=== PATIENT | male | born 1965 | race African-American/Black ===

== ENCOUNTER 2017-06-15 13:47 | Emergency (ER) | payer MEDICAID ==
[~2017-06-15] VITALS: Ht 182.9 cm; Wt 100.0 kg
[2017-06-15] MEDS ORDERED: OXYcodone/APAP 10/325MG TABLET ONE (14:29)
[2017-06-15] MEDS ORDERED: OXYcodone/APAP 10/325MG TABLET PO ONE (14:30)
[2017-06-15 14:47] LABS: BASOPHILS # (AUTO) 0.02 x10^3/uL (0-0.1); BASOPHILS % (AUTO) 0 % (0-1); EOSINOPHILS # (AUTO) 0.15 x10^3/uL (0-0.4); EOSINOPHILS % (AUTO) 1 % (1-7); LYMPHOCYTES # (AUTO) 1.28 x10^3/uL (1-3.4); LYMPHOCYTES % (AUTO) 13 % (22-44); MD NO; MEAN CORPUSCULAR VOLUME 84.9 fL (81-97); MEAN PLATELET VOLUME 8.5 fL (7.4-10.4); MONOCYTES # (AUTO) 0.81 x10^3/uL (0.2-0.8); MONOCYTES % (AUTO) 8 % (2-9); NEUTROPHILS # (AUTO) 7.98 x10^3/uL (1.8-6.8); NEUTROPHILS % (AUTO) 78 % (42-75); PLATELET COUNT 218 x10^3/uL (130-400); RED BLOOD COUNT 4.62 x10^6/uL (4.38-5.82)
[2017-06-15 14:59] LABS: ALANINE AMINOTRANSFERASE 16 U/L (12-78); ALBUMIN 2.7 g/dL (3.4-5.0); ANION GAP 10 mmol/L (5-15); CALCIUM 7.1 mg/dL (8.5-10.1); CHLORIDE 106 mmol/L (98-107); CREATININE 7.37 mg/dL (0.7-1.3)
[2017-06-15 15:02] LABS: ALKALINE PHOSPHATASE 80 U/L (45-117); BILIRUBIN,TOTAL 0.6 mg/dL (0.2-1.0); TOTAL PROTEIN 6.8 g/dL (6.4-8.2)
[2017-06-15 15:51] LABS: MICROSCOPIC MANUAL
[2017-06-15 15:53] LABS: CULTURE INDICATED? NO
[2017-06-15 18:02] VITALS: BP 149/86
== END 2017-06-15 18:12 | disposition home or self-care (01) ==
LOC: ED 18:00
DX: S10.93XA Contusion of unspecified part of neck, initial encounter (principal); S30.0XXA Contusion of lower back and pelvis, initial encounter; S20.229A Contusion of unspecified back wall of thorax, initial encounter; Z99.2 Dependence on renal dialysis; V89.2XXA Person injured in unspecified motor-vehicle accident, traffic, initial encounter; Y93.89 Activity, other specified; Y99.8 Other external cause status; Y92.410 Unspecified street and highway as the place of occurrence of the external cause
CPT/HCPCS: 36415; 71045; 72072; 72110; 72125; 80053; 83735; 84100; 85025; 93005; 99285

== ENCOUNTER 2017-06-15 20:53 | Emergency (ER) | payer MEDICAID ==
[~2017-06-15] VITALS: Ht 182.9 cm; Wt 92.2 kg
[2017-06-15] MEDS ORDERED: ALBUTEROL/IPRATROPIUM 2.5MG/0.5MG, 3 ML ONE (21:24)
[2017-06-15] MEDS ORDERED: ONDANSETRON ODT 4 MG ONE (21:26)
[2017-06-15] MEDS ORDERED: ACETAMINOPHEN 500 MG TABLET ONE (21:27)
[2017-06-15] MEDS ORDERED: MAALOX/HYOSCYAMINE/LIDOCAINE 45 ML BTL ONE (21:27)
[2017-06-15] MEDS ORDERED: ALBUTEROL/IPRATROPIUM 2.5MG/0.5MG, 3 ML NPPB ONE (21:30)
[2017-06-15] MEDS ORDERED: ONDANSETRON ODT 4 MG PO ONE (21:30)
[2017-06-15] MEDS ORDERED: MAALOX/HYOSCYAMINE/LIDOCAINE 45 ML BTL PO ONE (21:30)
[2017-06-15] MEDS ORDERED: ACETAMINOPHEN 325 MG TABLET PO ONE (21:30)
[2017-06-15 21:50] LABS: TROPONIN I 0.024 ng/mL (0.000-0.045)
[2017-06-15 22:34] VITALS: BP 143/91
== END 2017-06-15 22:38 | disposition home or self-care (01) ==
LOC: ED 21:18
DX: R07.81 Pleurodynia (principal); I10 Essential (primary) hypertension; F17.200 Nicotine dependence, unspecified, uncomplicated; R61 Generalized hyperhidrosis; R11.2 Nausea with vomiting, unspecified
CPT/HCPCS: 36415; 84484; 93005; 94640; 99285; Q0162; 99283; J7620

== ENCOUNTER 2017-07-25 10:12 | Emergency (ER) | payer MEDICAID ==
[~2017-07-25] VITALS: Ht 182.9 cm; Wt 125.0 kg
[~2017-07-25 10:12] MED LIST: ALBU18HF INH; AMLO5TAB2 PO; ASPI-621 PO; ATOR20TA9 PO; BENZ-17 PO; CALC0.25 PO; CLON0.1T PO; ERGO500017 PO; HYDR-3237 PO; HYDR-3343 PO; SERT50TA5 PO
[2017-07-25 10:33] LABS: BASOPHILS # (AUTO) 0.04 x10^3/uL (0-0.1); BASOPHILS % (AUTO) 1 % (0-1); EOSINOPHILS # (AUTO) 0.16 x10^3/uL (0-0.4); EOSINOPHILS % (AUTO) 2 % (1-7); LYMPHOCYTES % (AUTO) 16 % (22-44); MD NO; MEAN CORPUSCULAR HGB CONC 33.1 g/dL (33.2-36.2); MEAN CORPUSCULAR VOLUME 84.7 fL (81-97); MEAN PLATELET VOLUME 8.4 fL (7.4-10.4); MONOCYTES # (AUTO) 0.49 x10^3/uL (0.2-0.8); MONOCYTES % (AUTO) 7 % (2-9); NEUTROPHILS % (AUTO) 75 % (42-75); PLATELET COUNT 195 x10^3/uL (130-400); RED BLOOD COUNT 4.25 x10^6/uL (4.38-5.82); RED CELL DISTRIBUTION WIDTH 15.7 % (9.4-14.8)
[2017-07-25 10:45] LABS: ALANINE AMINOTRANSFERASE 25 U/L (12-78); ANION GAP 11 mmol/L (5-15); CALCIUM 7.8 mg/dL (8.5-10.1); CHLORIDE 113 mmol/L (98-107); CREATININE 8.97 mg/dL (0.7-1.3)
[2017-07-25 10:47] LABS: SALICYLATE LEVEL < 1.7 mg/dL (2.8-20.0)
[2017-07-25 10:48] LABS: ALKALINE PHOSPHATASE 93 U/L (45-117); BILIRUBIN,TOTAL 0.3 mg/dL (0.2-1.0); TOTAL PROTEIN 6.4 g/dL (6.4-8.2)
[2017-07-25 10:49] LABS: ACETAMINOPHEN < 2 mcg/mL (10-30)
[2017-07-25] MEDS ORDERED: AMLODIPINE 5 MG TABLET ONE ×2 (11:14→11:30)
[2017-07-25 11:16] VITALS: BP 159/102
[2017-07-25] MEDS ORDERED: AMLODIPINE 5 MG TABLET PO ONE (11:30)
== END 2017-07-25 12:07 | disposition home or self-care (01) ==
LOC: ED 11:03
DX: I12.0 Hypertensive chronic kidney disease with stage 5 chronic kidney disease or end stage renal disease (principal); N18.6 End stage renal disease; Z99.2 Dependence on renal dialysis; E78.5 Hyperlipidemia, unspecified; J45.909 Unspecified asthma, uncomplicated; F17.200 Nicotine dependence, unspecified, uncomplicated; Z79.899 Other long term (current) drug therapy
CPT/HCPCS: 36415; 80053; 80307; 80329; 83735; 84100; 85025; 99284; G0480

== ENCOUNTER 2017-12-10 16:50 | Inpatient (IN) | payer OTHER, MEDICAID ==
[~2017-12-10] VITALS: Ht 188 cm; Wt 85.2 kg
[~2017-12-10 16:50] MED LIST changes: -AMLO5TAB2 PO; +AMLO5TAB7 PO; +CALC667C PO; +FERR325T5 PO; +HYDR100T25 PO; +HYDR25SU3 PR; +SODI44SP NAS; +TORS20TA PO
[2017-12-10] MEDS ORDERED: MORPHINE SULFATE 4 MG/ML, 1ML ONE (17:11)
[2017-12-10] MEDS ORDERED: ONDANSETRON 2MG/ML, 2ML ONE (17:11)
[2017-12-10] MEDS ORDERED: ONDANSETRON 2MG/ML, 2ML IVPush ONE (17:30)
[2017-12-10] MEDS ORDERED: SODIUM CHLORIDE 0.9% 1,000ML IVBOLUS ONE (17:30)
[2017-12-10] MEDS ORDERED: MORPHINE SULFATE 4 MG/ML, 1ML IVPush PRN (17:30)
[2017-12-10] MEDS ORDERED: SODIUM CHLORIDE FLUSH 10ML SYR IVF ONE (17:30)
[2017-12-10 17:49] LABS: ALANINE AMINOTRANSFERASE 136 U/L (12-78); ALBUMIN 2.8 g/dL (3.4-5.0); ANION GAP 17 mmol/L (5-15); CHLORIDE 109 mmol/L (98-107)
[2017-12-10 17:51] LABS: ALKALINE PHOSPHATASE 230 U/L (45-117); BILIRUBIN,TOTAL 0.4 mg/dL (0.2-1.0); TOTAL PROTEIN 6.6 g/dL (6.4-8.2)
[2017-12-10 18:00] LABS: MD YES; MEAN CORPUSCULAR HEMOGLOBIN 29.2 pg (27.5-34.5); MEAN CORPUSCULAR HGB CONC 33.2 g/dL (33.2-36.2); MEAN PLATELET VOLUME 8.8 fL (7.4-10.4); PLATELET COUNT 195 x10^3/uL (130-400); RED BLOOD COUNT 3.17 x10^6/uL (4.38-5.82); RED CELL DISTRIBUTION WIDTH 15.9 % (9.4-14.8)
[2017-12-10 18:03] LABS: LYMPH#(MANUAL) 0.81 x10^3/uL (1-3.4); LYMPHS% (MANUAL) 13 % (22-44); MONOS#(MANUAL) 0.31 x10^3/uL (0.3-2.7); MONOS% (MANUAL) 5 % (2-9); SEG#(MANUAL) 5.08 x10^3/uL (1.8-6.8); SEGS% (MANUAL) 82 % (42-75)
[2017-12-10 18:04] LABS: ANISOCYTOSIS 1+; OVALOCYTES 1+; TEAR DROPS 1+
[2017-12-10 18:05] LABS: <PLATELET ESTIMATE> ADEQUATE; <PLT MORPHOLOGY> NORMAL PLT MORPH
[2017-12-10] MEDS ORDERED: SODIUM BICARB 8.4%, 50ML SYRINGE ONE (18:22)
[2017-12-10] MEDS ORDERED: CALCIUM CHLORIDE 10%, 10ML SYR ONE (18:22)
[2017-12-10] MEDS ORDERED: CALCIUM CHLORIDE 10%, 10ML SYR IVPush ONE (18:30)
[2017-12-10] MEDS ORDERED: SODIUM BICARB 8.4%, 50ML SYRINGE IVPush ONE (18:30)
[2017-12-10] MEDS ORDERED: LORazepam 2 MG/ML, 1ML ONE (19:21)
[2017-12-10] MEDS ORDERED: LORazepam 2 MG/ML, 1ML IVPush ONE (19:30)
[2017-12-10] MEDS ORDERED: ACETAMINOPHEN 325 MG TABLET PO PRN (20:00)
[2017-12-10] MEDS ORDERED: hydrALAzine 20 MG/ML, 1ML IVPush PRN (20:00)
[2017-12-10] MEDS ORDERED: POLYETHYLENE GLYCOL 17 GM PACKET PO PRN (20:00)
[2017-12-10] MEDS ORDERED: ONDANSETRON 2MG/ML, 2ML IVPush PRN (20:00)
[2017-12-10] MEDS ORDERED: SODIUM CHLORIDE 0.9% 1,000 ML IV SCH (20:00)
[2017-12-10] MEDS ORDERED: SODIUM CHLORIDE NASAL SPRAY 45ML BOTTLE NAS PRN (20:00)
[2017-12-10] MEDS ORDERED: CALCITRIOL 0.25 MCG CAPSULE PO SCH (20:00)
[2017-12-10] MEDS ORDERED: ONDANSETRON ODT 4 MG PO PRN (20:00)
[2017-12-10] MEDS ORDERED: ALBUTEROL SULFATE 2.5 MG/3 ML NPPB PRN (20:00)
[2017-12-10 20:26] LABS: TROPONIN I 0.104 ng/mL (0.000-0.045)
[2017-12-10 21:00] VITALS: BP 127/91
[2017-12-10] MEDS ORDERED: ARANESP 60 MCG/ML **ESRD SQ SCH (21:00)
[2017-12-10] MEDS: ATORVASTATIN 40 MG TABLET PO SCH (23:53)
[2017-12-10] MEDS: AMLODIPINE 5 MG TABLET PO SCH (23:53)
[2017-12-10] MEDS: LORazepam 2 MG/ML, 1ML IVPush PRN (23:54)
[2017-12-11 02:32] LABS: ALANINE AMINOTRANSFERASE 187 U/L (12-78); ALBUMIN 2.6 g/dL (3.4-5.0); ANION GAP 13 mmol/L (5-15); CALCIUM 7.5 mg/dL (8.5-10.1); CHLORIDE 107 mmol/L (98-107); CREATININE 8.12 mg/dL (0.7-1.3)
[2017-12-11 02:34] LABS: ALKALINE PHOSPHATASE 218 U/L (45-117); BILIRUBIN,TOTAL 0.5 mg/dL (0.2-1.0); TOTAL PROTEIN 5.9 g/dL (6.4-8.2)
[2017-12-11 02:34] LABS: BASOPHILS # (AUTO) 0.01 x10^3/uL (0-0.1); BASOPHILS % (AUTO) 0 % (0-1); EOSINOPHILS # (AUTO) 0.07 x10^3/uL (0-0.4); EOSINOPHILS % (AUTO) 1 % (1-7); LYMPHOCYTES % (AUTO) 15 % (22-44); MD NO; MEAN CORPUSCULAR HEMOGLOBIN 29.3 pg (27.5-34.5); MEAN CORPUSCULAR HGB CONC 33.1 g/dL (33.2-36.2); MEAN CORPUSCULAR VOLUME 88.5 fL (81-97); MEAN PLATELET VOLUME 8.7 fL (7.4-10.4); MONOCYTES # (AUTO) 0.75 x10^3/uL (0.2-0.8); MONOCYTES % (AUTO) 10 % (2-9); NEUTROPHILS # (AUTO) 5.35 x10^3/uL (1.8-6.8); NEUTROPHILS % (AUTO) 73 % (42-75); PLATELET COUNT 149 x10^3/uL (130-400); RED BLOOD COUNT 3.02 x10^6/uL (4.38-5.82); RED CELL DISTRIBUTION WIDTH 15.9 % (9.4-14.8)
[2017-12-11 02:40] LABS: TROPONIN I 0.133 ng/mL (0.000-0.045)
[2017-12-11 02:41] VITALS: BP 128/82
[2017-12-11 04:00] LABS: MICROSCOPIC AUTO
[2017-12-11 04:02] LABS: CULTURE INDICATED? YES
[2017-12-11 04:10] LABS: AMPHETAMINE SCREEN, URINE Positive (Negative); BARBITURATE SCREEN, URINE Positive (Negative); BENZODIAZEPINE SCREEN, URINE Negative (Negative); CANNABINOID SCREEN, URINE Negative (Negative); COCAINE SCREEN, URINE Negative (Negative); METHADONE SCREEN, URINE Negative (Negative); OPIATE SCREEN, URINE Negative (Negative)
[2017-12-11] MEDS: ASPIRIN 81 MG TABLET EC PO SCH (06:26)
[2017-12-11] MEDS: LORazepam 2 MG/ML, 1ML IVPush PRN ×2 (06:27→19:21)
[2017-12-11 07:13] VITALS: BP 125/69
[2017-12-11] MEDS ORDERED: FERROUS SULFATE 325 MG TABLET PO SCH (08:00)
[2017-12-11 09:10] LABS: TROPONIN I 0.229 ng/mL (0.000-0.045)
[2017-12-11] MEDS: CALCIUM ACETATE 667 MG CAPSULE PO SCH ×3 (09:24→16:41)
[2017-12-11] MEDS: AMLODIPINE 5 MG TABLET PO SCH ×2 (09:24→23:07)
[2017-12-11] MEDS: FERROUS SULFATE 325 MG TABLET PO SCH ×3 (09:24→16:41)
[2017-12-11] MEDS: SERTRALINE 50MG TABLET PO SCH (09:24)
[2017-12-11 09:34] LABS: ABSOLUTE RETICS # 0.099 x10^6/uL (0.5-1.5); RED BLOOD COUNT 3.23 x10^6/uL (4.38-5.82); RETICULOCYTE COUNT % 3.06 % (0.5-1.5)
[2017-12-11 09:44] LABS: CALCIUM 7.5 mg/dL (8.5-10.1)
[2017-12-11 14:15] VITALS: BP 135/85
[2017-12-11 19:32] VITALS: BP 137/86
[2017-12-11] MEDS ORDERED: ARANESP 60 MCG/ML **ESRD SQ SCH (20:28)
[2017-12-11 23:04] VITALS: BP 124/75
[2017-12-11] MEDS: ATORVASTATIN 40 MG TABLET PO SCH (23:07)
[2017-12-12 01:05] VITALS: BP 104/67
[2017-12-12 05:13] LABS: MEAN CORPUSCULAR HEMOGLOBIN 28.6 pg (27.5-34.5); MEAN CORPUSCULAR HGB CONC 32.6 g/dL (33.2-36.2); MEAN CORPUSCULAR VOLUME 87.6 fL (81-97); MEAN PLATELET VOLUME 8.5 fL (7.4-10.4); PLATELET COUNT 157 x10^3/uL (130-400); RED BLOOD COUNT 3.44 x10^6/uL (4.38-5.82); RED CELL DISTRIBUTION WIDTH 15.8 % (9.4-14.8)
[2017-12-12 05:25] LABS: ALBUMIN 2.2 g/dL (3.4-5.0); ANION GAP 9 mmol/L (5-15); CALCIUM 7.3 mg/dL (8.5-10.1); CHLORIDE 104 mmol/L (98-107); CREATININE 5.95 mg/dL (0.7-1.3)
[2017-12-12 06:01] LABS: BASOPHILS # (AUTO) 0.04 x10^3/uL (0-0.1); BASOPHILS % (AUTO) 1 % (0-1); EOSINOPHILS # (AUTO) 0.17 x10^3/uL (0-0.4); EOSINOPHILS % (AUTO) 3 % (1-7); LYMPHOCYTES # (AUTO) 0.77 x10^3/uL (1-3.4); LYMPHOCYTES % (AUTO) 12 % (22-44); MD SCAN; MONOCYTES # (AUTO) 0.65 x10^3/uL (0.2-0.8); MONOCYTES % (AUTO) 10 % (2-9); NEUTROPHILS # (AUTO) 4.65 x10^3/uL (1.8-6.8); NEUTROPHILS % (AUTO) 74 % (42-75)
[2017-12-12] MEDS: ASPIRIN 81 MG TABLET EC PO SCH (06:45)
[2017-12-12 07:38] VITALS: BP 137/79
[2017-12-12] MEDS: FERROUS SULFATE 325 MG TABLET PO SCH ×3 (08:00→17:00)
[2017-12-12] MEDS: CALCIUM ACETATE 667 MG CAPSULE PO SCH ×3 (08:00→17:00)
[2017-12-12] MEDS ORDERED: CALCITRIOL 0.25 MCG CAPSULE PO SCH (09:00)
[2017-12-12] MEDS: AMLODIPINE 5 MG TABLET PO SCH (09:00)
[2017-12-12] MEDS: SERTRALINE 50MG TABLET PO SCH (09:00)
[2017-12-12] MEDS ORDERED: SERTRALINE 100MG TABLET ONE (09:53)
[2017-12-12 14:12] VITALS: BP 118/73
[2017-12-12] MEDS ORDERED: DARB60VI SQ (16:50)
== END 2017-12-12 18:34 | disposition home or self-care (01) | DRG 438 ==
LOC: ED 18:52 → EDIP 19:21 → 5SO 20:44
PROVIDERS: ADMIT Hospitalist; ATTEND Hospitalist
PROC: 5A1D70Z Performance of Urinary Filtration, Intermittent, Less than 6 Hours Per Day (ICD-10-PCS; principal; 2017-12-10)
PROC: 5A1D70Z Performance of Urinary Filtration, Intermittent, Less than 6 Hours Per Day (ICD-10-PCS; 2017-12-11)
PROC: 5A1D70Z Performance of Urinary Filtration, Intermittent, Less than 6 Hours Per Day (ICD-10-PCS; 2017-12-12)
DX: K85.90 Acute pancreatitis without necrosis or infection, unspecified (principal); N18.6 End stage renal disease; E43 Unspecified severe protein-calorie malnutrition; G93.49 Other encephalopathy; N25.81 Secondary hyperparathyroidism of renal origin; I13.11 Hypertensive heart and chronic kidney disease without heart failure, with stage 5 chronic kidney disease, or end stage renal disease; E87.2 Acidosis; E87.5 Hyperkalemia; D63.1 Anemia in chronic kidney disease; E78.5 Hyperlipidemia, unspecified; E83.51 Hypocalcemia; F15.10 Other stimulant abuse, uncomplicated; N25.0 Renal osteodystrophy; Z99.2 Dependence on renal dialysis; Z91.15 Patient's noncompliance with renal dialysis; Z68.24 Body mass index [BMI] 24.0-24.9, adult
CPT/HCPCS: 36415; 71045; 74176; 80053; 80069; 80307; 81001; 82306; 82310; 82728; 83540; 83550; 83690; 83735; 83970; 84100; 84484; 85025; 85045; 86705; 86706; 86803; 86850; 86900; 87086; 87340; 87521; 93005; 93308; 96374; 96375; 99291; G0378; J0882; J2405; J2060; J7030

== ENCOUNTER 2018-01-06 11:23 | Observation (INO) | payer OTHER, MEDICAID ==
[~2018-01-06] VITALS: Ht 182.9 cm; Wt 74.3 kg
[~2018-01-06 11:23] MED LIST changes: +DARB60VI SQ
[2018-01-06 12:42] LABS: ALBUMIN 3.1 g/dL (3.4-5.0); ANION GAP 6 mmol/L (5-15); BASOPHILS # (AUTO) 0.04 x10^3/uL (0-0.1); BASOPHILS % (AUTO) 1 % (0-1); CALCIUM 8.3 mg/dL (8.5-10.1); CHLORIDE 100 mmol/L (98-107); CREATININE 6.86 mg/dL (0.7-1.3); EOSINOPHILS # (AUTO) 0.08 x10^3/uL (0-0.4); EOSINOPHILS % (AUTO) 2 % (1-7); LYMPHOCYTES # (AUTO) 1.37 x10^3/uL (1-3.4); LYMPHOCYTES % (AUTO) 31 % (22-44); MD NO; MEAN CORPUSCULAR HEMOGLOBIN 28.3 pg (27.5-34.5); MEAN CORPUSCULAR VOLUME 85.7 fL (81-97); MEAN PLATELET VOLUME 8.4 fL (7.4-10.4); MONOCYTES # (AUTO) 0.47 x10^3/uL (0.2-0.8); MONOCYTES % (AUTO) 11 % (2-9); NEUTROPHILS # (AUTO) 2.47 x10^3/uL (1.8-6.8); NEUTROPHILS % (AUTO) 56 % (42-75); PLATELET COUNT 156 x10^3/uL (130-400); RED BLOOD COUNT 3.93 x10^6/uL (4.38-5.82); RED CELL DISTRIBUTION WIDTH 14.1 % (9.4-14.8)
[2018-01-06 12:45] LABS: TROPONIN I < 0.015 ng/mL (0.000-0.045)
[2018-01-06] MEDS ORDERED: HEPARIN 5,000 UNITS/ML, 1ML ONE (14:56)
[2018-01-06] MEDS: HEPARIN 5,000 UNITS/ML, 1ML SQ SCH ×2 (15:02→23:10)
[2018-01-06 18:24] VITALS: BP 133/83
[2018-01-06 21:59] VITALS: BP 147/73
[2018-01-06] MEDS ORDERED: EPOETIN 40,000 UNITS/ML SQ ONE (22:00)
[2018-01-06 23:38] VITALS: BP 113/76
[2018-01-07 01:13] VITALS: BP 121/72
[2018-01-07] MEDS ORDERED: EPOE40002 IV (04:10)
[2018-01-07 04:35] LABS: BASOPHILS # (AUTO) 0.02 x10^3/uL (0-0.1); BASOPHILS % (AUTO) 0 % (0-1); EOSINOPHILS # (AUTO) 0.09 x10^3/uL (0-0.4); EOSINOPHILS % (AUTO) 2 % (1-7); LYMPHOCYTES # (AUTO) 1.51 x10^3/uL (1-3.4); LYMPHOCYTES % (AUTO) 33 % (22-44); MD NO; MEAN CORPUSCULAR HEMOGLOBIN 27.3 pg (27.5-34.5); MEAN CORPUSCULAR HGB CONC 31.5 g/dL (33.2-36.2); MEAN CORPUSCULAR VOLUME 86.8 fL (81-97); MEAN PLATELET VOLUME 8.4 fL (7.4-10.4); MONOCYTES # (AUTO) 0.53 x10^3/uL (0.2-0.8); MONOCYTES % (AUTO) 12 % (2-9); NEUTROPHILS % (AUTO) 53 % (42-75); PLATELET COUNT 164 x10^3/uL (130-400); RED BLOOD COUNT 4.01 x10^6/uL (4.38-5.82); RED CELL DISTRIBUTION WIDTH 14.5 % (9.4-14.8)
[2018-01-07 04:48] LABS: CHLORIDE 101 mmol/L (98-107)
[2018-01-07 04:53] LABS: ALANINE AMINOTRANSFERASE 19 U/L (12-78); ALBUMIN 3.1 g/dL (3.4-5.0); ALKALINE PHOSPHATASE 145 U/L (45-117); ANION GAP 5 mmol/L (5-15); BILIRUBIN,TOTAL 0.3 mg/dL (0.2-1.0); CREATININE 5.51 mg/dL (0.7-1.3); TOTAL PROTEIN 6.7 g/dL (6.4-8.2)
[2018-01-07] MEDS: HEPARIN 5,000 UNITS/ML, 1ML SQ SCH ×2 (06:14→14:30)
[2018-01-07 06:52] VITALS: BP 112/76
[2018-01-07] MEDS ORDERED: ARANESP 25 MCG/ML **ESRD SQ ONE (09:00)
== END 2018-01-07 15:48 | disposition home or self-care (01) ==
LOC: ED 12:17 → INTOOBSV 13:36 → EDIP 13:36 → 4WST 17:56
PROVIDERS: ADMIT Internal Medicine; ATTEND Internal Medicine
DX: I12.0 Hypertensive chronic kidney disease with stage 5 chronic kidney disease or end stage renal disease (principal); N18.6 End stage renal disease; D63.1 Anemia in chronic kidney disease; E78.5 Hyperlipidemia, unspecified; J45.909 Unspecified asthma, uncomplicated; N25.0 Renal osteodystrophy; F19.11 Other psychoactive substance abuse, in remission; Z87.891 Personal history of nicotine dependence; Z99.2 Dependence on renal dialysis
CPT/HCPCS: 36415; 71045; 80048; 80053; 82040; 83735; 83880; 84100; 84484; 85025; 90471; 90656; 93005; 96372; 99284; G0378; J0882; J1644

== ENCOUNTER 2018-05-21 03:41 | Emergency (ER) | payer MEDICAID ==
[~2018-05-21] VITALS: Ht 182.9 cm; Wt 83.1 kg
[~2018-05-21 03:41] MED LIST changes: +AMLO-150 PO; -AMLO5TAB7 PO; -ASPI-621 PO; +ASPI81TA45 PO; +ATOR20TA37 PO; -ATOR20TA9 PO; -CLON0.1T PO; +CLON0.1T22 PO; +EPOE40002 IV; +SERT50TA28 PO; -SERT50TA5 PO
--- NOTE | 2018-05-21 03:54 | NUR ---
EKG OBTAINED UPON ARRIVAL IN TRIAGE
[2018-05-21 04:23] LABS: BASOPHILS # (AUTO) 0.02 x10^3/uL (0-0.1); BASOPHILS % (AUTO) 0 % (0-1); EOSINOPHILS # (AUTO) 0.07 x10^3/uL (0-0.4); EOSINOPHILS % (AUTO) 2 % (1-7); LYMPHOCYTES # (AUTO) 1.05 x10^3/uL (1-3.4); LYMPHOCYTES % (AUTO) 26 % (22-44); MD NO; MEAN CORPUSCULAR HEMOGLOBIN 29.4 pg (27.5-34.5); MEAN CORPUSCULAR HGB CONC 33.9 g/dL (33.2-36.2); MEAN CORPUSCULAR VOLUME 86.6 fL (81-97); MEAN PLATELET VOLUME 7.6 fL (7.4-10.4); MONOCYTES # (AUTO) 0.44 x10^3/uL (0.2-0.8); MONOCYTES % (AUTO) 11 % (2-9); NEUTROPHILS # (AUTO) 2.48 x10^3/uL (1.8-6.8); NEUTROPHILS % (AUTO) 61 % (42-75); PLATELET COUNT 202 x10^3/uL (130-400); RED BLOOD COUNT 3.33 x10^6/uL (4.38-5.82); RED CELL DISTRIBUTION WIDTH 15.2 % (9.4-14.8)
[2018-05-21 04:34] LABS: INTERNATIONAL NORMALIZED RATIO 1.07 (0.93-1.1); PROTHROMBIN TIME 11.2 Seconds (9.6-11.5)
[2018-05-21 04:36] LABS: ALANINE AMINOTRANSFERASE 41 U/L (12-78); ALBUMIN 3.1 g/dL (3.4-5.0); ANION GAP 8 mmol/L (5-15); CALCIUM 6.6 mg/dL (8.5-10.1); CHLORIDE 106 mmol/L (98-107); CREATININE 9.35 mg/dL (0.7-1.3)
[2018-05-21 04:40] LABS: ALKALINE PHOSPHATASE 182 U/L (45-117); BILIRUBIN,TOTAL 0.3 mg/dL (0.2-1.0); TOTAL PROTEIN 6.4 g/dL (6.4-8.2); TROPONIN I 0.095 ng/mL (0.000-0.045)
--- NOTE | 2018-05-21 05:16 | NUR ---
PT D/C WITH D/C SUMMARY. ALL QUESTIONS ANSWERED. PT DENIES ANY OTHER NEEDS PERTAINING TO THIS VISIT. PT VSS UPON D/C. PT AMBULATES WITH STEADY GAIT TO REGISTRATION DESK FOR D/C HOME.
[2018-05-21 05:18] VITALS: BP 158/92
== END 2018-05-21 05:21 | disposition home or self-care (01) ==
LOC: ED 05:10
DX: R07.89 Other chest pain (principal); E78.5 Hyperlipidemia, unspecified; I12.0 Hypertensive chronic kidney disease with stage 5 chronic kidney disease or end stage renal disease; N18.6 End stage renal disease; N17.9 Acute kidney failure, unspecified; N28.9 Disorder of kidney and ureter, unspecified; Z99.2 Dependence on renal dialysis
CPT/HCPCS: 36415; 71045; 80053; 84484; 85025; 85610; 85730; 93005; 99284

== ENCOUNTER 2018-06-17 10:42 | Inpatient (IN) | payer SELFPAY ==
[~2018-06-17] VITALS: Ht 182.9 cm; Wt 79.8 kg
--- NOTE | 2018-06-17 11:11 | NUR ---
received report from Nicole GONZALEZ. pt AKIRA c/o "[place], no dialysis in days", AOx2 (self, place), mostly cooperative & moderately agitated requiring redirection; hx ESRD with dialysis/AVF; no interventions PAROLE OR PROBATION OFFICER per EMS; pt changed into gown, responds to staff questions, NAD, comfort measures provided, call light within reach.
[2018-06-17 11:24] LABS: MEAN CORPUSCULAR HEMOGLOBIN 28.7 pg (27.5-34.5); MEAN CORPUSCULAR HGB CONC 33.4 g/dL (33.2-36.2); MEAN CORPUSCULAR VOLUME 86.1 fL (81-97); PLATELET COUNT 167 x10^3/uL (130-400); RED CELL DISTRIBUTION WIDTH 14.5 % (9.4-14.8)
[2018-06-17 11:31] LABS: CHLORIDE 113 mmol/L (98-107)
[2018-06-17 11:49] LABS: ALANINE AMINOTRANSFERASE 55 U/L (12-78); ALKALINE PHOSPHATASE 215 U/L (45-117); ANION GAP 16 mmol/L (5-15); BILIRUBIN,TOTAL 0.2 mg/dL (0.2-1.0); TOTAL PROTEIN 5.9 g/dL (6.4-8.2)
[2018-06-17 11:59] LABS: ACETAMINOPHEN < 2 mcg/mL (10-30); SALICYLATE LEVEL < 1.7 mg/dL (2.8-20.0)
[2018-06-17 12:01] LABS: BASOPHILS # (AUTO) 0.02 x10^3/uL (0-0.1); BASOPHILS % (AUTO) 0 % (0-1); CALCIUM 5.6 mg/dL (8.5-10.1); EOSINOPHILS # (AUTO) 0.07 x10^3/uL (0-0.4); EOSINOPHILS % (AUTO) 2 % (1-7); LYMPHOCYTES # (AUTO) 0.91 x10^3/uL (1-3.4); LYMPHOCYTES % (AUTO) 19 % (22-44); MD SCAN; MONOCYTES # (AUTO) 0.47 x10^3/uL (0.2-0.8); MONOCYTES % (AUTO) 10 % (2-9); NEUTROPHILS # (AUTO) 3.43 x10^3/uL (1.8-6.8); NEUTROPHILS % (AUTO) 70 % (42-75)
[2018-06-17 12:05] LABS: MICROSCOPIC AUTO
[2018-06-17 12:06] LABS: CULTURE INDICATED? NO
[2018-06-17 12:13] LABS: BARBITURATE SCREEN, URINE Negative (Negative); BENZODIAZEPINE SCREEN, URINE Negative (Negative); CANNABINOID SCREEN, URINE Negative (Negative); COCAINE SCREEN, URINE Negative (Negative); METHADONE SCREEN, URINE Negative (Negative); OPIATE SCREEN, URINE Negative (Negative)
[2018-06-17 12:15] LABS: AMPHETAMINE SCREEN, URINE Positive (Negative)
--- NOTE | 2018-06-17 12:28 | NUR ---
VSS. Voided 200mL clear yellow urine. Patient anxious, but verbally de-escalated. No other needs.
[2018-06-17] MEDS ORDERED: CALCIUM GLUCONATE 0.46MEQ/1ML IVPush ONE (12:30)
[2018-06-17] MEDS ORDERED: CALCIUM GLUCONATE 4.6 MEQ/10 ML ONE (12:55)
--- NOTE | 2018-06-17 13:05 | NUR ---
pt sitting up on gurney awake & calm, mostly cooperative requiring mod redirection, responds to staff questions, NAD, comfort measures provided, call light within reach.
--- NOTE | 2018-06-17 13:32 | NUR ---
REPORT GIVEN TO JERMAINE GONZALEZ
[2018-06-17] MEDS: HEPARIN 5,000 UNITS/ML, 1ML SQ SCH ×2 (14:00→22:00)
[2018-06-17] MEDS: FERROUS SULFATE 325 MG TABLET PO SCH ×2 (14:00→19:31)
[2018-06-17] MEDS: NICOTINE 14MG/24 HR PATCH.TD24 TD SCH (14:00)
[2018-06-17] MEDS: CALCIUM ACETATE 667 MG CAPSULE PO SCH ×2 (14:00→19:31)
[2018-06-17] MEDS ORDERED: hydrALAzine 20 MG/ML, 1ML IVPush PRN (14:00)
[2018-06-17] MEDS ORDERED: NICOTINE 14MG/24 HR PATCH.TD24 TD SCH (14:00)
[2018-06-17] MEDS ORDERED: ONDANSETRON 2MG/ML, 2ML IVPush PRN (14:00)
[2018-06-17] MEDS ORDERED: ERGOCALCIFEROL 50,000 UNIT CAPSULE PO SCH (14:00)
[2018-06-17] MEDS ORDERED: ACETAMINOPHEN 325 MG TABLET PO PRN (14:00)
[2018-06-17 19:54] VITALS: BP 157/87
[2018-06-17] MEDS: AMLODIPINE 5 MG TABLET PO SCH (19:55)
[2018-06-18 00:42] VITALS: BP 140/71
[2018-06-18] MEDS: HEPARIN 5,000 UNITS/ML, 1ML SQ SCH ×3 (05:52→20:37)
[2018-06-18] MEDS: AMLODIPINE 5 MG TABLET PO SCH ×2 (08:11→20:36)
[2018-06-18] MEDS: CALCIUM ACETATE 667 MG CAPSULE PO SCH ×3 (08:11→17:53)
[2018-06-18] MEDS: FERROUS SULFATE 325 MG TABLET PO SCH ×3 (08:11→17:53)
[2018-06-18] MEDS: CALCITRIOL 0.25 MCG CAPSULE PO SCH (08:11)
[2018-06-18 08:34] VITALS: BP 150/84
[2018-06-18 09:48] LABS: ALBUMIN 2.7 g/dL (3.4-5.0); ANION GAP 8 mmol/L (5-15); CALCIUM 6.4 mg/dL (8.5-10.1); CHLORIDE 108 mmol/L (98-107)
[2018-06-18 09:50] LABS: MEAN CORPUSCULAR HGB CONC 32.8 g/dL (33.2-36.2); MEAN CORPUSCULAR VOLUME 85.3 fL (81-97); MEAN PLATELET VOLUME 8.8 fL (7.4-10.4); PLATELET COUNT 170 x10^3/uL (130-400); RED BLOOD COUNT 3.54 x10^6/uL (4.38-5.82); RED CELL DISTRIBUTION WIDTH 13.7 % (9.4-14.8)
[2018-06-18 09:52] LABS: ALANINE AMINOTRANSFERASE 51 U/L (12-78); ALKALINE PHOSPHATASE 149 U/L (45-117); BILIRUBIN,TOTAL 0.5 mg/dL (0.2-1.0); TOTAL PROTEIN 5.7 g/dL (6.4-8.2)
[2018-06-18 10:19] LABS: BASOPHILS # (AUTO) 0.02 x10^3/uL (0-0.1); BASOPHILS % (AUTO) 1 % (0-1); EOSINOPHILS % (AUTO) 3 % (1-7); LYMPHOCYTES % (AUTO) 18 % (22-44); MD SCAN; MONOCYTES # (AUTO) 0.36 x10^3/uL (0.2-0.8); MONOCYTES % (AUTO) 9 % (2-9); NEUTROPHILS # (AUTO) 2.74 x10^3/uL (1.8-6.8); NEUTROPHILS % (AUTO) 70 % (42-75)
[2018-06-18 13:27] VITALS: BP 158/82
[2018-06-18] MEDS: NICOTINE 14MG/24 HR PATCH.TD24 TD SCH (14:00)
[2018-06-18 19:43] VITALS: BP 151/78
[2018-06-19 01:42] VITALS: BP 142/85
[2018-06-19] MEDS: HEPARIN 5,000 UNITS/ML, 1ML SQ SCH ×2 (05:37→13:00)
[2018-06-19] MEDS: CALCIUM ACETATE 667 MG CAPSULE PO SCH ×2 (08:30→12:27)
[2018-06-19] MEDS: FERROUS SULFATE 325 MG TABLET PO SCH ×2 (08:30→12:27)
[2018-06-19 10:23] LABS: ALBUMIN 2.6 g/dL (3.4-5.0); ANION GAP 6 mmol/L (5-15); CALCIUM 7.1 mg/dL (8.5-10.1); CHLORIDE 105 mmol/L (98-107); CREATININE 5.76 mg/dL (0.7-1.3)
[2018-06-19] MEDS ORDERED: NICO-486 TD (11:52)
[2018-06-19] MEDS ORDERED: SIMV20TA PO (12:17)
[2018-06-19] MEDS: AMLODIPINE 5 MG TABLET PO SCH (12:26)
[2018-06-19] MEDS: CALCITRIOL 0.25 MCG CAPSULE PO SCH (12:27)
== END 2018-06-19 15:18 | disposition home or self-care (01) | DRG 640 ==
LOC: EDBD 10:42 → ED 11:59 → MERGE 11:59 → EDIP 12:28 → 4WST 13:34
PROVIDERS: ADMIT Internal Medicine; ATTEND Internal Medicine
PROC: 5A1D70Z Performance of Urinary Filtration, Intermittent, Less than 6 Hours Per Day (ICD-10-PCS; principal; 2018-06-16)
PROC: 5A1D70Z Performance of Urinary Filtration, Intermittent, Less than 6 Hours Per Day (ICD-10-PCS; 2018-06-17)
PROC: 5A1D70Z Performance of Urinary Filtration, Intermittent, Less than 6 Hours Per Day (ICD-10-PCS; 2018-06-18)
DX: E87.5 Hyperkalemia (principal); G92 Toxic encephalopathy; N18.6 End stage renal disease; I13.11 Hypertensive heart and chronic kidney disease without heart failure, with stage 5 chronic kidney disease, or end stage renal disease; E87.2 Acidosis; D63.1 Anemia in chronic kidney disease; E55.9 Vitamin D deficiency, unspecified; E78.5 Hyperlipidemia, unspecified; E83.51 Hypocalcemia; F15.10 Other stimulant abuse, uncomplicated; G90.8 Other disorders of autonomic nervous system; I27.20 Pulmonary hypertension, unspecified; N25.0 Renal osteodystrophy; Z87.891 Personal history of nicotine dependence; Z91.15 Patient's noncompliance with renal dialysis; Z91.19 Patient's noncompliance with other medical treatment and regimen; Z99.2 Dependence on renal dialysis
CPT/HCPCS: 36415; 70450; 71045; 80053; 80069; 80307; 80329; 81001; 82330; 83735; 84100; 84443; 85025; 87040; 93005; 93880; G0378; J0610; J1644; G0480

== ENCOUNTER 2018-08-04 14:32 | Emergency (ER) | payer OTHER ==
[~2018-08-04] VITALS: Ht 172.7 cm; Wt 86.4 kg
[~2018-08-04 14:32] MED LIST changes: +NICO-486 TD; +SIMV20TA PO
--- NOTE | 2018-08-04 14:39 | NUR ---
BIB [facility] AFTER PT WAS GETTING DIALYSIS AND FELT A POP AND NOW HAS PAIN TO L SIDE NECK. PT HAD SIMILAR ISSUE IN THE PAST THAT REQUIRED A STENT. NOW HAS NEW THRILL FEELING TO THE FRONT OF PT NECK. PT RESTING ON GURNEY. NADN. SECURITY OFFICERS X 2 AT BEDSIDE. MONITORS APPLIED.
[2018-08-04 16:03] VITALS: BP 145/93
--- NOTE | 2018-08-04 16:06 | NUR ---
NOTIFIED PT OF POC. PT TO BE DISCHARGED. RESTING IN BED. NADN. VSS. CALL LIGHT IN REACH.
== END 2018-08-04 16:35 | disposition home or self-care (01) ==
LOC: ED 14:56
DX: M25.512 Pain in left shoulder (principal); E78.5 Hyperlipidemia, unspecified; J45.909 Unspecified asthma, uncomplicated; I12.0 Hypertensive chronic kidney disease with stage 5 chronic kidney disease or end stage renal disease; N18.6 End stage renal disease; Z99.2 Dependence on renal dialysis
CPT/HCPCS: 93990; 99284

== ENCOUNTER 2018-09-04 15:30 | Inpatient (IN) | payer MEDICAID, OTHER ==
[~2018-09-04] VITALS: Ht 182.9 cm; Wt 106.2 kg
--- NOTE | 2018-09-04 16:11 | NUR ---
ERECTOR OPERATOR: PT TO ROOM FROM CANDIDO LIZARRAGA
[2018-09-04 16:13] LABS: BASOPHILS # (AUTO) 0.02 x10^3/uL (0-0.1); BASOPHILS % (AUTO) 1 % (0-1); EOSINOPHILS # (AUTO) 0.12 x10^3/uL (0-0.4); EOSINOPHILS % (AUTO) 3 % (1-7); LYMPHOCYTES # (AUTO) 0.77 x10^3/uL (1-3.4); LYMPHOCYTES % (AUTO) 18 % (22-44); MD NO; MEAN CORPUSCULAR HEMOGLOBIN 28.1 pg (27.5-34.5); MEAN CORPUSCULAR HGB CONC 32.3 g/dL (33.2-36.2); MEAN CORPUSCULAR VOLUME 86.8 fL (81-97); MEAN PLATELET VOLUME 8.3 fL (7.4-10.4); MONOCYTES # (AUTO) 0.38 x10^3/uL (0.2-0.8); MONOCYTES % (AUTO) 9 % (2-9); NEUTROPHILS # (AUTO) 2.99 x10^3/uL (1.8-6.8); NEUTROPHILS % (AUTO) 70 % (42-75); PLATELET COUNT 174 x10^3/uL (130-400); RED BLOOD COUNT 4.63 x10^6/uL (4.38-5.82); RED CELL DISTRIBUTION WIDTH 14.4 % (9.4-14.8)
[2018-09-04 16:22] LABS: ALBUMIN 3.5 g/dL (3.4-5.0); ANION GAP 19 mmol/L (5-15); CALCIUM 6.3 mg/dL (8.5-10.1); CHLORIDE 107 mmol/L (98-107)
[2018-09-04 16:26] LABS: TROPONIN I 0.018 ng/mL (0.000-0.045)
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
--- NOTE | 2018-09-04 17:53 | NUR ---
late entry for 1729: RECEIVING LU GONZALEZ CALLED FOR REPORT. ASKED TO CALL HER BACK. Addendum: 09/04/18 at 8514 by PHOEBE BREAK LISA
--- NOTE | 2018-09-04 17:54 | NUR ---
BREAK RN: LATE ENTRY FOR 1739: BEDSIDE REPORT TO BRO RN AND JORDON RN. RELAYED THAT REPORT STILL NEEDS TO BE CALLED TO RECEIVING RN.
--- NOTE | 2018-09-04 17:56 | NUR ---
Received report; assumed patient care; aware that patient is ready for admit but patient needs IV access; asked tech to bedside to start IV prior to tx.
[2018-09-04] MEDS ORDERED: hydrALAzine 20 MG/ML, 1ML IVPush PRN (18:00)
[2018-09-04] MEDS ORDERED: CALCIUM GLUCONATE 4.6 MEQ/10 ML IVPush ONE (18:00)
[2018-09-04] MEDS ORDERED: ONDANSETRON 2MG/ML, 2ML IVPush PRN (18:00)
[2018-09-04] MEDS ORDERED: NITROGLYCERIN 0.4 MG/SPRAY SL PRN (18:00)
[2018-09-04] MEDS ORDERED: GABAPENTIN 300 MG CAPSULE PO PRN (18:00)
[2018-09-04] MEDS ORDERED: GLUCAGON 1 MG IM PRN (18:00)
[2018-09-04] MEDS ORDERED: NITROGLYCERIN 0.4 MG BOTTLE (25 TABS) SL PRN (18:00)
[2018-09-04] MEDS ORDERED: DEXTROSE 4 GM TAB.CHEW PO PRN (18:00)
[2018-09-04] MEDS ORDERED: DEXTROSE 50%, 50ML SYRINGE IVPush PRN (18:00)
--- NOTE | 2018-09-04 18:07 | NUR ---
Report given to Nino on telemetry; covered pmh and reason for admit (missed dialysis appointment) will transfer once PIV is established.
[2018-09-04 19:16] VITALS: BP 137/76
[2018-09-04] MEDS ORDERED: CALCIUM GLUCONATE 4.6 MEQ in SODIUM CHLORIDE 0.9% 50 ML IV ONE (19:30)
[2018-09-04] MEDS: SIMVASTATIN 20 MG TABLET PO SCH (19:53)
[2018-09-04] MEDS: ERGOCALCIFEROL 50,000 UNIT CAPSULE PO SCH (19:53)
[2018-09-04] MEDS: AMLODIPINE 5 MG TABLET PO SCH (19:54)
[2018-09-04] MEDS: SODIUM CHLORIDE FLUSH 10ML SYR IVF SCH (19:55)
[2018-09-04 23:48] LABS: TROPONIN I 0.021 ng/mL (0.000-0.045)
[2018-09-05 01:48] VITALS: BP 143/78
[2018-09-05 05:48] LABS: BASOPHILS # (AUTO) 0.02 x10^3/uL (0-0.1); BASOPHILS % (AUTO) 0 % (0-1); EOSINOPHILS # (AUTO) 0.12 x10^3/uL (0-0.4); EOSINOPHILS % (AUTO) 3 % (1-7); LYMPHOCYTES # (AUTO) 1.19 x10^3/uL (1-3.4); LYMPHOCYTES % (AUTO) 27 % (22-44); MD NO; MEAN CORPUSCULAR HEMOGLOBIN 28.6 pg (27.5-34.5); MEAN CORPUSCULAR HGB CONC 32.2 g/dL (33.2-36.2); MEAN CORPUSCULAR VOLUME 88.8 fL (81-97); MEAN PLATELET VOLUME 8.5 fL (7.4-10.4); MONOCYTES # (AUTO) 0.46 x10^3/uL (0.2-0.8); MONOCYTES % (AUTO) 10 % (2-9); NEUTROPHILS # (AUTO) 2.59 x10^3/uL (1.8-6.8); NEUTROPHILS % (AUTO) 59 % (42-75); PLATELET COUNT 156 x10^3/uL (130-400); RED BLOOD COUNT 4.24 x10^6/uL (4.38-5.82); RED CELL DISTRIBUTION WIDTH 14.1 % (9.4-14.8)
[2018-09-05 06:00] LABS: ANION GAP 18 mmol/L (5-15); CHLORIDE 108 mmol/L (98-107)
[2018-09-05 06:04] LABS: TROPONIN I 0.016 ng/mL (0.000-0.045)
[2018-09-05 07:15] VITALS: BP 149/80
[2018-09-05] MEDS: FERROUS SULFATE 325 MG TABLET PO SCH ×3 (07:25→16:51)
[2018-09-05] MEDS: SODIUM CHLORIDE FLUSH 10ML SYR IVF SCH ×2 (07:25→21:16)
[2018-09-05] MEDS: CALCIUM ACETATE 667 MG CAPSULE PO SCH ×3 (07:25→16:51)
[2018-09-05] MEDS: CALCITRIOL 0.25 MCG CAPSULE PO SCH (07:25)
[2018-09-05] MEDS: AMLODIPINE 5 MG TABLET PO SCH ×2 (13:01→21:16)
[2018-09-05 13:20] VITALS: BP 155/86
[2018-09-05 18:49] VITALS: BP 142/80
[2018-09-05] MEDS: SIMVASTATIN 20 MG TABLET PO SCH (21:16)
[2018-09-06 01:07] VITALS: BP 143/77
[2018-09-06 07:18] VITALS: BP 143/82
[2018-09-06] MEDS: CALCIUM ACETATE 667 MG CAPSULE PO SCH ×3 (09:16→17:32)
[2018-09-06] MEDS: FERROUS SULFATE 325 MG TABLET PO SCH ×3 (09:19→17:32)
[2018-09-06] MEDS: AMLODIPINE 5 MG TABLET PO SCH ×2 (12:27→20:53)
[2018-09-06] MEDS: CALCITRIOL 0.25 MCG CAPSULE PO SCH (12:27)
[2018-09-06] MEDS: SODIUM CHLORIDE FLUSH 10ML SYR IVF SCH ×2 (12:33→20:53)
[2018-09-06 12:37] VITALS: BP 148/93
[2018-09-06 19:03] VITALS: BP 156/86
[2018-09-06] MEDS: SIMVASTATIN 20 MG TABLET PO SCH (20:53)
[2018-09-07 00:45] VITALS: BP 155/85
[2018-09-07 06:28] LABS: ALBUMIN 2.9 g/dL (3.4-5.0); ANION GAP 6 mmol/L (5-15); CALCIUM 7.9 mg/dL (8.5-10.1); CHLORIDE 105 mmol/L (98-107)
[2018-09-07 06:32] LABS: ALANINE AMINOTRANSFERASE 21 U/L (12-78); ALKALINE PHOSPHATASE 101 U/L (45-117); BILIRUBIN,TOTAL 0.4 mg/dL (0.2-1.0); TOTAL PROTEIN 6.6 g/dL (6.4-8.2)
[2018-09-07 09:40] VITALS: BP 144/73
[2018-09-07] MEDS: AMLODIPINE 5 MG TABLET PO SCH ×2 (09:41→19:46)
[2018-09-07] MEDS: CALCITRIOL 0.25 MCG CAPSULE PO SCH (09:41)
[2018-09-07] MEDS: SODIUM CHLORIDE FLUSH 10ML SYR IVF SCH ×2 (09:42→19:46)
[2018-09-07] MEDS: CALCIUM ACETATE 667 MG CAPSULE PO SCH ×3 (09:42→17:19)
[2018-09-07] MEDS: FERROUS SULFATE 325 MG TABLET PO SCH ×3 (09:42→17:19)
[2018-09-07 15:09] VITALS: BP 165/86
[2018-09-07 19:45] VITALS: BP 163/85
[2018-09-07] MEDS: SIMVASTATIN 20 MG TABLET PO SCH (19:46)
[2018-09-08 00:44] VITALS: BP 158/90
[2018-09-08] MEDS: SODIUM CHLORIDE FLUSH 10ML SYR IVF SCH ×2 (08:09→20:19)
[2018-09-08] MEDS: CALCITRIOL 0.25 MCG CAPSULE PO SCH (08:09)
[2018-09-08] MEDS: CALCIUM ACETATE 667 MG CAPSULE PO SCH ×3 (08:09→17:57)
[2018-09-08] MEDS: AMLODIPINE 5 MG TABLET PO SCH ×2 (08:09→20:19)
[2018-09-08] MEDS: FERROUS SULFATE 325 MG TABLET PO SCH ×3 (08:09→17:57)
[2018-09-08 08:12] VITALS: BP 156/89
[2018-09-08 15:44] VITALS: BP 159/84
[2018-09-08 16:40] LABS: ALBUMIN 3.3 g/dL (3.4-5.0); BILIRUBIN, DIRECT 0.1 mg/dL (0.1-0.2)
[2018-09-08 16:42] LABS: BILIRUBIN,INDIRECT 0.2 mg/dL (0.0-2.0); BILIRUBIN,TOTAL 0.3 mg/dL (0.2-1.0); TOTAL PROTEIN 6.7 g/dL (6.4-8.2)
[2018-09-08 18:50] VITALS: BP 143/88
[2018-09-08] MEDS: ACETAMINOPHEN 325 MG TABLET PO PRN (19:21)
[2018-09-08] MEDS: SIMVASTATIN 20 MG TABLET PO SCH (20:18)
[2018-09-09 00:42] VITALS: BP 148/93
[2018-09-09 07:24] VITALS: BP 146/79
[2018-09-09] MEDS: CALCIUM ACETATE 667 MG CAPSULE PO SCH ×3 (08:54→16:57)
[2018-09-09] MEDS: AMLODIPINE 5 MG TABLET PO SCH ×2 (08:55→20:30)
[2018-09-09] MEDS: CALCITRIOL 0.25 MCG CAPSULE PO SCH (08:56)
[2018-09-09] MEDS: SODIUM CHLORIDE FLUSH 10ML SYR IVF SCH ×2 (08:57→20:30)
[2018-09-09] MEDS: FERROUS SULFATE 325 MG TABLET PO SCH ×3 (08:57→16:57)
[2018-09-09 14:19] VITALS: BP 157/92
[2018-09-09] MEDS: CHLORTHALIDONE 25 MG TABLET PO SCH (15:34)
[2018-09-09 20:28] VITALS: BP 160/90
[2018-09-09] MEDS: SIMVASTATIN 20 MG TABLET PO SCH (20:30)
[2018-09-09 23:03] VITALS: BP 148/93
[2018-09-10 01:46] VITALS: BP 140/73
[2018-09-10 04:48] LABS: BASOPHILS # (AUTO) 0.01 x10^3/uL (0-0.1); BASOPHILS % (AUTO) 0 % (0-1); EOSINOPHILS % (AUTO) 2 % (1-7); LYMPHOCYTES # (AUTO) 1.28 x10^3/uL (1-3.4); LYMPHOCYTES % (AUTO) 25 % (22-44); MD NO; MEAN CORPUSCULAR HEMOGLOBIN 28.3 pg (27.5-34.5); MEAN CORPUSCULAR HGB CONC 32.3 g/dL (33.2-36.2); MEAN CORPUSCULAR VOLUME 87.7 fL (81-97); MEAN PLATELET VOLUME 9.2 fL (7.4-10.4); MONOCYTES # (AUTO) 0.37 x10^3/uL (0.2-0.8); MONOCYTES % (AUTO) 7 % (2-9); NEUTROPHILS # (AUTO) 3.34 x10^3/uL (1.8-6.8); NEUTROPHILS % (AUTO) 65 % (42-75); PLATELET COUNT 130 x10^3/uL (130-400); RED BLOOD COUNT 4.03 x10^6/uL (4.38-5.82); RED CELL DISTRIBUTION WIDTH 13.9 % (9.4-14.8)
[2018-09-10 04:51] LABS: ALBUMIN 3.2 g/dL (3.4-5.0); ANION GAP 12 mmol/L (5-15); CALCIUM 8.6 mg/dL (8.5-10.1); CHLORIDE 102 mmol/L (98-107)
[2018-09-10 06:50] VITALS: BP 138/78
[2018-09-10] MEDS: CALCITRIOL 0.25 MCG CAPSULE PO SCH (08:52)
[2018-09-10] MEDS: AMLODIPINE 5 MG TABLET PO SCH ×2 (08:52→20:07)
[2018-09-10] MEDS: FERROUS SULFATE 325 MG TABLET PO SCH ×3 (08:52→17:03)
[2018-09-10] MEDS: CHLORTHALIDONE 25 MG TABLET PO SCH (08:52)
[2018-09-10] MEDS: CALCIUM ACETATE 667 MG CAPSULE PO SCH ×3 (08:53→17:03)
[2018-09-10] MEDS: SODIUM CHLORIDE FLUSH 10ML SYR IVF SCH ×2 (08:53→20:08)
[2018-09-10 12:32] VITALS: BP 143/85
[2018-09-10 18:57] VITALS: BP 159/99
[2018-09-10] MEDS: ACETAMINOPHEN 325 MG TABLET PO PRN (20:07)
[2018-09-10] MEDS: SIMVASTATIN 20 MG TABLET PO SCH (20:07)
[2018-09-11 03:05] VITALS: BP 147/83
[2018-09-11 06:45] VITALS: BP 148/81
[2018-09-11] MEDS: CALCITRIOL 0.25 MCG CAPSULE PO SCH (07:29)
[2018-09-11] MEDS: CALCIUM ACETATE 667 MG CAPSULE PO SCH ×3 (07:29→17:18)
[2018-09-11] MEDS: FERROUS SULFATE 325 MG TABLET PO SCH ×3 (07:29→17:18)
[2018-09-11] MEDS: SODIUM CHLORIDE FLUSH 10ML SYR IVF SCH ×2 (09:00→20:02)
[2018-09-11] MEDS: CHLORTHALIDONE 25 MG TABLET PO SCH (11:25)
[2018-09-11] MEDS: AMLODIPINE 5 MG TABLET PO SCH ×2 (11:25→20:02)
[2018-09-11 12:20] VITALS: BP 151/83
[2018-09-11 13:29] VITALS: BP 151/78
[2018-09-11] MEDS: ACETAMINOPHEN 325 MG TABLET PO PRN (13:29)
[2018-09-11] MEDS: ERGOCALCIFEROL 50,000 UNIT CAPSULE PO SCH (17:17)
[2018-09-11 19:58] VITALS: BP 142/86
[2018-09-11] MEDS: GABAPENTIN 100 MG CAPSULE PO PRN (20:01)
[2018-09-11] MEDS: SIMVASTATIN 20 MG TABLET PO SCH (20:02)
[2018-09-12 02:00] VITALS: BP 136/81
[2018-09-12 05:09] LABS: ANION GAP 10 mmol/L (5-15); CALCIUM 8.6 mg/dL (8.5-10.1); CHLORIDE 101 mmol/L (98-107)
[2018-09-12 06:35] VITALS: BP 133/79
[2018-09-12] MEDS ORDERED: ACETAMINOPHEN 325 MG TABLET PO PRN (08:00)
[2018-09-12] MEDS: ISOSORBIDE DINITRATE 10 MG TABLET PO SCH ×3 (08:12→20:15)
[2018-09-12] MEDS: CALCIUM ACETATE 667 MG CAPSULE PO SCH ×3 (08:12→20:13)
[2018-09-12] MEDS: HEPARIN 5,000 UNITS/ML, 1ML SQ SCH ×2 (08:13→16:00)
[2018-09-12] MEDS: CALCITRIOL 0.25 MCG CAPSULE PO SCH (08:13)
[2018-09-12] MEDS: SODIUM CHLORIDE FLUSH 10ML SYR IVF SCH ×2 (08:14→20:16)
[2018-09-12] MEDS: GABAPENTIN 100 MG CAPSULE PO PRN ×2 (08:20→19:14)
[2018-09-12 14:00] VITALS: BP 121/79
[2018-09-12] MEDS: CARVEDILOL 6.25 MG TABLET PO SCH (17:37)
[2018-09-12 19:53] VITALS: BP 128/69
[2018-09-12] MEDS: SIMVASTATIN 20 MG TABLET PO SCH (20:14)
[2018-09-12 21:43] VITALS: BP 136/84
[2018-09-13] MEDS: HEPARIN 5,000 UNITS/ML, 1ML SQ SCH ×3 (00:11→16:00)
[2018-09-13 00:17] VITALS: BP 133/77
[2018-09-13 03:32] VITALS: BP 135/74
[2018-09-13 04:47] LABS: BASOPHILS # (AUTO) 0.03 x10^3/uL (0-0.1); BASOPHILS % (AUTO) 1 % (0-1); EOSINOPHILS # (AUTO) 0.11 x10^3/uL (0-0.4); EOSINOPHILS % (AUTO) 2 % (1-7); LYMPHOCYTES # (AUTO) 1.42 x10^3/uL (1-3.4); LYMPHOCYTES % (AUTO) 28 % (22-44); MD NO; MEAN CORPUSCULAR HEMOGLOBIN 28.3 pg (27.5-34.5); MEAN CORPUSCULAR HGB CONC 32.3 g/dL (33.2-36.2); MEAN CORPUSCULAR VOLUME 87.6 fL (81-97); MEAN PLATELET VOLUME 9.7 fL (7.4-10.4); MONOCYTES # (AUTO) 0.55 x10^3/uL (0.2-0.8); MONOCYTES % (AUTO) 11 % (2-9); NEUTROPHILS # (AUTO) 3.05 x10^3/uL (1.8-6.8); NEUTROPHILS % (AUTO) 59 % (42-75); PLATELET COUNT 140 x10^3/uL (130-400); RED BLOOD COUNT 4.11 x10^6/uL (4.38-5.82); RED CELL DISTRIBUTION WIDTH 14.2 % (9.4-14.8)
[2018-09-13 04:57] LABS: CHLORIDE 103 mmol/L (98-107)
[2018-09-13 05:10] LABS: ALANINE AMINOTRANSFERASE 29 U/L (12-78); ALBUMIN 3.4 g/dL (3.4-5.0); ALKALINE PHOSPHATASE 198 U/L (45-117); ANION GAP 9 mmol/L (5-15); BILIRUBIN,TOTAL 0.3 mg/dL (0.2-1.0); CALCIUM 8.7 mg/dL (8.5-10.1)
[2018-09-13] MEDS: CARVEDILOL 6.25 MG TABLET PO SCH ×2 (06:01→17:08)
[2018-09-13 06:55] VITALS: BP 141/84
[2018-09-13] MEDS: GABAPENTIN 100 MG CAPSULE PO PRN ×2 (08:36→18:34)
[2018-09-13] MEDS: CALCITRIOL 0.25 MCG CAPSULE PO SCH (08:37)
[2018-09-13] MEDS: CALCIUM ACETATE 667 MG CAPSULE PO SCH ×3 (08:37→17:06)
[2018-09-13] MEDS: ISOSORBIDE DINITRATE 10 MG TABLET PO SCH ×3 (08:38→19:55)
[2018-09-13] MEDS: SODIUM CHLORIDE FLUSH 10ML SYR IVF SCH ×2 (08:38→19:56)
[2018-09-13 14:37] VITALS: BP 135/78
[2018-09-13] MEDS ORDERED: FERROUS SULFATE 325 MG TABLET PO SCH (17:00)
[2018-09-13 19:31] VITALS: BP 142/84
[2018-09-13] MEDS: SIMVASTATIN 20 MG TABLET PO SCH (19:55)
== END 2018-09-13 20:04 | disposition home or self-care (01) | DRG 470 ==
LOC: ED 17:03 → EDIP 17:04 → ED 17:36 → 4WST 19:03
PROVIDERS: ADMIT Internal Medicine; ATTEND Internal Medicine
PROC: 5A1D70Z Performance of Urinary Filtration, Intermittent, Less than 6 Hours Per Day (ICD-10-PCS; principal; 2018-09-05)
PROC: 5A1D70Z Performance of Urinary Filtration, Intermittent, Less than 6 Hours Per Day (ICD-10-PCS; 2018-09-06)
PROC: 5A1D70Z Performance of Urinary Filtration, Intermittent, Less than 6 Hours Per Day (ICD-10-PCS; 2018-09-08)
PROC: 5A1D70Z Performance of Urinary Filtration, Intermittent, Less than 6 Hours Per Day (ICD-10-PCS; 2018-09-11)
PROC: 5A1D70Z Performance of Urinary Filtration, Intermittent, Less than 6 Hours Per Day (ICD-10-PCS; 2018-09-12)
PROC: 5A1D70Z Performance of Urinary Filtration, Intermittent, Less than 6 Hours Per Day (ICD-10-PCS; 2018-09-13)
DX: I13.11 Hypertensive heart and chronic kidney disease without heart failure, with stage 5 chronic kidney disease, or end stage renal disease (principal); G93.49 Other encephalopathy; E87.2 Acidosis; I27.20 Pulmonary hypertension, unspecified; E83.51 Hypocalcemia; E87.5 Hyperkalemia; N18.6 End stage renal disease; D63.1 Anemia in chronic kidney disease; Z53.21 Procedure and treatment not carried out due to patient leaving prior to being seen by health care provider; E78.5 Hyperlipidemia, unspecified; F15.10 Other stimulant abuse, uncomplicated; N25.0 Renal osteodystrophy; I34.0 Nonrheumatic mitral (valve) insufficiency; J45.909 Unspecified asthma, uncomplicated; R09.89 Other specified symptoms and signs involving the circulatory and respiratory systems; E55.9 Vitamin D deficiency, unspecified; E21.3 Hyperparathyroidism, unspecified; E66.9 Obesity, unspecified; Z68.31 Body mass index [BMI] 31.0-31.9, adult; Z91.15 Patient's noncompliance with renal dialysis; Z91.19 Patient's noncompliance with other medical treatment and regimen; Z79.899 Other long term (current) drug therapy; Z99.2 Dependence on renal dialysis
CPT/HCPCS: 36415; 71046; 80048; 80053; 80069; 80074; 80076; 82040; 82306; 82330; 82962; 83970; 84100; 84443; 84484; 85025; 86480; 87521; 90935; 93005; 99285; G0378; J0610; J1644

== ENCOUNTER 2018-12-18 03:01 | Inpatient (IN) | payer MEDICAID ==
[2018-12-18] VITALS (8 sets, daily range): BP systolic 158–200; BP diastolic 90–123
[~2018-12-18] VITALS: Ht 182.9 cm; Wt 89.2 kg
--- NOTE | 2018-12-18 03:28 | NUR ---
PER [facility], PT HAS BEDBUGS. PT DECONTAMINATED IN ED. PT TO ROOM AND ER MD IN TO ASSESS PT AT THIS TIME.
--- NOTE | 2018-12-18 03:30 | NUR ---
PT CHIEF COMPLAINT "LACK OF DIALYSIS, DIZZINESS, PAIN"
[2018-12-18 03:47] LABS: BASOPHILS # (AUTO) 0.02 x10^3/uL (0-0.1); BASOPHILS % (AUTO) 0 % (0-1); EOSINOPHILS % (AUTO) 3 % (1-7); LYMPHOCYTES # (AUTO) 0.74 x10^3/uL (1-3.4); LYMPHOCYTES % (AUTO) 12 % (22-44); MD NO; MEAN CORPUSCULAR HEMOGLOBIN 29.6 pg (27.5-34.5); MEAN CORPUSCULAR HGB CONC 32.7 g/dL (33.2-36.2); MEAN CORPUSCULAR VOLUME 90.6 fL (81-97); MEAN PLATELET VOLUME 8.2 fL (7.4-10.4); MONOCYTES % (AUTO) 12 % (2-9); NEUTROPHILS % (AUTO) 73 % (42-75); PLATELET COUNT 158 x10^3/uL (130-400); RED BLOOD COUNT 3.32 x10^6/uL (4.38-5.82); RED CELL DISTRIBUTION WIDTH 16.1 % (9.4-14.8)
[2018-12-18 03:57] LABS: ALBUMIN 3.4 g/dL (3.4-5.0); ANION GAP 15 mmol/L (5-15); CALCIUM 7.1 mg/dL (8.5-10.1); CHLORIDE 104 mmol/L (98-107)
[2018-12-18] MEDS ORDERED: INSULIN REGULAR 100 UNITS/ML, 3ML VIAL IVPush ONE (04:00)
[2018-12-18] MEDS ORDERED: SODIUM BICARBONATE 1 MEQ/ML, 50ML VIAL IVPush ONE (04:00)
[2018-12-18] MEDS ORDERED: DEXTROSE 50%, 50ML SYRINGE IVPush ONE (04:00)
[2018-12-18] MEDS ORDERED: SODIUM POLY SULFONATE UDC 15 GM/60 ML PO ONE (04:30)
[2018-12-18] MEDS ORDERED: SODIUM CHLORIDE FLUSH 10ML SYR IVF PRN (04:30)
[2018-12-18] MEDS ORDERED: SODIUM BICARBONATE 1 MEQ/ML, 50ML VIAL ONE (04:40)
--- NOTE | 2018-12-18 04:43 | NUR ---
VERIFIED W/ ERP NO IV CA TO BE GIVEN AT THIS TIME.
--- NOTE | 2018-12-18 04:47 | NUR ---
MED REQUEST SENT TO LAB
[2018-12-18] MEDS ORDERED: INSULIN SINGLE DOSE, ER SQ-INSULIN ONE ×2 (04:49→04:51)
--- NOTE | 2018-12-18 04:49 | NUR ---
CALL DIALYSIS NURSE@ [phone] WHEN PATIENT GETS A ROOM.
--- NOTE | 2018-12-18 04:59 | NUR ---
WARM PACK PROVIED TO THE PT PER THE PT REQUEST.
--- NOTE | 2018-12-18 05:13 | NUR ---
REPORT TO LISA BROWN
[2018-12-18] MEDS ORDERED: CALCIUM GLUCONATE 4.6 MEQ in SODIUM CHLORIDE 0.9% 50 ML IV ONE (09:30)
[2018-12-18] MEDS: AMLODIPINE 5 MG TABLET PO SCH ×2 (10:02→19:43)
[2018-12-18] MEDS: hydrALAzine 20 MG/ML, 1ML IVPush PRN ×2 (15:10→20:23)
[2018-12-19] VITALS (7 sets, daily range): BP systolic 156–184; BP diastolic 78–99
[2018-12-19] MEDS: hydrALAzine 20 MG/ML, 1ML IVPush PRN ×4 (02:49→23:50)
[2018-12-19 06:10] LABS: BASOPHILS # (AUTO) 0.03 x10^3/uL (0-0.1); BASOPHILS % (AUTO) 1 % (0-1); EOSINOPHILS % (AUTO) 3 % (1-7); LYMPHOCYTES # (AUTO) 0.82 x10^3/uL (1-3.4); LYMPHOCYTES % (AUTO) 14 % (22-44); MD NO; MEAN CORPUSCULAR HGB CONC 32.4 g/dL (33.2-36.2); MEAN CORPUSCULAR VOLUME 89.7 fL (81-97); MEAN PLATELET VOLUME 8.1 fL (7.4-10.4); MONOCYTES # (AUTO) 0.76 x10^3/uL (0.2-0.8); MONOCYTES % (AUTO) 13 % (2-9); NEUTROPHILS # (AUTO) 3.99 x10^3/uL (1.8-6.8); NEUTROPHILS % (AUTO) 69 % (42-75); PLATELET COUNT 166 x10^3/uL (130-400); RED BLOOD COUNT 3.73 x10^6/uL (4.38-5.82); RED CELL DISTRIBUTION WIDTH 16.5 % (9.4-14.8)
[2018-12-19 06:22] LABS: ANION GAP 12 mmol/L (5-15); CALCIUM 7.6 mg/dL (8.5-10.1); CHLORIDE 106 mmol/L (98-107)
[2018-12-19] MEDS: AMLODIPINE 5 MG TABLET PO SCH ×2 (07:36→20:37)
[2018-12-19] MEDS: CALCITRIOL 0.25 MCG CAPSULE PO SCH (07:36)
[2018-12-19] MEDS: CALCIUM ACETATE 667 MG CAPSULE PO SCH ×5 (12:03→20:39)
[2018-12-19] MEDS: CARVEDILOL 12.5 MG TABLET PO SCH ×2 (12:04→17:42)
[2018-12-19] MEDS: ACETAMINOPHEN 325 MG TABLET PO PRN (20:37)
[2018-12-19] MEDS ORDERED: SUMATRIPTAN 25 MG TABLET PO ONE (21:30)
[2018-12-20] VITALS (11 sets, daily range): BP systolic 136–179; BP diastolic 78–93
[2018-12-20] MEDS: CARVEDILOL 12.5 MG TABLET PO SCH ×2 (05:09→16:55)
[2018-12-20] MEDS: hydrALAzine 20 MG/ML, 1ML IVPush PRN (05:15)
[2018-12-20 05:19] LABS: % IRON SATURATION 51 % (20-55); ANION GAP 10 mmol/L (5-15); CALCIUM 7.9 mg/dL (8.5-10.1); CHLORIDE 104 mmol/L (98-107); CREATININE 8.83 mg/dL (0.7-1.3); IRON LEVEL 121 mcg/dL (65-175); TOTAL IRON BINDING CAPACITY 235 mcg/dL (250-450)
[2018-12-20] MEDS ORDERED: CEFTRIAXONE PMX 1GM/50ML 50 ML IV SCH (07:30)
[2018-12-20] MEDS: PROMETHAZINE 25 MG/ML, 1ML IM PRN (08:17)
[2018-12-20] MEDS ORDERED: NITROGLYCERIN 0.4 MG BOTTLE (25 TABS) SL ONE (12:10)
[2018-12-20] MEDS ORDERED: MORPHINE SULFATE 4 MG/ML, 1ML ONE (12:13)
[2018-12-20] MEDS: NITROGLYCERIN 0.4 MG BOTTLE (25 TABS) SL PRN ×2 (12:20→12:33)
[2018-12-20] MEDS ORDERED: MORPHINE SULFATE 4 MG/ML, 1ML IVPush PRN (12:30)
[2018-12-20 13:23] LABS: TROPONIN I 0.047 ng/mL (0.000-0.045)
[2018-12-20] MEDS ORDERED: LISINOPRIL 5 MG TABLET PO SCH (13:30)
[2018-12-20] MEDS ORDERED: CARVEDILOL 6.25 MG TABLET PO SCH (13:30)
[2018-12-20 13:50] LABS: CHOL/HDL RATIO 2.5; LDL/HDL RATIO 1.3 (0.5-3.0)
[2018-12-20] MEDS: ASPIRIN 325 MG TABLET PO SCH (13:52)
[2018-12-20] MEDS: CALCITRIOL 0.25 MCG CAPSULE PO SCH (13:52)
[2018-12-20] MEDS: AMLODIPINE 5 MG TABLET PO SCH ×2 (13:52→22:20)
[2018-12-20] MEDS: CALCIUM ACETATE 667 MG CAPSULE PO SCH ×3 (13:52→22:20)
[2018-12-20 17:29] LABS: TROPONIN I 0.053 ng/mL (0.000-0.045)
[2018-12-20] MEDS: ATORVASTATIN 20 MG TABLET PO SCH (20:35)
[2018-12-20] MEDS: HEPARIN 5,000 UNITS/ML, 1ML SQ SCH (20:36)
[2018-12-20 21:33] LABS: TROPONIN I 0.051 ng/mL (0.000-0.045)
[2018-12-20] MEDS: DOCUSATE 100 MG CAPSULE PO SCH (22:20)
[2018-12-20] MEDS: ERGOCALCIFEROL 50,000 UNIT CAPSULE PO SCH (22:20)
[2018-12-21 00:36] VITALS: BP 152/87
[2018-12-21 05:37] LABS: BASOPHILS # (AUTO) 0.04 x10^3/uL (0-0.1); BASOPHILS % (AUTO) 1 % (0-1); EOSINOPHILS # (AUTO) 0.21 x10^3/uL (0-0.4); EOSINOPHILS % (AUTO) 5 % (1-7); LYMPHOCYTES # (AUTO) 0.91 x10^3/uL (1-3.4); LYMPHOCYTES % (AUTO) 20 % (22-44); MD NO; MEAN CORPUSCULAR HEMOGLOBIN 29.8 pg (27.5-34.5); MEAN CORPUSCULAR HGB CONC 32.5 g/dL (33.2-36.2); MEAN CORPUSCULAR VOLUME 91.7 fL (81-97); MEAN PLATELET VOLUME 8.1 fL (7.4-10.4); MONOCYTES # (AUTO) 0.61 x10^3/uL (0.2-0.8); MONOCYTES % (AUTO) 14 % (2-9); NEUTROPHILS % (AUTO) 61 % (42-75); PLATELET COUNT 133 x10^3/uL (130-400); RED BLOOD COUNT 3.55 x10^6/uL (4.38-5.82); RED CELL DISTRIBUTION WIDTH 15.6 % (9.4-14.8)
[2018-12-21 05:49] LABS: ANION GAP 6 mmol/L (5-15); CHLORIDE 105 mmol/L (98-107); CREATININE 8.05 mg/dL (0.7-1.3)
[2018-12-21 05:53] LABS: TROPONIN I 0.053 ng/mL (0.000-0.045)
[2018-12-21 06:04] VITALS: BP 171/88
[2018-12-21] MEDS: ASPIRIN 325 MG TABLET PO SCH (06:10)
[2018-12-21] MEDS: CARVEDILOL 12.5 MG TABLET PO SCH (06:10)
[2018-12-21 07:05] VITALS: BP 157/89
[2018-12-21] MEDS: POLYETHYLENE GLYCOL 17 GM PACKET PO SCH (08:04)
[2018-12-21] MEDS: AMLODIPINE 5 MG TABLET PO SCH ×2 (08:04→20:52)
[2018-12-21] MEDS: CALCIUM ACETATE 667 MG CAPSULE PO SCH ×4 (08:04→20:59)
[2018-12-21] MEDS: DOCUSATE 100 MG CAPSULE PO SCH ×2 (08:04→20:54)
[2018-12-21] MEDS: CALCITRIOL 0.25 MCG CAPSULE PO SCH (08:05)
[2018-12-21] MEDS: HEPARIN 5,000 UNITS/ML, 1ML SQ SCH ×2 (08:06→20:30)
[2018-12-21] MEDS ORDERED: OMNIPAQUE 350 MG/ML, 100ML BOTTLE ONE (08:50)
[2018-12-21 14:16] VITALS: BP 161/93
[2018-12-21] MEDS: CHLORTHALIDONE 25 MG TABLET PO SCH (14:24)
[2018-12-21 16:07] VITALS: BP 143/76
[2018-12-21] MEDS: CARVEDILOL 25 MG TABLET PO SCH (17:08)
[2018-12-21 19:51] VITALS: BP 130/86
[2018-12-21] MEDS: ATORVASTATIN 20 MG TABLET PO SCH (20:52)
[2018-12-22] VITALS (9 sets, daily range): BP systolic 144–179; BP diastolic 74–106
[2018-12-22] MEDS: ASPIRIN 325 MG TABLET PO SCH (05:31)
[2018-12-22] MEDS: CARVEDILOL 25 MG TABLET PO SCH ×2 (05:31→17:44)
[2018-12-22 07:23] LABS: ANION GAP 7 mmol/L (5-15); CALCIUM 8.2 mg/dL (8.5-10.1); CHLORIDE 105 mmol/L (98-107)
[2018-12-22 07:27] LABS: TROPONIN I 0.035 ng/mL (0.000-0.045)
[2018-12-22] MEDS: DOCUSATE 100 MG CAPSULE PO SCH ×2 (07:53→20:03)
[2018-12-22] MEDS: CHLORTHALIDONE 25 MG TABLET PO SCH (07:54)
[2018-12-22] MEDS: hydrALAzine 20 MG/ML, 1ML IVPush PRN ×2 (07:54→15:30)
[2018-12-22] MEDS: AMLODIPINE 5 MG TABLET PO SCH ×2 (07:54→20:02)
[2018-12-22] MEDS: CALCITRIOL 0.25 MCG CAPSULE PO SCH (07:55)
[2018-12-22] MEDS: HEPARIN 5,000 UNITS/ML, 1ML SQ SCH ×2 (07:56→20:03)
[2018-12-22] MEDS: CALCIUM ACETATE 667 MG CAPSULE PO SCH ×3 (08:00→17:44)
[2018-12-22] MEDS ORDERED: REGADENOSON 0.4 MG/5 ML SYRINGE ONE (08:05)
[2018-12-22] MEDS: POLYETHYLENE GLYCOL 17 GM PACKET PO SCH (08:29)
[2018-12-22] MEDS ORDERED: CHLORTHALIDONE 25 MG TABLET PO ONE (11:00)
[2018-12-22] MEDS ORDERED: NITROGLYCERIN 0.4 MG BOTTLE (25 TABS) SL PRN (16:00)
[2018-12-22] MEDS ORDERED: morphine SULFATE 10 MG/ML, 1ML IVPush ONE (16:00)
[2018-12-22] MEDS ORDERED: morphine SULFATE 10 MG/ML, 1ML ONE (16:05)
[2018-12-22] MEDS: NITROGLYCERIN 0.4 MG BOTTLE (25 TABS) SL PRN (16:32)
[2018-12-22] MEDS: ATORVASTATIN 20 MG TABLET PO SCH (20:02)
[2018-12-23 02:00] VITALS: BP 152/84
[2018-12-23 05:26] LABS: ANION GAP 9 mmol/L (5-15); CALCIUM 8.3 mg/dL (8.5-10.1); CHLORIDE 104 mmol/L (98-107)
[2018-12-23] MEDS: ASPIRIN 325 MG TABLET PO SCH (05:40)
[2018-12-23] MEDS: CARVEDILOL 25 MG TABLET PO SCH ×2 (05:40→17:14)
[2018-12-23] MEDS: HEPARIN 5,000 UNITS/ML, 1ML SQ SCH ×2 (07:23→19:47)
[2018-12-23] MEDS: POLYETHYLENE GLYCOL 17 GM PACKET PO SCH (07:23)
[2018-12-23] MEDS: ISOSORBIDE MONONITRATE ER 30 MG TABLET PO SCH (07:33)
[2018-12-23] MEDS: DOXAZOSIN 1MG TABLET PO SCH (07:33)
[2018-12-23] MEDS: CALCIUM ACETATE 667 MG CAPSULE PO SCH ×3 (07:33→17:13)
[2018-12-23] MEDS: CHLORTHALIDONE 25 MG TABLET PO SCH (07:34)
[2018-12-23] MEDS: AMLODIPINE 5 MG TABLET PO SCH ×2 (07:34→19:46)
[2018-12-23] MEDS: DOCUSATE 100 MG CAPSULE PO SCH ×2 (07:34→19:47)
[2018-12-23 08:08] VITALS: BP 163/93
[2018-12-23 09:15] VITALS: BP 126/74
[2018-12-23 11:49] VITALS: BP 122/55
[2018-12-23 12:51] VITALS: BP 135/82
[2018-12-23 19:07] VITALS: BP 135/80
[2018-12-23] MEDS: ATORVASTATIN 20 MG TABLET PO SCH (19:47)
[2018-12-24 02:01] VITALS: BP 155/94
[2018-12-24 05:12] VITALS: BP 139/87
[2018-12-24] MEDS: ASPIRIN 325 MG TABLET PO SCH (05:14)
[2018-12-24] MEDS: CARVEDILOL 25 MG TABLET PO SCH ×2 (05:14→17:51)
[2018-12-24 05:36] LABS: ANION GAP 8 mmol/L (5-15); CALCIUM 8.2 mg/dL (8.5-10.1); CHLORIDE 106 mmol/L (98-107); CREATININE 9.94 mg/dL (0.7-1.3)
[2018-12-24 07:14] VITALS: BP 142/85
[2018-12-24] MEDS: AMLODIPINE 5 MG TABLET PO SCH ×2 (07:35→20:24)
[2018-12-24] MEDS: CHLORTHALIDONE 25 MG TABLET PO SCH (07:35)
[2018-12-24] MEDS: ISOSORBIDE MONONITRATE ER 30 MG TABLET PO SCH (07:36)
[2018-12-24] MEDS: DOXAZOSIN 1MG TABLET PO SCH (07:36)
[2018-12-24] MEDS: CALCIUM ACETATE 667 MG CAPSULE PO SCH ×3 (07:36→17:45)
[2018-12-24] MEDS: DOCUSATE 100 MG CAPSULE PO SCH ×2 (07:40→20:24)
[2018-12-24] MEDS: HEPARIN 5,000 UNITS/ML, 1ML SQ SCH ×2 (07:40→20:26)
[2018-12-24] MEDS: POLYETHYLENE GLYCOL 17 GM PACKET PO SCH (07:40)
[2018-12-24 13:42] VITALS: BP 160/81
[2018-12-24 19:22] VITALS: BP 122/71
[2018-12-24] MEDS: ATORVASTATIN 20 MG TABLET PO SCH (20:24)
[2018-12-25 02:20] VITALS: BP 143/69
[2018-12-25] MEDS: ASPIRIN 325 MG TABLET PO SCH (05:43)
[2018-12-25] MEDS: CARVEDILOL 25 MG TABLET PO SCH ×2 (05:43→17:43)
[2018-12-25 06:39] LABS: ANION GAP 11 mmol/L (5-15); CHLORIDE 105 mmol/L (98-107)
[2018-12-25 06:40] LABS: CALCIUM 8.3 mg/dL (8.5-10.1)
[2018-12-25 08:03] VITALS: BP 150/84
[2018-12-25] MEDS: POLYETHYLENE GLYCOL 17 GM PACKET PO SCH (09:00)
[2018-12-25] MEDS: DOCUSATE 100 MG CAPSULE PO SCH ×2 (09:42→20:13)
[2018-12-25] MEDS: CALCIUM ACETATE 667 MG CAPSULE PO SCH ×3 (09:42→17:43)
[2018-12-25] MEDS: HEPARIN 5,000 UNITS/ML, 1ML SQ SCH ×2 (09:42→20:15)
[2018-12-25] MEDS: CALCITRIOL 0.25 MCG CAPSULE PO SCH (09:42)
[2018-12-25] MEDS: AMLODIPINE 5 MG TABLET PO SCH ×2 (11:51→20:13)
[2018-12-25] MEDS: CHLORTHALIDONE 25 MG TABLET PO SCH (11:51)
[2018-12-25] MEDS: ISOSORBIDE MONONITRATE ER 30 MG TABLET PO SCH (11:52)
[2018-12-25] MEDS: DOXAZOSIN 1MG TABLET PO SCH (11:53)
[2018-12-25 13:56] VITALS: BP 157/76
[2018-12-25 18:44] VITALS: BP 143/74
[2018-12-25] MEDS: ATORVASTATIN 20 MG TABLET PO SCH (20:12)
[2018-12-26 02:05] VITALS: BP 134/75
[2018-12-26] MEDS: ASPIRIN 325 MG TABLET PO SCH (05:55)
[2018-12-26] MEDS: CARVEDILOL 25 MG TABLET PO SCH ×2 (05:55→17:15)
[2018-12-26 05:57] VITALS: BP 144/81
[2018-12-26 08:30] VITALS: BP 143/77
[2018-12-26] MEDS: HEPARIN 5,000 UNITS/ML, 1ML SQ SCH ×2 (08:30→20:26)
[2018-12-26] MEDS: POLYETHYLENE GLYCOL 17 GM PACKET PO SCH (09:00)
[2018-12-26 09:07] LABS: ANION GAP 9 mmol/L (5-15); CALCIUM 8.3 mg/dL (8.5-10.1); CHLORIDE 101 mmol/L (98-107)
[2018-12-26 09:08] LABS: CREATININE 9.21 mg/dL (0.7-1.3)
[2018-12-26] MEDS: CALCIUM ACETATE 667 MG CAPSULE PO SCH ×3 (09:15→17:15)
[2018-12-26] MEDS: DOCUSATE 100 MG CAPSULE PO SCH ×2 (09:16→20:29)
[2018-12-26] MEDS: CALCITRIOL 0.25 MCG CAPSULE PO SCH (09:16)
[2018-12-26] MEDS: ISOSORBIDE MONONITRATE ER 30 MG TABLET PO SCH (09:17)
[2018-12-26] MEDS: CHLORTHALIDONE 25 MG TABLET PO SCH (09:17)
[2018-12-26] MEDS: DOXAZOSIN 1MG TABLET PO SCH (09:17)
[2018-12-26] MEDS: AMLODIPINE 5 MG TABLET PO SCH ×2 (09:17→20:29)
[2018-12-26 14:59] VITALS: BP 145/68
[2018-12-26 19:29] VITALS: BP 148/77
[2018-12-26] MEDS: ATORVASTATIN 20 MG TABLET PO SCH (20:30)
[2018-12-27 00:42] VITALS: BP 134/74
[2018-12-27] MEDS: ASPIRIN 325 MG TABLET PO SCH (05:42)
[2018-12-27] MEDS: CARVEDILOL 25 MG TABLET PO SCH ×2 (05:42→17:20)
[2018-12-27 07:35] VITALS: BP 133/76
[2018-12-27] MEDS: HEPARIN 5,000 UNITS/ML, 1ML SQ SCH ×2 (08:30→20:30)
[2018-12-27] MEDS: CALCIUM ACETATE 667 MG CAPSULE PO SCH ×3 (08:37→17:21)
[2018-12-27] MEDS: POLYETHYLENE GLYCOL 17 GM PACKET PO SCH (09:00)
[2018-12-27] MEDS ORDERED: DIPHENHYDRAMINE 25 MG CAPSULE PO ONE (11:30)
[2018-12-27] MEDS: CHLORTHALIDONE 25 MG TABLET PO SCH (13:58)
[2018-12-27] MEDS: DOCUSATE 100 MG CAPSULE PO SCH ×2 (13:58→20:41)
[2018-12-27] MEDS: DOXAZOSIN 1MG TABLET PO SCH (13:58)
[2018-12-27] MEDS: ISOSORBIDE MONONITRATE ER 30 MG TABLET PO SCH (13:58)
[2018-12-27] MEDS: AMLODIPINE 5 MG TABLET PO SCH (13:59)
[2018-12-27] MEDS: CALCITRIOL 0.25 MCG CAPSULE PO SCH (14:06)
[2018-12-27 14:54] VITALS: BP 159/75
[2018-12-27 20:27] VITALS: BP 124/65
[2018-12-27] MEDS: ATORVASTATIN 20 MG TABLET PO SCH (20:41)
[2018-12-28 00:07] VITALS: BP 141/79
[2018-12-28] MEDS: ERGOCALCIFEROL 50,000 UNIT CAPSULE PO SCH (00:08)
[2018-12-28] MEDS: AMLODIPINE 5 MG TABLET PO SCH ×3 (00:08→20:28)
[2018-12-28] MEDS: TEMAZEPAM 15 MG CAPSULE PO PRN ×2 (00:45→20:59)
[2018-12-28 05:40] VITALS: BP 129/75
[2018-12-28] MEDS: ASPIRIN 325 MG TABLET PO SCH (05:41)
[2018-12-28] MEDS: CARVEDILOL 25 MG TABLET PO SCH ×2 (05:41→17:22)
[2018-12-28 08:30] VITALS: BP 154/88
[2018-12-28] MEDS: HEPARIN 5,000 UNITS/ML, 1ML SQ SCH ×2 (08:30→20:23)
[2018-12-28 08:40] LABS: ANION GAP 6 mmol/L (5-15); CALCIUM 8.1 mg/dL (8.5-10.1); CHLORIDE 98 mmol/L (98-107); CREATININE 8.72 mg/dL (0.7-1.3)
[2018-12-28] MEDS: POLYETHYLENE GLYCOL 17 GM PACKET PO SCH ×2 (09:00→10:54)
[2018-12-28] MEDS: CALCIUM ACETATE 667 MG CAPSULE PO SCH ×3 (10:49→17:22)
[2018-12-28] MEDS: CHLORTHALIDONE 25 MG TABLET PO SCH (10:50)
[2018-12-28] MEDS: ISOSORBIDE MONONITRATE ER 30 MG TABLET PO SCH (10:51)
[2018-12-28] MEDS: CALCITRIOL 0.25 MCG CAPSULE PO SCH (10:51)
[2018-12-28] MEDS: DOCUSATE 100 MG CAPSULE PO SCH ×2 (10:52→20:28)
[2018-12-28] MEDS: DOXAZOSIN 1MG TABLET PO SCH (10:57)
[2018-12-28 13:55] VITALS: BP_SYST 138; BP_SYST 146; BP_DIAS 82; BP_DIAS 85
[2018-12-28 19:25] VITALS: BP 130/67
[2018-12-28 20:28] VITALS: BP 132/76
[2018-12-28] MEDS: ATORVASTATIN 20 MG TABLET PO SCH (20:28)
[2018-12-29] VITALS (7 sets, daily range): BP systolic 120–153; BP diastolic 71–85
[2018-12-29] MEDS: ASPIRIN 325 MG TABLET PO SCH (05:15)
[2018-12-29] MEDS: CARVEDILOL 25 MG TABLET PO SCH ×2 (05:16→17:17)
[2018-12-29] MEDS: HEPARIN 5,000 UNITS/ML, 1ML SQ SCH ×2 (08:30→20:30)
[2018-12-29] MEDS: CHLORTHALIDONE 25 MG TABLET PO SCH (09:00)
[2018-12-29] MEDS: ISOSORBIDE MONONITRATE ER 30 MG TABLET PO SCH (09:40)
[2018-12-29] MEDS: CALCITRIOL 0.25 MCG CAPSULE PO SCH (09:40)
[2018-12-29] MEDS: POLYETHYLENE GLYCOL 17 GM PACKET PO SCH (09:40)
[2018-12-29] MEDS: CALCIUM ACETATE 667 MG CAPSULE PO SCH ×3 (09:40→17:17)
[2018-12-29] MEDS: DOCUSATE 100 MG CAPSULE PO SCH ×2 (09:41→20:55)
[2018-12-29] MEDS: DOXAZOSIN 1MG TABLET PO SCH (13:41)
[2018-12-29] MEDS: AMLODIPINE 5 MG TABLET PO SCH ×2 (13:41→20:55)
[2018-12-29] MEDS: ATORVASTATIN 20 MG TABLET PO SCH (20:55)
[2018-12-30 03:00] VITALS: BP 143/77
[2018-12-30] MEDS: CARVEDILOL 25 MG TABLET PO SCH ×2 (06:10→17:08)
[2018-12-30] MEDS: ASPIRIN 325 MG TABLET PO SCH (06:10)
[2018-12-30] MEDS: CALCIUM ACETATE 667 MG CAPSULE PO SCH ×3 (08:11→17:08)
[2018-12-30] MEDS: ISOSORBIDE MONONITRATE ER 30 MG TABLET PO SCH (08:12)
[2018-12-30] MEDS: DOXAZOSIN 1MG TABLET PO SCH (08:12)
[2018-12-30] MEDS: CHLORTHALIDONE 25 MG TABLET PO SCH (08:12)
[2018-12-30] MEDS: AMLODIPINE 5 MG TABLET PO SCH ×2 (08:12→20:37)
[2018-12-30] MEDS: POLYETHYLENE GLYCOL 17 GM PACKET PO SCH (08:13)
[2018-12-30] MEDS: HEPARIN 5,000 UNITS/ML, 1ML SQ SCH ×2 (08:13→20:30)
[2018-12-30] MEDS: DOCUSATE 100 MG CAPSULE PO SCH ×2 (08:13→20:37)
[2018-12-30 09:12] LABS: ANION GAP 8 mmol/L (5-15); CALCIUM 8.6 mg/dL (8.5-10.1); CHLORIDE 105 mmol/L (98-107); CREATININE 8.39 mg/dL (0.7-1.3)
[2018-12-30 09:25] VITALS: BP 135/70
[2018-12-30 13:29] VITALS: BP 150/79
[2018-12-30 19:23] VITALS: BP 138/78
[2018-12-30] MEDS: ATORVASTATIN 20 MG TABLET PO SCH (20:37)
[2018-12-31 01:25] VITALS: BP 149/83
[2018-12-31] MEDS: CARVEDILOL 25 MG TABLET PO SCH ×2 (06:22→17:16)
[2018-12-31] MEDS: ASPIRIN 325 MG TABLET PO SCH (06:22)
[2018-12-31 07:35] VITALS: BP 145/84
[2018-12-31] MEDS: HEPARIN 5,000 UNITS/ML, 1ML SQ SCH ×2 (08:30→20:03)
[2018-12-31] MEDS: DOCUSATE 100 MG CAPSULE PO SCH ×3 (09:00→20:03)
[2018-12-31 09:25] VITALS: BP 155/81
[2018-12-31] MEDS: AMLODIPINE 5 MG TABLET PO SCH ×2 (09:27→20:03)
[2018-12-31] MEDS: DOXAZOSIN 1MG TABLET PO SCH (09:27)
[2018-12-31] MEDS: CALCIUM ACETATE 667 MG CAPSULE PO SCH ×3 (09:27→17:16)
[2018-12-31] MEDS: ISOSORBIDE MONONITRATE ER 30 MG TABLET PO SCH (09:27)
[2018-12-31] MEDS: CHLORTHALIDONE 25 MG TABLET PO SCH (09:28)
[2018-12-31] MEDS: POLYETHYLENE GLYCOL 17 GM PACKET PO SCH (09:29)
[2018-12-31 13:25] VITALS: BP 139/78
[2018-12-31 17:14] VITALS: BP 144/81
[2018-12-31 18:45] VITALS: BP 123/65
[2018-12-31] MEDS: ATORVASTATIN 20 MG TABLET PO SCH (20:03)
[2019-01-01 01:50] VITALS: BP 126/65
[2019-01-01] MEDS: PROMETHAZINE 25 MG/ML, 1ML IM PRN (05:51)
[2019-01-01] MEDS: CARVEDILOL 25 MG TABLET PO SCH ×2 (05:59→17:37)
[2019-01-01] MEDS: ASPIRIN 325 MG TABLET PO SCH (05:59)
[2019-01-01 06:35] LABS: CALCIUM 8.9 mg/dL (8.5-10.1); CHLORIDE 102 mmol/L (98-107)
[2019-01-01 06:41] LABS: ALANINE AMINOTRANSFERASE 65 U/L (12-78); ALBUMIN 3.5 g/dL (3.4-5.0); ALKALINE PHOSPHATASE 171 U/L (45-117); ANION GAP 13 mmol/L (5-15); BILIRUBIN,TOTAL 0.3 mg/dL (0.2-1.0); TOTAL PROTEIN 6.9 g/dL (6.4-8.2)
[2019-01-01 07:27] VITALS: BP 134/75
[2019-01-01] MEDS: HEPARIN 5,000 UNITS/ML, 1ML SQ SCH ×2 (08:30→20:17)
[2019-01-01] MEDS: CALCIUM ACETATE 667 MG CAPSULE PO SCH ×3 (08:42→17:37)
[2019-01-01] MEDS: DOCUSATE 100 MG CAPSULE PO SCH ×2 (09:00→20:16)
[2019-01-01] MEDS: POLYETHYLENE GLYCOL 17 GM PACKET PO SCH (09:00)
[2019-01-01 12:15] VITALS: BP 146/79
[2019-01-01] MEDS: CALCITRIOL 0.25 MCG CAPSULE PO SCH (12:17)
[2019-01-01] MEDS: ISOSORBIDE MONONITRATE ER 30 MG TABLET PO SCH (12:17)
[2019-01-01] MEDS: AMLODIPINE 5 MG TABLET PO SCH ×2 (12:17→20:16)
[2019-01-01] MEDS: CHLORTHALIDONE 25 MG TABLET PO SCH (12:18)
[2019-01-01] MEDS: DOXAZOSIN 1MG TABLET PO SCH (12:20)
[2019-01-01 13:12] VITALS: BP 137/79
[2019-01-01 17:39] VITALS: BP 134/77
[2019-01-01 19:04] VITALS: BP 121/65
[2019-01-01] MEDS: ATORVASTATIN 20 MG TABLET PO SCH (20:16)
[2019-01-02 02:58] VITALS: BP 126/72
[2019-01-02] MEDS: CARVEDILOL 25 MG TABLET PO SCH ×2 (05:33→17:31)
[2019-01-02] MEDS: ASPIRIN 325 MG TABLET PO SCH (05:34)
[2019-01-02 07:53] VITALS: BP 133/76
[2019-01-02] MEDS: ISOSORBIDE MONONITRATE ER 30 MG TABLET PO SCH (08:24)
[2019-01-02] MEDS: DOCUSATE 100 MG CAPSULE PO SCH ×2 (08:25→20:26)
[2019-01-02] MEDS: DOXAZOSIN 1MG TABLET PO SCH (08:25)
[2019-01-02] MEDS: CALCITRIOL 0.25 MCG CAPSULE PO SCH (08:25)
[2019-01-02] MEDS: AMLODIPINE 5 MG TABLET PO SCH ×2 (08:25→20:26)
[2019-01-02] MEDS: CALCIUM ACETATE 667 MG CAPSULE PO SCH ×3 (08:26→17:30)
[2019-01-02] MEDS: CHLORTHALIDONE 25 MG TABLET PO SCH (08:26)
[2019-01-02] MEDS: POLYETHYLENE GLYCOL 17 GM PACKET PO SCH (08:28)
[2019-01-02] MEDS: HEPARIN 5,000 UNITS/ML, 1ML SQ SCH ×2 (08:29→20:25)
[2019-01-02 13:27] VITALS: BP 141/77
[2019-01-02 17:31] VITALS: BP 148/68
[2019-01-02 19:34] VITALS: BP 143/82
[2019-01-02] MEDS: ATORVASTATIN 20 MG TABLET PO SCH (20:26)
[2019-01-02] MEDS: TEMAZEPAM 15 MG CAPSULE PO PRN (20:33)
[2019-01-03 02:02] VITALS: BP 138/76
[2019-01-03 04:37] LABS: ANION GAP 10 mmol/L (5-15); CALCIUM 8.7 mg/dL (8.5-10.1); CHLORIDE 101 mmol/L (98-107)
[2019-01-03] MEDS: CARVEDILOL 25 MG TABLET PO SCH ×2 (05:22→17:39)
[2019-01-03] MEDS: ASPIRIN 325 MG TABLET PO SCH (05:22)
[2019-01-03] MEDS: CALCIUM ACETATE 667 MG CAPSULE PO SCH ×3 (08:00→17:39)
[2019-01-03] MEDS: HEPARIN 5,000 UNITS/ML, 1ML SQ SCH ×2 (08:30→20:30)
[2019-01-03 09:52] VITALS: BP 137/77
[2019-01-03] MEDS: AMLODIPINE 5 MG TABLET PO SCH ×2 (11:56→20:58)
[2019-01-03] MEDS: CALCITRIOL 0.25 MCG CAPSULE PO SCH (11:56)
[2019-01-03] MEDS: ISOSORBIDE MONONITRATE ER 30 MG TABLET PO SCH (11:56)
[2019-01-03] MEDS: DOCUSATE 100 MG CAPSULE PO SCH ×2 (11:57→20:58)
[2019-01-03] MEDS: POLYETHYLENE GLYCOL 17 GM PACKET PO SCH (11:57)
[2019-01-03] MEDS: DOXAZOSIN 1MG TABLET PO SCH (11:57)
[2019-01-03 14:00] VITALS: BP 146/84
[2019-01-03 20:17] VITALS: BP 122/66
[2019-01-03] MEDS: ERGOCALCIFEROL 50,000 UNIT CAPSULE PO SCH (20:58)
[2019-01-03] MEDS: TEMAZEPAM 15 MG CAPSULE PO PRN (20:58)
[2019-01-03] MEDS: ATORVASTATIN 20 MG TABLET PO SCH (20:58)
[2019-01-04 03:00] VITALS: BP 127/77
[2019-01-04] MEDS: CARVEDILOL 25 MG TABLET PO SCH ×2 (05:28→16:37)
[2019-01-04] MEDS: ASPIRIN 325 MG TABLET PO SCH (05:28)
[2019-01-04 05:50] LABS: CHLORIDE 100 mmol/L (98-107)
[2019-01-04 06:03] LABS: BASOPHILS # (AUTO) 0.03 x10^3/uL (0-0.1); BASOPHILS % (AUTO) 1 % (0-1); EOSINOPHILS % (AUTO) 2 % (1-7); LYMPHOCYTES # (AUTO) 1.12 x10^3/uL (1-3.4); LYMPHOCYTES % (AUTO) 24 % (22-44); MD NO; MEAN CORPUSCULAR HEMOGLOBIN 29.5 pg (27.5-34.5); MEAN CORPUSCULAR HGB CONC 32.6 g/dL (33.2-36.2); MEAN CORPUSCULAR VOLUME 90.4 fL (81-97); MEAN PLATELET VOLUME 9.5 fL (7.4-10.4); MONOCYTES # (AUTO) 0.54 x10^3/uL (0.2-0.8); MONOCYTES % (AUTO) 12 % (2-9); NEUTROPHILS # (AUTO) 2.93 x10^3/uL (1.8-6.8); NEUTROPHILS % (AUTO) 62 % (42-75); PLATELET COUNT 145 x10^3/uL (130-400); RED BLOOD COUNT 3.19 x10^6/uL (4.38-5.82); RED CELL DISTRIBUTION WIDTH 13.7 % (9.4-14.8)
[2019-01-04 06:11] LABS: ALANINE AMINOTRANSFERASE 43 U/L (12-78); ALBUMIN 3.2 g/dL (3.4-5.0); ALKALINE PHOSPHATASE 180 U/L (45-117); ANION GAP 8 mmol/L (5-15); BILIRUBIN,TOTAL 0.3 mg/dL (0.2-1.0); CALCIUM 8.4 mg/dL (8.5-10.1); CREATININE 8.98 mg/dL (0.7-1.3); TOTAL PROTEIN 6.3 g/dL (6.4-8.2)
[2019-01-04 06:56] VITALS: BP 115/71
[2019-01-04] MEDS: CALCITRIOL 0.25 MCG CAPSULE PO SCH (08:03)
[2019-01-04] MEDS: CALCIUM ACETATE 667 MG CAPSULE PO SCH ×3 (08:04→16:37)
[2019-01-04] MEDS: ISOSORBIDE MONONITRATE ER 30 MG TABLET PO SCH (08:04)
[2019-01-04] MEDS: AMLODIPINE 5 MG TABLET PO SCH ×2 (08:04→20:04)
[2019-01-04] MEDS: DOXAZOSIN 1MG TABLET PO SCH (08:04)
[2019-01-04] MEDS: DOCUSATE 100 MG CAPSULE PO SCH ×2 (08:04→20:04)
[2019-01-04] MEDS: HEPARIN 5,000 UNITS/ML, 1ML SQ SCH ×2 (08:08→20:04)
[2019-01-04] MEDS: POLYETHYLENE GLYCOL 17 GM PACKET PO SCH (08:08)
[2019-01-04] MEDS ORDERED: ONDANSETRON 2MG/ML, 2ML ONE (09:41)
[2019-01-04] MEDS: ONDANSETRON 2MG/ML, 2ML IVPush PRN ×3 (09:45→20:59)
[2019-01-04 12:17] VITALS: BP 131/79
[2019-01-04 19:53] VITALS: BP 152/84
[2019-01-04] MEDS: TEMAZEPAM 15 MG CAPSULE PO PRN (20:04)
[2019-01-04] MEDS: ATORVASTATIN 20 MG TABLET PO SCH (20:04)
[2019-01-05 02:10] VITALS: BP 128/69
[2019-01-05 04:34] LABS: BASOPHILS # (AUTO) 0.01 x10^3/uL (0-0.1); BASOPHILS % (AUTO) 0 % (0-1); EOSINOPHILS # (AUTO) 0.13 x10^3/uL (0-0.4); EOSINOPHILS % (AUTO) 3 % (1-7); LYMPHOCYTES # (AUTO) 1.06 x10^3/uL (1-3.4); LYMPHOCYTES % (AUTO) 22 % (22-44); MD NO; MEAN CORPUSCULAR HEMOGLOBIN 29.3 pg (27.5-34.5); MEAN CORPUSCULAR HGB CONC 32.5 g/dL (33.2-36.2); MEAN PLATELET VOLUME 9.6 fL (7.4-10.4); MONOCYTES % (AUTO) 10 % (2-9); NEUTROPHILS # (AUTO) 3.15 x10^3/uL (1.8-6.8); NEUTROPHILS % (AUTO) 65 % (42-75); PLATELET COUNT 130 x10^3/uL (130-400); RED BLOOD COUNT 3.16 x10^6/uL (4.38-5.82); RED CELL DISTRIBUTION WIDTH 13.8 % (9.4-14.8)
[2019-01-05 04:43] LABS: ALANINE AMINOTRANSFERASE 46 U/L (12-78); ALBUMIN 3.2 g/dL (3.4-5.0); ANION GAP 8 mmol/L (5-15); CALCIUM 8.5 mg/dL (8.5-10.1); CHLORIDE 98 mmol/L (98-107)
[2019-01-05 04:45] LABS: ALKALINE PHOSPHATASE 180 U/L (45-117); BILIRUBIN,TOTAL 0.3 mg/dL (0.2-1.0); TOTAL PROTEIN 6.3 g/dL (6.4-8.2)
[2019-01-05 04:47] VITALS: BP 141/81
[2019-01-05] MEDS: NITROGLYCERIN 0.4 MG BOTTLE (25 TABS) SL PRN (04:51)
[2019-01-05] MEDS: ASPIRIN 325 MG TABLET PO SCH (04:52)
[2019-01-05] MEDS: CARVEDILOL 25 MG TABLET PO SCH ×2 (05:58→17:22)
[2019-01-05 08:00] VITALS: BP 149/78
[2019-01-05] MEDS: CALCIUM ACETATE 667 MG CAPSULE PO SCH ×3 (08:00→16:56)
[2019-01-05] MEDS: HEPARIN 5,000 UNITS/ML, 1ML SQ SCH ×2 (08:30→20:38)
[2019-01-05] MEDS: POLYETHYLENE GLYCOL 17 GM PACKET PO SCH (09:00)
[2019-01-05] MEDS: DOXAZOSIN 1MG TABLET PO SCH (11:59)
[2019-01-05] MEDS: DOCUSATE 100 MG CAPSULE PO SCH ×2 (11:59→20:37)
[2019-01-05] MEDS: CALCITRIOL 0.25 MCG CAPSULE PO SCH (11:59)
[2019-01-05] MEDS: AMLODIPINE 5 MG TABLET PO SCH ×2 (11:59→20:37)
[2019-01-05] MEDS: ISOSORBIDE MONONITRATE ER 30 MG TABLET PO SCH (11:59)
[2019-01-05 14:24] VITALS: BP 136/73
[2019-01-05 20:20] VITALS: BP 123/67
[2019-01-05] MEDS: ATORVASTATIN 20 MG TABLET PO SCH (20:37)
[2019-01-05] MEDS: TEMAZEPAM 15 MG CAPSULE PO PRN (20:38)
[2019-01-05] MEDS: ACETAMINOPHEN 325 MG TABLET PO PRN (20:38)
[2019-01-06 01:08] VITALS: BP 119/68
[2019-01-06 05:12] LABS: BASOPHILS # (AUTO) 0.02 x10^3/uL (0-0.1); BASOPHILS % (AUTO) 1 % (0-1); EOSINOPHILS % (AUTO) 2 % (1-7); LYMPHOCYTES # (AUTO) 0.89 x10^3/uL (1-3.4); LYMPHOCYTES % (AUTO) 21 % (22-44); MD NO; MEAN CORPUSCULAR HEMOGLOBIN 29.4 pg (27.5-34.5); MEAN CORPUSCULAR HGB CONC 32.9 g/dL (33.2-36.2); MEAN CORPUSCULAR VOLUME 89.3 fL (81-97); MEAN PLATELET VOLUME 9.5 fL (7.4-10.4); MONOCYTES # (AUTO) 0.53 x10^3/uL (0.2-0.8); MONOCYTES % (AUTO) 12 % (2-9); NEUTROPHILS # (AUTO) 2.81 x10^3/uL (1.8-6.8); NEUTROPHILS % (AUTO) 65 % (42-75); PLATELET COUNT 123 x10^3/uL (130-400); RED BLOOD COUNT 3.17 x10^6/uL (4.38-5.82); RED CELL DISTRIBUTION WIDTH 13.5 % (9.4-14.8)
[2019-01-06 05:27] LABS: CHLORIDE 97 mmol/L (98-107)
[2019-01-06 05:33] LABS: ALANINE AMINOTRANSFERASE 47 U/L (12-78); ALBUMIN 3.2 g/dL (3.4-5.0); ALKALINE PHOSPHATASE 181 U/L (45-117); ANION GAP 7 mmol/L (5-15); BILIRUBIN,TOTAL 0.2 mg/dL (0.2-1.0); CALCIUM 8.3 mg/dL (8.5-10.1); CREATININE 8.93 mg/dL (0.7-1.3); TOTAL PROTEIN 6.2 g/dL (6.4-8.2)
[2019-01-06] MEDS: CARVEDILOL 25 MG TABLET PO SCH ×2 (06:32→17:42)
[2019-01-06] MEDS: ASPIRIN 325 MG TABLET PO SCH (06:32)
[2019-01-06 08:00] VITALS: BP 129/74
[2019-01-06 08:30] VITALS: BP 128/77
[2019-01-06] MEDS: HEPARIN 5,000 UNITS/ML, 1ML SQ SCH ×2 (08:30→20:30)
[2019-01-06] MEDS: CALCIUM ACETATE 667 MG CAPSULE PO SCH ×3 (08:44→17:42)
[2019-01-06] MEDS: DOCUSATE 100 MG CAPSULE PO SCH ×2 (08:45→20:32)
[2019-01-06] MEDS: DOXAZOSIN 1MG TABLET PO SCH (08:45)
[2019-01-06] MEDS: AMLODIPINE 5 MG TABLET PO SCH ×2 (08:46→20:33)
[2019-01-06] MEDS: ISOSORBIDE MONONITRATE ER 30 MG TABLET PO SCH (08:46)
[2019-01-06] MEDS: POLYETHYLENE GLYCOL 17 GM PACKET PO SCH (08:50)
[2019-01-06 14:00] VITALS: BP 122/65
[2019-01-06 17:41] VITALS: BP 144/83
[2019-01-06 20:20] VITALS: BP 127/68
[2019-01-06] MEDS: ATORVASTATIN 20 MG TABLET PO SCH (20:32)
[2019-01-06] MEDS: TEMAZEPAM 15 MG CAPSULE PO PRN (20:32)
[2019-01-07] MEDS: ACETAMINOPHEN 325 MG TABLET PO PRN (01:54)
[2019-01-07 02:04] VITALS: BP 113/66
[2019-01-07] MEDS: ONDANSETRON 2MG/ML, 2ML IVPush PRN (04:38)
[2019-01-07 06:20] VITALS: BP 113/67
[2019-01-07] MEDS: ASPIRIN 325 MG TABLET PO SCH (06:24)
[2019-01-07] MEDS: CARVEDILOL 25 MG TABLET PO SCH ×2 (06:24→17:18)
[2019-01-07 07:41] VITALS: BP 122/77
[2019-01-07] MEDS: CALCIUM ACETATE 667 MG CAPSULE PO SCH ×3 (08:00→17:00)
[2019-01-07] MEDS: HEPARIN 5,000 UNITS/ML, 1ML SQ SCH ×2 (08:30→20:20)
[2019-01-07] MEDS: DOCUSATE 100 MG CAPSULE PO SCH ×2 (09:00→20:20)
[2019-01-07] MEDS: ISOSORBIDE MONONITRATE ER 30 MG TABLET PO SCH (09:25)
[2019-01-07] MEDS: DOXAZOSIN 1MG TABLET PO SCH (09:25)
[2019-01-07] MEDS: AMLODIPINE 5 MG TABLET PO SCH ×2 (09:26→20:20)
[2019-01-07] MEDS: POLYETHYLENE GLYCOL 17 GM PACKET PO SCH (09:26)
[2019-01-07 14:30] VITALS: BP 124/73
[2019-01-07 20:18] VITALS: BP 123/72
[2019-01-07] MEDS: ATORVASTATIN 20 MG TABLET PO SCH (20:20)
[2019-01-07] MEDS: TEMAZEPAM 15 MG CAPSULE PO PRN (23:15)
[2019-01-08 02:51] VITALS: BP 122/74
[2019-01-08] MEDS ORDERED: DIPHENHYDRAMINE 25 MG CAPSULE PO ONE (06:00)
[2019-01-08] MEDS: ASPIRIN 325 MG TABLET PO SCH (06:12)
[2019-01-08] MEDS: CARVEDILOL 25 MG TABLET PO SCH (06:12)
[2019-01-08 06:20] LABS: ANION GAP 12 mmol/L (5-15); CALCIUM 8.3 mg/dL (8.5-10.1); CHLORIDE 95 mmol/L (98-107)
[2019-01-08 06:46] VITALS: BP 121/70
[2019-01-08 07:14] LABS: BASOPHILS # (AUTO) 0.01 x10^3/uL (0-0.1); BASOPHILS % (AUTO) 0 % (0-1); EOSINOPHILS # (AUTO) 0.08 x10^3/uL (0-0.4); EOSINOPHILS % (AUTO) 2 % (1-7); LYMPHOCYTES # (AUTO) 0.87 x10^3/uL (1-3.4); LYMPHOCYTES % (AUTO) 24 % (22-44); MD SCAN; MEAN CORPUSCULAR HEMOGLOBIN 28.9 pg (27.5-34.5); MEAN CORPUSCULAR HGB CONC 32.8 g/dL (33.2-36.2); MEAN CORPUSCULAR VOLUME 88.1 fL (81-97); MEAN PLATELET VOLUME 9.5 fL (7.4-10.4); MONOCYTES # (AUTO) 0.36 x10^3/uL (0.2-0.8); MONOCYTES % (AUTO) 10 % (2-9); NEUTROPHILS # (AUTO) 2.28 x10^3/uL (1.8-6.8); NEUTROPHILS % (AUTO) 63 % (42-75); PLATELET COUNT 111 x10^3/uL (130-400); RED BLOOD COUNT 3.12 x10^6/uL (4.38-5.82); RED CELL DISTRIBUTION WIDTH 13.9 % (9.4-14.8)
[2019-01-08] MEDS: ONDANSETRON 2MG/ML, 2ML IVPush PRN (07:35)
[2019-01-08] MEDS: HEPARIN 5,000 UNITS/ML, 1ML SQ SCH (08:30)
[2019-01-08] MEDS: CALCIUM ACETATE 667 MG CAPSULE PO SCH ×2 (12:00→12:44)
[2019-01-08] MEDS: CALCITRIOL 0.25 MCG CAPSULE PO SCH (12:44)
[2019-01-08] MEDS: AMLODIPINE 5 MG TABLET PO SCH (12:44)
[2019-01-08] MEDS: POLYETHYLENE GLYCOL 17 GM PACKET PO SCH (12:45)
[2019-01-08] MEDS: DOXAZOSIN 1MG TABLET PO SCH (12:45)
[2019-01-08] MEDS: DOCUSATE 100 MG CAPSULE PO SCH (12:45)
[2019-01-08] MEDS: ISOSORBIDE MONONITRATE ER 30 MG TABLET PO SCH (12:45)
[2019-01-08 13:37] VITALS: BP 152/85
== END 2019-01-08 17:01 | disposition left against medical advice (07) | DRG 469 ==
LOC: ED 04:02 → EDIP 04:20 → 4EST 05:27 → 5SO 12-20 14:22 → 4EST 12-24 13:26
PROVIDERS: ADMIT Family Medicine; ATTEND Family Medicine
PROC: 5A1D70Z Performance of Urinary Filtration, Intermittent, Less than 6 Hours Per Day (ICD-10-PCS; principal; 2018-12-18)
PROC: 5A1D70Z Performance of Urinary Filtration, Intermittent, Less than 6 Hours Per Day (ICD-10-PCS; 2018-12-19)
PROC: 5A1D70Z Performance of Urinary Filtration, Intermittent, Less than 6 Hours Per Day (ICD-10-PCS; 2018-12-20)
PROC: 5A1D70Z Performance of Urinary Filtration, Intermittent, Less than 6 Hours Per Day (ICD-10-PCS; 2018-12-22)
PROC: 5A1D70Z Performance of Urinary Filtration, Intermittent, Less than 6 Hours Per Day (ICD-10-PCS; 2018-12-25)
PROC: 5A1D70Z Performance of Urinary Filtration, Intermittent, Less than 6 Hours Per Day (ICD-10-PCS; 2018-12-27)
PROC: 5A1D70Z Performance of Urinary Filtration, Intermittent, Less than 6 Hours Per Day (ICD-10-PCS; 2018-12-29)
PROC: 5A1D70Z Performance of Urinary Filtration, Intermittent, Less than 6 Hours Per Day (ICD-10-PCS; 2019-01-01)
PROC: 5A1D70Z Performance of Urinary Filtration, Intermittent, Less than 6 Hours Per Day (ICD-10-PCS; 2019-01-03)
PROC: 5A1D70Z Performance of Urinary Filtration, Intermittent, Less than 6 Hours Per Day (ICD-10-PCS; 2019-01-05)
PROC: 5A1D70Z Performance of Urinary Filtration, Intermittent, Less than 6 Hours Per Day (ICD-10-PCS; 2019-01-07)
DX: N17.9 Acute kidney failure, unspecified (principal); I13.2 Hypertensive heart and chronic kidney disease with heart failure and with stage 5 chronic kidney disease, or end stage renal disease; E87.2 Acidosis; I27.20 Pulmonary hypertension, unspecified; E83.51 Hypocalcemia; E87.1 Hypo-osmolality and hyponatremia; E87.5 Hyperkalemia; N18.6 End stage renal disease; I50.32 Chronic diastolic (congestive) heart failure; B88.8 Other specified infestations; E78.5 Hyperlipidemia, unspecified; I34.0 Nonrheumatic mitral (valve) insufficiency; F12.90 Cannabis use, unspecified, uncomplicated; D63.1 Anemia in chronic kidney disease; B18.2 Chronic viral hepatitis C; F15.90 Other stimulant use, unspecified, uncomplicated; N25.0 Renal osteodystrophy; Z53.21 Procedure and treatment not carried out due to patient leaving prior to being seen by health care provider; F17.200 Nicotine dependence, unspecified, uncomplicated; Z99.2 Dependence on renal dialysis; Z72.89 Other problems related to lifestyle; Z91.19 Patient's noncompliance with other medical treatment and regimen; Z91.15 Patient's noncompliance with renal dialysis; Z83.3 Family history of diabetes mellitus; Z79.82 Long term (current) use of aspirin; Z79.899 Other long term (current) drug therapy
CPT/HCPCS: 0399T; 36415; 71045; 71275; 78452; 80048; 80053; 80061; 80069; 80074; 82040; 82306; 83540; 83550; 83735; 83970; 84100; 84484; 85025; 86480; 86803; 87521; 87522; 90935; 93005; 93017; 93306; G0378; J0610; J1644; J1815; J2405; J2550; J2785; Q9967; A9502; C9898; J0360; J2270; Q0163

== ENCOUNTER 2019-01-16 10:54 | Inpatient (IN) | payer MEDICAID ==
[~2019-01-16] VITALS: Ht 182.9 cm; Wt 84.7 kg
--- NOTE | 2019-01-16 12:14 | NUR ---
piv placed in pt, pt very squirmish during procedure throwing legs in the air and trying to flip in bed.
[2019-01-16 12:20] LABS: BASOPHILS # (AUTO) 0.01 x10^3/uL (0-0.1); BASOPHILS % (AUTO) 0 % (0-1); EOSINOPHILS % (AUTO) 2 % (1-7); LYMPHOCYTES # (AUTO) 0.93 x10^3/uL (1-3.4); LYMPHOCYTES % (AUTO) 14 % (22-44); MD NO; MEAN CORPUSCULAR HEMOGLOBIN 29.4 pg (27.5-34.5); MEAN CORPUSCULAR VOLUME 89.1 fL (81-97); MEAN PLATELET VOLUME 9.1 fL (7.4-10.4); MONOCYTES # (AUTO) 0.49 x10^3/uL (0.2-0.8); MONOCYTES % (AUTO) 8 % (2-9); NEUTROPHILS # (AUTO) 5.03 x10^3/uL (1.8-6.8); NEUTROPHILS % (AUTO) 77 % (42-75); PLATELET COUNT 130 x10^3/uL (130-400); RED BLOOD COUNT 3.21 x10^6/uL (4.38-5.82); RED CELL DISTRIBUTION WIDTH 14.2 % (9.4-14.8)
[2019-01-16 12:33] LABS: ALBUMIN 3.5 g/dL (3.4-5.0); ANION GAP 21 mmol/L (5-15); CALCIUM 6.9 mg/dL (8.5-10.1); CHLORIDE 105 mmol/L (98-107)
--- NOTE | 2019-01-16 12:44 | NUR ---
received call from lab: bun 140, cr 23.3 Provider made aware
--- NOTE | 2019-01-16 13:09 | NUR ---
POC Clarified with provider: obtain ecg, avoid hyperkalemia tx at this time and consult nephrology. vss on transportation aide
[2019-01-16] MEDS ORDERED: SODIUM CHLORIDE FLUSH 10ML SYR IVF PRN (14:00)
--- NOTE | 2019-01-16 14:48 | NUR ---
DR. CARIAS (HOSPITALIST AT BEDSIDE) PROVIDED WITH RENAL DIET VSS ON HEATING REPAIR TECHNICIAN POC CLARIFIED WITH THROUGHPUT RN (ESTIMATED TIME TO ADMIT 1 HOUR 4PM)
[2019-01-16] MEDS ORDERED: ERGOCALCIFEROL 50,000 UNIT CAPSULE PO SCH (15:00)
--- NOTE | 2019-01-16 15:16 | NUR ---
Attempted to call report- Rn unavailable (patient care). She is to call back shortly
[2019-01-16 15:47] LABS: AMPHETAMINE SCREEN, URINE Positive (Negative); BARBITURATE SCREEN, URINE Negative (Negative); BENZODIAZEPINE SCREEN, URINE Negative (Negative); CANNABINOID SCREEN, URINE Negative (Negative); COCAINE SCREEN, URINE Negative (Negative); METHADONE SCREEN, URINE Negative (Negative); OPIATE SCREEN, URINE Negative (Negative)
[2019-01-16] MEDS: CALCIUM ACETATE 667 MG CAPSULE PO SCH (16:42)
[2019-01-16] MEDS: FERROUS SULFATE 325 MG TABLET PO SCH (16:42)
[2019-01-16] MEDS ORDERED: LORazepam 2 MG/ML, 1ML ONE (17:28)
[2019-01-16] MEDS ORDERED: LORazepam 2 MG/ML, 1ML IVPush ONE (17:30)
[2019-01-16] MEDS ORDERED: ACETAMINOPHEN 325 MG TABLET PO PRN (18:00)
[2019-01-16] MEDS ORDERED: MORPHINE SULFATE 4 MG/ML, 1ML IVPush ONE (18:00)
[2019-01-16] MEDS ORDERED: hydrALAzine 20 MG/ML, 1ML IVPush PRN (18:00)
[2019-01-16] MEDS ORDERED: ONDANSETRON 2MG/ML, 2ML IVPush PRN (18:00)
[2019-01-16] MEDS ORDERED: TEMAZEPAM 15 MG CAPSULE PO PRN (18:00)
[2019-01-16 18:57] VITALS: BP 167/88
[2019-01-16] MEDS: AMLODIPINE 5 MG TABLET PO SCH (22:55)
[2019-01-16] MEDS: SIMVASTATIN 20 MG TABLET PO SCH (22:55)
[2019-01-16] MEDS: HEPARIN 5,000 UNITS/ML, 1ML SQ SCH (22:55)
[2019-01-17 01:30] VITALS: BP 172/95
[2019-01-17] MEDS: HEPARIN 5,000 UNITS/ML, 1ML SQ SCH ×3 (06:25→22:18)
[2019-01-17 06:27] LABS: BASOPHILS # (AUTO) 0.01 x10^3/uL (0-0.1); BASOPHILS % (AUTO) 0 % (0-1); EOSINOPHILS # (AUTO) 0.22 x10^3/uL (0-0.4); EOSINOPHILS % (AUTO) 5 % (1-7); LYMPHOCYTES # (AUTO) 1.06 x10^3/uL (1-3.4); LYMPHOCYTES % (AUTO) 21 % (22-44); MD NO; MEAN CORPUSCULAR HEMOGLOBIN 29.1 pg (27.5-34.5); MEAN CORPUSCULAR HGB CONC 32.5 g/dL (33.2-36.2); MEAN CORPUSCULAR VOLUME 89.7 fL (81-97); MEAN PLATELET VOLUME 9.1 fL (7.4-10.4); MONOCYTES # (AUTO) 0.45 x10^3/uL (0.2-0.8); MONOCYTES % (AUTO) 9 % (2-9); NEUTROPHILS # (AUTO) 3.23 x10^3/uL (1.8-6.8); NEUTROPHILS % (AUTO) 65 % (42-75); PLATELET COUNT 116 x10^3/uL (130-400); RED CELL DISTRIBUTION WIDTH 14.3 % (9.4-14.8)
[2019-01-17 06:30] LABS: ALANINE AMINOTRANSFERASE 27 U/L (12-78); ALBUMIN 3.2 g/dL (3.4-5.0); ANION GAP 15 mmol/L (5-15); CHLORIDE 108 mmol/L (98-107)
[2019-01-17 06:41] LABS: ALKALINE PHOSPHATASE 110 U/L (45-117); BILIRUBIN,TOTAL 0.4 mg/dL (0.2-1.0); TOTAL PROTEIN 6.4 g/dL (6.4-8.2)
[2019-01-17 07:00] VITALS: BP 158/92
[2019-01-17] MEDS: FERROUS SULFATE 325 MG TABLET PO SCH ×3 (08:00→17:43)
[2019-01-17] MEDS: CALCIUM ACETATE 667 MG CAPSULE PO SCH ×3 (08:00→17:00)
[2019-01-17] MEDS ORDERED: ISOSORBIDE MONONITRATE ER 30 MG TABLET ONE (08:46)
[2019-01-17] MEDS: ISOSORBIDE MONONITRATE ER 30 MG TABLET PO SCH (08:52)
[2019-01-17] MEDS: AMLODIPINE 5 MG TABLET PO SCH ×2 (12:26→20:31)
[2019-01-17] MEDS: CALCITRIOL 0.5 MCG CAPSULE PO SCH (12:29)
[2019-01-17 13:30] VITALS: BP 171/94
[2019-01-17 19:00] VITALS: BP 144/72
[2019-01-17] MEDS: SIMVASTATIN 20 MG TABLET PO SCH (20:31)
[2019-01-18 02:59] VITALS: BP 151/85
[2019-01-18 04:42] LABS: BASOPHILS # (AUTO) 0.01 x10^3/uL (0-0.1); BASOPHILS % (AUTO) 0 % (0-1); EOSINOPHILS % (AUTO) 5 % (1-7); LYMPHOCYTES # (AUTO) 0.87 x10^3/uL (1-3.4); LYMPHOCYTES % (AUTO) 22 % (22-44); MD NO; MEAN CORPUSCULAR HGB CONC 32.2 g/dL (33.2-36.2); MEAN CORPUSCULAR VOLUME 89.9 fL (81-97); MEAN PLATELET VOLUME 8.7 fL (7.4-10.4); MONOCYTES # (AUTO) 0.55 x10^3/uL (0.2-0.8); MONOCYTES % (AUTO) 14 % (2-9); NEUTROPHILS # (AUTO) 2.32 x10^3/uL (1.8-6.8); NEUTROPHILS % (AUTO) 59 % (42-75); PLATELET COUNT 121 x10^3/uL (130-400); RED BLOOD COUNT 3.53 x10^6/uL (4.38-5.82); RED CELL DISTRIBUTION WIDTH 13.9 % (9.4-14.8)
[2019-01-18 04:53] LABS: ALBUMIN 3.1 g/dL (3.4-5.0); ANION GAP 11 mmol/L (5-15); CALCIUM 7.3 mg/dL (8.5-10.1); CHLORIDE 103 mmol/L (98-107)
[2019-01-18] MEDS: HEPARIN 5,000 UNITS/ML, 1ML SQ SCH ×4 (05:32→21:49)
[2019-01-18] MEDS: FERROUS SULFATE 325 MG TABLET PO SCH ×3 (08:49→16:57)
[2019-01-18] MEDS: CALCIUM ACETATE 667 MG CAPSULE PO SCH ×3 (08:49→16:57)
[2019-01-18 08:50] VITALS: BP 142/88
[2019-01-18] MEDS: AMLODIPINE 5 MG TABLET PO SCH ×2 (08:50→21:49)
[2019-01-18] MEDS: CALCITRIOL 0.5 MCG CAPSULE PO SCH (08:50)
[2019-01-18] MEDS: ISOSORBIDE MONONITRATE ER 30 MG TABLET PO SCH (08:50)
[2019-01-18 13:10] VITALS: BP 148/84
[2019-01-18 20:49] VITALS: BP 145/85
[2019-01-18] MEDS: SIMVASTATIN 20 MG TABLET PO SCH (21:49)
[2019-01-19 02:27] VITALS: BP 135/76
[2019-01-19] MEDS: HEPARIN 5,000 UNITS/ML, 1ML SQ SCH ×2 (05:37→14:00)
[2019-01-19 07:45] VITALS: BP 138/84
[2019-01-19] MEDS: CALCIUM ACETATE 667 MG CAPSULE PO SCH ×2 (08:00→12:00)
[2019-01-19] MEDS: FERROUS SULFATE 325 MG TABLET PO SCH ×2 (08:00→15:11)
[2019-01-19] MEDS: AMLODIPINE 5 MG TABLET PO SCH (09:00)
[2019-01-19] MEDS: ISOSORBIDE MONONITRATE ER 30 MG TABLET PO SCH (09:00)
[2019-01-19] MEDS ORDERED: CIPROFLOXACIN DEXAMETHASONE EAR SUSP 7.5ML LEFT EAR SCH (09:30)
[2019-01-19 14:59] VITALS: BP 180/86
[2019-01-19] MEDS: CALCITRIOL 0.5 MCG CAPSULE PO SCH (15:10)
== END 2019-01-19 15:34 | disposition left against medical advice (07) | DRG 425 ==
LOC: ED 14:08 → EDIP 14:10 → SUATTDRO 14:34 → 4EST 15:59
PROVIDERS: ADMIT Internal Medicine; ATTEND Family Medicine
PROC: 5A1D70Z Performance of Urinary Filtration, Intermittent, Less than 6 Hours Per Day (ICD-10-PCS; 2019-01-16)
PROC: 5A1D70Z Performance of Urinary Filtration, Intermittent, Less than 6 Hours Per Day (ICD-10-PCS; 2019-01-17)
PROC: 5A1D70Z Performance of Urinary Filtration, Intermittent, Less than 6 Hours Per Day (ICD-10-PCS; principal; 2019-01-19)
DX: E87.5 Hyperkalemia (principal); I13.2 Hypertensive heart and chronic kidney disease with heart failure and with stage 5 chronic kidney disease, or end stage renal disease; E87.2 Acidosis; I27.20 Pulmonary hypertension, unspecified; E83.51 Hypocalcemia; N18.6 End stage renal disease; D63.1 Anemia in chronic kidney disease; E78.5 Hyperlipidemia, unspecified; F12.90 Cannabis use, unspecified, uncomplicated; F15.90 Other stimulant use, unspecified, uncomplicated; H60.92 Unspecified otitis externa, left ear; I50.32 Chronic diastolic (congestive) heart failure; Z53.29 Procedure and treatment not carried out because of patient's decision for other reasons; N25.0 Renal osteodystrophy; Z87.891 Personal history of nicotine dependence; I25.2 Old myocardial infarction; Z91.15 Patient's noncompliance with renal dialysis; Z91.19 Patient's noncompliance with other medical treatment and regimen; Z99.2 Dependence on renal dialysis
CPT/HCPCS: 36415; 71045; 80048; 80053; 80069; 80307; 82040; 83735; 84100; 85025; 90935; 93005; 99285; G0378; J1644; J2405; J2060; J2270

== ENCOUNTER 2019-01-19 19:25 | Emergency (ER) | payer MEDICAID ==
[~2019-01-19] VITALS: Ht 182.9 cm; Wt 87.6 kg
--- NOTE | 2019-01-19 19:59 | NUR ---
FIRST CONTACT WITH PT. PT REPORTS LEFT EAR PAIN AND LEFT SIDED CP STARTING OVER 3 DAYS AGO. PT ALSO WITH N/V AFTER DIALYSIS TODAY. PT'S AOX4. RESPS EVEN AND UNLABORED. NSR RATE 80'S ON CENTRAL OFFICE REPAIRER AT THIS TIME. ALL MONITORS IN PLACE. CALL LIGHT WITHIN REACH. PA AT BEDSIDE TO EVALUATE AT THIS TIME.
[2019-01-19] MEDS ORDERED: ASPIRIN 81 MG TABLET CHEW PO ONE (20:00)
[2019-01-19] MEDS ORDERED: ASPIRIN 81 MG TABLET CHEW ONE (20:03)
--- NOTE | 2019-01-19 20:12 | NUR ---
PT MEDICATED PER EMAR. PT TOLERATED WELL.
[2019-01-19 20:29] LABS: BASOPHILS # (AUTO) 0.03 x10^3/uL (0-0.1); BASOPHILS % (AUTO) 1 % (0-1); EOSINOPHILS # (AUTO) 0.07 x10^3/uL (0-0.4); EOSINOPHILS % (AUTO) 2 % (1-7); LYMPHOCYTES # (AUTO) 0.72 x10^3/uL (1-3.4); LYMPHOCYTES % (AUTO) 15 % (22-44); MD NO; MEAN CORPUSCULAR HEMOGLOBIN 29.3 pg (27.5-34.5); MEAN CORPUSCULAR HGB CONC 32.8 g/dL (33.2-36.2); MEAN CORPUSCULAR VOLUME 89.2 fL (81-97); MEAN PLATELET VOLUME 8.3 fL (7.4-10.4); MONOCYTES # (AUTO) 0.37 x10^3/uL (0.2-0.8); MONOCYTES % (AUTO) 8 % (2-9); NEUTROPHILS % (AUTO) 75 % (42-75); PLATELET COUNT 121 x10^3/uL (130-400); RED BLOOD COUNT 3.51 x10^6/uL (4.38-5.82); RED CELL DISTRIBUTION WIDTH 13.6 % (9.4-14.8)
[2019-01-19 20:33] LABS: ALANINE AMINOTRANSFERASE 26 U/L (12-78); ALBUMIN 3.3 g/dL (3.4-5.0); ANION GAP 6 mmol/L (5-15); CALCIUM 8.2 mg/dL (8.5-10.1); CHLORIDE 100 mmol/L (98-107); CREATININE 9.58 mg/dL (0.7-1.3)
[2019-01-19 20:38] LABS: ALKALINE PHOSPHATASE 100 U/L (45-117); BILIRUBIN,TOTAL 0.3 mg/dL (0.2-1.0); TROPONIN I < 0.015 ng/mL (0.000-0.045)
[2019-01-19 21:10] VITALS: BP 154/90
--- NOTE | 2019-01-19 21:27 | NUR ---
PT SLEEPING IN [facility]. RESPS EVEN AND UNLABORED. ALL MONITORS IN PLACE. CALL LIGHT WITHIN REACH.
[2019-01-19 21:48] LABS: TROPONIN I 0.017 ng/mL (0.000-0.045)
--- NOTE | 2019-01-19 22:14 | NUR ---
Patient given discharge instructions and they have confirmed that they understand the instructions. Patient ambulatory with steady gait.
== END 2019-01-19 22:15 | disposition home or self-care (01) ==
LOC: ED 20:38
DX: R07.89 Other chest pain (principal); F17.210 Nicotine dependence, cigarettes, uncomplicated; E78.5 Hyperlipidemia, unspecified; I12.0 Hypertensive chronic kidney disease with stage 5 chronic kidney disease or end stage renal disease; N18.6 End stage renal disease; Z99.2 Dependence on renal dialysis
CPT/HCPCS: 36415; 71046; 80053; 84484; 85025; 93005; 99284

== ENCOUNTER 2019-01-30 05:45 | Emergency (ER) | payer MEDICAID ==
[~2019-01-30] VITALS: Ht 185.4 cm; Wt 72.0 kg
[2019-01-30 05:52] VITALS: BP 156/93
--- NOTE | 2019-01-30 06:02 | NUR ---
HAVING C/O PAIN IN BILAT LEGS, CHEST PAIN AND SOB, FEELS FAINT. STATED SWELLINGIN BILAT LEGS STARTED YESTERDAY. DIALYSIS PT, UNKNOWN LAST DIALYSIS
--- NOTE | 2019-01-30 06:21 | NUR ---
pt argumentitive about getting undressed and having labs drawn at this time. placed all monitors on pt urinal given for urine sample
[2019-01-30] MEDS ORDERED: SODIUM CHLORIDE FLUSH 10ML SYR IVF ONE (06:30)
[2019-01-30 06:33] LABS: BASOPHILS # (AUTO) 0.02 x10^3/uL (0-0.1); BASOPHILS % (AUTO) 0 % (0-1); EOSINOPHILS # (AUTO) 0.17 x10^3/uL (0-0.4); EOSINOPHILS % (AUTO) 3 % (1-7); LYMPHOCYTES # (AUTO) 0.95 x10^3/uL (1-3.4); LYMPHOCYTES % (AUTO) 17 % (22-44); MD NO; MEAN CORPUSCULAR HEMOGLOBIN 28.9 pg (27.5-34.5); MEAN CORPUSCULAR HGB CONC 32.4 g/dL (33.2-36.2); MEAN CORPUSCULAR VOLUME 89.1 fL (81-97); MEAN PLATELET VOLUME 8.3 fL (7.4-10.4); MONOCYTES # (AUTO) 0.48 x10^3/uL (0.2-0.8); MONOCYTES % (AUTO) 8 % (2-9); NEUTROPHILS # (AUTO) 4.01 x10^3/uL (1.8-6.8); NEUTROPHILS % (AUTO) 71 % (42-75); PLATELET COUNT 202 x10^3/uL (130-400); RED BLOOD COUNT 3.85 x10^6/uL (4.38-5.82); RED CELL DISTRIBUTION WIDTH 13.9 % (9.4-14.8)
[2019-01-30 06:43] LABS: INTERNATIONAL NORMALIZED RATIO 1.08 (0.93-1.1); PROTHROMBIN TIME 11.3 Seconds (9.6-11.5)
--- NOTE | 2019-01-30 06:43 | NUR ---
pt refused to allow this rn to place a piv at this time, notified, md spoke with pt and pt agreed to allow another rn to place piv
[2019-01-30 06:46] LABS: ALANINE AMINOTRANSFERASE 32 U/L (12-78); ALBUMIN 4.3 g/dL (3.4-5.0); CHLORIDE 100 mmol/L (98-107)
[2019-01-30 06:50] LABS: ALKALINE PHOSPHATASE 161 U/L (45-117); BILIRUBIN,TOTAL 0.7 mg/dL (0.2-1.0); TROPONIN I 0.028 ng/mL (0.000-0.045)
[2019-01-30 06:58] LABS: ANION GAP 16 mmol/L (5-15)
--- NOTE | 2019-01-30 07:00 | NUR ---
RECEIVED REPORT FROM TI. PT UPRIGHT ON GURNEY AWAKE & WHISPERING TO VISITOR AT BS, PT JOSE YELLS "GET OUT!" DURING BS REPORT, NAD, COMFORT MEASURES PROVIDED, CALL LIGHT WITHIN REACH.
--- NOTE | 2019-01-30 07:10 | NUR ---
PT ARGUING & TALKING OVER ERP WHILE DR POLANCO TRYING TO EMPHASIZE IMPORTANCE OF MEDICAL CARE. PT REPEATEDLY TELLING VISITOR "YOU SEE WHAT THEY'RE DOING? WRITE THAT DOWN." PT FINALLY STATED HE WILL ALLOW PIV TO BE PLACED.
[2019-01-30] MEDS ORDERED: ALBUTEROL 0.5%, 20ML NPPB ONE (07:30)
[2019-01-30] MEDS ORDERED: DEXTROSE 50%, 50ML SYRINGE IVPush ONE (07:30)
[2019-01-30] MEDS ORDERED: SODIUM BICARB 8.4%, 50ML SYRINGE IVPush ONE (07:30)
[2019-01-30] MEDS ORDERED: CALCIUM CHLORIDE 10%, 10ML SYR IVPush ONE (07:30)
[2019-01-30] MEDS ORDERED: INSULIN REGULAR 100 UNITS/ML, 3ML VIAL IVPush ONE (07:30)
--- NOTE | 2019-01-30 07:40 | NUR ---
PT CHANGED INTO STREET CLOTHES & STATES HE'S "LEAVING BECAUSE Y'ALL DON'T WANT TO HELP ME" DESPITE MULTIPLE CONVERSATIONS WITH DR POLANCO ABOUT IMPORTANCE OF MEDICAL CARE TODAY LACK OF CARE MAY RESULT IN . PT REFUSES TO ALLOW THIS RN TO DISCUSS OR PROVIDE ANY CARE. PT CONTINUED TO SIT IN ROOM FULLY DRESSED REFUSING CARE & WRITTEN RX FOR KAYEXELATE PROVIDED BY DR POLANCO. SECURITY CALLED FOR ESCORT FROM ROOM. Addendum: 01/30/19 at 0826 by BRUCE PT CHANGED INTO STREET CLOTHES & STATES HE'S "LEAVING BECAUSE Y'ALL DON'T WANT TO HELP ME" DESPITE MULTIPLE CONVERSATIONS WITH DR POLANCO ABOUT IMPORTANCE OF MEDICAL CARE TODAY LACK OF CARE MAY RESULT IN . PT REFUSES TO ALLOW THIS RN OR OTHER STAFF TO DISCUSS OR PROVIDE ANY CARE. PT CONTINUED TO SIT IN ROOM FULLY DRESSED REFUSING CARE & WRITTEN RX FOR KAYEXELATE PROVIDED BY DR POLANCO. SECURITY CALLED FOR ESCORT FROM ROOM.
== END 2019-01-30 07:52 ==
LOC: ED 06:30
DX: I12.0 Hypertensive chronic kidney disease with stage 5 chronic kidney disease or end stage renal disease (principal); N18.6 End stage renal disease; F17.200 Nicotine dependence, unspecified, uncomplicated; E87.5 Hyperkalemia; E78.5 Hyperlipidemia, unspecified; Z99.2 Dependence on renal dialysis; Z72.9 Problem related to lifestyle, unspecified; Z91.14 Patient's other noncompliance with medication regimen
CPT/HCPCS: 36415; 71045; 80053; 83735; 83880; 84484; 85025; 85610; 93005; 99284; J1815

== ENCOUNTER 2019-04-09 03:48 | Observation (INO) | payer MEDICAID ==
[~2019-04-09] VITALS: Ht 182.9 cm; Wt 55.8 kg
[2019-04-09] MEDS ORDERED: SODIUM CHLORIDE FLUSH 10ML SYR IVF ONE (04:30)
--- NOTE | 2019-04-09 04:36 | NUR ---
Patient into room. Patient primarily concerned with swelling lip. Patient also reports pressure across his chest for the past three weeks. RN initiated peripheral intravenous access and collected blue, red, purple and green topped phlebotomy tubes. RN attached patient to telemetry monitor, and xray computer forensics technician arrived at bedside. Midlevel provider at bedside soon after for assessment. Relayed orders already placed. Received orders for medications to address inflammation. Will return and administer.
[2019-04-09 04:37] LABS: BASOPHILS # (AUTO) 0.02 x10^3/uL (0-0.1); BASOPHILS % (AUTO) 0 % (0-1); EOSINOPHILS # (AUTO) 0.04 x10^3/uL (0-0.4); EOSINOPHILS % (AUTO) 1 % (1-7); LYMPHOCYTES # (AUTO) 0.94 x10^3/uL (1-3.4); LYMPHOCYTES % (AUTO) 18 % (22-44); MD NO; MEAN CORPUSCULAR HEMOGLOBIN 28.1 pg (27.5-34.5); MEAN CORPUSCULAR HGB CONC 32.4 g/dL (33.2-36.2); MEAN CORPUSCULAR VOLUME 86.6 fL (81-97); MEAN PLATELET VOLUME 7.6 fL (7.4-10.4); MONOCYTES # (AUTO) 0.47 x10^3/uL (0.2-0.8); MONOCYTES % (AUTO) 9 % (2-9); NEUTROPHILS # (AUTO) 3.69 x10^3/uL (1.8-6.8); NEUTROPHILS % (AUTO) 72 % (42-75); PLATELET COUNT 249 x10^3/uL (130-400); RED BLOOD COUNT 3.66 x10^6/uL (4.38-5.82); RED CELL DISTRIBUTION WIDTH 14.6 % (9.4-14.8)
[2019-04-09 04:46] LABS: ALANINE AMINOTRANSFERASE 16 U/L (12-78); ANION GAP 12 mmol/L (5-15); CALCIUM 8.5 mg/dL (8.5-10.1); CHLORIDE 101 mmol/L (98-107)
[2019-04-09] MEDS ORDERED: DIPHENHYDRAMINE 50 MG/ML, 1ML ONE (04:47)
[2019-04-09] MEDS ORDERED: FAMOTIDINE 20 MG/2 ML ONE (04:47)
[2019-04-09] MEDS ORDERED: ASPIRIN 81 MG TABLET CHEW ONE (04:47)
[2019-04-09 04:49] LABS: ALKALINE PHOSPHATASE 116 U/L (45-117); BILIRUBIN,TOTAL 0.5 mg/dL (0.2-1.0); TOTAL PROTEIN 8.3 g/dL (6.4-8.2); TROPONIN I 0.057 ng/mL (0.000-0.045)
[2019-04-09] MEDS ORDERED: DIPHENHYDRAMINE 50 MG/ML, 1ML IVPush ONE (05:00)
[2019-04-09] MEDS ORDERED: FAMOTIDINE 20 MG/2 ML IVPush ONE (05:00)
[2019-04-09] MEDS ORDERED: ASPIRIN 81 MG TABLET CHEW PO ONE (05:00)
[2019-04-09] MEDS ORDERED: methylPREDNISolone SOD SUCC 125 MG/2 ML IVPush ONE (06:00)
[2019-04-09] MEDS ORDERED: CALCIUM CHLORIDE 10%, 10ML SYR IVPush ONE (06:00)
[2019-04-09] MEDS ORDERED: SODIUM POLY SULFONATE UDC 15 GM/60 ML PO ONE (06:00)
[2019-04-09] MEDS ORDERED: INSULIN REGULAR 100 UNITS/ML, 3ML VIAL IVPush ONE (06:00)
[2019-04-09] MEDS ORDERED: DEXTROSE 50%, 50ML SYRINGE IVPush ONE (06:00)
[2019-04-09] MEDS ORDERED: SODIUM POLY SULFONATE UDC 15 GM/60 ML ONE (06:10)
[2019-04-09] MEDS ORDERED: methylPREDNISolone SOD SUCC 125 MG/2 ML ONE (06:10)
[2019-04-09] MEDS ORDERED: CALCIUM CHLORIDE 10%, 10ML SYR ONE (06:10)
[2019-04-09] MEDS ORDERED: INSULIN SINGLE DOSE, ER ONE (06:11)
[2019-04-09] MEDS ORDERED: DEXTROSE 50%, 50ML SYRINGE ONE (06:11)
[2019-04-09 07:49] VITALS: BP 174/96
[2019-04-09 08:50] VITALS: BP 174/96
[2019-04-09] MEDS ORDERED: hydrALAzine 20 MG/ML, 1ML IV PRN (09:00)
[2019-04-09] MEDS ORDERED: ACETAMINOPHEN 325 MG TABLET PO PRN (09:00)
[2019-04-09] MEDS: AMLODIPINE 5 MG TABLET PO SCH (11:22)
[2019-04-09] MEDS ORDERED: DIPHENHYDRAMINE 50 MG CAPSULE ONE ×2 (12:22→16:33)
[2019-04-09] MEDS ORDERED: DIPHENHYDRAMINE 50 MG CAPSULE PO PRN ×3 (12:30→17:00)
[2019-04-09 13:00] LABS: TROPONIN I 0.036 ng/mL (0.000-0.045)
[2019-04-09 13:29] VITALS: BP 167/86
[2019-04-09] MEDS ORDERED: methylPREDNISolone SOD SUCC 125 MG/2 ML IVPush PRN (18:30)
[2019-04-09 19:50] VITALS: BP 162/83
[2019-04-10 00:57] VITALS: BP 136/74
[2019-04-10 05:18] LABS: BASOPHILS # (AUTO) 0.01 x10^3/uL (0-0.1); BASOPHILS % (AUTO) 0 % (0-1); EOSINOPHILS # (AUTO) 0.03 x10^3/uL (0-0.4); EOSINOPHILS % (AUTO) 0 % (1-7); LYMPHOCYTES # (AUTO) 1.01 x10^3/uL (1-3.4); LYMPHOCYTES % (AUTO) 13 % (22-44); MD NO; MEAN CORPUSCULAR HEMOGLOBIN 28.6 pg (27.5-34.5); MEAN CORPUSCULAR HGB CONC 32.9 g/dL (33.2-36.2); MEAN CORPUSCULAR VOLUME 87.1 fL (81-97); MEAN PLATELET VOLUME 7.7 fL (7.4-10.4); MONOCYTES # (AUTO) 0.72 x10^3/uL (0.2-0.8); MONOCYTES % (AUTO) 9 % (2-9); NEUTROPHILS # (AUTO) 5.99 x10^3/uL (1.8-6.8); NEUTROPHILS % (AUTO) 77 % (42-75); PLATELET COUNT 198 x10^3/uL (130-400); RED CELL DISTRIBUTION WIDTH 14.8 % (9.4-14.8)
[2019-04-10 05:21] LABS: ANION GAP 12 mmol/L (5-15); CALCIUM 7.9 mg/dL (8.5-10.1); CHLORIDE 99 mmol/L (98-107); CREATININE 9.72 mg/dL (0.7-1.3)
[2019-04-10 05:24] LABS: TROPONIN I 0.029 ng/mL (0.000-0.045)
[2019-04-10 07:35] VITALS: BP 135/78
[2019-04-10] MEDS: AMLODIPINE 5 MG TABLET PO SCH (08:32)
[2019-04-10] MEDS ORDERED: FERROUS SULFATE 325 MG TABLET PO SCH (12:00)
[2019-04-10] MEDS ORDERED: FERROUS SULFATE MC SCH (12:00)
[2019-04-10 12:23] VITALS: BP 141/78
== END 2019-04-10 14:58 | disposition left against medical advice (07) ==
LOC: ED 05:27 → INTOOBSV 05:50 → EDIP 05:50 → OBSVTOIN 05:50 → 4EST 07:19
PROVIDERS: ADMIT Internal Medicine; ATTEND Hospitalist
DX: R07.9 Chest pain, unspecified (principal); E87.5 Hyperkalemia; N17.9 Acute kidney failure, unspecified; I27.20 Pulmonary hypertension, unspecified; I50.32 Chronic diastolic (congestive) heart failure; I13.2 Hypertensive heart and chronic kidney disease with heart failure and with stage 5 chronic kidney disease, or end stage renal disease; N18.6 End stage renal disease; D63.1 Anemia in chronic kidney disease; I15.8 Other secondary hypertension; F15.90 Other stimulant use, unspecified, uncomplicated; F17.200 Nicotine dependence, unspecified, uncomplicated; G89.29 Other chronic pain; I25.10 Atherosclerotic heart disease of native coronary artery without angina pectoris; J45.909 Unspecified asthma, uncomplicated; T50.905A Adverse effect of unspecified drugs, medicaments and biological substances, initial encounter; T78.3XXA Angioneurotic edema, initial encounter; Z99.2 Dependence on renal dialysis; Z95.5 Presence of coronary angioplasty implant and graft; Z59.0 Homelessness; Z79.4 Long term (current) use of insulin
CPT/HCPCS: 36415; 71045; 80048; 80053; 83880; 84484; 85025; 93005; 93306; 96374; 96375; 99285; G0378; J1200; J1815; J2930; J3490; 90935

== ENCOUNTER 2019-05-30 17:33 | Inpatient (IN) | payer MEDICAID ==
[~2019-05-30] VITALS: Ht 182.9 cm; Wt 84.5 kg
[2019-05-30] MEDS ORDERED: CARV6.2512 PO (17:44)
[2019-05-30] MEDS ORDERED: SODIUM CHLORIDE FLUSH 10ML SYR IVF ONE (18:00)
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
--- NOTE | 2019-05-30 18:01 | NUR ---
CYNDY GARRIDO AT BEDSIDE.
--- NOTE | 2019-05-30 18:06 | NUR ---
RAD IN ROOM.
--- NOTE | 2019-05-30 18:13 | NUR ---
PT REPORTS USE OF CRYSTAL METH YESTERDAY.
[2019-05-30 18:40] LABS: BASOPHILS # (AUTO) 0.01 x10^3/uL (0-0.1); BASOPHILS % (AUTO) 0 % (0-1); EOSINOPHILS # (AUTO) 0.19 x10^3/uL (0-0.4); EOSINOPHILS % (AUTO) 4 % (1-7); LYMPHOCYTES # (AUTO) 0.79 x10^3/uL (1-3.4); LYMPHOCYTES % (AUTO) 15 % (22-44); MD NO; MEAN CORPUSCULAR HGB CONC 33.3 g/dL (33.2-36.2); MEAN CORPUSCULAR VOLUME 86.9 fL (81-97); MEAN PLATELET VOLUME 7.8 fL (7.4-10.4); MONOCYTES # (AUTO) 0.39 x10^3/uL (0.2-0.8); MONOCYTES % (AUTO) 8 % (2-9); NEUTROPHILS # (AUTO) 3.89 x10^3/uL (1.8-6.8); NEUTROPHILS % (AUTO) 74 % (42-75); PLATELET COUNT 200 x10^3/uL (130-400)
[2019-05-30 18:50] LABS: ALANINE AMINOTRANSFERASE 35 U/L (12-78); ALBUMIN 3.4 g/dL (3.4-5.0); ANION GAP 14 mmol/L (5-15); CALCIUM 7.5 mg/dL (8.5-10.1); CHLORIDE 110 mmol/L (98-107)
[2019-05-30 18:55] LABS: ALKALINE PHOSPHATASE 142 U/L (45-117); BILIRUBIN,TOTAL 0.4 mg/dL (0.2-1.0); TOTAL PROTEIN 6.9 g/dL (6.4-8.2); TROPONIN I 0.081 ng/mL (0.000-0.045)
[2019-05-30] MEDS ORDERED: DEXTROSE 50%, 50ML SYRINGE IVPush ONE (19:30)
[2019-05-30] MEDS ORDERED: INSULIN REGULAR 100 UNITS/ML, 3ML VIAL IVPush ONE (19:30)
[2019-05-30] MEDS ORDERED: CALCIUM CHLORIDE 10%, 10ML SYR IVPush ONE (19:30)
--- NOTE | 2019-05-30 19:45 | NUR ---
MED SANTIAGO FROM PHARMACY.
--- NOTE | 2019-05-30 20:10 | NUR ---
PT RESTING ON [employer] LISTENING TO MUSIC. HYPERTENSIVE, OTHER VS WDL.
--- NOTE | 2019-05-30 20:25 | NUR ---
PT MEDICATED PER EMAR. ADMITTING PROVIDER AT BEDSIDE.
[2019-05-30] MEDS ORDERED: HEPARIN 5,000 UNITS/ML, 1ML ONE (20:50)
--- NOTE | 2019-05-30 20:51 | NUR ---
MED SANTIAGO FROM PHARMACY.
[2019-05-30] MEDS ORDERED: BISACODYL 10 MG SUPP PR PRN (21:00)
[2019-05-30] MEDS ORDERED: DOCUSATE 100 MG CAPSULE PO PRN (21:00)
[2019-05-30] MEDS ORDERED: POLYETHYLENE GLYCOL 17 GM PACKET PO PRN (21:00)
[2019-05-30] MEDS: HEPARIN 5,000 UNITS/ML, 1ML SQ SCH (21:02)
--- NOTE | 2019-05-30 21:06 | NUR ---
PT RESTING ON [employer] W/ CALL LIGHT IN REACH. HYPERTENSIVE, OTHER VS WDL. AWAITING ADMIT.
[2019-05-30] MEDS: CARVEDILOL 6.25 MG TABLET PO SCH (21:18)
--- NOTE | 2019-05-30 21:59 | NUR ---
Report given to LISA Green. Patient to be transferred to room 424.
[2019-05-31 02:00] VITALS: BP 172/89
[2019-05-31] MEDS: ACETAMINOPHEN 325 MG TABLET PO PRN ×2 (03:32→15:12)
[2019-05-31 05:35] LABS: ALBUMIN 2.9 g/dL (3.4-5.0); ANION GAP 8 mmol/L (5-15); CHLORIDE 105 mmol/L (98-107)
[2019-05-31 05:36] LABS: MEAN CORPUSCULAR HEMOGLOBIN 28.3 pg (27.5-34.5); MEAN CORPUSCULAR HGB CONC 32.2 g/dL (33.2-36.2); MEAN CORPUSCULAR VOLUME 87.9 fL (81-97); MEAN PLATELET VOLUME 7.4 fL (7.4-10.4); PLATELET COUNT 199 x10^3/uL (130-400); RED BLOOD COUNT 2.94 x10^6/uL (4.38-5.82); RED CELL DISTRIBUTION WIDTH 15.2 % (9.4-14.8)
[2019-05-31 05:48] LABS: ALANINE AMINOTRANSFERASE 32 U/L (12-78); ALKALINE PHOSPHATASE 122 U/L (45-117); BILIRUBIN,TOTAL 0.6 mg/dL (0.2-1.0); TOTAL PROTEIN 6.1 g/dL (6.4-8.2)
[2019-05-31 06:16] LABS: BASOPHILS # (AUTO) 0.02 x10^3/uL (0-0.1); BASOPHILS % (AUTO) 0 % (0-1); EOSINOPHILS # (AUTO) 0.09 x10^3/uL (0-0.4); EOSINOPHILS % (AUTO) 2 % (1-7); LYMPHOCYTES % (AUTO) 14 % (22-44); MD SCAN; MONOCYTES # (AUTO) 0.49 x10^3/uL (0.2-0.8); MONOCYTES % (AUTO) 10 % (2-9); NEUTROPHILS # (AUTO) 3.67 x10^3/uL (1.8-6.8); NEUTROPHILS % (AUTO) 74 % (42-75)
[2019-05-31 08:06] VITALS: BP 169/92
[2019-05-31] MEDS: CARVEDILOL 6.25 MG TABLET PO SCH (08:12)
[2019-05-31] MEDS: HEPARIN 5,000 UNITS/ML, 1ML SQ SCH ×2 (08:12→15:12)
[2019-05-31 15:05] VITALS: BP 164/84
[2019-05-31 19:20] VITALS: BP 141/94
[2019-06-01] MEDS ORDERED: LISINOPRIL 5 MG TABLET PO SCH (09:00)
== END 2019-05-31 20:10 | disposition left against medical advice (07) | DRG 425 ==
LOC: ED 18:16 → EDIP 19:38 → 4WST 22:19
PROVIDERS: ADMIT Internal Medicine; ATTEND Internal Medicine
PROC: 5A1D70Z Performance of Urinary Filtration, Intermittent, Less than 6 Hours Per Day (ICD-10-PCS; principal; 2019-05-30)
DX: E87.5 Hyperkalemia (principal); I13.2 Hypertensive heart and chronic kidney disease with heart failure and with stage 5 chronic kidney disease, or end stage renal disease; N17.9 Acute kidney failure, unspecified; E87.2 Acidosis; I27.20 Pulmonary hypertension, unspecified; N18.6 End stage renal disease; D63.1 Anemia in chronic kidney disease; E78.5 Hyperlipidemia, unspecified; F12.90 Cannabis use, unspecified, uncomplicated; F15.90 Other stimulant use, unspecified, uncomplicated; F17.200 Nicotine dependence, unspecified, uncomplicated; F41.9 Anxiety disorder, unspecified; I50.32 Chronic diastolic (congestive) heart failure; J45.909 Unspecified asthma, uncomplicated; T50.905A Adverse effect of unspecified drugs, medicaments and biological substances, initial encounter; Z59.0 Homelessness; Z79.4 Long term (current) use of insulin; Z79.899 Other long term (current) drug therapy; Z91.14 Patient's other noncompliance with medication regimen; Z91.19 Patient's noncompliance with other medical treatment and regimen; Z99.2 Dependence on renal dialysis; Z53.29 Procedure and treatment not carried out because of patient's decision for other reasons
CPT/HCPCS: 36415; 71045; 80053; 83735; 83880; 84100; 84443; 84484; 85025; 90935; 93005; 96374; 96375; 99291; G0378; J1644; J1815

== ENCOUNTER 2019-06-02 23:40 | Inpatient (IN) | payer MEDICAID ==
[~2019-06-02] VITALS: Ht 182.9 cm; Wt 86.0 kg
[~2019-06-02 23:40] MED LIST changes: +CARV6.2512 PO
--- NOTE | 2019-06-03 00:04 | NUR ---
THIS IS A 54Y M THAT COMES IN TONIGHT FOR SOB X A FEW DAYS. PT STS HE WAS RECENTLY HERE FOR DIALYSIS LAST TUESDAY. PT HAS NOT KEPT CONSISTENT SCHEDULE FOR DIALYSIS HE RECENTLY WAS IN [facility] AND THE PANDEMIC IS MAKING THINGS DIFFICULT FOR HIM. PT RESTING ON GURNEY SPEAKING IN FULL SENTENCES AND INTERACTING WITH STAFF APPROPRIATELY. NADN. BP REMAINS ELEVATED ERP AWARE.
--- NOTE | 2019-06-03 00:37 | NUR ---
PIV STARTED, BLOOD SENT TO LAB
[2019-06-03 00:45] LABS: MEAN CORPUSCULAR HEMOGLOBIN 28.2 pg (27.5-34.5); MEAN CORPUSCULAR HGB CONC 32.7 g/dL (33.2-36.2); MEAN CORPUSCULAR VOLUME 86.3 fL (81-97); MEAN PLATELET VOLUME 7.4 fL (7.4-10.4); PLATELET COUNT 190 x10^3/uL (130-400); RED BLOOD COUNT 2.88 x10^6/uL (4.38-5.82); RED CELL DISTRIBUTION WIDTH 15.1 % (9.4-14.8)
[2019-06-03 00:51] LABS: ALBUMIN 3.3 g/dL (3.4-5.0); ANION GAP 15 mmol/L (5-15); CALCIUM 7.4 mg/dL (8.5-10.1); CHLORIDE 106 mmol/L (98-107)
[2019-06-03 01:15] LABS: MD YES
[2019-06-03 01:17] LABS: ANISOCYTOSIS 1+; BASOS#(MANUAL) 0.05 x10^3/uL (0-0.1); BASOS% (MANUAL) 1 % (0-1); EOS#(MANUAL) 0.16 x10^3/uL (0.0-0.4); EOS% (MANUAL) 3 % (1-7); LYMPH#(MANUAL) 0.59 x10^3/uL (1-3.4); LYMPHS% (MANUAL) 11 % (22-44); MONOS#(MANUAL) 0.16 x10^3/uL (0.3-2.7); MONOS% (MANUAL) 3 % (2-9); SEG#(MANUAL) 4.43 x10^3/uL (1.8-6.8); SEGS% (MANUAL) 82 % (42-75)
[2019-06-03 01:18] LABS: MICROCYTOSIS 1+; OVALOCYTES 1+
[2019-06-03 01:19] LABS: ECHINOCYTES 1+
--- NOTE | 2019-06-03 01:19 | NUR ---
Break RN: Attending MD at bedside.
[2019-06-03 01:20] LABS: <PLATELET ESTIMATE> ADEQUATE; <PLT MORPHOLOGY> NORMAL PLT MORPH; TEAR DROPS 1+
[2019-06-03] MEDS ORDERED: SODIUM BICARBONATE 1 MEQ/ML, 50ML VIAL ONE (01:29)
[2019-06-03] MEDS ORDERED: CALCIUM GLUCONATE 4.6 MEQ in SODIUM CHLORIDE 0.9% 100 ML IV ONE (01:30)
[2019-06-03] MEDS ORDERED: CARVEDILOL 6.25 MG TABLET PO ONE (01:30)
[2019-06-03] MEDS ORDERED: SODIUM BICARB 8.4%, 50ML SYRINGE IVPush ONE (01:30)
[2019-06-03] MEDS ORDERED: SODIUM POLYSTYRENE SULFONATE ORAL SUSP PO ONE (01:30)
[2019-06-03] MEDS ORDERED: CALCIUM GLUCONATE 0.46MEQ/1ML IVPush ONE (01:30)
[2019-06-03] MEDS ORDERED: ONDANSETRON 2MG/ML, 2ML IVPush PRN (01:30)
--- NOTE | 2019-06-03 01:48 | NUR ---
PT MEDICATED PER MAR, PT REFUSING VITALS AT THIS TIME, PT STS PULSE OX INTERFERES WITH HIS PHONE AND DOES NOT LIKE THE BP CUFF IT GETS TIGHT.
[2019-06-03 02:55] VITALS: BP 188/110
[2019-06-03] MEDS: hydrALAzine 20 MG/ML, 1ML IVPush PRN ×2 (03:02→08:40)
--- NOTE | 2019-06-03 03:23 | NUR ---
THIS TECH TRANSPORTED PT
[2019-06-03 08:12] VITALS: BP 179/103
[2019-06-03] MEDS: CARVEDILOL 6.25 MG TABLET PO SCH ×2 (09:01→18:07)
[2019-06-03] MEDS: HYDROcodone/APAP 5/325 TABLET PO PRN ×2 (09:01→13:25)
[2019-06-03 09:23] LABS: ANION GAP 14 mmol/L (5-15); CALCIUM 7.5 mg/dL (8.5-10.1); CHLORIDE 106 mmol/L (98-107)
[2019-06-03] MEDS: ACETAMINOPHEN 325 MG TABLET PO PRN ×3 (11:13→22:04)
[2019-06-03] MEDS ORDERED: hydrALAzine 20 MG/ML, 1ML IV ONE (12:00)
[2019-06-03] MEDS ORDERED: ARANESP 100 MCG/ML **ESRD SQ SCH (12:30)
[2019-06-03 15:33] VITALS: BP 177/84
[2019-06-03 16:55] LABS: AMPHETAMINE SCREEN, URINE Negative (Negative); BARBITURATE SCREEN, URINE Negative (Negative); BENZODIAZEPINE SCREEN, URINE Negative (Negative); CANNABINOID SCREEN, URINE Negative (Negative); COCAINE SCREEN, URINE Negative (Negative); METHADONE SCREEN, URINE Negative (Negative); OPIATE SCREEN, URINE Negative (Negative)
[2019-06-03 18:02] VITALS: BP 171/90
[2019-06-03 19:17] VITALS: BP 153/84
[2019-06-04] MEDS: hydrALAzine 20 MG/ML, 1ML IVPush PRN (00:47)
[2019-06-04 00:48] VITALS: BP 171/90
[2019-06-04 05:22] VITALS: BP 163/82
[2019-06-04] MEDS: CARVEDILOL 6.25 MG TABLET PO SCH (05:25)
[2019-06-04 05:40] LABS: BASOPHILS # (AUTO) 0.01 x10^3/uL (0-0.1); BASOPHILS % (AUTO) 0 % (0-1); EOSINOPHILS # (AUTO) 0.16 x10^3/uL (0-0.4); EOSINOPHILS % (AUTO) 3 % (1-7); LYMPHOCYTES # (AUTO) 0.77 x10^3/uL (1-3.4); LYMPHOCYTES % (AUTO) 17 % (22-44); MD NO; MEAN CORPUSCULAR HEMOGLOBIN 28.6 pg (27.5-34.5); MEAN CORPUSCULAR VOLUME 86.6 fL (81-97); MEAN PLATELET VOLUME 8.2 fL (7.4-10.4); MONOCYTES # (AUTO) 0.51 x10^3/uL (0.2-0.8); MONOCYTES % (AUTO) 11 % (2-9); NEUTROPHILS # (AUTO) 3.17 x10^3/uL (1.8-6.8); NEUTROPHILS % (AUTO) 69 % (42-75); PLATELET COUNT 132 x10^3/uL (130-400); RED BLOOD COUNT 2.89 x10^6/uL (4.38-5.82); RED CELL DISTRIBUTION WIDTH 15.2 % (9.4-14.8)
[2019-06-04 05:42] LABS: CHLORIDE 105 mmol/L (98-107)
[2019-06-04 05:47] LABS: ANION GAP 10 mmol/L (5-15); CALCIUM 7.7 mg/dL (8.5-10.1)
[2019-06-04 06:05] VITALS: BP 156/84
[2019-06-04] MEDS: HYDROcodone/APAP 5/325 TABLET PO PRN (07:26)
[2019-06-04] MEDS ORDERED: ARANESP 100 MCG/ML **ESRD SQ SCH (08:42)
[2019-06-04] MEDS ORDERED: AMLODIPINE 5 MG TABLET PO SCH (09:00)
[2019-06-04] MEDS ORDERED: HEPARIN 5,000 UNITS/ML, 1ML SQ SCH (09:00)
[2019-06-04] MEDS ORDERED: AMLO-150 PO (10:50)
[2019-06-04] MEDS ORDERED: ACET325T26 PO (10:51)
== END 2019-06-04 13:19 | disposition home or self-care (01) | DRG 425 ==
LOC: ED 06-03 00:05 → EDIP 06-03 01:35 → 4WST 06-03 02:50
PROVIDERS: ADMIT Internal Medicine; ATTEND Internal Medicine
PROC: 5A1D70Z Performance of Urinary Filtration, Intermittent, Less than 6 Hours Per Day (ICD-10-PCS; principal; 2019-06-03)
PROC: 5A1D70Z Performance of Urinary Filtration, Intermittent, Less than 6 Hours Per Day (ICD-10-PCS; 2019-06-04)
DX: E87.5 Hyperkalemia (principal); I13.2 Hypertensive heart and chronic kidney disease with heart failure and with stage 5 chronic kidney disease, or end stage renal disease; E87.2 Acidosis; I27.20 Pulmonary hypertension, unspecified; E83.51 Hypocalcemia; N18.6 End stage renal disease; B19.20 Unspecified viral hepatitis C without hepatic coma; D50.9 Iron deficiency anemia, unspecified; D63.1 Anemia in chronic kidney disease; E78.5 Hyperlipidemia, unspecified; F17.200 Nicotine dependence, unspecified, uncomplicated; F91.9 Conduct disorder, unspecified; I16.0 Hypertensive urgency; I50.32 Chronic diastolic (congestive) heart failure; F12.10 Cannabis abuse, uncomplicated; F15.10 Other stimulant abuse, uncomplicated; G43.909 Migraine, unspecified, not intractable, without status migrainosus; N25.0 Renal osteodystrophy; Z59.0 Homelessness; Z91.14 Patient's other noncompliance with medication regimen; Z91.15 Patient's noncompliance with renal dialysis; Z91.19 Patient's noncompliance with other medical treatment and regimen; Z99.2 Dependence on renal dialysis
CPT/HCPCS: 36415; 71045; 80048; 80307; 82040; 85025; 93005; 96374; 96375; G0378; J0610; J0882; J0360

== ENCOUNTER 2019-06-07 04:22 | Emergency (ER) | payer MEDICAID ==
[~2019-06-07] VITALS: Ht 182.9 cm; Wt 87.0 kg
[~2019-06-07 04:22] MED LIST changes: +ACET325T26 PO
[2019-06-07] MEDS ORDERED: SODIUM CHLORIDE FLUSH 10ML SYR IVF ONE (05:00)
--- NOTE | 2019-06-07 05:00 | NUR ---
LATE ENTRY: PT. TO ED STATING THAT HE NEEDS DIALYSIS. PT. REPORTS THAT HE IS UNABLE TO GET DIALYSIS ANYWHERE OTHER THAN THE HOSPITAL'S AND COMES IN WHEN HE KNOWS IT'S TIME. THIS WAS VERIFIED BY PREVIOUS D/C SUMMARY. HEMA BANUELOS IN TO [place] PT. AND DISCUSS POC. URINE SENT TO LAB. IV STARTED AND BLOOD DRAWN.
[2019-06-07 05:17] LABS: BASOPHILS # (AUTO) 0.01 x10^3/uL (0-0.1); BASOPHILS % (AUTO) 0 % (0-1); EOSINOPHILS # (AUTO) 0.13 x10^3/uL (0-0.4); EOSINOPHILS % (AUTO) 2 % (1-7); LYMPHOCYTES # (AUTO) 0.81 x10^3/uL (1-3.4); LYMPHOCYTES % (AUTO) 14 % (22-44); MD NO; MEAN CORPUSCULAR HEMOGLOBIN 28.4 pg (27.5-34.5); MEAN CORPUSCULAR HGB CONC 33.1 g/dL (33.2-36.2); MEAN CORPUSCULAR VOLUME 85.9 fL (81-97); MEAN PLATELET VOLUME 8.7 fL (7.4-10.4); MONOCYTES # (AUTO) 0.48 x10^3/uL (0.2-0.8); MONOCYTES % (AUTO) 9 % (2-9); NEUTROPHILS # (AUTO) 4.22 x10^3/uL (1.8-6.8); NEUTROPHILS % (AUTO) 75 % (42-75); PLATELET COUNT 134 x10^3/uL (130-400); RED BLOOD COUNT 2.96 x10^6/uL (4.38-5.82); RED CELL DISTRIBUTION WIDTH 14.8 % (9.4-14.8)
[2019-06-07 05:19] LABS: MICROSCOPIC AUTO
[2019-06-07 05:22] LABS: CULTURE INDICATED? YES
[2019-06-07 05:35] LABS: ALBUMIN 3.4 g/dL (3.4-5.0); ANION GAP 12 mmol/L (5-15); CALCIUM 7.8 mg/dL (8.5-10.1); CHLORIDE 110 mmol/L (98-107)
[2019-06-07 05:38] LABS: ALANINE AMINOTRANSFERASE 47 U/L (12-78); ALKALINE PHOSPHATASE 150 U/L (45-117); BILIRUBIN,TOTAL 0.4 mg/dL (0.2-1.0)
[2019-06-07 05:47] VITALS: BP 162/101
--- NOTE | 2019-06-07 05:50 | NUR ---
ALL RESULTS BACK AT THIS TIME. CHART UP FOR REVIEW BY ERP.
== END 2019-06-07 06:33 | disposition home or self-care (01) ==
LOC: ED 05:00
DX: I12.0 Hypertensive chronic kidney disease with stage 5 chronic kidney disease or end stage renal disease (principal); N18.6 End stage renal disease; D50.0 Iron deficiency anemia secondary to blood loss (chronic); E87.5 Hyperkalemia; E78.5 Hyperlipidemia, unspecified; J45.909 Unspecified asthma, uncomplicated
CPT/HCPCS: 36415; 80053; 81001; 85025; 87086; 99283

== ENCOUNTER 2019-06-08 21:37 | Inpatient (IN) | payer MEDICAID ==
[~2019-06-08] VITALS: Ht 182.9 cm; Wt 87.2 kg
--- NOTE | 2019-06-08 22:02 | NUR ---
PT C/O FEELING FLUID OVERLOADED AND ELECTROLYTES OUT OF WHACK, HAS NOT HAD DIALYSIS SINCE TUESDAY. AV FISTULA LEFT UPPER ARM. PT CONNECTED TO MONITORING. CALL LIGHT IN REACH. AWAITING ORDERS AT THIS TIME.
--- NOTE | 2019-06-08 22:17 | NUR ---
PIV PLACE, LABS DRAWN AND SENT BY TASK RN. PT AWARE OF NEED FOR URINE SAMPLE. UA CUP AT BEDSIDE. XRAY AT BEDSIDE.
[2019-06-08 22:29] LABS: BASOPHILS # (AUTO) 0.01 x10^3/uL (0-0.1); BASOPHILS % (AUTO) 0 % (0-1); EOSINOPHILS # (AUTO) 0.15 x10^3/uL (0-0.4); EOSINOPHILS % (AUTO) 3 % (1-7); LYMPHOCYTES # (AUTO) 1.03 x10^3/uL (1-3.4); LYMPHOCYTES % (AUTO) 17 % (22-44); MD NO; MEAN CORPUSCULAR HEMOGLOBIN 28.4 pg (27.5-34.5); MEAN CORPUSCULAR VOLUME 86.1 fL (81-97); MEAN PLATELET VOLUME 8.7 fL (7.4-10.4); MONOCYTES % (AUTO) 10 % (2-9); NEUTROPHILS # (AUTO) 4.34 x10^3/uL (1.8-6.8); NEUTROPHILS % (AUTO) 71 % (42-75); PLATELET COUNT 143 x10^3/uL (130-400); RED CELL DISTRIBUTION WIDTH 15.4 % (9.4-14.8)
[2019-06-08] MEDS ORDERED: SODIUM CHLORIDE FLUSH 10ML SYR IVF ONE (22:30)
[2019-06-08 22:37] LABS: ALANINE AMINOTRANSFERASE 49 U/L (12-78); ALBUMIN 3.5 g/dL (3.4-5.0); ANION GAP 16 mmol/L (5-15); CALCIUM 7.1 mg/dL (8.5-10.1); CHLORIDE 107 mmol/L (98-107)
[2019-06-08 22:39] LABS: ALKALINE PHOSPHATASE 155 U/L (45-117); BILIRUBIN,TOTAL 0.4 mg/dL (0.2-1.0); TOTAL PROTEIN 7.3 g/dL (6.4-8.2)
--- NOTE | 2019-06-08 23:00 | NUR ---
PT RESTING COMFORTABLY ON GURNEY. FOWLER. LAB AT BEDSIDE.
--- NOTE | 2019-06-08 23:11 | NUR ---
LAB ATTEMPTED ARTERIAL BLOOD GAS, PT MOVED TO [facility] FOR SUCCESSFUL BLOOD DRAW. PT GIVEN A COUPLE MINUTES AND THEN PT REFUSED TO ATTEMPT ANOTHER STICK. NOTIFIED.
--- NOTE | 2019-06-08 23:44 | NUR ---
THIS RN TO BEDSIDE FOR ADMITTING DOCTORS ASSESSMENT A HOP PICKER DUE TO PTS HX OF INAPPROPRIATE BEHAVIORS TOWARDS FEMALES. UNEVENTFUL INTERACTION.
--- NOTE | 2019-06-08 23:45 | NUR ---
REPORT GIVEN TO LISA CHINO. HOPSITALIST JUST LEFT BEDSIDE.
[2019-06-09] MEDS ORDERED: ACETAMINOPHEN 325 MG TABLET PO PRN
[2019-06-09] MEDS ORDERED: ONDANSETRON ODT 4 MG PO PRN
[2019-06-09 00:10] VITALS: BP 181/101
[2019-06-09] MEDS ORDERED: hydrALAzine 20 MG/ML, 1ML IV PRN (00:30)
[2019-06-09] MEDS ORDERED: hydrALAzine 20 MG/ML, 1ML ONE (00:30)
[2019-06-09] MEDS ORDERED: OXYcodone IR 5MG TABLET ONE (00:31)
[2019-06-09] MEDS ORDERED: ONDANSETRON 2MG/ML, 2ML ONE (00:31)
[2019-06-09] MEDS ORDERED: ONDANSETRON 4 MG TABLET ONE (00:37)
[2019-06-09] MEDS ORDERED: ONDANSETRON ODT 4 MG ONE (00:37)
[2019-06-09] MEDS: OXYcodone IR 5MG TABLET PO PRN ×4 (00:40→23:25)
[2019-06-09 01:38] VITALS: BP 181/109
[2019-06-09 07:25] LABS: ANION GAP 15 mmol/L (5-15); CALCIUM 7.2 mg/dL (8.5-10.1); CHLORIDE 108 mmol/L (98-107)
[2019-06-09 07:49] LABS: MEAN CORPUSCULAR HEMOGLOBIN 27.9 pg (27.5-34.5); MEAN CORPUSCULAR HGB CONC 31.9 g/dL (33.2-36.2); MEAN CORPUSCULAR VOLUME 87.5 fL (81-97); MEAN PLATELET VOLUME 8.2 fL (7.4-10.4); PLATELET COUNT 137 x10^3/uL (130-400); RED CELL DISTRIBUTION WIDTH 15.3 % (9.4-14.8)
[2019-06-09 08:03] LABS: BASOPHILS # (AUTO) 0.02 x10^3/uL (0-0.1); BASOPHILS % (AUTO) 1 % (0-1); EOSINOPHILS % (AUTO) 2 % (1-7); LYMPHOCYTES % (AUTO) 16 % (22-44); MD SCAN; MONOCYTES # (AUTO) 0.45 x10^3/uL (0.2-0.8); MONOCYTES % (AUTO) 9 % (2-9); NEUTROPHILS # (AUTO) 3.63 x10^3/uL (1.8-6.8); NEUTROPHILS % (AUTO) 73 % (42-75)
[2019-06-09 08:25] VITALS: BP 175/101
[2019-06-09] MEDS: CARVEDILOL 6.25 MG TABLET PO SCH ×2 (08:43→22:08)
[2019-06-09] MEDS: AMLODIPINE 5 MG TABLET PO SCH (08:43)
[2019-06-09] MEDS ORDERED: CALCIUM GLUCONATE 4.6 MEQ/10 ML IVPush ONE (09:00)
[2019-06-09] MEDS ORDERED: CALCIUM GLUCONATE 4.6 MEQ in SODIUM CHLORIDE 0.9% 100 ML IV ONE (09:00)
[2019-06-09] MEDS ORDERED: DARBEPOETIN 100 MCG/ML SQ SCH (12:00)
[2019-06-09] MEDS ORDERED: DIPHENHYDRAMINE 50 MG/ML, 1ML IVPush PRN (14:10)
[2019-06-09] MEDS ORDERED: DIPHENHYDRAMINE 50 MG/ML, 1ML ONE (14:10)
[2019-06-09 16:50] VITALS: BP 165/85
[2019-06-09] MEDS: FUROSEMIDE 80 MG TABLET PO SCH (17:07)
[2019-06-09 19:58] VITALS: BP 137/74
[2019-06-09 23:42] LABS: MICROSCOPIC AUTO
[2019-06-09 23:44] LABS: CULTURE INDICATED? NO
[2019-06-10 01:07] VITALS: BP 121/66
[2019-06-10 05:04] LABS: ALANINE AMINOTRANSFERASE 42 U/L (12-78); ALBUMIN 2.8 g/dL (3.4-5.0); ANION GAP 10 mmol/L (5-15); CALCIUM 7.9 mg/dL (8.5-10.1); CHLORIDE 105 mmol/L (98-107)
[2019-06-10 05:06] LABS: ALKALINE PHOSPHATASE 116 U/L (45-117); BILIRUBIN,TOTAL 0.5 mg/dL (0.2-1.0)
[2019-06-10 07:56] VITALS: BP 128/79
[2019-06-10] MEDS: AMLODIPINE 5 MG TABLET PO SCH (08:56)
[2019-06-10] MEDS: FUROSEMIDE 80 MG TABLET PO SCH (08:57)
[2019-06-10] MEDS: CARVEDILOL 6.25 MG TABLET PO SCH (08:57)
== END 2019-06-10 14:25 | disposition left against medical advice (07) | DRG 425 ==
LOC: ED 21:55 → EDIP 23:28 → 4EST 06-09 00:15
PROVIDERS: ATTEND Internal Medicine Infectious Disease
DX: E87.5 Hyperkalemia (principal); I13.2 Hypertensive heart and chronic kidney disease with heart failure and with stage 5 chronic kidney disease, or end stage renal disease; E87.2 Acidosis; N18.6 End stage renal disease; E83.51 Hypocalcemia; K21.9 Gastro-esophageal reflux disease without esophagitis; I50.30 Unspecified diastolic (congestive) heart failure; D63.1 Anemia in chronic kidney disease; E87.70 Fluid overload, unspecified; B19.20 Unspecified viral hepatitis C without hepatic coma; F19.10 Other psychoactive substance abuse, uncomplicated; Z91.14 Patient's other noncompliance with medication regimen; Z59.0 Homelessness
CPT/HCPCS: 36415; 71045; 80048; 80053; 81001; 83880; 85025; 86706; 87340; 93005; G0378; J0610; J0881; J0360; J1200

== ENCOUNTER 2019-06-13 16:03 | Inpatient (IN) | payer MEDICAID ==
[~2019-06-13] VITALS: Ht 182.9 cm; Wt 74.0 kg
--- NOTE | 2019-06-13 16:22 | NUR ---
AMBULATORY TO ED ROOM 31 W/ STEADY GAIT.
--- NOTE | 2019-06-13 16:29 | NUR ---
DR SANTIAGO BS FOR EXAM. PT STATES HE DOESN'T HAVE OUTPATIENT DIALYSIS. PT STATES HE COMES TO THE HOSPITAL FOR DIALYSIS. FISTULA LT UPPER ARM. PT STATES HE'S HERE FOR DIALYSIS. PT HAS MULTIPLE OTHER COMPLAINTS: SOB, GI UPSET, MEMORY PROBLEMS, WALKING DIFFICULTY. PT CURRENTLY Z&OX4, RESP EVEN & UNLABORED, SPEECH CLEAR, SKIN WNL. PULSE OX 99%RA.
[2019-06-13] MEDS ORDERED: ASPI-496 PO (16:40)
--- NOTE | 2019-06-13 16:45 | NUR ---
VOMITED INTO ROOM SINK
--- NOTE | 2019-06-13 17:13 | NUR ---
PT REPORTS DECREASED NAUSEA & GI UPSET POST-VOMITING.
--- NOTE | 2019-06-13 17:13 | NUR ---
IV LOCK ATTEMPTED X2. ASSISTANCE REQUESTED.
--- NOTE | 2019-06-13 17:25 | NUR ---
PIV INTIATED PER PEDRO RN: 20G RT FOREARM. PT REFUSED PO ZOFRAN.
--- NOTE | 2019-06-13 17:28 | NUR ---
BP 191/109. WILL NOTIFY DR SANTIAGO
--- NOTE | 2019-06-13 17:28 | NUR ---
EKG AT BS
[2019-06-13 17:34] LABS: BASOPHILS # (AUTO) 0.01 x10^3/uL (0-0.1); BASOPHILS % (AUTO) 0 % (0-1); EOSINOPHILS % (AUTO) 2 % (1-7); LYMPHOCYTES # (AUTO) 0.83 x10^3/uL (1-3.4); LYMPHOCYTES % (AUTO) 14 % (22-44); MD NO; MEAN CORPUSCULAR HEMOGLOBIN 28.8 pg (27.5-34.5); MEAN CORPUSCULAR HGB CONC 33.1 g/dL (33.2-36.2); MEAN CORPUSCULAR VOLUME 86.9 fL (81-97); MEAN PLATELET VOLUME 8.7 fL (7.4-10.4); MONOCYTES # (AUTO) 0.44 x10^3/uL (0.2-0.8); MONOCYTES % (AUTO) 8 % (2-9); NEUTROPHILS # (AUTO) 4.41 x10^3/uL (1.8-6.8); NEUTROPHILS % (AUTO) 76 % (42-75); PLATELET COUNT 131 x10^3/uL (130-400); RED BLOOD COUNT 3.02 x10^6/uL (4.38-5.82); RED CELL DISTRIBUTION WIDTH 15.1 % (9.4-14.8)
[2019-06-13 17:44] LABS: ALANINE AMINOTRANSFERASE 46 U/L (12-78); ALBUMIN 3.6 g/dL (3.4-5.0); CALCIUM 7.9 mg/dL (8.5-10.1)
[2019-06-13 17:46] LABS: ALKALINE PHOSPHATASE 149 U/L (45-117); BILIRUBIN,TOTAL 0.5 mg/dL (0.2-1.0); TOTAL PROTEIN 7.4 g/dL (6.4-8.2)
[2019-06-13 17:54] LABS: ANION GAP 13 mmol/L (5-15); CHLORIDE 107 mmol/L (98-107)
--- NOTE | 2019-06-13 17:54 | NUR ---
BREAK RN. PT MEDICATIONS REQUESTED FROM PHARMACY.
[2019-06-13] MEDS ORDERED: ONDANSETRON ODT 4 MG ONE (18:11)
[2019-06-13] MEDS: ONDANSETRON ODT 8 MG PO ONE ×2 (18:15→18:19)
--- NOTE | 2019-06-13 18:20 | NUR ---
PT REPORT FROM BREAK RN. PT CARE TO BE RESUMED.
--- NOTE | 2019-06-13 18:20 | NUR ---
BREAK RN. PT REFUSING PO MEDICATIONS, PT IS DEMANDING IV MEDICATIONS FOR NAUSEA AND HBP. PT AGGITATED, YELLING AT STAFF. ERMD AWARE PT REFUSING PO MEDICATIONS.
[2019-06-13] MEDS ORDERED: DEXTROSE 50%, 50ML SYRINGE ONE (18:22)
[2019-06-13] MEDS ORDERED: INSULIN SINGLE DOSE, ER ONE (18:28)
[2019-06-13] MEDS ORDERED: CALCIUM CHLORIDE 13.6 MEQ in SODIUM CHLORIDE 0.9% 100 ML IV ONE (18:30)
[2019-06-13] MEDS ORDERED: CALCIUM CHLORIDE 10%, 10ML SYR IVPush ONE (18:30)
[2019-06-13] MEDS ORDERED: DARBEPOETIN 100 MCG/ML SQ SCH (18:30)
[2019-06-13] MEDS ORDERED: INSULIN REGULAR 100 UNITS/ML, 3ML VIAL IVPush ONE (18:30)
[2019-06-13] MEDS ORDERED: DEXTROSE 50%, 50ML SYRINGE IVPush ONE (18:30)
[2019-06-13] MEDS ORDERED: NITROGLYCERIN OINT 2%, 1GM TP ONE ×2 (19:00→19:07)
[2019-06-13] MEDS ORDERED: METOCLOPRAMIDE 5 MG/ML, 2ML IVPush PRN (19:00)
[2019-06-13] MEDS ORDERED: DOCUSATE 100 MG CAPSULE PO PRN (19:00)
[2019-06-13] MEDS ORDERED: ONDANSETRON 2MG/ML, 2ML IVPush PRN (19:00)
[2019-06-13] MEDS ORDERED: morphine SULFATE 10 MG/ML, 1ML IVPush PRN (19:00)
[2019-06-13] MEDS ORDERED: SODIUM CHLORIDE FLUSH 10ML SYR IVF ONE (19:00)
--- NOTE | 2019-06-13 19:11 | NUR ---
PT MEDICATED PER EMAR
--- NOTE | 2019-06-13 19:20 | NUR ---
NITRO PASTE APPLIED TO LT UPPER CHEST
--- NOTE | 2019-06-13 19:43 | NUR ---
REPORT CALLED TO LISA ZIMMER. PT GOING TO ROOM 545.
[2019-06-13 20:00] VITALS: BP 246/121
[2019-06-13] MEDS: CARVEDILOL 6.25 MG TABLET PO SCH (20:22)
[2019-06-13] MEDS: ACETAMINOPHEN 325 MG TABLET PO PRN (22:47)
[2019-06-14] MEDS: ACETAMINOPHEN 325 MG TABLET PO PRN ×2 (02:58→20:53)
[2019-06-14 04:41] LABS: MEAN CORPUSCULAR HGB CONC 32.2 g/dL (33.2-36.2); MEAN CORPUSCULAR VOLUME 87.1 fL (81-97); RED BLOOD COUNT 2.79 x10^6/uL (4.38-5.82); RED CELL DISTRIBUTION WIDTH 15.1 % (9.4-14.8)
[2019-06-14 04:47] LABS: ANION GAP 10 mmol/L (5-15); CALCIUM 7.8 mg/dL (8.5-10.1); CHLORIDE 102 mmol/L (98-107); CREATININE 9.91 mg/dL (0.7-1.3)
[2019-06-14] MEDS ORDERED: AMLODIPINE 5 MG TABLET ONE (04:53)
[2019-06-14] MEDS: AMLODIPINE 5 MG TABLET PO SCH (04:55)
[2019-06-14 05:49] LABS: MEAN PLATELET VOLUME 7.9 fL (7.4-10.4); PLATELET COUNT 102 x10^3/uL (130-400)
[2019-06-14 06:02] LABS: BASOPHILS % (AUTO) 0 % (0-1); EOSINOPHILS # (AUTO) 0.06 x10^3/uL (0-0.4); EOSINOPHILS % (AUTO) 1 % (1-7); LYMPHOCYTES # (AUTO) 0.59 x10^3/uL (1-3.4); LYMPHOCYTES % (AUTO) 13 % (22-44); MD SCAN; MONOCYTES % (AUTO) 11 % (2-9); NEUTROPHILS # (AUTO) 3.54 x10^3/uL (1.8-6.8); NEUTROPHILS % (AUTO) 75 % (42-75)
[2019-06-14] MEDS: CARVEDILOL 6.25 MG TABLET PO SCH ×2 (08:55→20:53)
[2019-06-14] MEDS: ASPIRIN 81 MG TABLET EC PO SCH (08:56)
[2019-06-14] MEDS ORDERED: ERGOCALCIFEROL 50,000 UNIT CAPSULE PO SCH (14:00)
[2019-06-14 16:09] VITALS: BP 160/84
[2019-06-14 20:04] VITALS: BP 163/92
[2019-06-15 00:20] VITALS: BP 167/92
[2019-06-15 07:14] VITALS: BP 161/92
[2019-06-15] MEDS ORDERED: ERGO500017 PO (08:05)
[2019-06-15] MEDS: ASPIRIN 81 MG TABLET EC PO SCH (08:22)
[2019-06-15] MEDS: AMLODIPINE 5 MG TABLET PO SCH (08:22)
[2019-06-15] MEDS: CARVEDILOL 6.25 MG TABLET PO SCH (08:23)
== END 2019-06-15 14:19 | disposition home or self-care (01) | DRG 194 ==
LOC: ED 16:34 → EDIP 18:37 → CCU 19:54 → 4WST 06-14 15:53
PROVIDERS: ADMIT Family Medicine; ATTEND Internal Medicine
PROC: 5A1D70Z Performance of Urinary Filtration, Intermittent, Less than 6 Hours Per Day (ICD-10-PCS; principal; 2019-06-13)
PROC: 5A1D70Z Performance of Urinary Filtration, Intermittent, Less than 6 Hours Per Day (ICD-10-PCS; 2019-06-14)
PROC: 5A1D70Z Performance of Urinary Filtration, Intermittent, Less than 6 Hours Per Day (ICD-10-PCS; 2019-06-15)
DX: I13.2 Hypertensive heart and chronic kidney disease with heart failure and with stage 5 chronic kidney disease, or end stage renal disease (principal); E87.2 Acidosis; I27.20 Pulmonary hypertension, unspecified; N18.6 End stage renal disease; E83.51 Hypocalcemia; E87.5 Hyperkalemia; I50.32 Chronic diastolic (congestive) heart failure; D63.1 Anemia in chronic kidney disease; B19.20 Unspecified viral hepatitis C without hepatic coma; F15.90 Other stimulant use, unspecified, uncomplicated; I16.1 Hypertensive emergency; E55.9 Vitamin D deficiency, unspecified; J45.909 Unspecified asthma, uncomplicated; K46.9 Unspecified abdominal hernia without obstruction or gangrene; F14.10 Cocaine abuse, uncomplicated; Z83.3 Family history of diabetes mellitus; Z71.6 Tobacco abuse counseling; Z99.2 Dependence on renal dialysis; Z91.15 Patient's noncompliance with renal dialysis; Z59.0 Homelessness; Z71.51 Drug abuse counseling and surveillance of drug abuser; Z79.899 Other long term (current) drug therapy
CPT/HCPCS: 36415; 71045; 80048; 80053; 83735; 84100; 85025; 87081; 90935; 93005; 96372; 96374; 96375; G0378; J0881; Q0162; J1815; J2270

== ENCOUNTER 2019-06-19 01:33 | Inpatient (IN) | payer MEDICAID ==
[~2019-06-19] VITALS: Ht 182.9 cm; Wt 89.7 kg
[~2019-06-19 01:33] MED LIST changes: +ASPI-496 PO
[2019-06-19] MEDS ORDERED: HYDROmorphone 1 MG/ML, 1ML INJ ONE (01:49)
--- NOTE | 2019-06-19 01:58 | NUR ---
US AT BEDSIDE FOR STUDY. PT MEDICATED FOR PAIN PER EMAR. VSS.
[2019-06-19] MEDS ORDERED: MORPHINE SULFATE 4 MG/ML, 1ML IVPush PRN (02:00)
[2019-06-19] MEDS ORDERED: HYDROmorphone 1 MG/ML, 1ML INJ IM ONE (02:00)
[2019-06-19] MEDS ORDERED: ONDANSETRON 2MG/ML, 2ML IVPush ONE (02:00)
[2019-06-19] MEDS ORDERED: SODIUM CHLORIDE FLUSH 10ML SYR IVF ONE ×2 (02:00→03:00)
[2019-06-19 02:24] LABS: BASOPHILS # (AUTO) 0.02 x10^3/uL (0-0.1); BASOPHILS % (AUTO) 1 % (0-1); EOSINOPHILS % (AUTO) 2 % (1-7); LYMPHOCYTES # (AUTO) 0.61 x10^3/uL (1-3.4); LYMPHOCYTES % (AUTO) 12 % (22-44); MD NO; MEAN CORPUSCULAR HEMOGLOBIN 27.3 pg (27.5-34.5); MEAN CORPUSCULAR HGB CONC 31.8 g/dL (33.2-36.2); MEAN CORPUSCULAR VOLUME 85.8 fL (81-97); MEAN PLATELET VOLUME 8.3 fL (7.4-10.4); MONOCYTES # (AUTO) 0.47 x10^3/uL (0.2-0.8); MONOCYTES % (AUTO) 10 % (2-9); NEUTROPHILS # (AUTO) 3.74 x10^3/uL (1.8-6.8); NEUTROPHILS % (AUTO) 76 % (42-75); PLATELET COUNT 142 x10^3/uL (130-400); RED BLOOD COUNT 3.04 x10^6/uL (4.38-5.82); RED CELL DISTRIBUTION WIDTH 15.1 % (9.4-14.8)
[2019-06-19 02:33] LABS: ALANINE AMINOTRANSFERASE 106 U/L (12-78); ALBUMIN 3.3 g/dL (3.4-5.0); ANION GAP 13 mmol/L (5-15); CALCIUM 7.3 mg/dL (8.5-10.1); CHLORIDE 108 mmol/L (98-107)
[2019-06-19 02:36] LABS: ALKALINE PHOSPHATASE 215 U/L (45-117); BILIRUBIN,TOTAL 0.5 mg/dL (0.2-1.0); TOTAL PROTEIN 6.6 g/dL (6.4-8.2)
[2019-06-19] MEDS ORDERED: DEXTROSE 50%, 50ML SYRINGE IVPush ONE (03:00)
[2019-06-19] MEDS ORDERED: ALBUTEROL 0.5%, 20ML NPPB ONE (03:00)
[2019-06-19] MEDS ORDERED: CALCIUM CHLORIDE 10%, 10ML SYR IVPush ONE (03:00)
[2019-06-19] MEDS ORDERED: SODIUM BICARB 8.4%, 50ML SYRINGE IVPush ONE (03:00)
[2019-06-19] MEDS ORDERED: DEXTROSE 50%, 50ML SYRINGE ONE (03:00)
[2019-06-19] MEDS ORDERED: INSULIN SINGLE DOSE, ER IVPush ONE (03:00)
[2019-06-19] MEDS ORDERED: CALCIUM CHLORIDE 10%, 10ML SYR ONE (03:00)
[2019-06-19] MEDS ORDERED: INSULIN SINGLE DOSE, ER ONE (03:00)
[2019-06-19] MEDS ORDERED: DOXYCYCLINE 100MG TABLET PO ONE ×2 (03:30→15:00)
[2019-06-19] MEDS ORDERED: CEFTRIAXONE 250 MG IM ONE (03:30)
[2019-06-19] MEDS ORDERED: SODIUM ZIRCONIUM CYCLOSILICATE 10 GM PO ONE (03:30)
[2019-06-19] MEDS ORDERED: CEFTRIAXONE 250 MG ONE (03:31)
[2019-06-19] MEDS ORDERED: DOXYCYCLINE 100MG TABLET ONE (03:31)
[2019-06-19] MEDS ORDERED: ALBUTEROL 0.5%, 20ML ONE (03:41)
[2019-06-19] MEDS ORDERED: ONDANSETRON 2MG/ML, 2ML IVPush PRN (04:00)
[2019-06-19] MEDS ORDERED: [UNRECOGNIZED DRUG - REMARK] MC SCH (04:30)
[2019-06-19] MEDS ORDERED: LORazepam 2 MG/ML, 1ML IVPush PRN (04:30)
[2019-06-19] MEDS: hydrALAzine 20 MG/ML, 1ML IVPush PRN ×2 (05:16→16:18)
[2019-06-19 05:17] VITALS: BP 195/110
[2019-06-19 06:41] VITALS: BP 185/114
[2019-06-19 07:13] VITALS: BP 191/112
[2019-06-19] MEDS: CARVEDILOL 6.25 MG TABLET PO SCH ×2 (08:44→19:42)
[2019-06-19] MEDS: AMLODIPINE 5 MG TABLET PO SCH (08:44)
[2019-06-19] MEDS ORDERED: ARANESP 100 MCG/ML **ESRD SQ SCH (10:00)
[2019-06-19] MEDS: HYDROcodone/APAP 5/325 TABLET PO PRN ×2 (10:29→16:19)
[2019-06-19] MEDS: SODIUM ZIRCONIUM CYCLOSILICATE 10 GM PO SCH ×3 (13:59→22:37)
[2019-06-19 14:01] LABS: MICROSCOPIC AUTO
[2019-06-19 14:04] LABS: CULTURE INDICATED? NO
[2019-06-19 14:09] LABS: AMPHETAMINE SCREEN, URINE Negative (Negative); BARBITURATE SCREEN, URINE Negative (Negative); BENZODIAZEPINE SCREEN, URINE Negative (Negative); CANNABINOID SCREEN, URINE Negative (Negative); COCAINE SCREEN, URINE Negative (Negative); METHADONE SCREEN, URINE Negative (Negative); OPIATE SCREEN, URINE Negative (Negative)
[2019-06-19] MEDS: HEPARIN 5,000 UNITS/ML, 1ML SQ SCH ×2 (14:23→22:37)
[2019-06-19 15:47] VITALS: BP 171/88
[2019-06-19 17:39] VITALS: BP 144/85
[2019-06-19 20:00] VITALS: BP 161/85
[2019-06-20 01:19] VITALS: BP 126/75
[2019-06-20] MEDS: HEPARIN 5,000 UNITS/ML, 1ML SQ SCH ×2 (05:46→18:03)
[2019-06-20 06:10] LABS: BASOPHILS % (AUTO) 0 % (0-1); EOSINOPHILS % (AUTO) 4 % (1-7); LYMPHOCYTES # (AUTO) 0.85 x10^3/uL (1-3.4); LYMPHOCYTES % (AUTO) 18 % (22-44); MD NO; MEAN CORPUSCULAR HEMOGLOBIN 27.2 pg (27.5-34.5); MEAN CORPUSCULAR HGB CONC 31.6 g/dL (33.2-36.2); MEAN CORPUSCULAR VOLUME 85.9 fL (81-97); MEAN PLATELET VOLUME 9.1 fL (7.4-10.4); MONOCYTES # (AUTO) 0.51 x10^3/uL (0.2-0.8); MONOCYTES % (AUTO) 11 % (2-9); NEUTROPHILS # (AUTO) 3.12 x10^3/uL (1.8-6.8); NEUTROPHILS % (AUTO) 67 % (42-75); PLATELET COUNT 129 x10^3/uL (130-400); RED CELL DISTRIBUTION WIDTH 14.9 % (9.4-14.8)
[2019-06-20 06:12] LABS: ANION GAP 11 mmol/L (5-15); CHLORIDE 104 mmol/L (98-107)
[2019-06-20 08:10] VITALS: BP 162/100
[2019-06-20] MEDS: CARVEDILOL 6.25 MG TABLET PO SCH (08:11)
[2019-06-20] MEDS: AMLODIPINE 5 MG TABLET PO SCH (08:11)
[2019-06-20] MEDS: SODIUM ZIRCONIUM CYCLOSILICATE 10 GM PO SCH ×3 (10:11→22:17)
[2019-06-20] MEDS: HYDROcodone/APAP 5/325 TABLET PO PRN (13:38)
[2019-06-20 16:20] LABS: ALBUMIN 2.8 g/dL (3.4-5.0); BILIRUBIN, DIRECT 0.2 mg/dL (0.1-0.2)
[2019-06-20 16:36] LABS: BILIRUBIN,INDIRECT 0.2 mg/dL (0.0-2.0); BILIRUBIN,TOTAL 0.4 mg/dL (0.2-1.0)
[2019-06-20] MEDS: CARVEDILOL 12.5 MG TABLET PO SCH (20:18)
[2019-06-20 22:12] VITALS: BP 173/80
[2019-06-20] MEDS: hydrALAzine 20 MG/ML, 1ML IVPush PRN (22:17)
[2019-06-21 00:40] VITALS: BP 132/82
[2019-06-21] MEDS: HEPARIN 5,000 UNITS/ML, 1ML SQ SCH ×3 (02:00→16:31)
[2019-06-21 05:34] LABS: ALANINE AMINOTRANSFERASE 134 U/L (12-78); ALBUMIN 2.6 g/dL (3.4-5.0); ANION GAP 11 mmol/L (5-15); CALCIUM 7.1 mg/dL (8.5-10.1); CHLORIDE 107 mmol/L (98-107)
[2019-06-21 05:35] LABS: BASOPHILS % (AUTO) 0 % (0-1); EOSINOPHILS # (AUTO) 0.15 x10^3/uL (0-0.4); EOSINOPHILS % (AUTO) 4 % (1-7); LYMPHOCYTES # (AUTO) 0.85 x10^3/uL (1-3.4); LYMPHOCYTES % (AUTO) 21 % (22-44); MD NO; MEAN CORPUSCULAR HEMOGLOBIN 27.1 pg (27.5-34.5); MEAN CORPUSCULAR HGB CONC 31.7 g/dL (33.2-36.2); MEAN CORPUSCULAR VOLUME 85.4 fL (81-97); MEAN PLATELET VOLUME 8.9 fL (7.4-10.4); MONOCYTES # (AUTO) 0.51 x10^3/uL (0.2-0.8); MONOCYTES % (AUTO) 13 % (2-9); NEUTROPHILS # (AUTO) 2.46 x10^3/uL (1.8-6.8); NEUTROPHILS % (AUTO) 62 % (42-75); PLATELET COUNT 126 x10^3/uL (130-400); RED BLOOD COUNT 2.86 x10^6/uL (4.38-5.82); RED CELL DISTRIBUTION WIDTH 14.9 % (9.4-14.8)
[2019-06-21 05:36] LABS: ALKALINE PHOSPHATASE 183 U/L (45-117); BILIRUBIN,TOTAL 0.5 mg/dL (0.2-1.0)
[2019-06-21 08:48] VITALS: BP 175/87
[2019-06-21] MEDS: AMLODIPINE 5 MG TABLET PO SCH (09:07)
[2019-06-21] MEDS: CARVEDILOL 12.5 MG TABLET PO SCH (09:07)
[2019-06-21] MEDS: SODIUM ZIRCONIUM CYCLOSILICATE 10 GM PO SCH ×2 (11:00→16:30)
[2019-06-21] MEDS: HYDROcodone/APAP 5/325 TABLET PO PRN (12:37)
[2019-06-21 15:05] VITALS: BP 149/91
== END 2019-06-21 18:41 | disposition left against medical advice (07) | DRG 425 ==
LOC: ED 02:32 → EDIP 04:03 → 4EST 05:00
PROVIDERS: ADMIT Internal Medicine; ATTEND Internal Medicine
PROC: 5A1D70Z Performance of Urinary Filtration, Intermittent, Less than 6 Hours Per Day (ICD-10-PCS; principal; 2019-06-19)
PROC: 5A1D70Z Performance of Urinary Filtration, Intermittent, Less than 6 Hours Per Day (ICD-10-PCS; 2019-06-20)
DX: E87.5 Hyperkalemia (principal); I13.2 Hypertensive heart and chronic kidney disease with heart failure and with stage 5 chronic kidney disease, or end stage renal disease; D69.6 Thrombocytopenia, unspecified; E87.2 Acidosis; I27.20 Pulmonary hypertension, unspecified; E83.51 Hypocalcemia; N18.6 End stage renal disease; I16.1 Hypertensive emergency; N45.1 Epididymitis; K52.9 Noninfective gastroenteritis and colitis, unspecified; B19.20 Unspecified viral hepatitis C without hepatic coma; D63.1 Anemia in chronic kidney disease; I50.32 Chronic diastolic (congestive) heart failure; N25.0 Renal osteodystrophy; N50.82 Scrotal pain; E87.70 Fluid overload, unspecified; R94.31 Abnormal electrocardiogram [ECG] [EKG]; Z59.0 Homelessness; Z91.15 Patient's noncompliance with renal dialysis
CPT/HCPCS: 36415; 74176; 76700; 76870; 80048; 80053; 80074; 80076; 80307; 81001; 83735; 85025; 87491; 87521; 87591; 93005; 93975; 99291; G0378; J0696; J0882; J1170; J1644; J0360; J1815

== ENCOUNTER 2019-07-01 13:41 | Inpatient (IN) | payer MEDICAID ==
[~2019-07-01] VITALS: Ht 182.9 cm; Wt 90.5 kg
[~2019-07-01 13:41] MED LIST changes: +ATOR40TA78 PO; +FERR-51 PO; +HYDR-3341 PO
--- NOTE | 2019-07-01 13:50 | NUR ---
THIS PT WAS BIB [facility]. HE WAS D/C'D YESTERDAY, "I DIDN'T FEEL COMFORTABLE LEAVING. I WAS SWOLLEN, MY FACE WAS SWOLLEN, MY ARMS WERE SWOLLEN." ABD DISTENSION NOTED TODAY, NO LE EDEMA NOTED.
--- NOTE | 2019-07-01 13:52 | NUR ---
PT AMBULATORY FROM GURNEY TO BED, NO SIGNS OF ACUTE DISTRESS.
[2019-07-01] MEDS ORDERED: NITROGLYCERIN OINT 2%, 1GM TP ONE ×2 (14:30→16:34)
[2019-07-01] MEDS ORDERED: hydrALAzine 20 MG/ML, 1ML IV ONE (14:30)
[2019-07-01] MEDS ORDERED: LABETALOL 5MG/ML, 20ML IVPush ONE (14:30)
[2019-07-01] MEDS ORDERED: SODIUM CHLORIDE FLUSH 10ML SYR IVF ONE (14:30)
--- NOTE | 2019-07-01 14:30 | NUR ---
PT SITTING IN BED, NO SIGNS OF DISTRESS, WILL CONTINUE TO MONITOR.
[2019-07-01 14:46] LABS: BASOPHILS % (AUTO) 0 % (0-1); EOSINOPHILS # (AUTO) 0.08 x10^3/uL (0-0.4); EOSINOPHILS % (AUTO) 2 % (1-7); LYMPHOCYTES # (AUTO) 0.65 x10^3/uL (1-3.4); LYMPHOCYTES % (AUTO) 13 % (22-44); MD NO; MEAN CORPUSCULAR HEMOGLOBIN 26.6 pg (27.5-34.5); MEAN CORPUSCULAR VOLUME 83.2 fL (81-97); MEAN PLATELET VOLUME 8.7 fL (7.4-10.4); MONOCYTES # (AUTO) 0.54 x10^3/uL (0.2-0.8); MONOCYTES % (AUTO) 11 % (2-9); NEUTROPHILS # (AUTO) 3.64 x10^3/uL (1.8-6.8); NEUTROPHILS % (AUTO) 74 % (42-75); PLATELET COUNT 137 x10^3/uL (130-400); RED BLOOD COUNT 3.19 x10^6/uL (4.38-5.82)
[2019-07-01 14:58] LABS: ALBUMIN 3.1 g/dL (3.4-5.0); ANION GAP 10 mmol/L (5-15); CALCIUM 8.2 mg/dL (8.5-10.1); CHLORIDE 104 mmol/L (98-107)
[2019-07-01 15:04] LABS: ALANINE AMINOTRANSFERASE 149 U/L (12-78); ALKALINE PHOSPHATASE 233 U/L (45-117); BILIRUBIN,TOTAL 0.6 mg/dL (0.2-1.0); TOTAL PROTEIN 6.8 g/dL (6.4-8.2)
--- NOTE | 2019-07-01 15:40 | NUR ---
PT SITTING IN BED, NO SIGNS OF DISTRESS. WILL CONTINUE TO MONITOR.
[2019-07-01] MEDS ORDERED: ALBUTEROL SULFATE 2.5 MG/3 ML NPPB ONE (16:00)
[2019-07-01] MEDS ORDERED: hydrALAzine 20 MG/ML, 1ML ONE (16:34)
--- NOTE | 2019-07-01 16:38 | NUR ---
PT MEDICATED TO MAR, PER MD ORDERS TO ASSESS BP AFTER NITRO AND HYDRALAZINE.
--- NOTE | 2019-07-01 16:51 | NUR ---
PT SITTING IN BED, LISTENING TO MUSIC ON PORTABLE SPEAKER, PT COMPLIANT WHEN TOLD TO TURN DOWN MUSIC BECAUSE IT COULD BE HEARD FROM THE RAMIREZ WITH THE DOOR CLOSED. WILL CONTINUE TO MONITOR.
[2019-07-01] MEDS ORDERED: ALBUTEROL SULFATE 2.5 MG/3 ML ONE (17:01)
--- NOTE | 2019-07-01 17:23 | NUR ---
ADMITTING MD TO BEDSIDE. PT SITTING IN BED, NO SIGNS OF DISTRESS.
--- NOTE | 2019-07-01 17:28 | NUR ---
REPORT GIVEN TO LISA TOWNSEND.
--- NOTE | 2019-07-01 17:33 | NUR ---
LABATOLOL NOT ADMINISTERED PER ERP BECAUSE BP CHANGED.
--- NOTE | 2019-07-01 17:45 | NUR ---
PT SITTING IN BED, CONDITION UNCHANGED, WILL CONTINUE TO MONITOR.
[2019-07-01] MEDS ORDERED: LABETALOL 5MG/ML, 20ML IVPush PRN (18:00)
[2019-07-01] MEDS ORDERED: ERGOCALCIFEROL 50,000 UNIT CAPSULE PO SCH (18:00)
[2019-07-01] MEDS ORDERED: ONDANSETRON ODT 4 MG PO PRN (18:00)
[2019-07-01] MEDS: FERROUS SULFATE 325 MG TABLET PO SCH (18:36)
[2019-07-01] MEDS: ACETAMINOPHEN 325 MG TABLET PO PRN (18:36)
[2019-07-01] MEDS: SEVELAMER CARBONATE 800MG TAB PO SCH (18:41)
[2019-07-01] MEDS: ATORVASTATIN 40 MG TABLET PO SCH (20:12)
[2019-07-01] MEDS: CARVEDILOL 6.25 MG TABLET PO SCH (20:13)
[2019-07-01 21:13] VITALS: BP 177/107
[2019-07-01] MEDS: SODIUM ZIRCONIUM CYCLOSILICATE 5 GM PO SCH (22:24)
[2019-07-01 22:28] VITALS: BP 163/100
[2019-07-02] MEDS: ACETAMINOPHEN 325 MG TABLET PO PRN ×3 (00:46→23:54)
[2019-07-02 01:00] VITALS: BP 167/99
[2019-07-02 05:51] LABS: ALANINE AMINOTRANSFERASE 127 U/L (12-78); ALBUMIN 2.9 g/dL (3.4-5.0); ANION GAP 9 mmol/L (5-15); CALCIUM 7.7 mg/dL (8.5-10.1); CHLORIDE 106 mmol/L (98-107)
[2019-07-02 05:53] LABS: ALKALINE PHOSPHATASE 232 U/L (45-117); BILIRUBIN,TOTAL 0.4 mg/dL (0.2-1.0); TOTAL PROTEIN 6.5 g/dL (6.4-8.2)
[2019-07-02 05:55] LABS: MEAN CORPUSCULAR HEMOGLOBIN 26.8 pg (27.5-34.5); MEAN CORPUSCULAR HGB CONC 31.9 g/dL (33.2-36.2); MEAN CORPUSCULAR VOLUME 84.1 fL (81-97); MEAN PLATELET VOLUME 8.5 fL (7.4-10.4); PLATELET COUNT 127 x10^3/uL (130-400); RED BLOOD COUNT 2.97 x10^6/uL (4.38-5.82); RED CELL DISTRIBUTION WIDTH 15.5 % (9.4-14.8)
[2019-07-02 06:34] LABS: BASOPHILS # (AUTO) 0.02 x10^3/uL (0-0.1); BASOPHILS % (AUTO) 1 % (0-1); EOSINOPHILS # (AUTO) 0.09 x10^3/uL (0-0.4); EOSINOPHILS % (AUTO) 2 % (1-7); LYMPHOCYTES % (AUTO) 14 % (22-44); MD SCAN; MONOCYTES # (AUTO) 0.54 x10^3/uL (0.2-0.8); MONOCYTES % (AUTO) 13 % (2-9); NEUTROPHILS # (AUTO) 2.95 x10^3/uL (1.8-6.8); NEUTROPHILS % (AUTO) 70 % (42-75)
[2019-07-02] MEDS: ONDANSETRON 2MG/ML, 2ML IVPush PRN (06:38)
[2019-07-02 06:48] VITALS: BP 184/105
[2019-07-02] MEDS ORDERED: CARVEDILOL 12.5 MG TABLET ONE (07:23)
[2019-07-02] MEDS: ASPIRIN 81 MG TABLET EC PO SCH (07:26)
[2019-07-02] MEDS: SEVELAMER CARBONATE 800MG TAB PO SCH ×3 (07:26→16:32)
[2019-07-02] MEDS: CARVEDILOL 6.25 MG TABLET PO SCH ×2 (07:27→21:28)
[2019-07-02] MEDS: SODIUM ZIRCONIUM CYCLOSILICATE 5 GM PO SCH ×2 (08:47→14:52)
[2019-07-02 12:49] VITALS: BP 158/96
[2019-07-02] MEDS: ISOSORBIDE MONONITRATE ER 30 MG TABLET PO SCH (16:35)
[2019-07-02 21:24] VITALS: BP 160/79
[2019-07-02] MEDS: ATORVASTATIN 40 MG TABLET PO SCH (21:28)
[2019-07-03] MEDS ORDERED: ASA/APAP/ CAFFEINE TABLET PO ONE (02:30)
[2019-07-03 02:35] VITALS: BP 159/90
[2019-07-03 02:49] VITALS: BP 160/74
[2019-07-03 05:05] VITALS: BP 139/80
[2019-07-03 06:14] LABS: ALBUMIN 2.6 g/dL (3.4-5.0); ANION GAP 8 mmol/L (5-15); CALCIUM 7.6 mg/dL (8.5-10.1); CHLORIDE 104 mmol/L (98-107); MEAN CORPUSCULAR HEMOGLOBIN 26.3 pg (27.5-34.5); MEAN CORPUSCULAR HGB CONC 31.3 g/dL (33.2-36.2); MEAN PLATELET VOLUME 8.4 fL (7.4-10.4); PLATELET COUNT 114 x10^3/uL (130-400); RED CELL DISTRIBUTION WIDTH 15.5 % (9.4-14.8)
[2019-07-03 06:20] LABS: ALANINE AMINOTRANSFERASE 108 U/L (12-78); ALKALINE PHOSPHATASE 200 U/L (45-117); BILIRUBIN,TOTAL 0.6 mg/dL (0.2-1.0); CREATININE 9.58 mg/dL (0.7-1.3); TOTAL PROTEIN 5.9 g/dL (6.4-8.2)
[2019-07-03 06:27] VITALS: BP 139/80
[2019-07-03 06:45] LABS: BASOPHILS % (AUTO) 0 % (0-1); EOSINOPHILS # (AUTO) 0.09 x10^3/uL (0-0.4); EOSINOPHILS % (AUTO) 2 % (1-7); LYMPHOCYTES # (AUTO) 0.53 x10^3/uL (1-3.4); LYMPHOCYTES % (AUTO) 13 % (22-44); MD SCAN; MONOCYTES # (AUTO) 0.45 x10^3/uL (0.2-0.8); MONOCYTES % (AUTO) 11 % (2-9); NEUTROPHILS # (AUTO) 3.01 x10^3/uL (1.8-6.8)
[2019-07-03 07:01] LABS: NEUTROPHILS % (AUTO) 74 % (42-75)
[2019-07-03] MEDS: ONDANSETRON 2MG/ML, 2ML IVPush PRN (07:43)
[2019-07-03] MEDS: ASPIRIN 81 MG TABLET EC PO SCH (07:43)
[2019-07-03] MEDS: SEVELAMER CARBONATE 800MG TAB PO SCH ×3 (07:44→16:29)
[2019-07-03] MEDS: CARVEDILOL 6.25 MG TABLET PO SCH ×2 (07:44→20:08)
[2019-07-03] MEDS: ISOSORBIDE MONONITRATE ER 30 MG TABLET PO SCH (07:44)
[2019-07-03] MEDS: SENNA/DOCUSATE TABLET PO SCH (10:32)
[2019-07-03] MEDS ORDERED: ARANESP 60 MCG/ML **ESRD SQ SCH (11:30)
[2019-07-03 14:25] VITALS: BP 162/83
[2019-07-03] MEDS: FERROUS SULFATE 325 MG TABLET PO SCH (16:29)
[2019-07-03] MEDS ORDERED: LACTULOSE 20 GM/30 ML UDC PO PRN (18:00)
[2019-07-03] MEDS: ATORVASTATIN 40 MG TABLET PO SCH (20:07)
[2019-07-03 20:25] VITALS: BP 174/91
[2019-07-04 02:41] VITALS: BP 164/89
[2019-07-04 06:23] VITALS: BP 178/107
[2019-07-04] MEDS: CARVEDILOL 6.25 MG TABLET PO SCH (06:38)
[2019-07-04] MEDS: SENNA/DOCUSATE TABLET PO SCH (07:17)
[2019-07-04] MEDS: ACETAMINOPHEN 325 MG TABLET PO PRN (07:17)
[2019-07-04] MEDS: ASPIRIN 81 MG TABLET EC PO SCH (07:17)
[2019-07-04] MEDS: SEVELAMER CARBONATE 800MG TAB PO SCH ×2 (07:18→12:00)
[2019-07-04] MEDS: ISOSORBIDE MONONITRATE ER 30 MG TABLET PO SCH (07:18)
[2019-07-04] MEDS ORDERED: ATOR40TA78 PO (09:02)
[2019-07-04] MEDS ORDERED: SEVE800T8 PO (09:02)
[2019-07-04] MEDS ORDERED: FERR-51 PO (09:02)
[2019-07-04] MEDS ORDERED: LACT20SO13 PO (09:02)
[2019-07-04] MEDS ORDERED: CARV6.2512 PO (09:02)
[2019-07-04] MEDS ORDERED: ISOS30TA8 PO (09:02)
[2019-07-04] MEDS ORDERED: ERGO500017 PO (09:02)
[2019-07-04] MEDS ORDERED: HYDR-3341 PO (09:02)
[2019-07-04 09:14] LABS: MEAN CORPUSCULAR HEMOGLOBIN 26.5 pg (27.5-34.5); MEAN CORPUSCULAR VOLUME 82.8 fL (81-97); MEAN PLATELET VOLUME 8.4 fL (7.4-10.4); PLATELET COUNT 107 x10^3/uL (130-400); RED BLOOD COUNT 2.81 x10^6/uL (4.38-5.82); RED CELL DISTRIBUTION WIDTH 15.9 % (9.4-14.8)
[2019-07-04 09:21] LABS: ALANINE AMINOTRANSFERASE 101 U/L (12-78); ALBUMIN 2.9 g/dL (3.4-5.0); ANION GAP 9 mmol/L (5-15); CALCIUM 8.1 mg/dL (8.5-10.1); CHLORIDE 104 mmol/L (98-107); CREATININE 7.75 mg/dL (0.7-1.3)
[2019-07-04 09:23] LABS: ALKALINE PHOSPHATASE 190 U/L (45-117); BILIRUBIN,TOTAL 0.3 mg/dL (0.2-1.0); TOTAL PROTEIN 6.2 g/dL (6.4-8.2)
[2019-07-04 09:53] LABS: BASOPHILS # (AUTO) 0.01 x10^3/uL (0-0.1); BASOPHILS % (AUTO) 0 % (0-1); EOSINOPHILS # (AUTO) 0.03 x10^3/uL (0-0.4); EOSINOPHILS % (AUTO) 1 % (1-7); LYMPHOCYTES # (AUTO) 0.73 x10^3/uL (1-3.4); LYMPHOCYTES % (AUTO) 16 % (22-44); MD SCAN; MONOCYTES # (AUTO) 0.41 x10^3/uL (0.2-0.8); MONOCYTES % (AUTO) 9 % (2-9); NEUTROPHILS # (AUTO) 3.42 x10^3/uL (1.8-6.8); NEUTROPHILS % (AUTO) 74 % (42-75)
== END 2019-07-04 12:42 | disposition home or self-care (01) | DRG 194 ==
LOC: ED 13:50 → EDIP 15:47 → 4WST 18:04
PROVIDERS: ADMIT Family Medicine; ATTEND Family Medicine
PROC: 5A1D70Z Performance of Urinary Filtration, Intermittent, Less than 6 Hours Per Day (ICD-10-PCS; principal; 2019-07-02)
DX: I13.2 Hypertensive heart and chronic kidney disease with heart failure and with stage 5 chronic kidney disease, or end stage renal disease (principal); J96.01 Acute respiratory failure with hypoxia; N18.6 End stage renal disease; E87.5 Hyperkalemia; I07.1 Rheumatic tricuspid insufficiency; I27.20 Pulmonary hypertension, unspecified; N25.0 Renal osteodystrophy; Z86.19 Personal history of other infectious and parasitic diseases; D63.1 Anemia in chronic kidney disease; I16.0 Hypertensive urgency; I50.33 Acute on chronic diastolic (congestive) heart failure; F19.10 Other psychoactive substance abuse, uncomplicated; E78.5 Hyperlipidemia, unspecified; F12.10 Cannabis abuse, uncomplicated; J45.909 Unspecified asthma, uncomplicated; Z91.19 Patient's noncompliance with other medical treatment and regimen; Z59.0 Homelessness; Z79.899 Other long term (current) drug therapy; Z83.3 Family history of diabetes mellitus; Z99.2 Dependence on renal dialysis
CPT/HCPCS: 36415; 71045; 76700; 78582; 80053; 83735; 83880; 84100; 85025; 93005; 93306; 96374; G0378; J0882; J2405; J7613; A9540; J0360

== ENCOUNTER 2019-07-06 17:24 | Inpatient (IN) | payer MEDICAID ==
[~2019-07-06] VITALS: Ht 182.9 cm; Wt 94.0 kg
[~2019-07-06 17:24] MED LIST changes: +ISOS30TA8 PO; +LACT20SO13 PO; +SEVE800T8 PO
--- NOTE | 2019-07-06 17:45 | NUR ---
CHIEF COMPLAINT OF "FISTULA PAIN, LEFT ARM PAIN, CHEST PAIN, SOB WITH WALKING. i WAS HERE TWO DAYS AGO AND TOLD ME I HAVE CHF"
--- NOTE | 2019-07-06 17:50 | NUR ---
LAST DIALYSIS APPT MONDAY 07/03
--- NOTE | 2019-07-06 18:44 | NUR ---
report to karen delvalle
--- NOTE | 2019-07-06 18:55 | NUR ---
ASSUMED CARE OF PT AT THIS TIME.
[2019-07-06 19:06] LABS: ANION GAP 11 mmol/L (5-15); BASOPHILS # (AUTO) 0.03 x10^3/uL (0-0.1); BASOPHILS % (AUTO) 1 % (0-1); CALCIUM 7.8 mg/dL (8.5-10.1); CHLORIDE 104 mmol/L (98-107); EOSINOPHILS # (AUTO) 0.08 x10^3/uL (0-0.4); EOSINOPHILS % (AUTO) 2 % (1-7); LYMPHOCYTES # (AUTO) 0.62 x10^3/uL (1-3.4); LYMPHOCYTES % (AUTO) 12 % (22-44); MD NO; MEAN CORPUSCULAR HEMOGLOBIN 25.9 pg (27.5-34.5); MEAN CORPUSCULAR HGB CONC 31.3 g/dL (33.2-36.2); MEAN CORPUSCULAR VOLUME 82.8 fL (81-97); MEAN PLATELET VOLUME 9.2 fL (7.4-10.4); MONOCYTES # (AUTO) 0.43 x10^3/uL (0.2-0.8); MONOCYTES % (AUTO) 8 % (2-9); NEUTROPHILS # (AUTO) 4.03 x10^3/uL (1.8-6.8); NEUTROPHILS % (AUTO) 78 % (42-75); PLATELET COUNT 107 x10^3/uL (130-400); RED BLOOD COUNT 2.96 x10^6/uL (4.38-5.82); RED CELL DISTRIBUTION WIDTH 15.4 % (9.4-14.8)
[2019-07-06 19:10] LABS: TROPONIN I 0.075 ng/mL (0.000-0.045)
[2019-07-06] MEDS ORDERED: ONDANSETRON 2MG/ML, 2ML IVPush PRN (20:30)
[2019-07-06] MEDS ORDERED: NICOTINE 21 MG/24 HR PATCH.TD24 TD SCH (20:30)
[2019-07-06] MEDS ORDERED: SODIUM ZIRCONIUM CYCLOSILICATE 10 GM PO ONE (20:30)
[2019-07-06] MEDS ORDERED: BISACODYL 10 MG SUPP PR PRN (20:30)
[2019-07-06] MEDS ORDERED: hydrALAzine 20 MG/ML, 1ML IVPush PRN (20:30)
[2019-07-06] MEDS ORDERED: POLYETHYLENE GLYCOL 17 GM PACKET PO PRN (20:30)
[2019-07-06] MEDS ORDERED: hydrALAzine 20 MG/ML, 1ML ONE (20:58)
[2019-07-06] MEDS ORDERED: ERGOCALCIFEROL 50,000 UNIT CAPSULE PO SCH (21:00)
[2019-07-06] MEDS ORDERED: FERROUS SULFATE 325 MG TABLET PO SCH (21:00)
[2019-07-06] MEDS ORDERED: ATORVASTATIN 40 MG TABLET PO SCH (21:00)
--- NOTE | 2019-07-06 21:03 | NUR ---
PT AWARE OF PLAN OF CARE OF ADMISSION. BLOOD PRESSURE ELEVATED. PT DENIES ANY PAIN OR CONCERNS AT THIS TIME. REQUESTED ICE CHIPS. IV HYDRALAZINE GIVEN PER EMAR.
[2019-07-06] MEDS: CARVEDILOL 6.25 MG TABLET PO SCH (22:13)
[2019-07-06] MEDS: HEPARIN 5,000 UNITS/ML, 1ML SQ SCH (22:14)
[2019-07-06 22:27] VITALS: BP 156/95
[2019-07-06 23:59] LABS: AMPHETAMINE SCREEN, URINE Negative (Negative); BARBITURATE SCREEN, URINE Negative (Negative); BENZODIAZEPINE SCREEN, URINE Negative (Negative); CANNABINOID SCREEN, URINE Negative (Negative); COCAINE SCREEN, URINE Negative (Negative); METHADONE SCREEN, URINE Negative (Negative); OPIATE SCREEN, URINE Negative (Negative)
[2019-07-07 01:15] VITALS: BP 149/87
[2019-07-07 01:46] LABS: ANION GAP 12 mmol/L (5-15); CALCIUM 8.1 mg/dL (8.5-10.1); CHLORIDE 105 mmol/L (98-107)
[2019-07-07] MEDS ORDERED: HYDROcodone/APAP 5/325 TABLET ONE (04:03)
[2019-07-07] MEDS: HYDROcodone/APAP 5/325 TABLET PO PRN ×2 (04:05→10:21)
[2019-07-07 04:24] LABS: BASOPHILS % (AUTO) 0 % (0-1); EOSINOPHILS # (AUTO) 0.15 x10^3/uL (0-0.4); EOSINOPHILS % (AUTO) 3 % (1-7); LYMPHOCYTES # (AUTO) 0.68 x10^3/uL (1-3.4); LYMPHOCYTES % (AUTO) 14 % (22-44); MD NO; MEAN CORPUSCULAR HEMOGLOBIN 26.1 pg (27.5-34.5); MEAN CORPUSCULAR HGB CONC 31.3 g/dL (33.2-36.2); MEAN CORPUSCULAR VOLUME 83.3 fL (81-97); MEAN PLATELET VOLUME 9.4 fL (7.4-10.4); MONOCYTES % (AUTO) 10 % (2-9); NEUTROPHILS # (AUTO) 3.64 x10^3/uL (1.8-6.8); NEUTROPHILS % (AUTO) 73 % (42-75); PLATELET COUNT 113 x10^3/uL (130-400); RED BLOOD COUNT 3.07 x10^6/uL (4.38-5.82); RED CELL DISTRIBUTION WIDTH 15.6 % (9.4-14.8)
[2019-07-07] MEDS: HEPARIN 5,000 UNITS/ML, 1ML SQ SCH ×2 (05:45→13:47)
[2019-07-07 06:20] LABS: ALANINE AMINOTRANSFERASE 91 U/L (12-78); ANION GAP 10 mmol/L (5-15); CALCIUM 7.9 mg/dL (8.5-10.1); CHLORIDE 105 mmol/L (98-107)
[2019-07-07 06:25] LABS: ALKALINE PHOSPHATASE 223 U/L (45-117); BILIRUBIN,TOTAL 0.4 mg/dL (0.2-1.0); TOTAL PROTEIN 6.7 g/dL (6.4-8.2); TROPONIN I 0.078 ng/mL (0.000-0.045)
[2019-07-07 06:50] VITALS: BP 193/108
[2019-07-07 08:20] VITALS: BP 177/91
[2019-07-07] MEDS: SEVELAMER CARBONATE 800MG TAB PO SCH ×2 (08:34→12:26)
[2019-07-07] MEDS: CARVEDILOL 6.25 MG TABLET PO SCH (08:35)
[2019-07-07] MEDS ORDERED: ISOSORBIDE MONONITRATE ER 30 MG TABLET PO SCH (09:00)
[2019-07-07] MEDS ORDERED: ASPIRIN 81 MG TABLET EC PO SCH (09:00)
[2019-07-07] MEDS ORDERED: SENNA/DOCUSATE TABLET PO SCH (09:00)
[2019-07-07] MEDS ORDERED: ARANESP 25 MCG/ML **ESRD IV ONE (11:30)
[2019-07-07 12:12] VITALS: BP 165/98
[2019-07-07] MEDS ORDERED: DIPHENHYDRAMINE 25 MG CAPSULE PO ONE (14:00)
[2019-07-10] MEDS ORDERED: ARANESP 25 MCG/ML **ESRD SQ SCH (13:00)
== END 2019-07-07 17:53 | disposition left against medical advice (07) | DRG 425 ==
LOC: ED 19:06 → EDIP 20:11 → 4WST 21:22
PROVIDERS: ADMIT Internal Medicine; ATTEND Internal Medicine
PROC: 5A1D70Z Performance of Urinary Filtration, Intermittent, Less than 6 Hours Per Day (ICD-10-PCS; principal; 2019-07-06)
DX: E87.5 Hyperkalemia (principal); I13.2 Hypertensive heart and chronic kidney disease with heart failure and with stage 5 chronic kidney disease, or end stage renal disease; N18.6 End stage renal disease; I27.20 Pulmonary hypertension, unspecified; N25.0 Renal osteodystrophy; F15.90 Other stimulant use, unspecified, uncomplicated; D63.1 Anemia in chronic kidney disease; I50.32 Chronic diastolic (congestive) heart failure; B19.20 Unspecified viral hepatitis C without hepatic coma; F19.10 Other psychoactive substance abuse, uncomplicated; Z53.29 Procedure and treatment not carried out because of patient's decision for other reasons; E78.5 Hyperlipidemia, unspecified; F12.90 Cannabis use, unspecified, uncomplicated; J45.909 Unspecified asthma, uncomplicated; Z59.0 Homelessness; Z83.3 Family history of diabetes mellitus; Z79.899 Other long term (current) drug therapy; Z99.2 Dependence on renal dialysis; Z91.19 Patient's noncompliance with other medical treatment and regimen
CPT/HCPCS: 36415; 71045; 80048; 80053; 80307; 82040; 84075; 84484; 85025; 93005; 96374; 99285; G0378; J1644; J0360; Q0163

== ENCOUNTER 2019-07-09 19:19 | Inpatient (IN) | payer MEDICAID ==
[~2019-07-09] VITALS: Ht 182.9 cm; Wt 93.5 kg
[2019-07-09] MEDS ORDERED: SODIUM CHLORIDE FLUSH 10ML SYR IVF ONE (20:00)
[2019-07-09] MEDS ORDERED: ASPIRIN 81 MG TABLET CHEW PO ONE (20:00)
[2019-07-09] MEDS ORDERED: ASPIRIN 81 MG TABLET CHEW ONE (20:01)
[2019-07-09 20:37] LABS: ALBUMIN 2.8 g/dL (3.4-5.0); ANION GAP 12 mmol/L (5-15); CHLORIDE 106 mmol/L (98-107)
[2019-07-09 20:42] LABS: TROPONIN I 0.112 ng/mL (0.000-0.045)
[2019-07-09 20:55] LABS: MEAN CORPUSCULAR HEMOGLOBIN 26.2 pg (27.5-34.5); MEAN CORPUSCULAR HGB CONC 31.5 g/dL (33.2-36.2); MEAN CORPUSCULAR VOLUME 83.1 fL (81-97); RED CELL DISTRIBUTION WIDTH 16.3 % (9.4-14.8)
[2019-07-09 21:08] LABS: MEAN PLATELET VOLUME 9.4 fL (7.4-10.4); PLATELET COUNT 88 x10^3/uL (130-400)
[2019-07-09 21:09] LABS: BASOPHILS # (AUTO) 0.01 x10^3/uL (0-0.1); BASOPHILS % (AUTO) 0 % (0-1); EOSINOPHILS # (AUTO) 0.09 x10^3/uL (0-0.4); EOSINOPHILS % (AUTO) 2 % (1-7); LYMPHOCYTES # (AUTO) 0.64 x10^3/uL (1-3.4); LYMPHOCYTES % (AUTO) 13 % (22-44); MD SCAN; MONOCYTES # (AUTO) 0.49 x10^3/uL (0.2-0.8); MONOCYTES % (AUTO) 10 % (2-9); NEUTROPHILS # (AUTO) 3.66 x10^3/uL (1.8-6.8); NEUTROPHILS % (AUTO) 75 % (42-75)
--- NOTE | 2019-07-09 21:28 | NUR ---
This nurse was present during a conversation between pt and MD Ulices regarding pts compliance with admission. Pt became hostile with md, stating that he never stays because of the inability to set up outpatient dialysis treatment. Pt made aware of the plan of care, and seemed to agree. Will continue to monitor.
[2019-07-09] MEDS ORDERED: ONDANSETRON 2MG/ML, 2ML IVPush PRN (21:30)
[2019-07-09] MEDS ORDERED: SODIUM CHLORIDE FLUSH 10ML SYR IVF PRN (21:30)
[2019-07-09] MEDS ORDERED: hydrALAzine 20 MG/ML, 1ML IVPush PRN (21:30)
[2019-07-09] MEDS ORDERED: SODIUM ZIRCONIUM CYCLOSILICATE 10 GM PO ONE (22:00)
[2019-07-09 22:34] VITALS: BP 153/73
[2019-07-10 00:12] VITALS: BP 128/82
[2019-07-10 02:32] VITALS: BP 166/94
[2019-07-10 05:46] LABS: CALCIUM 7.1 mg/dL (8.5-10.1); CHLORIDE 105 mmol/L (98-107)
[2019-07-10 05:50] LABS: ANION GAP 13 mmol/L (5-15)
[2019-07-10 05:58] LABS: MEAN CORPUSCULAR HEMOGLOBIN 26.9 pg (27.5-34.5); MEAN CORPUSCULAR HGB CONC 32.5 g/dL (33.2-36.2); MEAN CORPUSCULAR VOLUME 82.9 fL (81-97); RED BLOOD COUNT 2.71 x10^6/uL (4.38-5.82); RED CELL DISTRIBUTION WIDTH 16.4 % (9.4-14.8)
[2019-07-10 06:32] LABS: BASOPHILS # (AUTO) 0.01 x10^3/uL (0-0.1); BASOPHILS % (AUTO) 0 % (0-1); EOSINOPHILS # (AUTO) 0.08 x10^3/uL (0-0.4); EOSINOPHILS % (AUTO) 2 % (1-7); LYMPHOCYTES # (AUTO) 0.72 x10^3/uL (1-3.4); LYMPHOCYTES % (AUTO) 19 % (22-44); MD SCAN; MEAN PLATELET VOLUME 9.3 fL (7.4-10.4); MONOCYTES # (AUTO) 0.53 x10^3/uL (0.2-0.8); MONOCYTES % (AUTO) 14 % (2-9); NEUTROPHILS # (AUTO) 2.43 x10^3/uL (1.8-6.8); NEUTROPHILS % (AUTO) 64 % (42-75); PLATELET COUNT 80 x10^3/uL (130-400)
[2019-07-10 06:42] VITALS: BP 175/94
[2019-07-10] MEDS ORDERED: ARANESP 100 MCG/ML **ESRD SQ SCH (12:00)
[2019-07-10] MEDS ORDERED: ERGOCALCIFEROL 50,000 UNIT CAPSULE PO SCH (16:00)
[2019-07-10] MEDS: FERROUS SULFATE 325 MG TABLET PO SCH (16:09)
[2019-07-10 18:13] VITALS: BP 163/85
[2019-07-10] MEDS: CARVEDILOL 6.25 MG TABLET PO SCH (18:14)
[2019-07-10 18:57] VITALS: BP 159/82
[2019-07-10 20:56] VITALS: BP 164/93
[2019-07-10] MEDS: ATORVASTATIN 40 MG TABLET PO SCH (20:57)
[2019-07-11 01:59] VITALS: BP 152/86
[2019-07-11 05:29] VITALS: BP 167/93
[2019-07-11] MEDS: CARVEDILOL 6.25 MG TABLET PO SCH ×2 (05:31→17:42)
[2019-07-11 07:28] VITALS: BP 155/94
[2019-07-11] MEDS: ISOSORBIDE MONONITRATE ER 30 MG TABLET PO SCH (13:11)
[2019-07-11 13:36] VITALS: BP 147/77
[2019-07-11] MEDS ORDERED: ACETAMINOPHEN 325 MG TABLET PO ONE (16:30)
[2019-07-11 18:44] VITALS: BP 129/62
[2019-07-11] MEDS: ATORVASTATIN 40 MG TABLET PO SCH (20:47)
[2019-07-12 00:30] VITALS: BP 132/70
[2019-07-12] MEDS: CARVEDILOL 6.25 MG TABLET PO SCH ×2 (05:44→17:11)
[2019-07-12 06:52] LABS: MEAN CORPUSCULAR HEMOGLOBIN 26.2 pg (27.5-34.5); MEAN CORPUSCULAR HGB CONC 31.4 g/dL (33.2-36.2); MEAN CORPUSCULAR VOLUME 83.2 fL (81-97); RED BLOOD COUNT 2.83 x10^6/uL (4.38-5.82)
[2019-07-12 07:03] LABS: ALBUMIN 2.5 g/dL (3.4-5.0); ANION GAP 10 mmol/L (5-15); CALCIUM 7.5 mg/dL (8.5-10.1); CHLORIDE 102 mmol/L (98-107); CREATININE 9.59 mg/dL (0.7-1.3); IRON LEVEL 20 mcg/dL (65-175)
[2019-07-12 07:07] LABS: % IRON SATURATION 6 % (20-55); TOTAL IRON BINDING CAPACITY 332 mcg/dL (250-450)
[2019-07-12 07:33] LABS: BASOPHILS # (AUTO) 0.02 x10^3/uL (0-0.1); BASOPHILS % (AUTO) 0 % (0-1); EOSINOPHILS % (AUTO) 2 % (1-7); LYMPHOCYTES # (AUTO) 0.94 x10^3/uL (1-3.4); LYMPHOCYTES % (AUTO) 21 % (22-44); MD SCAN; MEAN PLATELET VOLUME 8.7 fL (7.4-10.4); MONOCYTES # (AUTO) 0.62 x10^3/uL (0.2-0.8); MONOCYTES % (AUTO) 14 % (2-9); NEUTROPHILS # (AUTO) 2.75 x10^3/uL (1.8-6.8); NEUTROPHILS % (AUTO) 62 % (42-75); PLATELET COUNT 94 x10^3/uL (130-400)
[2019-07-12 07:48] VITALS: BP 164/99
[2019-07-12] MEDS: ISOSORBIDE MONONITRATE ER 30 MG TABLET PO SCH (08:06)
[2019-07-12] MEDS ORDERED: LORazepam 1MG TABLET PO PRN (09:00)
[2019-07-12] MEDS ORDERED: NICOTINE 14MG/24 HR PATCH.TD24 TD ONE (09:00)
[2019-07-12] MEDS ORDERED: ACETAMINOPHEN 325 MG TABLET PO PRN (13:00)
[2019-07-12 13:47] VITALS: BP 160/92
[2019-07-12] MEDS: FERROUS SULFATE 325 MG TABLET PO SCH (17:11)
[2019-07-12 19:08] VITALS: BP 155/82
[2019-07-12 20:22] VITALS: BP 151/83
[2019-07-12] MEDS: ATORVASTATIN 40 MG TABLET PO SCH (20:23)
[2019-07-13 00:36] VITALS: BP 168/98
[2019-07-13] MEDS ORDERED: LORazepam 1MG TABLET PO ONE (02:00)
== END 2019-07-13 02:51 | disposition left against medical advice (07) | DRG 425 ==
LOC: ED 19:51 → EDIP 21:16 → 4WST 22:55
PROVIDERS: ADMIT Internal Medicine; ATTEND Internal Medicine
PROC: 5A1D70Z Performance of Urinary Filtration, Intermittent, Less than 6 Hours Per Day (ICD-10-PCS; principal; 2019-07-10)
PROC: 5A1D70Z Performance of Urinary Filtration, Intermittent, Less than 6 Hours Per Day (ICD-10-PCS; 2019-07-11)
DX: E87.5 Hyperkalemia (principal); J96.01 Acute respiratory failure with hypoxia; I13.2 Hypertensive heart and chronic kidney disease with heart failure and with stage 5 chronic kidney disease, or end stage renal disease; I27.20 Pulmonary hypertension, unspecified; N18.6 End stage renal disease; B19.20 Unspecified viral hepatitis C without hepatic coma; D63.1 Anemia in chronic kidney disease; E78.5 Hyperlipidemia, unspecified; F12.90 Cannabis use, unspecified, uncomplicated; F15.90 Other stimulant use, unspecified, uncomplicated; Z53.29 Procedure and treatment not carried out because of patient's decision for other reasons; D63.8 Anemia in other chronic diseases classified elsewhere; I50.42 Chronic combined systolic (congestive) and diastolic (congestive) heart failure; Z59.0 Homelessness; Z87.891 Personal history of nicotine dependence; Z91.15 Patient's noncompliance with renal dialysis; Z99.2 Dependence on renal dialysis
CPT/HCPCS: 36415; 71046; 80048; 80069; 82040; 82306; 82728; 83540; 83550; 83735; 83880; 83970; 84484; 85025; 90935; 93005; 99285; G0378; J0882

== ENCOUNTER 2019-07-19 23:28 | Emergency (ER) | payer MEDICAID ==
[~2019-07-19] VITALS: Ht 182.9 cm; Wt 93.8 kg
[2019-07-19 23:29] VITALS: BP 163/97
--- NOTE | 2019-07-20 01:00 | NUR ---
NAZANINX1
--- NOTE | 2019-07-20 01:25 | NUR ---
NILX2
--- NOTE | 2019-07-20 02:16 | NUR ---
SEARCH OF LOBBY, OUTSIDE AND RESTROOM FOUND NO PATIENT. LWBS
== END 2019-07-20 02:17 | disposition left against medical advice (07) ==
LOC: ED 07-20 02:11
DX: R07.89 Other chest pain (principal); R06.02 Shortness of breath; R19.7 Diarrhea, unspecified; Z53.21 Procedure and treatment not carried out due to patient leaving prior to being seen by health care provider
CPT/HCPCS: 93005

== ENCOUNTER 2019-07-27 09:41 | Inpatient (IN) | payer MEDICAID ==
[~2019-07-27] VITALS: Ht 185.4 cm; Wt 92.0 kg
[2019-07-27] MEDS ORDERED: SODIUM CHLORIDE FLUSH 10ML SYR IVF ONE (10:30)
--- NOTE | 2019-07-27 10:39 | NUR ---
iv access obtained. labs drawn from iv and given to lab. pt resting in bed.
[2019-07-27 10:44] LABS: ALANINE AMINOTRANSFERASE 40 U/L (12-78); ANION GAP 15 mmol/L (5-15); CALCIUM 7.7 mg/dL (8.5-10.1); CHLORIDE 106 mmol/L (98-107)
[2019-07-27 10:49] LABS: ALKALINE PHOSPHATASE 181 U/L (45-117); BILIRUBIN,TOTAL 0.4 mg/dL (0.2-1.0); TOTAL PROTEIN 6.7 g/dL (6.4-8.2); TROPONIN I 0.091 ng/mL (0.000-0.045)
[2019-07-27 11:05] LABS: BASOPHILS % (AUTO) 0 % (0-1); EOSINOPHILS # (AUTO) 0.13 x10^3/uL (0-0.4); EOSINOPHILS % (AUTO) 3 % (1-7); LYMPHOCYTES # (AUTO) 0.71 x10^3/uL (1-3.4); LYMPHOCYTES % (AUTO) 16 % (22-44); MD MORPH REVIEW ONLY; MEAN CORPUSCULAR HEMOGLOBIN 25.6 pg (27.5-34.5); MEAN CORPUSCULAR VOLUME 79.9 fL (81-97); MEAN PLATELET VOLUME 9.8 fL (7.4-10.4); MONOCYTES # (AUTO) 0.45 x10^3/uL (0.2-0.8); MONOCYTES % (AUTO) 10 % (2-9); NEUTROPHILS % (AUTO) 72 % (42-75); PLATELET COUNT 73 x10^3/uL (130-400); RED BLOOD COUNT 2.97 x10^6/uL (4.38-5.82); RED CELL DISTRIBUTION WIDTH 16.3 % (9.4-14.8)
[2019-07-27 11:06] LABS: ANISOCYTOSIS 1+; HYPOCHROMIA 1+; MICROCYTOSIS 1+
[2019-07-27 11:07] LABS: <PLATELET ESTIMATE> DECREASED; LARGE PLATELETS 1+; OVALOCYTES 1+; POLYCHROMASIA 1+; TEAR DROPS 1+
[2019-07-27] MEDS ORDERED: ONDANSETRON 2MG/ML, 2ML ONE (11:30)
[2019-07-27] MEDS ORDERED: ONDANSETRON 2MG/ML, 2ML IVPush ONE ×2 (12:00)
[2019-07-27] MEDS ORDERED: INSULIN REGULAR 100 UNITS/ML, 3ML VIAL IVPush ONE (12:00)
[2019-07-27] MEDS ORDERED: DEXTROSE 50%, 50ML SYRINGE IVPush ONE (12:00)
[2019-07-27] MEDS ORDERED: SODIUM CHLORIDE FLUSH 10ML SYR IVF PRN (12:00)
[2019-07-27] MEDS ORDERED: SODIUM BICARB 8.4%, 50ML SYRINGE IVPush ONE (12:00)
[2019-07-27] MEDS ORDERED: SODIUM BICARBONATE 1 MEQ/ML, 50ML VIAL ONE (12:27)
[2019-07-27] MEDS ORDERED: DEXTROSE 50%, 50ML SYRINGE ONE (12:27)
[2019-07-27] MEDS ORDERED: INSULIN SINGLE DOSE, ER ONE (12:29)
[2019-07-27 13:10] VITALS: BP 169/101
[2019-07-27] MEDS ORDERED: DARBEPOETIN 100 MCG/ML SQ SCH (14:00)
[2019-07-27] MEDS ORDERED: LACTULOSE 20 GM/30 ML UDC PO PRN (15:00)
[2019-07-27] MEDS ORDERED: ERGOCALCIFEROL 50,000 UNIT CAPSULE PO SCH (15:00)
[2019-07-27] MEDS ORDERED: ONDANSETRON 2MG/ML, 2ML IVPush PRN (16:00)
[2019-07-27 16:38] LABS: TROPONIN I 0.076 ng/mL (0.000-0.045)
[2019-07-27] MEDS: SEVELAMER CARBONATE 800MG TAB PO SCH (17:38)
[2019-07-27 18:15] VITALS: BP 188/111
[2019-07-27] MEDS ORDERED: LABETALOL 5MG/ML, 20ML IVPush PRN (18:30)
[2019-07-27 20:12] VITALS: BP 168/95
[2019-07-27] MEDS: ATORVASTATIN 40 MG TABLET PO SCH (20:17)
[2019-07-27] MEDS: FERROUS SULFATE 325 MG TABLET PO SCH (20:18)
[2019-07-27] MEDS: CARVEDILOL 6.25 MG TABLET PO SCH (20:18)
[2019-07-27 21:55] LABS: TROPONIN I 0.067 ng/mL (0.000-0.045)
[2019-07-28 03:58] VITALS: BP 156/89
[2019-07-28 04:55] LABS: MEAN CORPUSCULAR HEMOGLOBIN 25.1 pg (27.5-34.5); MEAN CORPUSCULAR HGB CONC 31.1 g/dL (33.2-36.2); MEAN CORPUSCULAR VOLUME 80.7 fL (81-97); RED BLOOD COUNT 2.94 x10^6/uL (4.38-5.82); RED CELL DISTRIBUTION WIDTH 15.8 % (9.4-14.8)
[2019-07-28 05:01] LABS: ALBUMIN 2.7 g/dL (3.4-5.0); ANION GAP 8 mmol/L (5-15); CALCIUM 6.7 mg/dL (8.5-10.1); CHLORIDE 106 mmol/L (98-107)
[2019-07-28 05:44] LABS: MEAN PLATELET VOLUME 9.3 fL (7.4-10.4); PLATELET COUNT 66 x10^3/uL (130-400)
[2019-07-28 05:45] LABS: BASOPHILS % (AUTO) 0 % (0-1); EOSINOPHILS # (AUTO) 0.11 x10^3/uL (0-0.4); EOSINOPHILS % (AUTO) 3 % (1-7); LYMPHOCYTES # (AUTO) 0.61 x10^3/uL (1-3.4); LYMPHOCYTES % (AUTO) 14 % (22-44); MD SCAN; MONOCYTES # (AUTO) 0.48 x10^3/uL (0.2-0.8); MONOCYTES % (AUTO) 11 % (2-9); NEUTROPHILS % (AUTO) 72 % (42-75)
[2019-07-28 06:46] VITALS: BP 154/89
[2019-07-28] MEDS: ISOSORBIDE MONONITRATE ER 30 MG TABLET PO SCH (08:48)
[2019-07-28 08:49] VITALS: BP 178/53
[2019-07-28] MEDS: ASPIRIN 81 MG TABLET EC PO SCH (08:53)
[2019-07-28] MEDS: CARVEDILOL 6.25 MG TABLET PO SCH ×2 (08:54→20:15)
[2019-07-28] MEDS ORDERED: morphine SULFATE 10 MG/ML, 1ML IVPush ONE (09:00)
[2019-07-28] MEDS: OXYcodone IR 5MG TABLET PO PRN ×2 (09:10→20:16)
[2019-07-28] MEDS: SEVELAMER CARBONATE 800MG TAB PO SCH ×3 (09:51→17:50)
[2019-07-28 10:35] LABS: TROPONIN I 0.076 ng/mL (0.000-0.045)
[2019-07-28] MEDS: FUROSEMIDE 80 MG TABLET PO SCH (10:36)
[2019-07-28 13:05] VITALS: BP 146/84
[2019-07-28 18:52] VITALS: BP 147/86
[2019-07-28] MEDS: ATORVASTATIN 40 MG TABLET PO SCH (20:15)
[2019-07-29 00:42] VITALS: BP 152/86
[2019-07-29 05:49] LABS: MEAN CORPUSCULAR HEMOGLOBIN 25.9 pg (27.5-34.5); MEAN CORPUSCULAR HGB CONC 32.1 g/dL (33.2-36.2); MEAN CORPUSCULAR VOLUME 80.9 fL (81-97); MEAN PLATELET VOLUME 10.4 fL (7.4-10.4); PLATELET COUNT 63 x10^3/uL (130-400); RED BLOOD COUNT 2.89 x10^6/uL (4.38-5.82); RED CELL DISTRIBUTION WIDTH 16.1 % (9.4-14.8)
[2019-07-29 05:56] LABS: ALBUMIN 2.9 g/dL (3.4-5.0); ANION GAP 13 mmol/L (5-15); CALCIUM 7.2 mg/dL (8.5-10.1); CHLORIDE 103 mmol/L (98-107)
[2019-07-29 06:01] LABS: ALANINE AMINOTRANSFERASE 33 U/L (12-78); ALKALINE PHOSPHATASE 179 U/L (45-117); BILIRUBIN,TOTAL 0.5 mg/dL (0.2-1.0); TOTAL PROTEIN 6.6 g/dL (6.4-8.2)
[2019-07-29 06:09] LABS: BASOPHILS # (AUTO) 0.02 x10^3/uL (0-0.1); BASOPHILS % (AUTO) 1 % (0-1); EOSINOPHILS # (AUTO) 0.06 x10^3/uL (0-0.4); EOSINOPHILS % (AUTO) 2 % (1-7); LYMPHOCYTES # (AUTO) 0.72 x10^3/uL (1-3.4); LYMPHOCYTES % (AUTO) 18 % (22-44); MD SCAN; MONOCYTES % (AUTO) 10 % (2-9); NEUTROPHILS # (AUTO) 2.75 x10^3/uL (1.8-6.8); NEUTROPHILS % (AUTO) 70 % (42-75)
[2019-07-29 07:13] VITALS: BP 170/97
[2019-07-29] MEDS: SEVELAMER CARBONATE 800MG TAB PO SCH ×2 (08:06→13:42)
[2019-07-29] MEDS: CARVEDILOL 6.25 MG TABLET PO SCH (08:06)
[2019-07-29] MEDS: OXYcodone IR 5MG TABLET PO PRN (08:07)
[2019-07-29] MEDS: FUROSEMIDE 80 MG TABLET PO SCH (08:07)
[2019-07-29] MEDS: ASPIRIN 81 MG TABLET EC PO SCH (09:07)
[2019-07-29] MEDS: ISOSORBIDE MONONITRATE ER 30 MG TABLET PO SCH (09:08)
[2019-07-29 13:41] VITALS: BP 173/98
[2019-07-29] MEDS: FERROUS SULFATE 325 MG TABLET PO SCH (13:42)
[2019-07-29] MEDS ORDERED: LABETALOL 5MG/ML, 20ML IVPush PRN (15:00)
== END 2019-07-29 15:05 | disposition home or self-care (01) | DRG 194 ==
LOC: ED 10:08 → EDIP 11:35 → 4WST 13:06 → DCLOUNGE 07-29 15:00
PROVIDERS: ADMIT Internal Medicine; ATTEND Hospitalist
PROC: 5A1D70Z Performance of Urinary Filtration, Intermittent, Less than 6 Hours Per Day (ICD-10-PCS; principal; 2019-07-29)
DX: I13.2 Hypertensive heart and chronic kidney disease with heart failure and with stage 5 chronic kidney disease, or end stage renal disease (principal); J96.01 Acute respiratory failure with hypoxia; D69.6 Thrombocytopenia, unspecified; E44.0 Moderate protein-calorie malnutrition; N18.6 End stage renal disease; I27.20 Pulmonary hypertension, unspecified; E87.5 Hyperkalemia; E83.51 Hypocalcemia; E88.09 Other disorders of plasma-protein metabolism, not elsewhere classified; E87.70 Fluid overload, unspecified; I50.33 Acute on chronic diastolic (congestive) heart failure; B19.20 Unspecified viral hepatitis C without hepatic coma; E78.5 Hyperlipidemia, unspecified; D50.9 Iron deficiency anemia, unspecified; D63.1 Anemia in chronic kidney disease; J45.909 Unspecified asthma, uncomplicated; E16.2 Hypoglycemia, unspecified; D63.8 Anemia in other chronic diseases classified elsewhere; Z99.2 Dependence on renal dialysis; Z91.19 Patient's noncompliance with other medical treatment and regimen; Z91.15 Patient's noncompliance with renal dialysis; Z88.6 Allergy status to analgesic agent; Z88.8 Allergy status to other drugs, medicaments and biological substances; Z59.0 Homelessness
CPT/HCPCS: 36415; 71045; 80053; 80069; 82728; 82962; 83540; 83550; 83735; 83880; 84484; 85025; 90935; 93005; 93990; 96374; 96375; 99285; G0378; J0881; J1815; J2405; J2270

== ENCOUNTER 2019-07-31 06:19 | Inpatient (IN) | payer MEDICAID ==
[~2019-07-31] VITALS: Ht 182.9 cm; Wt 87.4 kg
--- NOTE | 2019-07-31 06:51 | NUR ---
PT TO ED WITH C/O CHEST PAIN, EPIGASTRIC PAIN, AND GENERALIZED ABDOMINAL PAIN THAT STARTED LAST NIGHT AFTER TAKING A WALK. REPORTS SOME NAUSEA WITH NO VOMITING. NO FEVER. ON DIALYSIS T//. REPORTS "THEY PERFORATED MY FISTULA ON TUESDAY SO I HAD TO HAVE DIALYSIS ON TUESDAY". PT REPORTS HE STILL MAKES URINE. PLACED ON ED CASE MANAGER. IV ESTABLISHED IN RIGHT WRIST.
[2019-07-31] MEDS ORDERED: ONDANSETRON 2MG/ML, 2ML ONE (06:54)
[2019-07-31] MEDS ORDERED: ONDANSETRON 2MG/ML, 2ML IVPush PRN ×2 (07:00→10:00)
[2019-07-31 07:13] LABS: MEAN CORPUSCULAR HEMOGLOBIN 26.9 pg (27.5-34.5); MEAN CORPUSCULAR HGB CONC 32.9 g/dL (33.2-36.2); MEAN CORPUSCULAR VOLUME 81.9 fL (81-97); MEAN PLATELET VOLUME 10.2 fL (7.4-10.4); PLATELET COUNT 55 x10^3/uL (130-400); RED BLOOD COUNT 2.76 x10^6/uL (4.38-5.82); RED CELL DISTRIBUTION WIDTH 16.7 % (9.4-14.8)
[2019-07-31 07:15] LABS: ALANINE AMINOTRANSFERASE 32 U/L (12-78); ANION GAP 11 mmol/L (5-15); CALCIUM 7.9 mg/dL (8.5-10.1); CHLORIDE 103 mmol/L (98-107)
--- NOTE | 2019-07-31 07:16 | NUR ---
REPORT RECEIVED FROM SCOOBY GONZALEZ. PT RESTING IN BED, ON MONITORS, VSS. PT ASKING FOR ICE CHIPS, WILL ERMD. AWAITING LAB RESULTS. CONT TO MONITOR.
[2019-07-31 07:20] LABS: ALKALINE PHOSPHATASE 216 U/L (45-117); BILIRUBIN,TOTAL 0.4 mg/dL (0.2-1.0); TOTAL PROTEIN 6.7 g/dL (6.4-8.2)
[2019-07-31] MEDS ORDERED: DEXTROSE 10% 250 ML IV SCH ×2 (07:30→08:30)
--- NOTE | 2019-07-31 07:42 | NUR ---
DR. ITZ WELCH FOR DR. HERNANDEZ.
[2019-07-31] MEDS ORDERED: INSULIN SINGLE DOSE, ER ONE (07:44)
[2019-07-31] MEDS ORDERED: INSULIN REGULAR 100 UNITS/ML, 3ML VIAL IVPush ONE (08:00)
[2019-07-31 08:10] LABS: BASOPHILS # (AUTO) 0.01 x10^3/uL (0-0.1); BASOPHILS % (AUTO) 0 % (0-1); EOSINOPHILS # (AUTO) 0.05 x10^3/uL (0-0.4); EOSINOPHILS % (AUTO) 2 % (1-7); LYMPHOCYTES # (AUTO) 0.58 x10^3/uL (1-3.4); LYMPHOCYTES % (AUTO) 16 % (22-44); MD SCAN; MONOCYTES # (AUTO) 0.52 x10^3/uL (0.2-0.8); MONOCYTES % (AUTO) 14 % (2-9); NEUTROPHILS # (AUTO) 2.53 x10^3/uL (1.8-6.8); NEUTROPHILS % (AUTO) 68 % (42-75)
--- NOTE | 2019-07-31 08:20 | NUR ---
PT MEDICATED PER ORDERS. ERMD AWARE, FSBS 76 PRIOR TO MEDICATION ADMINISTRATION. PT REPOSITIONED FOR COMFORT, GIVEN ICE CHIPS PER ERMD OK. REPORT GIVEN TO FLOOR SUP RN. PT OK TO TRANSFER TO FLOOR. LAB AT [facility] TO DRAW TYPE AND SCREEN.
--- NOTE | 2019-07-31 08:34 | NUR ---
PT TRANSFERED TO FLOOR. PT HAS ALL OWN BELONGINGS UPON TRANSFER.
[2019-07-31 09:32] VITALS: BP 160/97
[2019-07-31 09:48] VITALS: BP 144/71
[2019-07-31] MEDS ORDERED: ENOXAPARIN 40 MG/0.4 ML SQ SCH (10:00)
[2019-07-31] MEDS ORDERED: hydrALAzine 20 MG/ML, 1ML IVPush PRN (10:00)
[2019-07-31] MEDS ORDERED: GABAPENTIN 300 MG CAPSULE PO PRN (10:00)
[2019-07-31] MEDS ORDERED: TRAZODONE 50MG TABLET PO PRN (10:00)
[2019-07-31] MEDS ORDERED: LABETALOL 5MG/ML, 20ML IVPush PRN (10:00)
[2019-07-31] MEDS ORDERED: ONDANSETRON ODT 4 MG PO PRN (10:00)
[2019-07-31 10:02] VITALS: BP 192/89
[2019-07-31 10:15] VITALS: BP 153/94
[2019-07-31] MEDS ORDERED: ARANESP 100 MCG/ML **ESRD SQ SCH (12:30)
[2019-07-31 14:56] VITALS: BP 170/76
[2019-07-31] MEDS: NICOTINE 14MG/24 HR PATCH.TD24 TD SCH (15:00)
[2019-07-31] MEDS: CALCIUM ACETATE 667 MG CAPSULE PO SCH (16:15)
[2019-07-31 16:48] LABS: TROPONIN I 0.066 ng/mL (0.000-0.045)
[2019-07-31] MEDS: ACETAMINOPHEN 325 MG TABLET PO PRN (17:06)
[2019-07-31 19:34] VITALS: BP 161/84
[2019-08-01 00:40] VITALS: BP 136/77
[2019-08-01 06:02] LABS: ALBUMIN 2.8 g/dL (3.4-5.0); ANION GAP 6 mmol/L (5-15); CALCIUM 7.8 mg/dL (8.5-10.1); CHLORIDE 101 mmol/L (98-107); CREATININE 9.92 mg/dL (0.7-1.3)
[2019-08-01 06:10] LABS: MEAN CORPUSCULAR HEMOGLOBIN 26.5 pg (27.5-34.5); MEAN CORPUSCULAR HGB CONC 31.9 g/dL (33.2-36.2); MEAN PLATELET VOLUME 10.3 fL (7.4-10.4); PLATELET COUNT 61 x10^3/uL (130-400); RED BLOOD COUNT 2.84 x10^6/uL (4.38-5.82)
[2019-08-01 07:15] LABS: BASOPHILS # (AUTO) 0.01 x10^3/uL (0-0.1); BASOPHILS % (AUTO) 0 % (0-1); EOSINOPHILS # (AUTO) 0.05 x10^3/uL (0-0.4); EOSINOPHILS % (AUTO) 1 % (1-7); LYMPHOCYTES # (AUTO) 0.66 x10^3/uL (1-3.4); LYMPHOCYTES % (AUTO) 15 % (22-44); MD SCAN; MONOCYTES # (AUTO) 0.52 x10^3/uL (0.2-0.8); MONOCYTES % (AUTO) 12 % (2-9); NEUTROPHILS # (AUTO) 3.08 x10^3/uL (1.8-6.8); NEUTROPHILS % (AUTO) 71 % (42-75)
[2019-08-01 07:30] VITALS: BP 158/87
[2019-08-01 08:56] VITALS: BP 176/99
[2019-08-01] MEDS ORDERED: ENOXAPARIN 30 MG/0.3 ML SQ SCH (09:00)
[2019-08-01] MEDS: CALCIUM ACETATE 667 MG CAPSULE PO SCH ×3 (09:59→17:01)
[2019-08-01] MEDS ORDERED: ISOSORBIDE MONONITRATE ER 30 MG TABLET PO SCH (12:30)
[2019-08-01 15:09] VITALS: BP 167/76
[2019-08-01] MEDS: NICOTINE 14MG/24 HR PATCH.TD24 TD SCH (15:23)
[2019-08-01] MEDS: ACETAMINOPHEN 325 MG TABLET PO PRN (18:37)
[2019-08-01 18:44] VITALS: BP 172/86
[2019-08-01 20:32] VITALS: BP 168/86
[2019-08-01] MEDS ORDERED: ATORVASTATIN 40 MG TABLET PO SCH (21:00)
[2019-08-02 00:46] VITALS: BP 158/72
== END 2019-08-02 01:19 | disposition left against medical advice (07) | DRG 425 ==
LOC: ED 06:28 → EDIP 07:46 → 4WST 08:46
PROVIDERS: ADMIT Family Medicine; ATTEND Family Medicine
PROC: 5A1D70Z Performance of Urinary Filtration, Intermittent, Less than 6 Hours Per Day (ICD-10-PCS; principal; 2019-07-31)
PROC: 30233N1 Transfusion of Nonautologous Red Blood Cells into Peripheral Vein, Percutaneous Approach (ICD-10-PCS; 2019-07-31)
PROC: 5A1D70Z Performance of Urinary Filtration, Intermittent, Less than 6 Hours Per Day (ICD-10-PCS; 2019-08-01)
DX: E87.5 Hyperkalemia (principal); I13.2 Hypertensive heart and chronic kidney disease with heart failure and with stage 5 chronic kidney disease, or end stage renal disease; D69.59 Other secondary thrombocytopenia; I27.20 Pulmonary hypertension, unspecified; N18.6 End stage renal disease; E83.51 Hypocalcemia; D63.1 Anemia in chronic kidney disease; E78.5 Hyperlipidemia, unspecified; F41.9 Anxiety disorder, unspecified; I16.0 Hypertensive urgency; I50.32 Chronic diastolic (congestive) heart failure; B19.20 Unspecified viral hepatitis C without hepatic coma; F15.90 Other stimulant use, unspecified, uncomplicated; N25.0 Renal osteodystrophy; Z59.0 Homelessness; Z87.891 Personal history of nicotine dependence; Z91.19 Patient's noncompliance with other medical treatment and regimen; Z99.2 Dependence on renal dialysis
CPT/HCPCS: 36415; 36430; 71045; 80053; 80069; 82962; 83735; 84484; 85025; 86850; 86900; 86923; 90935; 93005; 96374; 96375; G0378; J0882; J1815; J2405; J0360; P9016

== ENCOUNTER 2019-08-06 11:34 | Inpatient (IN) | payer MEDICAID ==
[~2019-08-06] VITALS: Ht 182.9 cm; Wt 87.0 kg
--- NOTE | 2019-08-06 11:53 | NUR ---
54 Y/O MALE BIB AMBULANCE WITH C/O CP AND ABD PAIN. PER PT "I GOT SOME CHEST PAIN AND STOMACH AND KIDNEY PAIN. IT STARTED A FEW DAYS AGO." PT ADMITS TO DRUG USE YESTERDAY. PT PLACED ON CONT PULSE OX, NIBP, JEWELRY DEPARTMENT SUPERVISOR. PIV ESTABLISHED DRY SANDER. 4MG ZOFRAN ADMINISTERED DRY SANDER.
--- NOTE | 2019-08-06 11:55 | NUR ---
PT STATES HE IS ABLE TO MAKE URINE. URINAL GIVEN TO PATIENT.
[2019-08-06] MEDS ORDERED: ONDANSETRON 2MG/ML, 2ML IVPush ONE (12:00)
[2019-08-06] MEDS ORDERED: SODIUM CHLORIDE FLUSH 10ML SYR IVF ONE (12:00)
[2019-08-06] MEDS ORDERED: PLEASE ENTER HEIGHT AND WEIGHT MC SCH (12:00)
[2019-08-06 12:17] LABS: ALANINE AMINOTRANSFERASE 30 U/L (12-78); ALBUMIN 3.2 g/dL (3.4-5.0); ANION GAP 18 mmol/L (5-15); CALCIUM 7.1 mg/dL (8.5-10.1); CHLORIDE 102 mmol/L (98-107)
[2019-08-06 12:21] LABS: ALKALINE PHOSPHATASE 165 U/L (45-117); BILIRUBIN,TOTAL 0.5 mg/dL (0.2-1.0)
--- NOTE | 2019-08-06 12:21 | NUR ---
TASK RN NOTE: PT LAYING BACK IN BED, C/O BILATERAL FLANK PAIN. VSS. ERMD AWARE. NO NEW ORDERS AT THIS TIME. HOB SLIGHTLY RECLINED FOR PT COMFORT. PT TAKES OFF ALL MONITORING EQUIPMENT DUE TO DISCOMFOT. ALLOWS RN TO REPLACE FOR SINGE MEASUREMENT.
--- NOTE | 2019-08-06 12:43 | NUR ---
RECEIVED BEDSIDE REPORT FROM BREAK RN. PER REPORT PT REFUSING TO KEEP NIBP AND PULSE OX ON
[2019-08-06] MEDS ORDERED: DEXTROSE 50%, 50ML SYRINGE ONE (12:48)
[2019-08-06] MEDS ORDERED: SODIUM BICARB 8.4%, 50ML SYRINGE ONE ×2 (12:48→13:02)
[2019-08-06] MEDS ORDERED: ONDANSETRON 2MG/ML, 2ML ONE (12:48)
[2019-08-06] MEDS ORDERED: CALCIUM CHLORIDE 10%, 10ML SYR ONE (12:48)
[2019-08-06] MEDS ORDERED: INSULIN SINGLE DOSE, ER ONE (12:49)
[2019-08-06] MEDS ORDERED: ACETAMINOPHEN 500 MG TABLET ONE (12:51)
[2019-08-06 12:52] LABS: MEAN CORPUSCULAR HEMOGLOBIN 26.2 pg (27.5-34.5); MEAN CORPUSCULAR HGB CONC 32.2 g/dL (33.2-36.2); MEAN CORPUSCULAR VOLUME 81.4 fL (81-97); RED BLOOD COUNT 3.17 x10^6/uL (4.38-5.82); RED CELL DISTRIBUTION WIDTH 17.5 % (9.4-14.8)
[2019-08-06 12:54] LABS: BASOPHILS # (AUTO) 0.01 x10^3/uL (0-0.1); BASOPHILS % (AUTO) 0 % (0-1); EOSINOPHILS # (AUTO) 0.02 x10^3/uL (0-0.4); EOSINOPHILS % (AUTO) 1 % (1-7); LYMPHOCYTES # (AUTO) 0.51 x10^3/uL (1-3.4); LYMPHOCYTES % (AUTO) 13 % (22-44); MD SCAN; MONOCYTES # (AUTO) 0.43 x10^3/uL (0.2-0.8); MONOCYTES % (AUTO) 11 % (2-9); NEUTROPHILS # (AUTO) 2.92 x10^3/uL (1.8-6.8); NEUTROPHILS % (AUTO) 75 % (42-75); PLATELET COUNT 63 x10^3/uL (130-400)
[2019-08-06] MEDS ORDERED: DEXTROSE 50%, 50ML SYRINGE IVPush ONE (13:00)
[2019-08-06] MEDS ORDERED: CALCIUM CHLORIDE 10%, 10ML SYR IVPush ONE (13:00)
[2019-08-06] MEDS ORDERED: INSULIN REGULAR 100 UNITS/ML, 3ML VIAL IVPush ONE (13:00)
[2019-08-06] MEDS ORDERED: ACETAMINOPHEN 500 MG TABLET PO ONE (13:00)
[2019-08-06] MEDS ORDERED: SODIUM BICARB 8.4%, 50ML SYRINGE IVPush ONE (13:00)
--- NOTE | 2019-08-06 13:15 | NUR ---
PT AGREES TO PUT ON NIBP AND TON CYLINDER INSPECTOR. MEDS ADMINISTERED. PER EMAR. HOSPITALIST BEDSIDE.
[2019-08-06] MEDS ORDERED: ONDANSETRON ODT 4 MG PO PRN (13:30)
[2019-08-06] MEDS ORDERED: ACETAMINOPHEN 500 MG TABLET PO PRN (13:30)
[2019-08-06] MEDS ORDERED: DOCUSATE 100 MG CAPSULE PO PRN (13:30)
[2019-08-06] MEDS ORDERED: POLYETHYLENE GLYCOL 17 GM PACKET PO PRN (13:30)
[2019-08-06] MEDS ORDERED: ONDANSETRON 2MG/ML, 2ML IVPush PRN (13:30)
--- NOTE | 2019-08-06 13:54 | NUR ---
PT C/O PIV HURTING. REMOVED PIV AND RESTARTED. PT APPRECIATIVE
--- NOTE | 2019-08-06 13:54 | NUR ---
REPORT TO LISA TORRES. ALL QUESTIONS ANSWERED.
[2019-08-06 13:58] LABS: INTERNATIONAL NORMALIZED RATIO 1.23 (0.93-1.1); PROTHROMBIN TIME 13.1 Seconds (9.6-11.5)
[2019-08-06] MEDS ORDERED: ERGOCALCIFEROL 50,000 UNIT CAPSULE PO SCH (14:00)
[2019-08-06] MEDS ORDERED: LACTULOSE 20 GM/30 ML UDC PO PRN (14:00)
[2019-08-06] MEDS ORDERED: FERROUS SULFATE 325 MG TABLET PO SCH (14:00)
--- NOTE | 2019-08-06 14:13 | NUR ---
PT TRANSFERRED TO FLOOR. PT LEFT WITH ALL PERSONAL BELONGINGS.
[2019-08-06 14:26] VITALS: BP 165/92
[2019-08-06] MEDS ORDERED: SODIUM ZIRCONIUM CYCLOSILICATE 10 GM PO ONE (15:00)
[2019-08-06] MEDS ORDERED: ARANESP 60 MCG/ML **ESRD SQ SCH (16:00)
[2019-08-06] MEDS ORDERED: ALBUTEROL 0.5%, 20ML NPPB ONE (16:00)
[2019-08-06] MEDS ORDERED: SEVELAMER CARBONATE 800MG TAB PO SCH (17:00)
[2019-08-06] MEDS: HEPARIN 5,000 UNITS/ML, 1ML SQ SCH ×2 (18:30→21:00)
[2019-08-06 18:36] LABS: TROPONIN I 0.079 ng/mL (0.000-0.045)
[2019-08-06 20:00] VITALS: BP 165/80
[2019-08-06] MEDS ORDERED: ATORVASTATIN 40 MG TABLET PO SCH (21:00)
[2019-08-06] MEDS ORDERED: CARVEDILOL 12.5 MG TABLET PO SCH (21:00)
[2019-08-07 00:53] VITALS: BP 145/66
[2019-08-07 01:04] LABS: TROPONIN I 0.083 ng/mL (0.000-0.045)
[2019-08-07] MEDS ORDERED: ISOSORBIDE MONONITRATE ER 30 MG TABLET PO SCH (09:00)
[2019-08-07] MEDS ORDERED: ASPIRIN 81 MG TABLET EC PO SCH (09:00)
== END 2019-08-07 04:00 | disposition left against medical advice (07) | DRG 425 ==
LOC: ED 11:36 → EDIP 12:58 → 4WST 14:12
PROVIDERS: ADMIT Internal Medicine; ATTEND Internal Medicine
DX: E87.5 Hyperkalemia (principal); J96.01 Acute respiratory failure with hypoxia; I13.2 Hypertensive heart and chronic kidney disease with heart failure and with stage 5 chronic kidney disease, or end stage renal disease; N18.6 End stage renal disease; D69.6 Thrombocytopenia, unspecified; I50.22 Chronic systolic (congestive) heart failure; D64.9 Anemia, unspecified; E78.5 Hyperlipidemia, unspecified; F17.200 Nicotine dependence, unspecified, uncomplicated; F19.10 Other psychoactive substance abuse, uncomplicated; F32.9 Major depressive disorder, single episode, unspecified; D63.1 Anemia in chronic kidney disease; Z53.29 Procedure and treatment not carried out because of patient's decision for other reasons; F15.90 Other stimulant use, unspecified, uncomplicated; F12.90 Cannabis use, unspecified, uncomplicated; Z91.19 Patient's noncompliance with other medical treatment and regimen; Z91.15 Patient's noncompliance with renal dialysis; Z79.82 Long term (current) use of aspirin; Z88.6 Allergy status to analgesic agent; Z83.3 Family history of diabetes mellitus; Z59.0 Homelessness
CPT/HCPCS: 36415; 71045; 80053; 82607; 83880; 84484; 85025; 85610; 85730; 86022; 87806; 90935; 93005; 96374; G0378; J0882; J1815; G0475

== ENCOUNTER 2019-08-15 07:08 | Inpatient (IN) | payer MEDICAID ==
[~2019-08-15] VITALS: Ht 182.9 cm; Wt 86.5 kg
--- NOTE | 2019-08-15 07:20 | NUR ---
PT PLACED IN HOPSITAL GOWN. PT REFUSING BP CUFF, STATED IT HURTS TOO MUCH. WILL TRY AGAIN LATER. ERP HAS BEEN IN TO [facility] PT.
--- NOTE | 2019-08-15 07:25 | NUR ---
US AT BEDSIDE.
[2019-08-15] MEDS ORDERED: ONDANSETRON 2MG/ML, 2ML IVPush ONE (07:30)
[2019-08-15] MEDS ORDERED: MORPHINE SULFATE 4 MG/ML, 1ML IVPush PRN (07:30)
[2019-08-15] MEDS ORDERED: SODIUM CHLORIDE FLUSH 10ML SYR IVF ONE (07:30)
[2019-08-15] MEDS ORDERED: ASPIRIN 81 MG TABLET CHEW PO ONE (07:30)
--- NOTE | 2019-08-15 08:00 | NUR ---
PT REFUSED LAB, STATED THE US HAS TO BE READ FIRST TO SEE IF THERE IS A CLOT. PT ALSO ASKING FOR PAIN MEDS, HOWEVER PT STATED AN IV HAS TO WAIT UNTIL US IS READ. PT GIVEN CUP OF ICE CHIPS
[2019-08-15] MEDS ORDERED: ASPIRIN 81 MG TABLET CHEW ONE (08:01)
[2019-08-15] MEDS ORDERED: ONDANSETRON 2MG/ML, 2ML ONE (08:01)
[2019-08-15] MEDS ORDERED: MORPHINE SULFATE 4 MG/ML, 1ML ONE (08:01)
--- NOTE | 2019-08-15 08:21 | NUR ---
PT HAS REMOVED ALL MONITORS, IS UP WALKING AROUND ROOM.
--- NOTE | 2019-08-15 08:36 | NUR ---
Nicola hummel in [facility] - 08/15/19 at 0837 by SHIRLEY PT HAS REMOVED ALL MONITORS, IS UP WALKING AROUND ROOM.
--- NOTE | 2019-08-15 09:32 | NUR ---
ABLE TO PLACE IV AND MEDICATE PT. PT C/O PAIN AT INSERTION SITE. LAB IN TO REDRAW PT. PT ALLOWED BP CUFF ON RIGHT LOWER EXTREMITY. PT STATED HIS RIGTH ARM HURTS TOO MUCH FOR REPEATED BPs
[2019-08-15 10:10] LABS: ALBUMIN 3.4 g/dL (3.4-5.0); ANION GAP 16 mmol/L (5-15); CALCIUM 7.2 mg/dL (8.5-10.1); CHLORIDE 100 mmol/L (98-107)
--- NOTE | 2019-08-15 10:15 | NUR ---
pt resting calmly in bed with eyes closed. no stated needs at this time. will continue to monitor.
[2019-08-15 10:21] LABS: TROPONIN I 0.085 ng/mL (0.000-0.045)
[2019-08-15 10:23] LABS: BASOPHILS % (AUTO) 0 % (0-1); EOSINOPHILS # (AUTO) 0.07 x10^3/uL (0-0.4); EOSINOPHILS % (AUTO) 2 % (1-7); LYMPHOCYTES # (AUTO) 0.74 x10^3/uL (1-3.4); LYMPHOCYTES % (AUTO) 19 % (22-44); MD NO; MEAN CORPUSCULAR HEMOGLOBIN 25.6 pg (27.5-34.5); MEAN CORPUSCULAR HGB CONC 32.2 g/dL (33.2-36.2); MEAN CORPUSCULAR VOLUME 79.4 fL (81-97); MEAN PLATELET VOLUME 9.1 fL (7.4-10.4); MONOCYTES # (AUTO) 0.28 x10^3/uL (0.2-0.8); MONOCYTES % (AUTO) 7 % (2-9); NEUTROPHILS # (AUTO) 2.83 x10^3/uL (1.8-6.8); NEUTROPHILS % (AUTO) 72 % (42-75); PLATELET COUNT 105 x10^3/uL (130-400); RED BLOOD COUNT 3.44 x10^6/uL (4.38-5.82); RED CELL DISTRIBUTION WIDTH 17.6 % (9.4-14.8)
--- NOTE | 2019-08-15 11:20 | NUR ---
REPORT TO BRAIN GONZALEZ. SOUMYA ORDERED PER CORDELIA ROWELL.
[2019-08-15 11:28] LABS: MICROSCOPIC AUTO
[2019-08-15] MEDS ORDERED: ENALAPRILAT 1.25 MG/ML, 2ML IVPush PRN (11:30)
[2019-08-15] MEDS ORDERED: HEPARIN 5,000 UNITS/ML, 1ML SQ SCH (11:30)
[2019-08-15] MEDS ORDERED: LABETALOL 5MG/ML, 20ML IVPush PRN (11:30)
[2019-08-15 14:50] VITALS: BP 162/98
[2019-08-15] MEDS ORDERED: ARANESP 200 MCG/ML **ESRD SQ SCH (15:00)
[2019-08-15] MEDS: FERROUS SULFATE 325 MG TABLET PO SCH (18:40)
[2019-08-15] MEDS: OXYcodone IR 5MG TABLET PO PRN (18:41)
[2019-08-15 19:01] LABS: TROPONIN I 0.088 ng/mL (0.000-0.045)
[2019-08-15 21:02] VITALS: BP 154/84
[2019-08-15] MEDS: CARVEDILOL 6.25 MG TABLET PO SCH (21:22)
[2019-08-15] MEDS: ATORVASTATIN 40 MG TABLET PO SCH (21:22)
[2019-08-16] MEDS: OXYcodone IR 5MG TABLET PO PRN ×5 (00:04→21:26)
[2019-08-16 00:57] VITALS: BP 163/96
[2019-08-16 01:09] LABS: TROPONIN I 0.111 ng/mL (0.000-0.045)
[2019-08-16] MEDS: ONDANSETRON 2MG/ML, 2ML IVPush PRN (06:26)
[2019-08-16 07:51] VITALS: BP 155/92
[2019-08-16 08:08] LABS: MEAN CORPUSCULAR HEMOGLOBIN 25.6 pg (27.5-34.5); MEAN CORPUSCULAR HGB CONC 32.2 g/dL (33.2-36.2); MEAN CORPUSCULAR VOLUME 79.4 fL (81-97); MEAN PLATELET VOLUME 8.5 fL (7.4-10.4); PLATELET COUNT 110 x10^3/uL (130-400); RED BLOOD COUNT 3.43 x10^6/uL (4.38-5.82); RED CELL DISTRIBUTION WIDTH 17.4 % (9.4-14.8)
[2019-08-16 08:14] LABS: ANION GAP 12 mmol/L (5-15); CALCIUM 7.8 mg/dL (8.5-10.1); CHLORIDE 101 mmol/L (98-107)
[2019-08-16 08:17] LABS: ALANINE AMINOTRANSFERASE 33 U/L (12-78); ALKALINE PHOSPHATASE 176 U/L (45-117); BILIRUBIN,TOTAL 0.4 mg/dL (0.2-1.0); TOTAL PROTEIN 6.8 g/dL (6.4-8.2)
[2019-08-16 08:35] LABS: BASOPHILS # (AUTO) 0.01 x10^3/uL (0-0.1); BASOPHILS % (AUTO) 0 % (0-1); EOSINOPHILS # (AUTO) 0.01 x10^3/uL (0-0.4); EOSINOPHILS % (AUTO) 0 % (1-7); LYMPHOCYTES # (AUTO) 0.42 x10^3/uL (1-3.4); LYMPHOCYTES % (AUTO) 11 % (22-44); MD SCAN; MONOCYTES # (AUTO) 0.43 x10^3/uL (0.2-0.8); MONOCYTES % (AUTO) 12 % (2-9); NEUTROPHILS # (AUTO) 2.87 x10^3/uL (1.8-6.8); NEUTROPHILS % (AUTO) 77 % (42-75)
[2019-08-16] MEDS: ISOSORBIDE MONONITRATE ER 30 MG TABLET PO SCH (10:07)
[2019-08-16] MEDS: CARVEDILOL 6.25 MG TABLET PO SCH (10:08)
[2019-08-16] MEDS: CALCITRIOL 0.5 MCG CAPSULE PO SCH (10:08)
[2019-08-16 12:30] VITALS: BP 180/95
[2019-08-16 18:36] VITALS: BP 162/76
[2019-08-16 19:38] VITALS: BP 141/81
[2019-08-16] MEDS: CARVEDILOL 12.5 MG TABLET PO SCH (21:26)
[2019-08-16] MEDS: ATORVASTATIN 40 MG TABLET PO SCH (21:27)
[2019-08-17 00:15] VITALS: BP 158/87
[2019-08-17 02:40] VITALS: BP 178/84
[2019-08-17] MEDS: ONDANSETRON 2MG/ML, 2ML IVPush PRN ×2 (02:41→07:47)
[2019-08-17] MEDS: OXYcodone IR 5MG TABLET PO PRN (02:42)
[2019-08-17 03:14] VITALS: BP 143/83
[2019-08-17 05:25] LABS: BASOPHILS % (AUTO) 0 % (0-1); EOSINOPHILS # (AUTO) 0.07 x10^3/uL (0-0.4); EOSINOPHILS % (AUTO) 2 % (1-7); LYMPHOCYTES # (AUTO) 0.48 x10^3/uL (1-3.4); LYMPHOCYTES % (AUTO) 16 % (22-44); MD NO; MEAN CORPUSCULAR HEMOGLOBIN 25.3 pg (27.5-34.5); MEAN CORPUSCULAR HGB CONC 31.8 g/dL (33.2-36.2); MEAN CORPUSCULAR VOLUME 79.4 fL (81-97); MEAN PLATELET VOLUME 8.7 fL (7.4-10.4); MONOCYTES # (AUTO) 0.46 x10^3/uL (0.2-0.8); MONOCYTES % (AUTO) 15 % (2-9); NEUTROPHILS # (AUTO) 2.06 x10^3/uL (1.8-6.8); NEUTROPHILS % (AUTO) 67 % (42-75); PLATELET COUNT 125 x10^3/uL (130-400); RED BLOOD COUNT 3.58 x10^6/uL (4.38-5.82)
[2019-08-17 05:37] LABS: CHLORIDE 100 mmol/L (98-107)
[2019-08-17 05:44] LABS: ALBUMIN 2.9 g/dL (3.4-5.0); ANION GAP 8 mmol/L (5-15); CALCIUM 8.7 mg/dL (8.5-10.1); CREATININE 9.14 mg/dL (0.7-1.3)
[2019-08-17 07:03] VITALS: BP 136/80
[2019-08-17] MEDS: CARVEDILOL 12.5 MG TABLET PO SCH (07:45)
[2019-08-17] MEDS ORDERED: CALCIUM CARBONATE 500 MG TAB.CHEW PO PRN (11:30)
[2019-08-17] MEDS ORDERED: PROMETHAZINE 25 MG/ML, 1ML IM PRN (11:30)
[2019-08-17] MEDS: ISOSORBIDE MONONITRATE ER 30 MG TABLET PO SCH (12:27)
[2019-08-17] MEDS: CALCITRIOL 0.5 MCG CAPSULE PO SCH (12:27)
[2019-08-17 12:50] VITALS: BP 157/76
[2019-08-17] MEDS: FERROUS SULFATE 325 MG TABLET PO SCH (17:42)
[2019-08-17 19:23] VITALS: BP 146/80
== END 2019-08-18 02:34 | disposition home or self-care (01) | DRG 425 ==
LOC: ED 07:16 → EDIP 10:49 → 4WST 11:52
PROVIDERS: ADMIT Emergency Medicine; ATTEND Internal Medicine
PROC: 5A1D70Z Performance of Urinary Filtration, Intermittent, Less than 6 Hours Per Day (ICD-10-PCS; principal; 2019-08-15)
DX: E87.5 Hyperkalemia (principal); I21.4 Non-ST elevation (NSTEMI) myocardial infarction; I13.2 Hypertensive heart and chronic kidney disease with heart failure and with stage 5 chronic kidney disease, or end stage renal disease; N17.9 Acute kidney failure, unspecified; D69.6 Thrombocytopenia, unspecified; N18.6 End stage renal disease; I27.20 Pulmonary hypertension, unspecified; I80.9 Phlebitis and thrombophlebitis of unspecified site; D63.8 Anemia in other chronic diseases classified elsewhere; F19.10 Other psychoactive substance abuse, uncomplicated; F17.200 Nicotine dependence, unspecified, uncomplicated; B19.20 Unspecified viral hepatitis C without hepatic coma; I25.10 Atherosclerotic heart disease of native coronary artery without angina pectoris; D63.1 Anemia in chronic kidney disease; E78.5 Hyperlipidemia, unspecified; F32.9 Major depressive disorder, single episode, unspecified; I50.32 Chronic diastolic (congestive) heart failure; G89.29 Other chronic pain; Z91.14 Patient's other noncompliance with medication regimen; Z99.2 Dependence on renal dialysis; Z59.0 Homelessness; Z95.5 Presence of coronary angioplasty implant and graft; Z91.15 Patient's noncompliance with renal dialysis
CPT/HCPCS: 36415; 71045; 80048; 80053; 80069; 81001; 82040; 82962; 83735; 83880; 84100; 84484; 85025; 93005; 96374; 96375; G0378; J0882; J2405; J2270

== ENCOUNTER 2019-08-22 13:14 | Inpatient (IN) | payer MEDICAID ==
[~2019-08-22] VITALS: Ht 182.9 cm; Wt 81.8 kg
--- NOTE | 2019-08-22 14:11 | NUR ---
EXERCISER: PT TO ROOM FROM LOBBY VIA W/C
[2019-08-22 14:51] LABS: BASOPHILS # (AUTO) 0.06 x10^3/uL (0-0.1); BASOPHILS % (AUTO) 1 % (0-1); EOSINOPHILS # (AUTO) 0.07 x10^3/uL (0-0.4); EOSINOPHILS % (AUTO) 2 % (1-7); LYMPHOCYTES # (AUTO) 0.59 x10^3/uL (1-3.4); LYMPHOCYTES % (AUTO) 13 % (22-44); MD NO; MEAN CORPUSCULAR HEMOGLOBIN 24.6 pg (27.5-34.5); MEAN CORPUSCULAR HGB CONC 31.2 g/dL (33.2-36.2); MEAN CORPUSCULAR VOLUME 78.9 fL (81-97); MEAN PLATELET VOLUME 8.7 fL (7.4-10.4); MONOCYTES # (AUTO) 0.61 x10^3/uL (0.2-0.8); MONOCYTES % (AUTO) 14 % (2-9); NEUTROPHILS # (AUTO) 3.18 x10^3/uL (1.8-6.8); NEUTROPHILS % (AUTO) 71 % (42-75); PLATELET COUNT 109 x10^3/uL (130-400); RED BLOOD COUNT 3.41 x10^6/uL (4.38-5.82)
[2019-08-22 14:53] LABS: ALBUMIN 3.3 g/dL (3.4-5.0); CALCIUM 7.6 mg/dL (8.5-10.1)
[2019-08-22 14:59] LABS: ALANINE AMINOTRANSFERASE 27 U/L (12-78); ALKALINE PHOSPHATASE 183 U/L (45-117); BILIRUBIN,TOTAL 0.6 mg/dL (0.2-1.0); TOTAL PROTEIN 7.3 g/dL (6.4-8.2); TROPONIN I 0.058 ng/mL (0.000-0.045)
[2019-08-22 15:11] LABS: ANION GAP 17 mmol/L (5-15); CHLORIDE 98 mmol/L (98-107)
--- NOTE | 2019-08-22 15:27 | NUR ---
TASK RN: THIS IS A 54 YO MALE COMING IN FOR "I MISSED DIALYSIS TUESDAY, NOW I HAVE CHEST PAIN, I ALS OHAVE A BLOOD CLOT FROM SOMEONE MISSIGN AN IV. IT'S IN MY RIGHT ARM, THEY TOLD ME TO PUT HOT COMPRESSES ON IT". PATIENT C/O STERNAL CHEST PAIN STARTING TUESDAY WORSENING THROUGH THE WEEK, RADIATES UP NECK. HX ME IN PAST. PATIENT SEEN [facility] FREQUENTLY FOR MISSING DIALYSIS WITH FREQUENT HOSPITALIZATIONS. A&OX4, ALL MONITORING IN PLACE. VSS. CALL LIGHT IN REACH
--- NOTE | 2019-08-22 15:33 | NUR ---
TASK RN: DANIEL STATES HE ALSO FELL TUESDAY AND HIT HEAD, UNKNOWN IF LOC.
--- NOTE | 2019-08-22 15:34 | NUR ---
TASK RN: ERP IN ROOM FOR [facility]
[2019-08-22] MEDS ORDERED: DEXTROSE 50%, 50ML SYRINGE IVPush ONE (16:30)
[2019-08-22] MEDS ORDERED: SODIUM CHLORIDE FLUSH 10ML SYR IVF ONE (16:30)
[2019-08-22] MEDS ORDERED: CALCIUM CHLORIDE 10%, 10ML SYR IVPush ONE (16:30)
[2019-08-22] MEDS ORDERED: ALBUTEROL 0.5%, 20ML NPPB ONE (16:30)
[2019-08-22] MEDS ORDERED: ASPIRIN 81 MG TABLET CHEW PO ONE (16:30)
[2019-08-22] MEDS ORDERED: INSULIN REGULAR 100 UNITS/ML, 3ML VIAL IVPush ONE (16:30)
[2019-08-22] MEDS ORDERED: SODIUM POLYSTYRENE SULFONATE ORAL SUSP PO ONE (17:00)
--- NOTE | 2019-08-22 17:33 | NUR ---
UNABLE TO ESTABLISH IV ACCESS. HOSPITALIST NEELA MADE AWARE AND ALSO MADE AWARE PT DID NOT RECEIVE INSULIN, DEXTROSE AND CALCIUM CHLORIDE. REQUESTED PICC LINE FOR ACCESS AND HOSPITALIST DIRECTED PAGE TO OUTDOOR ADVENTURE LEADER TO OBTAIN ORDER FOR SAME. PT GIVEN KAYEXELATE. PT SITTING UP ON EDGE OF BED TALKING WITH HOSPITALIST
--- NOTE | 2019-08-22 17:46 | NUR ---
REPORT TO EVELYNE GONZALEZ. PT TO BE TRANSPORTED TO FLOOR.
[2019-08-22] MEDS ORDERED: ASPIRIN 81 MG TABLET CHEW ONE (17:52)
[2019-08-22] MEDS ORDERED: ALBUTEROL SULFATE 2.5 MG/3 ML ONE (17:53)
[2019-08-22] MEDS ORDERED: ONDANSETRON ODT 4 MG PO PRN (18:00)
[2019-08-22] MEDS ORDERED: BISACODYL 10 MG SUPP PR PRN (18:00)
[2019-08-22] MEDS ORDERED: TEMAZEPAM 15 MG CAPSULE PO PRN (18:00)
[2019-08-22] MEDS ORDERED: ACETAMINOPHEN 325 MG TABLET PO PRN (18:00)
[2019-08-22] MEDS ORDERED: hydrALAzine 20 MG/ML, 1ML IVPush PRN (18:00)
[2019-08-22] MEDS ORDERED: ONDANSETRON 2MG/ML, 2ML IVPush PRN (18:00)
--- NOTE | 2019-08-22 18:03 | NUR ---
SPOKE WITH PHARMACY SERVICES REPRESENTATIVE RODRIGUEZ AND MADE AWARE OF CURRENT POTASSIUM AND LACK OF ABILITY TO OBTAIN IV ACCESS TO GIVE MEDS TO LOWER POTASSIUM. DR FRIAS STATES NO PICC LINE AND DIALYZE TO LOWER POTASSIUM. RODRIGUEZ AWARE PT RECEIVED KAYEXALATE.
[2019-08-22 18:51] LABS: TROPONIN I 0.056 ng/mL (0.000-0.045)
[2019-08-22] MEDS ORDERED: LACTULOSE 20 GM/30 ML UDC PO PRN (19:30)
[2019-08-22] MEDS ORDERED: ERGOCALCIFEROL 50,000 UNIT CAPSULE PO SCH (19:30)
[2019-08-23 00:05] VITALS: BP 163/85
[2019-08-23] MEDS: CARVEDILOL 6.25 MG TABLET PO SCH ×3 (00:08→21:21)
[2019-08-23] MEDS: ATORVASTATIN 40 MG TABLET PO SCH ×2 (00:09→21:22)
[2019-08-23] MEDS: SEVELAMER CARBONATE 800MG TAB PO SCH ×4 (00:14→16:47)
[2019-08-23 02:18] VITALS: BP 163/85
[2019-08-23 07:30] LABS: MEAN CORPUSCULAR HEMOGLOBIN 24.8 pg (27.5-34.5); MEAN CORPUSCULAR VOLUME 77.6 fL (81-97); MEAN PLATELET VOLUME 8.5 fL (7.4-10.4); PLATELET COUNT 103 x10^3/uL (130-400); RED BLOOD COUNT 3.32 x10^6/uL (4.38-5.82); RED CELL DISTRIBUTION WIDTH 17.9 % (9.4-14.8)
[2019-08-23 07:32] LABS: ANION GAP 11 mmol/L (5-15); CHLORIDE 100 mmol/L (98-107)
[2019-08-23] MEDS: ASPIRIN 81 MG TABLET EC PO SCH (07:56)
[2019-08-23] MEDS: PANTOPRAZOLE 40MG TABLET PO SCH ×2 (07:56→07:57)
[2019-08-23] MEDS: SENNA/DOCUSATE TABLET PO SCH (07:58)
[2019-08-23 08:07] LABS: BASOPHILS # (AUTO) 0.01 x10^3/uL (0-0.1); BASOPHILS % (AUTO) 0 % (0-1); EOSINOPHILS # (AUTO) 0.04 x10^3/uL (0-0.4); EOSINOPHILS % (AUTO) 1 % (1-7); LYMPHOCYTES # (AUTO) 0.41 x10^3/uL (1-3.4); LYMPHOCYTES % (AUTO) 12 % (22-44); MD SCAN; MONOCYTES # (AUTO) 0.48 x10^3/uL (0.2-0.8); MONOCYTES % (AUTO) 14 % (2-9); NEUTROPHILS # (AUTO) 2.62 x10^3/uL (1.8-6.8); NEUTROPHILS % (AUTO) 74 % (42-75)
[2019-08-23 09:10] VITALS: BP 144/75
[2019-08-23] MEDS: ISOSORBIDE MONONITRATE ER 30 MG TABLET PO SCH (09:13)
[2019-08-23] MEDS ORDERED: ARANESP 40 MCG/ML **ESRD SQ SCH (11:00)
[2019-08-23 14:48] VITALS: BP 125/62
[2019-08-23 21:19] VITALS: BP 163/87
[2019-08-23] MEDS: OXYcodone IR 5MG TABLET PO PRN (21:31)
[2019-08-24 00:45] VITALS: BP 134/71
[2019-08-24 07:08] LABS: ANION GAP 7 mmol/L (5-15); CALCIUM 8.1 mg/dL (8.5-10.1); CHLORIDE 101 mmol/L (98-107); CREATININE 8.93 mg/dL (0.7-1.3)
[2019-08-24] MEDS: PANTOPRAZOLE 40MG TABLET PO SCH (07:30)
[2019-08-24] MEDS: SENNA/DOCUSATE TABLET PO SCH (07:45)
[2019-08-24] MEDS: ASPIRIN 81 MG TABLET EC PO SCH (07:46)
[2019-08-24] MEDS: CARVEDILOL 6.25 MG TABLET PO SCH ×2 (07:46→21:02)
[2019-08-24] MEDS: SEVELAMER CARBONATE 800MG TAB PO SCH ×3 (07:46→16:16)
[2019-08-24] MEDS: ISOSORBIDE MONONITRATE ER 30 MG TABLET PO SCH (07:46)
[2019-08-24] MEDS: OXYcodone IR 5MG TABLET PO PRN (07:49)
[2019-08-24 07:52] VITALS: BP 157/84
[2019-08-24 14:23] VITALS: BP 135/78
[2019-08-24 19:55] VITALS: BP 148/79
[2019-08-24 21:00] VITALS: BP 130/89
[2019-08-24] MEDS: ATORVASTATIN 40 MG TABLET PO SCH (21:03)
[2019-08-25 00:07] VITALS: BP 152/85
[2019-08-25] MEDS: PANTOPRAZOLE 40MG TABLET PO SCH (06:26)
[2019-08-25 07:22] VITALS: BP 149/82
== END 2019-08-25 07:54 | disposition left against medical advice (07) | DRG 425 ==
LOC: ED 14:16 → EDIP 16:23 → 4WST 18:35
PROVIDERS: ADMIT Internal Medicine; ATTEND Internal Medicine
PROC: 5A1D70Z Performance of Urinary Filtration, Intermittent, Less than 6 Hours Per Day (ICD-10-PCS; principal; 2019-08-22)
PROC: 5A1D70Z Performance of Urinary Filtration, Intermittent, Less than 6 Hours Per Day (ICD-10-PCS; 2019-08-23)
DX: E87.5 Hyperkalemia (principal); N18.6 End stage renal disease; I13.2 Hypertensive heart and chronic kidney disease with heart failure and with stage 5 chronic kidney disease, or end stage renal disease; D63.1 Anemia in chronic kidney disease; F12.90 Cannabis use, unspecified, uncomplicated; F91.9 Conduct disorder, unspecified; G89.29 Other chronic pain; I25.10 Atherosclerotic heart disease of native coronary artery without angina pectoris; I50.32 Chronic diastolic (congestive) heart failure; J45.909 Unspecified asthma, uncomplicated; N17.9 Acute kidney failure, unspecified; N25.0 Renal osteodystrophy; D69.6 Thrombocytopenia, unspecified; F32.9 Major depressive disorder, single episode, unspecified; R74.8 Abnormal levels of other serum enzymes; E87.70 Fluid overload, unspecified; Z82.3 Family history of stroke; Z82.49 Family history of ischemic heart disease and other diseases of the circulatory system; Z91.19 Patient's noncompliance with other medical treatment and regimen; Z91.15 Patient's noncompliance with renal dialysis; Z99.2 Dependence on renal dialysis; Z95.5 Presence of coronary angioplasty implant and graft; Z88.6 Allergy status to analgesic agent; Z88.8 Allergy status to other drugs, medicaments and biological substances
CPT/HCPCS: 36415; 71045; 80048; 80053; 80069; 82962; 83690; 83735; 84100; 84132; 84443; 84484; 85025; 90935; 93005; 99284; G0378; J0882; J1815

== ENCOUNTER 2019-08-25 13:38 | Emergency (ER) | payer MEDICAID ==
[2019-08-25 13:43] VITALS: BP 153/79
[2019-08-25 14:38] LABS: ALBUMIN 3.2 g/dL (3.4-5.0); ANION GAP 12 mmol/L (5-15); CALCIUM 8.3 mg/dL (8.5-10.1); CHLORIDE 99 mmol/L (98-107)
[2019-08-25 14:43] LABS: ALANINE AMINOTRANSFERASE 23 U/L (12-78); ALKALINE PHOSPHATASE 166 U/L (45-117); BILIRUBIN,TOTAL 0.4 mg/dL (0.2-1.0); TROPONIN I 0.062 ng/mL (0.000-0.045)
[2019-08-25 14:47] LABS: BASOPHILS % (AUTO) 0 % (0-1); EOSINOPHILS # (AUTO) 0.09 x10^3/uL (0-0.4); EOSINOPHILS % (AUTO) 2 % (1-7); LYMPHOCYTES # (AUTO) 0.63 x10^3/uL (1-3.4); LYMPHOCYTES % (AUTO) 13 % (22-44); MD NO; MEAN CORPUSCULAR HEMOGLOBIN 24.8 pg (27.5-34.5); MEAN CORPUSCULAR HGB CONC 31.9 g/dL (33.2-36.2); MEAN CORPUSCULAR VOLUME 77.6 fL (81-97); MEAN PLATELET VOLUME 9.3 fL (7.4-10.4); MONOCYTES # (AUTO) 0.58 x10^3/uL (0.2-0.8); MONOCYTES % (AUTO) 12 % (2-9); NEUTROPHILS # (AUTO) 3.48 x10^3/uL (1.8-6.8); NEUTROPHILS % (AUTO) 73 % (42-75); PLATELET COUNT 103 x10^3/uL (130-400); RED BLOOD COUNT 3.44 x10^6/uL (4.38-5.82); RED CELL DISTRIBUTION WIDTH 17.9 % (9.4-14.8)
--- NOTE | 2019-08-25 17:13 | NUR ---
AUTOMOTIVE TECHNICIAN: NA X 1
--- NOTE | 2019-08-25 17:37 | NUR ---
FIELD SUPERVISOR SEED PRODUCTION: NA X 2
--- NOTE | 2019-08-25 17:50 | NUR ---
CHIEF CONTROLLER STATION: NA X 3
== END 2019-08-25 17:51 | disposition left against medical advice (07) ==
LOC: ED 17:45
DX: R42 Dizziness and giddiness (principal); R61 Generalized hyperhidrosis; R94.31 Abnormal electrocardiogram [ECG] [EKG]
CPT/HCPCS: 36415; 80053; 84484; 85025; 93005; 99284

== ENCOUNTER 2019-08-29 05:03 | Observation (INO) | payer MEDICAID ==
[~2019-08-29] VITALS: Ht 182.9 cm; Wt 90.0 kg
--- NOTE | 2019-08-29 05:21 | NUR ---
PT TO ER WITH C/O SOB C/P UNKNOWN WHEN HE LAST HAD DYALISIS, PLACED ON ALL MONITORS Addendum: 08/29/19 at 0652 by RAJINDER report from [facility]
[2019-08-29] MEDS ORDERED: SODIUM CHLORIDE FLUSH 10ML SYR IVF ONE (06:00)
--- NOTE | 2019-08-29 06:23 | NUR ---
TOLERATED PIV LAB AND CXR IN ROOM AT THIS TIME
[2019-08-29 06:46] LABS: ALBUMIN 3.2 g/dL (3.4-5.0); ANION GAP 12 mmol/L (5-15); CALCIUM 8.1 mg/dL (8.5-10.1); CHLORIDE 104 mmol/L (98-107)
[2019-08-29 06:49] LABS: ALANINE AMINOTRANSFERASE 27 U/L (12-78); ALKALINE PHOSPHATASE 201 U/L (45-117); BILIRUBIN,TOTAL 0.4 mg/dL (0.2-1.0); TOTAL PROTEIN 7.3 g/dL (6.4-8.2)
[2019-08-29 06:55] LABS: MEAN CORPUSCULAR HEMOGLOBIN 24.4 pg (27.5-34.5); MEAN CORPUSCULAR VOLUME 78.6 fL (81-97); MEAN PLATELET VOLUME 9.8 fL (7.4-10.4); PLATELET COUNT 61 x10^3/uL (130-400); RED BLOOD COUNT 3.93 x10^6/uL (4.38-5.82); RED CELL DISTRIBUTION WIDTH 17.7 % (9.4-14.8)
[2019-08-29 06:56] LABS: BASOPHILS # (AUTO) 0.01 x10^3/uL (0-0.1); BASOPHILS % (AUTO) 0 % (0-1); EOSINOPHILS # (AUTO) 0.05 x10^3/uL (0-0.4); EOSINOPHILS % (AUTO) 1 % (1-7); LYMPHOCYTES % (AUTO) 16 % (22-44); MD SCAN; MONOCYTES # (AUTO) 0.49 x10^3/uL (0.2-0.8); MONOCYTES % (AUTO) 11 % (2-9); NEUTROPHILS # (AUTO) 3.11 x10^3/uL (1.8-6.8); NEUTROPHILS % (AUTO) 71 % (42-75)
[2019-08-29] MEDS ORDERED: DEXTROSE 50%, 50ML SYRINGE IVPush ONE (07:30)
[2019-08-29] MEDS ORDERED: SODIUM BICARB 8.4%, 50ML SYRINGE IVPush ONE (07:30)
[2019-08-29] MEDS ORDERED: INSULIN REGULAR 100 UNITS/ML, 3ML VIAL IVPush ONE (07:30)
[2019-08-29] MEDS ORDERED: ALBUTEROL 0.5%, 20ML NPPB ONE (07:30)
[2019-08-29] MEDS ORDERED: INSULIN SINGLE DOSE, ER ONE (07:45)
[2019-08-29] MEDS ORDERED: SODIUM BICARBONATE 1 MEQ/ML, 50ML VIAL ONE (07:45)
[2019-08-29] MEDS ORDERED: DEXTROSE 50%, 50ML SYRINGE ONE (07:45)
--- NOTE | 2019-08-29 08:05 | NUR ---
MEDICATED PER ORDERS. PT CO ABDOMINAL PAIN. NO N/V
[2019-08-29] MEDS ORDERED: ALBUTEROL SULFATE 2.5MG/0.5ML ONE (08:08)
[2019-08-29] MEDS ORDERED: MELATONIN 5 MG TABLET PO PRN (09:00)
[2019-08-29] MEDS ORDERED: FERROUS SULFATE 325 MG TABLET PO SCH (09:00)
[2019-08-29] MEDS ORDERED: ISOSORBIDE MONONITRATE ER 30 MG TABLET PO SCH (09:00)
[2019-08-29] MEDS ORDERED: LACTULOSE 20 GM/30 ML UDC PO PRN (09:00)
[2019-08-29] MEDS ORDERED: CARVEDILOL 12.5 MG TABLET PO SCH (09:00)
[2019-08-29] MEDS ORDERED: ASPIRIN 81 MG TABLET EC PO SCH (09:00)
[2019-08-29] MEDS ORDERED: LABETALOL 5MG/ML, 20ML IVPush PRN (09:00)
[2019-08-29] MEDS ORDERED: ENALAPRILAT 1.25 MG/ML, 2ML IVPush PRN (09:00)
[2019-08-29] MEDS ORDERED: ONDANSETRON 2MG/ML, 2ML IVPush PRN (09:00)
[2019-08-29] MEDS ORDERED: ACETAMINOPHEN 325 MG TABLET PO PRN (09:00)
[2019-08-29] MEDS ORDERED: ONDANSETRON ODT 4 MG PO PRN (09:00)
[2019-08-29 10:15] VITALS: BP 185/103
[2019-08-29] MEDS ORDERED: DARBEPOETIN 200 MCG/ML SQ SCH (11:00)
[2019-08-29] MEDS ORDERED: SEVELAMER CARBONATE 800MG TAB PO SCH (12:00)
[2019-08-29 12:18] VITALS: BP 154/75
[2019-08-29] MEDS ORDERED: ATORVASTATIN 40 MG TABLET PO SCH (21:00)
== END 2019-08-29 17:43 | disposition left against medical advice (07) ==
LOC: ED 06:01 → SUATTDRO 08:49 → EDIP 08:50 → 4EST 10:03
PROVIDERS: ADMIT Internal Medicine; ATTEND Internal Medicine
DX: N18.6 End stage renal disease (principal); I13.2 Hypertensive heart and chronic kidney disease with heart failure and with stage 5 chronic kidney disease, or end stage renal disease; I25.10 Atherosclerotic heart disease of native coronary artery without angina pectoris; I50.32 Chronic diastolic (congestive) heart failure; F32.9 Major depressive disorder, single episode, unspecified; E87.5 Hyperkalemia; E78.5 Hyperlipidemia, unspecified; E11.22 Type 2 diabetes mellitus with diabetic chronic kidney disease; D63.1 Anemia in chronic kidney disease; D69.6 Thrombocytopenia, unspecified; G89.29 Other chronic pain; B19.20 Unspecified viral hepatitis C without hepatic coma; K85.90 Acute pancreatitis without necrosis or infection, unspecified; N17.9 Acute kidney failure, unspecified; Z99.2 Dependence on renal dialysis; Z95.5 Presence of coronary angioplasty implant and graft; Z91.15 Patient's noncompliance with renal dialysis
CPT/HCPCS: 36415; 71045; 80053; 82962; 83690; 84484; 85025; 93005; 96374; 96375; 99291; G0378; J1815

== ENCOUNTER 2019-09-01 06:17 | Inpatient (IN) | payer MEDICAID ==
[~2019-09-01] VITALS: Ht 182.9 cm; Wt 91.9 kg
--- NOTE | 2019-09-01 06:23 | NUR ---
triage note: EKG done in triage
[2019-09-01 07:31] LABS: ALBUMIN 3.3 g/dL (3.4-5.0); ANION GAP 14 mmol/L (5-15); CALCIUM 7.9 mg/dL (8.5-10.1); CHLORIDE 101 mmol/L (98-107)
--- NOTE | 2019-09-01 07:49 | NUR ---
VITAL SIGNS OBTAINED, PATIENT RESTING COMFORTABLY IN BED, NO COMPLAINTS OF PAIN, NO FURTHER NEEDS AT THIS TIME.
[2019-09-01 07:57] LABS: LYMPHOCYTES % (AUTO) 17 % (22-44); MEAN CORPUSCULAR HEMOGLOBIN 24.7 pg (27.5-34.5); MEAN CORPUSCULAR HGB CONC 31.9 g/dL (33.2-36.2); NEUTROPHILS % (AUTO) 72 % (42-75); PLATELET COUNT 93 x10^3/uL (130-400); RED BLOOD COUNT 3.43 x10^6/uL (4.38-5.82); RED CELL DISTRIBUTION WIDTH 18.5 % (9.4-14.8)
[2019-09-01 07:58] LABS: ANISOCYTOSIS 1+; BASOPHILS # (AUTO) 0.02 x10^3/uL (0-0.1); BASOPHILS % (AUTO) 1 % (0-1); EOSINOPHILS # (AUTO) 0.04 x10^3/uL (0-0.4); EOSINOPHILS % (AUTO) 1 % (1-7); HYPOCHROMIA 1+; LYMPHOCYTES # (AUTO) 0.57 x10^3/uL (1-3.4); MD MORPH REVIEW ONLY; MICROCYTOSIS 1+; MONOCYTES # (AUTO) 0.35 x10^3/uL (0.2-0.8); MONOCYTES % (AUTO) 10 % (2-9); NEUTROPHILS # (AUTO) 2.46 x10^3/uL (1.8-6.8); OVALOCYTES 1+; POLYCHROMASIA 1+
[2019-09-01 07:59] LABS: ECHINOCYTES 1+
[2019-09-01 08:00] LABS: <PLATELET ESTIMATE> DECREASED; LARGE PLATELETS 1+
--- NOTE | 2019-09-01 08:38 | NUR ---
Patient requesting ice chips and emesis bag, both provided to patient, no further needs at this time.
[2019-09-01] MEDS ORDERED: SODIUM CHLORIDE FLUSH 10ML SYR IVF PRN (09:00)
--- NOTE | 2019-09-01 09:58 | NUR ---
[facility] MD AT BEDSIDE FOR EVALUATION.
--- NOTE | 2019-09-01 10:12 | NUR ---
Report called to LISA Matthews. Patient made aware of transfer to shared room.
[2019-09-01] MEDS ORDERED: EPOETIN 40,000 UNITS/ML IVPush SCH (10:30)
[2019-09-01 10:48] VITALS: BP 164/101
[2019-09-01] MEDS ORDERED: ONDANSETRON ODT 4 MG PO PRN (11:00)
[2019-09-01] MEDS ORDERED: HEPARIN 5,000 UNITS/ML, 1ML SQ SCH (11:00)
[2019-09-01] MEDS ORDERED: DOCUSATE 100 MG CAPSULE PO PRN (11:00)
[2019-09-01] MEDS ORDERED: ONDANSETRON 2MG/ML, 2ML IVPush PRN (11:00)
[2019-09-01] MEDS ORDERED: MELATONIN 5 MG TABLET PO PRN (11:00)
[2019-09-01] MEDS ORDERED: POLYETHYLENE GLYCOL 17 GM PACKET PO PRN (11:00)
[2019-09-01] MEDS ORDERED: ARANESP 60 MCG/ML **ESRD SQ ONE (11:00)
[2019-09-01] MEDS ORDERED: LACTULOSE 10 GM/15 ML UDC PO PRN (11:00)
[2019-09-01 12:29] VITALS: BP 165/97
[2019-09-01] MEDS ORDERED: FERROUS SULFATE 325 MG TABLET PO SCH (13:30)
[2019-09-01] MEDS ORDERED: LACTULOSE 20 GM/30 ML UDC PO PRN (13:30)
[2019-09-01] MEDS ORDERED: ERGOCALCIFEROL 50,000 UNIT CAPSULE PO SCH (13:30)
[2019-09-01] MEDS ORDERED: ISOSORBIDE MONONITRATE ER 30 MG TABLET PO ONE (14:00)
[2019-09-01] MEDS: SEVELAMER CARBONATE 800MG TAB PO SCH (16:51)
[2019-09-01 20:40] VITALS: BP 180/93
[2019-09-01] MEDS: CARVEDILOL 6.25 MG TABLET PO SCH (20:44)
[2019-09-01] MEDS ORDERED: ATORVASTATIN 40 MG TABLET PO SCH (21:00)
[2019-09-01] MEDS ORDERED: ASPIRIN 81 MG TABLET EC ONE (21:47)
[2019-09-01] MEDS ORDERED: ASPIRIN 81 MG TABLET EC PO PRN (22:00)
[2019-09-02] MEDS ORDERED: ACETAMINOPHEN 325 MG TABLET ONE (05:19)
[2019-09-02] MEDS ORDERED: ACETAMINOPHEN 325 MG TABLET PO ONE (05:30)
[2019-09-02 06:41] VITALS: BP 173/91
[2019-09-02 07:08] LABS: ANION GAP 11 mmol/L (5-15); CALCIUM 8.1 mg/dL (8.5-10.1); CHLORIDE 98 mmol/L (98-107)
[2019-09-02 07:11] LABS: ALANINE AMINOTRANSFERASE 22 U/L (12-78); ALKALINE PHOSPHATASE 172 U/L (45-117); BILIRUBIN,TOTAL 0.6 mg/dL (0.2-1.0); TOTAL PROTEIN 6.3 g/dL (6.4-8.2)
[2019-09-02 07:40] LABS: MD YES; MEAN CORPUSCULAR HEMOGLOBIN 24.4 pg (27.5-34.5); MEAN CORPUSCULAR HGB CONC 31.6 g/dL (33.2-36.2); MEAN PLATELET VOLUME 10.1 fL (7.4-10.4); PLATELET COUNT 83 x10^3/uL (130-400); RED BLOOD COUNT 3.24 x10^6/uL (4.38-5.82); RED CELL DISTRIBUTION WIDTH 18.6 % (9.4-14.8)
[2019-09-02 07:43] LABS: ANISOCYTOSIS 1+; HYPOCHROMIA 1+; LYMPH#(MANUAL) 0.78 x10^3/uL (1-3.4); LYMPHS% (MANUAL) 21 % (22-44); MICROCYTOSIS 1+; MONOS#(MANUAL) 0.11 x10^3/uL (0.3-2.7); MONOS% (MANUAL) 3 % (2-9); POLYCHROMASIA 1+; SEG#(MANUAL) 2.81 x10^3/uL (1.8-6.8); SEGS% (MANUAL) 76 % (42-75)
[2019-09-02 07:44] LABS: <PLATELET ESTIMATE> DECREASED; <PLT MORPHOLOGY> NORMAL PLT MORPH; OVALOCYTES 1+
[2019-09-02] MEDS: SEVELAMER CARBONATE 800MG TAB PO SCH ×2 (08:00→12:00)
[2019-09-02] MEDS ORDERED: CALCIUM CARBONATE 500 MG TAB.CHEW PO PRN ×3 (08:30→09:00)
[2019-09-02] MEDS: CARVEDILOL 6.25 MG TABLET PO SCH (08:39)
[2019-09-02] MEDS ORDERED: ASPIRIN 81 MG TABLET EC PO SCH (09:00)
[2019-09-02] MEDS ORDERED: ISOSORBIDE MONONITRATE ER 30 MG TABLET PO SCH (09:00)
[2019-09-02] MEDS ORDERED: FERR-51 PO (11:15)
[2019-09-02] MEDS ORDERED: LACT20SO13 PO (11:15)
[2019-09-02] MEDS ORDERED: ATOR40TA78 PO (11:15)
[2019-09-02] MEDS ORDERED: ERGO500017 PO (11:15)
[2019-09-02] MEDS ORDERED: HYDR-3341 PO ×2 (11:15)
[2019-09-02] MEDS ORDERED: CARV6.2512 PO (11:15)
[2019-09-02] MEDS ORDERED: ISOS30TA8 PO (11:15)
[2019-09-02] MEDS ORDERED: ASPI-496 PO (11:15)
[2019-09-02] MEDS ORDERED: SEVE800T8 PO (11:15)
[2019-09-22] MEDS ORDERED: HYDR-3342 PO (13:48)
== END 2019-09-02 13:39 | disposition home or self-care (01) | DRG 425 ==
LOC: ED 06:45 → EDIP 09:00 → 4WST 10:35 → DCLOUNGE 09-02 13:30
PROVIDERS: ADMIT Family Medicine; ATTEND Internal Medicine
PROC: 5A1D70Z Performance of Urinary Filtration, Intermittent, Less than 6 Hours Per Day (ICD-10-PCS; principal; 2019-09-01)
DX: E87.5 Hyperkalemia (principal); D63.1 Anemia in chronic kidney disease; D69.6 Thrombocytopenia, unspecified; E11.22 Type 2 diabetes mellitus with diabetic chronic kidney disease; I13.2 Hypertensive heart and chronic kidney disease with heart failure and with stage 5 chronic kidney disease, or end stage renal disease; I50.31 Acute diastolic (congestive) heart failure; N18.6 End stage renal disease; J45.909 Unspecified asthma, uncomplicated; K59.09 Other constipation; F15.90 Other stimulant use, unspecified, uncomplicated; B19.20 Unspecified viral hepatitis C without hepatic coma; I27.20 Pulmonary hypertension, unspecified; F19.10 Other psychoactive substance abuse, uncomplicated; Z87.891 Personal history of nicotine dependence; Z99.2 Dependence on renal dialysis; Z91.15 Patient's noncompliance with renal dialysis; Z72.89 Other problems related to lifestyle
CPT/HCPCS: 36415; 74022; 80048; 80053; 82040; 85025; 90935; 93005; G0378; J0882

== ENCOUNTER 2019-09-08 06:41 | Observation (INO) | payer MEDICAID ==
[~2019-09-08] VITALS: Ht 182.9 cm; Wt 93.0 kg
[2019-09-08] MEDS ORDERED: ONDANSETRON ODT 4 MG ONE (08:20)
[2019-09-08 08:22] LABS: ALANINE AMINOTRANSFERASE 25 U/L (12-78); ALBUMIN 3.4 g/dL (3.4-5.0); ANION GAP 17 mmol/L (5-15); CHLORIDE 97 mmol/L (98-107)
[2019-09-08 08:24] LABS: ALKALINE PHOSPHATASE 193 U/L (45-117); BILIRUBIN,TOTAL 0.6 mg/dL (0.2-1.0)
[2019-09-08] MEDS ORDERED: ONDANSETRON ODT 4 MG PO ONE (08:30)
[2019-09-08 08:31] LABS: CALCIUM 7.4 mg/dL (8.5-10.1)
[2019-09-08 08:32] LABS: MEAN CORPUSCULAR HEMOGLOBIN 24.3 pg (27.5-34.5); MEAN CORPUSCULAR HGB CONC 31.3 g/dL (33.2-36.2); MEAN CORPUSCULAR VOLUME 77.5 fL (81-97); MEAN PLATELET VOLUME 10.3 fL (7.4-10.4); PLATELET COUNT 83 x10^3/uL (130-400); RED BLOOD COUNT 3.44 x10^6/uL (4.38-5.82); RED CELL DISTRIBUTION WIDTH 18.4 % (9.4-14.8)
--- NOTE | 2019-09-08 09:16 | NUR ---
TASK RN: REPORT TO LISA VINCENT. ALL QUESTIONS ANSWERED
[2019-09-08] MEDS ORDERED: LACTULOSE 20 GM/30 ML UDC PO PRN (09:30)
[2019-09-08] MEDS ORDERED: ISOSORBIDE MONONITRATE ER 30 MG TABLET PO SCH (09:30)
[2019-09-08] MEDS ORDERED: FERROUS SULFATE 325 MG TABLET PO SCH (09:30)
[2019-09-08] MEDS ORDERED: CARVEDILOL 12.5 MG TABLET PO SCH (09:30)
[2019-09-08] MEDS ORDERED: hydrALAzine 20 MG/ML, 1ML IVPush PRN (09:30)
[2019-09-08] MEDS ORDERED: ONDANSETRON 2MG/ML, 2ML IVPush PRN (09:30)
[2019-09-08] MEDS ORDERED: ASPIRIN 81 MG TABLET EC PO SCH (09:30)
[2019-09-08] MEDS ORDERED: ERGOCALCIFEROL 50,000 UNIT CAPSULE PO SCH (09:30)
[2019-09-08 10:36] LABS: BASOPHILS # (AUTO) 0.01 x10^3/uL (0-0.1); BASOPHILS % (AUTO) 0 % (0-1); EOSINOPHILS # (AUTO) 0.03 x10^3/uL (0-0.4); EOSINOPHILS % (AUTO) 1 % (1-7); LYMPHOCYTES # (AUTO) 0.62 x10^3/uL (1-3.4); LYMPHOCYTES % (AUTO) 16 % (22-44); MD SCAN; MONOCYTES # (AUTO) 0.49 x10^3/uL (0.2-0.8); MONOCYTES % (AUTO) 13 % (2-9); NEUTROPHILS # (AUTO) 2.77 x10^3/uL (1.8-6.8); NEUTROPHILS % (AUTO) 71 % (42-75)
[2019-09-08 11:31] VITALS: BP 180/109
[2019-09-08] MEDS: SEVELAMER CARBONATE 800MG TAB PO SCH ×2 (12:00→19:24)
[2019-09-08 13:31] VITALS: BP 179/118
[2019-09-08] MEDS ORDERED: ARANESP 200 MCG/ML **ESRD SQ SCH (15:00)
[2019-09-08] MEDS ORDERED: ATORVASTATIN 40 MG TABLET PO SCH (21:00)
[2019-09-09] MEDS ORDERED: SENNA/DOCUSATE TABLET PO SCH (09:00)
[2019-09-22] MEDS ORDERED: HYDR-3342 PO (13:48)
== END 2019-09-08 20:00 | disposition left against medical advice (07) ==
LOC: ED 07:58 → EDIP 08:49 → INTOOBSV 08:49 → 4EST 11:17
PROVIDERS: ADMIT Internal Medicine; ATTEND Hospitalist
DX: E87.5 Hyperkalemia (principal); I13.2 Hypertensive heart and chronic kidney disease with heart failure and with stage 5 chronic kidney disease, or end stage renal disease; E11.22 Type 2 diabetes mellitus with diabetic chronic kidney disease; I50.30 Unspecified diastolic (congestive) heart failure; N18.6 End stage renal disease; D63.1 Anemia in chronic kidney disease; B19.20 Unspecified viral hepatitis C without hepatic coma; D69.6 Thrombocytopenia, unspecified; Z87.891 Personal history of nicotine dependence; Z79.82 Long term (current) use of aspirin; Z79.899 Other long term (current) drug therapy; Z91.14 Patient's other noncompliance with medication regimen; Z99.2 Dependence on renal dialysis
CPT/HCPCS: 36415; 71045; 80053; 85025; 93005; 99285; G0378; Q0162; 90935

== ENCOUNTER 2019-09-10 23:28 | Inpatient (IN) | payer MEDICAID ==
[~2019-09-10] VITALS: Ht 182.9 cm; Wt 87.8 kg
--- NOTE | 2019-09-11 00:22 | NUR ---
LAB AT BEDSIDE. PT DENIES ANY FURTHER NEEDS. CALL LIGHT IN REACH.
[2019-09-11 00:29] LABS: BASOPHILS # (AUTO) 0.01 x10^3/uL (0-0.1); BASOPHILS % (AUTO) 0 % (0-1); EOSINOPHILS # (AUTO) 0.05 x10^3/uL (0-0.4); EOSINOPHILS % (AUTO) 1 % (1-7); LYMPHOCYTES # (AUTO) 0.85 x10^3/uL (1-3.4); LYMPHOCYTES % (AUTO) 17 % (22-44); MD NO; MEAN CORPUSCULAR HEMOGLOBIN 24.5 pg (27.5-34.5); MEAN CORPUSCULAR HGB CONC 32.3 g/dL (33.2-36.2); MEAN PLATELET VOLUME 9.6 fL (7.4-10.4); MONOCYTES # (AUTO) 0.56 x10^3/uL (0.2-0.8); MONOCYTES % (AUTO) 11 % (2-9); NEUTROPHILS # (AUTO) 3.56 x10^3/uL (1.8-6.8); NEUTROPHILS % (AUTO) 71 % (42-75); PLATELET COUNT 90 x10^3/uL (130-400); RED BLOOD COUNT 3.45 x10^6/uL (4.38-5.82); RED CELL DISTRIBUTION WIDTH 18.4 % (9.4-14.8)
[2019-09-11 00:31] LABS: ANION GAP 17 mmol/L (5-15); CALCIUM 7.6 mg/dL (8.5-10.1); CHLORIDE 94 mmol/L (98-107)
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
[2019-09-11 00:55] LABS: TROPONIN I 0.052 ng/mL (0.000-0.045)
[2019-09-11] MEDS ORDERED: SODIUM ZIRCONIUM CYCLOSILICATE 10 GM PO ONE (01:00)
--- NOTE | 2019-09-11 02:00 | NUR ---
Pt report from Marleny delvalle. This rn to assume care of pt.
--- NOTE | 2019-09-11 02:00 | NUR ---
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 TO GO BACK TO ROOM HE BECAME VERBALLY AGRESSIVE WITH STAFF, BUT DID EVENTUALLY GO BACK TO HIS ROOM.
--- NOTE | 2019-09-11 02:03 | NUR ---
Pt found wandering hallways and not in room when this rn attempted to introduce self. Pt verbally agressing this rn "you aint kathryn shijosé to me. this aint how this works." Monitoring found on the ground and gown on ground. Pt informed of need for gown, monitoring, and iv, "you aint pokin' no holes in me, im already fucked up enough as it is." Pt educated on need for monitoring and iv and still refusing. aware of situation. Pt initially reluctant of hyperk med, but eventually educated into taking medication. Will admin per apr.
[2019-09-11] MEDS ORDERED: FERROUS SULFATE 325 MG TABLET PO SCH (02:30)
[2019-09-11] MEDS ORDERED: LORazepam 2 MG/ML, 1ML IVPush PRN (02:30)
[2019-09-11] MEDS ORDERED: TEMAZEPAM 15 MG CAPSULE PO PRN (02:30)
[2019-09-11] MEDS ORDERED: LACTULOSE 20 GM/30 ML UDC PO PRN (02:30)
[2019-09-11] MEDS ORDERED: ONDANSETRON 2MG/ML, 2ML IVPush PRN (02:30)
[2019-09-11] MEDS ORDERED: hydrALAzine 20 MG/ML, 1ML IVPush PRN (02:30)
[2019-09-11] MEDS ORDERED: BISACODYL 10 MG SUPP PR PRN (02:30)
[2019-09-11] MEDS ORDERED: ERGOCALCIFEROL 50,000 UNIT CAPSULE PO SCH (02:30)
[2019-09-11] MEDS ORDERED: MELATONIN 5 MG TABLET PO PRN (02:30)
[2019-09-11] MEDS ORDERED: POLYETHYLENE GLYCOL 17 GM PACKET PO PRN (02:30)
[2019-09-11] MEDS ORDERED: DOCUSATE 100 MG CAPSULE PO PRN (02:30)
--- NOTE | 2019-09-11 03:21 | NUR ---
Pt offered medication from apr. Denied at this time. Found in rr again. Amb w/ steady gait. A+Ox4. Given warm blankets for comfort.
--- NOTE | 2019-09-11 03:22 | NUR ---
Pt still refusing to wear all monitoring.
--- NOTE | 2019-09-11 03:55 | NUR ---
Pt requesting pain medication and requested from rx. This rn at bedside w/ hospitalist for assessment. Given ice chips per request.
[2019-09-11] MEDS ORDERED: OXYcodone IR 5MG TABLET ONE (03:59)
[2019-09-11] MEDS: OXYcodone IR 5MG TABLET PO PRN ×2 (04:01→22:21)
--- NOTE | 2019-09-11 04:18 | NUR ---
Pt more agreeable and allowing this rn to place him in gown and monitoring. VSS. Still refusing iv. "i dont see no point. I am in here so frequently my arm is a war zone."
[2019-09-11 04:50] LABS: ANION GAP 17 mmol/L (5-15); CALCIUM 7.3 mg/dL (8.5-10.1); CHLORIDE 92 mmol/L (98-107)
[2019-09-11 04:55] LABS: CREATINE KINASE, TOTAL 350 U/L (39-308); TOTAL IRON BINDING CAPACITY 380 mcg/dL (250-450); TROPONIN I 0.049 ng/mL (0.000-0.045)
[2019-09-11 04:59] LABS: % IRON SATURATION 6 % (20-55); IRON LEVEL 23 mcg/dL (65-175)
--- NOTE | 2019-09-11 05:02 | NUR ---
Pt report to Jose delvalle.
--- NOTE | 2019-09-11 07:10 | NUR ---
BEDSIDE REPORT RECEIVED FROM HUMAIRA GONZALEZ. PT IN ON GURNEY RESTING, DISCUSSED POC, DISCUSSED PIV FOR INPATIENT ADMISSION PT CONTINUES TO REFUSE IV ACCESS. ERP AWARE, PT WITH MULITIPLE REFUSALS FOR IV. PT WITH VSS, NAD NOTED, NO NEEDS AT THIS TIME
--- NOTE | 2019-09-11 08:15 | NUR ---
MEAL TRAY PROVIDED, NAD NOTED
[2019-09-11] MEDS ORDERED: ASPIRIN 81 MG TABLET EC ONE (10:02)
[2019-09-11] MEDS ORDERED: FAMOTIDINE 20 MG TABLET ONE (10:02)
[2019-09-11] MEDS ORDERED: CARVEDILOL 12.5 MG TABLET ONE (10:06)
[2019-09-11] MEDS ORDERED: ARANESP 200 MCG/ML **ESRD SQ SCH (11:00)
[2019-09-11] MEDS: IRON SUCROSE COMPLEX 100MG/5ML IV SCH (11:00)
[2019-09-11] MEDS: CARVEDILOL 6.25 MG TABLET PO SCH ×2 (11:17→22:22)
[2019-09-11] MEDS: SEVELAMER CARBONATE 800MG TAB PO SCH ×2 (11:17→17:19)
[2019-09-11] MEDS: ASPIRIN 81 MG TABLET EC PO SCH (11:17)
[2019-09-11] MEDS: ISOSORBIDE MONONITRATE ER 30 MG TABLET PO SCH (11:17)
[2019-09-11] MEDS: FAMOTIDINE 20 MG TABLET PO SCH (11:17)
--- NOTE | 2019-09-11 11:24 | NUR ---
PT MEDICATED PER MAR. GIVEN GRAHM CRACKERS PER REQUEST
--- NOTE | 2019-09-11 11:57 | NUR ---
REPORT TO RECIEVING RN, AWAITING TRANSPORT AT THIS TIME. DISCUSSED PT REFUSAL OF IV MULTIPLE TIMES, PT WITH LOW BLOOD GLUCOSE ON AM LABS, HAD BEEN GIVEN BREAKFAST TRAY AND CRAKERS/JUICE FOR SNACK
[2019-09-11 12:27] VITALS: BP 163/90
[2019-09-11 12:42] LABS: CREATINE KINASE, TOTAL 313 U/L (39-308); TROPONIN I 0.045 ng/mL (0.000-0.045)
[2019-09-11 20:00] VITALS: BP 167/87
[2019-09-11 20:33] LABS: CREATINE KINASE, TOTAL 293 U/L (39-308); TROPONIN I 0.054 ng/mL (0.000-0.045)
[2019-09-11] MEDS ORDERED: ATORVASTATIN 40 MG TABLET PO SCH (21:00)
[2019-09-11 22:23] VITALS: BP 135/81
[2019-09-12 02:44] VITALS: BP 148/89
[2019-09-12 05:52] LABS: ANION GAP 12 mmol/L (5-15); CALCIUM 7.3 mg/dL (8.5-10.1); CHLORIDE 98 mmol/L (98-107); MEAN CORPUSCULAR HEMOGLOBIN 24.2 pg (27.5-34.5); MEAN CORPUSCULAR HGB CONC 31.3 g/dL (33.2-36.2); MEAN PLATELET VOLUME 8.9 fL (7.4-10.4); PLATELET COUNT 88 x10^3/uL (130-400); RED BLOOD COUNT 3.55 x10^6/uL (4.38-5.82); RED CELL DISTRIBUTION WIDTH 18.3 % (9.4-14.8)
[2019-09-12 06:17] LABS: MD YES
[2019-09-12 06:20] LABS: <PLATELET ESTIMATE> DECREASED; <PLT MORPHOLOGY> NORMAL PLT MORPH; ANISOCYTOSIS 1+; EOS#(MANUAL) 0.04 x10^3/uL (0.0-0.4); EOS% (MANUAL) 1 % (1-7); HYPOCHROMIA 1+; LYMPH#(MANUAL) 0.86 x10^3/uL (1-3.4); LYMPHS% (MANUAL) 22 % (22-44); MICROCYTOSIS 1+; MONOS#(MANUAL) 0.12 x10^3/uL (0.3-2.7); MONOS% (MANUAL) 3 % (2-9); OVALOCYTES 1+; POLYCHROMASIA 1+; SEG#(MANUAL) 2.89 x10^3/uL (1.8-6.8); SEGS% (MANUAL) 74 % (42-75)
[2019-09-12 08:49] VITALS: BP 146/89
[2019-09-12] MEDS: CARVEDILOL 6.25 MG TABLET PO SCH (08:51)
[2019-09-12] MEDS: FAMOTIDINE 20 MG TABLET PO SCH (08:51)
[2019-09-12] MEDS: ISOSORBIDE MONONITRATE ER 30 MG TABLET PO SCH (08:51)
[2019-09-12] MEDS: ASPIRIN 81 MG TABLET EC PO SCH (08:52)
[2019-09-12] MEDS: IRON SUCROSE COMPLEX 100MG/5ML IV SCH (08:52)
[2019-09-12] MEDS: SEVELAMER CARBONATE 800MG TAB PO SCH ×2 (08:56→12:00)
[2019-09-22] MEDS ORDERED: HYDR-3342 PO (13:48)
== END 2019-09-12 15:23 | disposition home or self-care (01) | DRG 425 ==
LOC: ED 09-11 01:33 → EDIP 09-11 01:37 → 4WST 09-11 11:52
PROVIDERS: ADMIT Internal Medicine; ATTEND Internal Medicine
PROC: 5A1D70Z Performance of Urinary Filtration, Intermittent, Less than 6 Hours Per Day (ICD-10-PCS; principal; 2019-09-12)
DX: E87.5 Hyperkalemia (principal); N18.6 End stage renal disease; R10.9 Unspecified abdominal pain; E87.1 Hypo-osmolality and hyponatremia; D63.1 Anemia in chronic kidney disease; E11.22 Type 2 diabetes mellitus with diabetic chronic kidney disease; R07.89 Other chest pain; E87.70 Fluid overload, unspecified; E61.1 Iron deficiency; K85.90 Acute pancreatitis without necrosis or infection, unspecified; D69.6 Thrombocytopenia, unspecified; E78.5 Hyperlipidemia, unspecified; I50.9 Heart failure, unspecified; I13.2 Hypertensive heart and chronic kidney disease with heart failure and with stage 5 chronic kidney disease, or end stage renal disease; Z88.8 Allergy status to other drugs, medicaments and biological substances; Z91.14 Patient's other noncompliance with medication regimen; Z88.6 Allergy status to analgesic agent; Z79.82 Long term (current) use of aspirin; Z79.899 Other long term (current) drug therapy; Z83.3 Family history of diabetes mellitus; Z91.15 Patient's noncompliance with renal dialysis
CPT/HCPCS: 36415; 80048; 82040; 82550; 82728; 83540; 83550; 83735; 84100; 84484; 85025; 90935; 93005; G0378; J0882

== ENCOUNTER 2019-09-14 07:28 | Emergency (ER) | payer MEDICAID ==
[~2019-09-14] VITALS: Ht 182.9 cm; Wt 92.7 kg
--- NOTE | 2019-09-14 07:50 | NUR ---
PATIENT COMES IN TODAY WITH C/O OF NAUSEA, ABD PAIN, AND STOMACH DISTENTION X1 MONTH. PATIENT STATES "I FEEL LIKE MY STOMACH IS ABOUT TO BURST." PATIENT'S LAST BM WAS 09/13/2019. BP AT THIS TIME IS 138/91, PATIENT SITTING ON GURNEY WITH FRIEND AT BEDSIDE. NO FURTHER NEEDS AT THIS TIME.
[2019-09-14] MEDS ORDERED: SODIUM CHLORIDE FLUSH 10ML SYR IVF ONE (08:00)
[2019-09-14] MEDS ORDERED: ONDANSETRON 2MG/ML, 2ML IVPush ONE (08:00)
--- NOTE | 2019-09-14 08:04 | NUR ---
PT TO IMAGING
[2019-09-14] MEDS ORDERED: ONDANSETRON ODT 4 MG ONE (08:24)
--- NOTE | 2019-09-14 08:26 | NUR ---
PATIENT BACK FROM IMAGING. REFUSING IV, AWARE. PO ZOFRAN 4MG ORDERED AND ADMINISTERED. NO FURTHER NEEDS AT THIS TIME.
[2019-09-14 08:27] VITALS: BP 127/85
[2019-09-14] MEDS ORDERED: ONDANSETRON ODT 4 MG PO ONE (08:30)
[2019-09-14 08:38] LABS: MEAN CORPUSCULAR HEMOGLOBIN 24.1 pg (27.5-34.5); MEAN CORPUSCULAR HGB CONC 31.3 g/dL (33.2-36.2); RED BLOOD COUNT 3.23 x10^6/uL (4.38-5.82); RED CELL DISTRIBUTION WIDTH 18.6 % (9.4-14.8)
[2019-09-14 08:43] LABS: ANION GAP 9 mmol/L (5-15); CALCIUM 7.9 mg/dL (8.5-10.1); CHLORIDE 100 mmol/L (98-107)
[2019-09-14 09:01] LABS: BASOPHILS % (AUTO) 0 % (0-1); EOSINOPHILS # (AUTO) 0.06 x10^3/uL (0-0.4); EOSINOPHILS % (AUTO) 2 % (1-7); LYMPHOCYTES # (AUTO) 0.55 x10^3/uL (1-3.4); LYMPHOCYTES % (AUTO) 14 % (22-44); MD MORPH REVIEW ONLY; MEAN PLATELET VOLUME 10.1 fL (7.4-10.4); MONOCYTES # (AUTO) 0.49 x10^3/uL (0.2-0.8); MONOCYTES % (AUTO) 12 % (2-9); NEUTROPHILS # (AUTO) 2.93 x10^3/uL (1.8-6.8); NEUTROPHILS % (AUTO) 73 % (42-75); PLATELET COUNT 76 x10^3/uL (130-400)
[2019-09-14 09:02] LABS: ANISOCYTOSIS 1+; ECHINOCYTES 1+; HYPOCHROMIA 1+; MICROCYTOSIS 1+; OVALOCYTES 1+; POLYCHROMASIA 1+
[2019-09-14 09:03] LABS: <PLATELET ESTIMATE> DECREASED; <PLT MORPHOLOGY> NORMAL PLT MORPH
--- NOTE | 2019-09-14 09:48 | NUR ---
DISCHARGE INSTRUCTIONS REVIEWED
[2019-09-22] MEDS ORDERED: HYDR-3342 PO (13:48)
== END 2019-09-14 09:51 | disposition home or self-care (01) ==
LOC: ED 07:36
DX: E11.22 Type 2 diabetes mellitus with diabetic chronic kidney disease (principal); I13.2 Hypertensive heart and chronic kidney disease with heart failure and with stage 5 chronic kidney disease, or end stage renal disease; N18.6 End stage renal disease; I50.9 Heart failure, unspecified; K59.00 Constipation, unspecified; Z99.2 Dependence on renal dialysis; J45.909 Unspecified asthma, uncomplicated; E78.5 Hyperlipidemia, unspecified; F17.210 Nicotine dependence, cigarettes, uncomplicated
CPT/HCPCS: 36415; 74022; 80048; 82040; 85025; 99284; Q0162

== ENCOUNTER 2019-09-19 12:48 | Emergency (ER) | payer MEDICAID ==
[~2019-09-19] VITALS: Ht 185.4 cm; Wt 85.0 kg
[2019-09-19 13:06] VITALS: BP 163/100
--- NOTE | 2019-09-19 14:02 | NUR ---
PT SITTING AT EOB RESTLESS & C/O PAIN "EVERYWHERE", AGITATED BUT RESPONDS TO STAFF QUESTIONS, REFUSED TO KEEP SPO2/NIBP/CARDIAC MONITORS IN PLACE, COMFORT MEASURES PROVIDED, VISITOR AT BS, CALL LIGHT WITHIN REACH.
[2019-09-19 14:45] LABS: ALANINE AMINOTRANSFERASE 20 U/L (12-78); ALBUMIN 3.1 g/dL (3.4-5.0); ANION GAP 12 mmol/L (5-15); CALCIUM 7.4 mg/dL (8.5-10.1); CHLORIDE 99 mmol/L (98-107)
[2019-09-19 14:50] LABS: ALKALINE PHOSPHATASE 187 U/L (45-117); BILIRUBIN,TOTAL 0.6 mg/dL (0.2-1.0); TOTAL PROTEIN 6.7 g/dL (6.4-8.2); TROPONIN I 0.055 ng/mL (0.000-0.045)
--- NOTE | 2019-09-19 15:01 | NUR ---
PT CAME OUT OF ROOM FULLY DRESSED REQUESTING PIV TO BE REMOVED SO HE CAN LEAVE "SINCE I CAN'T GET ANY PAIN MEDICINE", PT AGREEABLE TO WAIT IN ROOM UNTIL LAB RESULTS RETURN- DR MERCADO AWARE.
[2019-09-19 15:19] LABS: MD YES; MEAN CORPUSCULAR HEMOGLOBIN 24.1 pg (27.5-34.5); MEAN CORPUSCULAR HGB CONC 31.8 g/dL (33.2-36.2); MEAN CORPUSCULAR VOLUME 75.8 fL (81-97); MEAN PLATELET VOLUME 10.8 fL (7.4-10.4); PLATELET COUNT 74 x10^3/uL (130-400); RED BLOOD COUNT 3.33 x10^6/uL (4.38-5.82); RED CELL DISTRIBUTION WIDTH 19.2 % (9.4-14.8)
[2019-09-19 15:22] LABS: ANISOCYTOSIS 1+; BASOS#(MANUAL) 0.03 x10^3/uL (0-0.1); BASOS% (MANUAL) 1 % (0-1); LYMPH#(MANUAL) 0.71 x10^3/uL (1-3.4); LYMPHS% (MANUAL) 21 % (22-44); MICROCYTOSIS 1+; MONOS% (MANUAL) 6 % (2-9); SEG#(MANUAL) 2.45 x10^3/uL (1.8-6.8); SEGS% (MANUAL) 72 % (42-75)
[2019-09-19 15:23] LABS: <PLATELET ESTIMATE> DECREASED; <PLT MORPHOLOGY> NORMAL PLT MORPH; ECHINOCYTES 1+; HYPOCHROMIA 1+; OVALOCYTES 1+; POLYCHROMASIA 1+
--- NOTE | 2019-09-19 15:31 | NUR ---
Patient given discharge instructions and Rx, they have confirmed that they understand the instructions. Patient ambulatory with steady gait.
== END 2019-09-19 16:59 | disposition home or self-care (01) ==
LOC: ED 15:11
DX: G89.29 Other chronic pain (principal); R10.84 Generalized abdominal pain; R07.89 Other chest pain; E78.5 Hyperlipidemia, unspecified; I13.2 Hypertensive heart and chronic kidney disease with heart failure and with stage 5 chronic kidney disease, or end stage renal disease; I50.9 Heart failure, unspecified; N18.6 End stage renal disease; E11.22 Type 2 diabetes mellitus with diabetic chronic kidney disease; Z99.2 Dependence on renal dialysis; Z79.899 Other long term (current) drug therapy
CPT/HCPCS: 36415; 74022; 80053; 83880; 84484; 85025; 93005; 99285

== ENCOUNTER 2019-09-26 11:30 | Inpatient (IN) | payer MEDICAID ==
[~2019-09-26] VITALS: Ht 182.9 cm; Wt 95.0 kg
[~2019-09-26 11:30] MED LIST changes: +HYDR-3342 PO
--- NOTE | 2019-09-26 11:57 | NUR ---
THIS IS A 54 YO M W/ C/O ABD PAIN, AND NEW DISTENTION. PT REPORTS DIALYSIS T,,SA. LAST DONE ON TUESDAY IN ED. PT REPORTS THE MD TOLD HIM HE DID NOT NEED DIALYSIS 3 TIMES A WEEK, ALSO STATES HE DOES NOT HAVE A REGULAR PLACE HE GOES TO FOR DIALYSIS ONLY COMES TO ED. PT RESTING ON GURNEY W/ CALL LIGHT IN REACH. CONNECTED TO MONITORING. JANETH SHELTON. RODOLFO TAVERAS STUDENT AT BEDSIDE FOR EVAL.
[2019-09-26 12:35] LABS: MEAN CORPUSCULAR HEMOGLOBIN 24.5 pg (27.5-34.5); MEAN CORPUSCULAR HGB CONC 32.4 g/dL (33.2-36.2); MEAN CORPUSCULAR VOLUME 75.7 fL (81-97); PLATELET COUNT 81 x10^3/uL (130-400); RED BLOOD COUNT 3.28 x10^6/uL (4.38-5.82)
[2019-09-26 12:46] LABS: ALBUMIN 3.2 g/dL (3.4-5.0); ANION GAP 14 mmol/L (5-15); CALCIUM 7.7 mg/dL (8.5-10.1); CHLORIDE 100 mmol/L (98-107)
--- NOTE | 2019-09-26 12:57 | NUR ---
ALL TESTS RESULTED. PT IS UP FOR RECHECK AT THIS TIME.
[2019-09-26 13:07] LABS: MD YES
[2019-09-26 13:12] LABS: LYMPH#(MANUAL) 0.87 x10^3/uL (1-3.4); LYMPHS% (MANUAL) 23 % (22-44); NRBC % (MANUAL) 1 % (0-1)
[2019-09-26 13:13] LABS: MONOS#(MANUAL) 0.49 x10^3/uL (0.3-2.7); MONOS% (MANUAL) 13 % (2-9); SEG#(MANUAL) 2.43 x10^3/uL (1.8-6.8); SEGS% (MANUAL) 64 % (42-75)
[2019-09-26 13:14] LABS: ANISOCYTOSIS 1+; HYPOCHROMIA 1+; MICROCYTOSIS 1+; OVALOCYTES 1+; POLYCHROMASIA 1+
[2019-09-26 13:15] LABS: <PLATELET ESTIMATE> DECREASED; <PLT MORPHOLOGY> NORMAL PLT MORPH
[2019-09-26] MEDS ORDERED: FUROSEMIDE 100 MG/10 ML IV ONE (13:30)
[2019-09-26] MEDS ORDERED: FUROSEMIDE 40 MG/4 ML ONE (13:48)
--- NOTE | 2019-09-26 14:04 | NUR ---
PIV STARTED ON 2ND ATTEMPT. PT TOLERATED WELL. VSS, NADN. AWAITING ADMIT.
--- NOTE | 2019-09-26 14:28 | NUR ---
TASK RN: PT RESTING, NO DISTRESS
--- NOTE | 2019-09-26 14:30 | NUR ---
COLLAR STAY FUSER TENDER IN ROOM.
--- NOTE | 2019-09-26 14:50 | NUR ---
HOSPITAL BED REQUESTED.
--- NOTE | 2019-09-26 14:57 | NUR ---
MED SANTIAGO FROM PHARMACY.
[2019-09-26] MEDS ORDERED: ERGOCALCIFEROL 50,000 UNIT CAPSULE PO SCH (15:00)
[2019-09-26] MEDS ORDERED: FERROUS SULFATE 325 MG TABLET PO SCH (15:00)
[2019-09-26] MEDS ORDERED: LACTULOSE 20 GM/30 ML UDC PO PRN (15:00)
[2019-09-26 15:20] LABS: CALCIUM 7.7 mg/dL (8.5-10.1)
[2019-09-26] MEDS ORDERED: ARANESP 60 MCG/ML **ESRD SQ SCH (16:00)
[2019-09-26] MEDS: CALCIUM ACETATE 667 MG CAPSULE PO SCH ×2 (16:00→21:49)
--- NOTE | 2019-09-26 16:32 | NUR ---
REPORT GIVEN TO KRISTIAN GONZALEZ. PT IS READY FOR TRANSPORT.
[2019-09-26 16:52] VITALS: BP 164/95
[2019-09-26] MEDS ORDERED: SEVELAMER CARBONATE 800MG TAB PO SCH (17:00)
[2019-09-26] MEDS: SEVELAMER CARBONATE 800MG TAB PO SCH (17:00)
[2019-09-26 21:18] VITALS: BP 167/95
[2019-09-26] MEDS ORDERED: SENNA/DOCUSATE TABLET ONE (21:37)
[2019-09-26] MEDS ORDERED: MELATONIN 5 MG TABLET ONE (21:38)
[2019-09-26 21:47] VITALS: BP 175/85
[2019-09-26] MEDS: CARVEDILOL 6.25 MG TABLET PO SCH (21:48)
[2019-09-26] MEDS: ATORVASTATIN 40 MG TABLET PO SCH (21:48)
[2019-09-26] MEDS: IRON SUCROSE COMPLEX 100MG/5ML IV SCH (21:49)
[2019-09-26] MEDS ORDERED: MELATONIN 5 MG TABLET PO PRN (22:00)
[2019-09-26] MEDS ORDERED: SENNA/DOCUSATE TABLET PO PRN (22:00)
[2019-09-27 01:19] VITALS: BP 155/89
[2019-09-27 02:10] VITALS: BP 155/92
[2019-09-27 05:58] LABS: ALANINE AMINOTRANSFERASE 17 U/L (12-78); ALBUMIN 3.2 g/dL (3.4-5.0); ANION GAP 8 mmol/L (5-15); CHLORIDE 104 mmol/L (98-107)
[2019-09-27 06:01] LABS: ALKALINE PHOSPHATASE 209 U/L (45-117); BILIRUBIN,TOTAL 0.6 mg/dL (0.2-1.0); TOTAL PROTEIN 6.6 g/dL (6.4-8.2)
[2019-09-27 06:09] LABS: MEAN CORPUSCULAR HEMOGLOBIN 24.4 pg (27.5-34.5); MEAN CORPUSCULAR HGB CONC 31.8 g/dL (33.2-36.2); MEAN CORPUSCULAR VOLUME 76.9 fL (81-97); RED BLOOD COUNT 3.23 x10^6/uL (4.38-5.82); RED CELL DISTRIBUTION WIDTH 19.6 % (9.4-14.8)
[2019-09-27 06:34] LABS: MEAN PLATELET VOLUME 10.6 fL (7.4-10.4); PLATELET COUNT 72 x10^3/uL (130-400)
[2019-09-27 06:35] LABS: <PLATELET ESTIMATE> DECREASED; <PLT MORPHOLOGY> NORMAL PLT MORPH; ANISOCYTOSIS 1+; BASOPHILS % (AUTO) 0 % (0-1); EOSINOPHILS # (AUTO) 0.07 x10^3/uL (0-0.4); EOSINOPHILS % (AUTO) 2 % (1-7); HYPOCHROMIA 1+; LYMPHOCYTES # (AUTO) 0.68 x10^3/uL (1-3.4); LYMPHOCYTES % (AUTO) 18 % (22-44); MD MORPH REVIEW ONLY; MICROCYTOSIS 1+; MONOCYTES # (AUTO) 0.52 x10^3/uL (0.2-0.8); MONOCYTES % (AUTO) 14 % (2-9); NEUTROPHILS % (AUTO) 67 % (42-75); OVALOCYTES 1+; POLYCHROMASIA 1+
[2019-09-27] MEDS: ISOSORBIDE MONONITRATE ER 30 MG TABLET PO SCH (09:04)
[2019-09-27] MEDS: CALCIUM ACETATE 667 MG CAPSULE PO SCH ×2 (09:04→16:43)
[2019-09-27] MEDS: ASPIRIN 81 MG TABLET EC PO SCH (09:04)
[2019-09-27] MEDS: CARVEDILOL 6.25 MG TABLET PO SCH ×2 (09:04→20:59)
[2019-09-27] MEDS: SEVELAMER CARBONATE 800MG TAB PO SCH ×3 (09:04→16:43)
[2019-09-27] MEDS ORDERED: hydrOXYzine 25 MG/ML IM PRN (09:30)
[2019-09-27] MEDS ORDERED: LIDOCAINE 1%, 10ML ONE ×2 (10:01→15:46)
[2019-09-27 13:44] VITALS: BP 133/73
[2019-09-27] MEDS ORDERED: HEMORRHOIDAL OINT, 28 GM (PREP H) RC PRN (16:00)
[2019-09-27 20:11] VITALS: BP 157/84
[2019-09-27] MEDS: DOCUSATE 50 MG/5 ML, 10ML UDC PO SCH (20:57)
[2019-09-27] MEDS: IRON SUCROSE COMPLEX 100MG/5ML IV SCH (20:58)
[2019-09-27] MEDS: ATORVASTATIN 40 MG TABLET PO SCH (20:58)
[2019-09-28 01:37] VITALS: BP 155/92
[2019-09-28 07:16] VITALS: BP 135/75
[2019-09-28] MEDS: DOCUSATE 50 MG/5 ML, 10ML UDC PO SCH ×2 (09:00→20:18)
[2019-09-28] MEDS: SEVELAMER CARBONATE 800MG TAB PO SCH ×3 (09:35→16:04)
[2019-09-28] MEDS: ISOSORBIDE MONONITRATE ER 30 MG TABLET PO SCH (09:36)
[2019-09-28] MEDS: CARVEDILOL 6.25 MG TABLET PO SCH ×2 (09:36→20:17)
[2019-09-28] MEDS: CALCIUM ACETATE 667 MG CAPSULE PO SCH ×3 (09:36→16:04)
[2019-09-28] MEDS: ASPIRIN 81 MG TABLET EC PO SCH (09:36)
[2019-09-28 13:00] VITALS: BP 139/77
[2019-09-28 20:08] VITALS: BP 146/82
[2019-09-28] MEDS: IRON SUCROSE COMPLEX 100MG/5ML IV SCH (20:17)
[2019-09-28] MEDS: ATORVASTATIN 40 MG TABLET PO SCH (20:17)
[2019-09-29 01:27] VITALS: BP 155/82
[2019-09-29 06:26] LABS: CHLORIDE 99 mmol/L (98-107)
[2019-09-29 06:35] LABS: ALANINE AMINOTRANSFERASE 17 U/L (12-78); ALBUMIN 2.9 g/dL (3.4-5.0); ALKALINE PHOSPHATASE 184 U/L (45-117); ANION GAP 9 mmol/L (5-15); BILIRUBIN,TOTAL 0.5 mg/dL (0.2-1.0); TOTAL PROTEIN 6.3 g/dL (6.4-8.2)
[2019-09-29 06:40] LABS: MEAN CORPUSCULAR HEMOGLOBIN 23.9 pg (27.5-34.5); MEAN CORPUSCULAR HGB CONC 31.2 g/dL (33.2-36.2); MEAN CORPUSCULAR VOLUME 76.6 fL (81-97); MEAN PLATELET VOLUME 10.9 fL (7.4-10.4); PLATELET COUNT 81 x10^3/uL (130-400); RED BLOOD COUNT 3.48 x10^6/uL (4.38-5.82); RED CELL DISTRIBUTION WIDTH 20.1 % (9.4-14.8)
[2019-09-29 07:05] LABS: BASOPHILS % (AUTO) 0 % (0-1); EOSINOPHILS # (AUTO) 0.11 x10^3/uL (0-0.4); EOSINOPHILS % (AUTO) 3 % (1-7); LYMPHOCYTES # (AUTO) 0.85 x10^3/uL (1-3.4); LYMPHOCYTES % (AUTO) 20 % (22-44); MD SCAN; MONOCYTES # (AUTO) 0.42 x10^3/uL (0.2-0.8); MONOCYTES % (AUTO) 10 % (2-9); NEUTROPHILS # (AUTO) 2.94 x10^3/uL (1.8-6.8); NEUTROPHILS % (AUTO) 68 % (42-75)
[2019-09-29 07:19] VITALS: BP 156/66
[2019-09-29] MEDS: SEVELAMER CARBONATE 800MG TAB PO SCH ×2 (08:00→12:37)
[2019-09-29] MEDS: CALCIUM ACETATE 667 MG CAPSULE PO SCH ×2 (08:00→12:37)
[2019-09-29] MEDS: DOCUSATE 50 MG/5 ML, 10ML UDC PO SCH (09:00)
[2019-09-29] MEDS: ASPIRIN 81 MG TABLET EC PO SCH (09:03)
[2019-09-29] MEDS: ISOSORBIDE MONONITRATE ER 30 MG TABLET PO SCH (09:03)
[2019-09-29] MEDS: CARVEDILOL 6.25 MG TABLET PO SCH (09:04)
[2019-09-29] MEDS ORDERED: LIDOCAINE 1%, 10ML ONE (12:43)
[2019-09-29 14:01] VITALS: BP 140/78
== END 2019-09-29 14:27 | disposition left against medical advice (07) | DRG 194 ==
LOC: ED 11:45 → EDIP 14:04 → 4WST 16:45
PROVIDERS: ADMIT Family Medicine; ATTEND Family Medicine
PROC: 5A1D70Z Performance of Urinary Filtration, Intermittent, Less than 6 Hours Per Day (ICD-10-PCS; principal; 2019-09-26)
PROC: 0W9G3ZZ Drainage of Peritoneal Cavity, Percutaneous Approach (ICD-10-PCS; 2019-09-27)
PROC: 0W9G3ZZ Drainage of Peritoneal Cavity, Percutaneous Approach (ICD-10-PCS; 2019-09-29)
DX: I13.2 Hypertensive heart and chronic kidney disease with heart failure and with stage 5 chronic kidney disease, or end stage renal disease (principal); D63.1 Anemia in chronic kidney disease; D69.6 Thrombocytopenia, unspecified; E87.5 Hyperkalemia; E11.22 Type 2 diabetes mellitus with diabetic chronic kidney disease; E78.5 Hyperlipidemia, unspecified; E83.51 Hypocalcemia; E87.2 Acidosis; F91.9 Conduct disorder, unspecified; G89.29 Other chronic pain; I50.32 Chronic diastolic (congestive) heart failure; J45.909 Unspecified asthma, uncomplicated; K59.00 Constipation, unspecified; B19.20 Unspecified viral hepatitis C without hepatic coma; Z53.29 Procedure and treatment not carried out because of patient's decision for other reasons; N17.9 Acute kidney failure, unspecified; N18.6 End stage renal disease; N25.0 Renal osteodystrophy; Z87.891 Personal history of nicotine dependence; Z91.14 Patient's other noncompliance with medication regimen; Z91.19 Patient's noncompliance with other medical treatment and regimen; Z99.2 Dependence on renal dialysis; Z79.899 Other long term (current) drug therapy
CPT/HCPCS: J3490 ×2; 36415; 49083; 80048; 80053; 82040; 82042; 82306; 82310; 82728; 83540; 83550; 83735; 83970; 84100; 84157; 85025; 87070; 87075; 87205; 88112; 88305; 89051; 90935; 93005; 96374; G0378; J0882; J1756; J1940; Q0177

== ENCOUNTER 2019-10-03 06:10 | Inpatient (IN) | payer MEDICAID ==
[~2019-10-03] VITALS: Ht 182.9 cm; Wt 84.3 kg
[2019-10-03] MEDS ORDERED: SODIUM CHLORIDE FLUSH 10ML SYR IVF ONE (06:30)
[2019-10-03 06:49] LABS: MEAN CORPUSCULAR HEMOGLOBIN 24.4 pg (27.5-34.5); MEAN CORPUSCULAR HGB CONC 31.8 g/dL (33.2-36.2); MEAN CORPUSCULAR VOLUME 76.8 fL (81-97); MEAN PLATELET VOLUME 10.4 fL (7.4-10.4); PLATELET COUNT 91 x10^3/uL (130-400); RED BLOOD COUNT 3.72 x10^6/uL (4.38-5.82); RED CELL DISTRIBUTION WIDTH 21.7 % (9.4-14.8)
[2019-10-03 06:56] LABS: ALANINE AMINOTRANSFERASE 22 U/L (12-78); ALBUMIN 3.2 g/dL (3.4-5.0); ANION GAP 16 mmol/L (5-15); CALCIUM 7.3 mg/dL (8.5-10.1); CHLORIDE 101 mmol/L (98-107)
[2019-10-03 06:59] LABS: ALKALINE PHOSPHATASE 209 U/L (45-117); BILIRUBIN,TOTAL 0.6 mg/dL (0.2-1.0); TOTAL PROTEIN 6.9 g/dL (6.4-8.2)
--- NOTE | 2019-10-03 07:02 | NUR ---
SBAR RECEIVED ON PATIENT AT BEDSIDE FOR TRANSFER OF CARE.
[2019-10-03 07:10] LABS: ACANTHOCYTES 1+; ANISOCYTOSIS 1+; BASOPHILS # (AUTO) 0.07 x10^3/uL (0-0.1); BASOPHILS % (AUTO) 2 % (0-1); ECHINOCYTES 1+; EOSINOPHILS % (AUTO) 2 % (1-7); HYPOCHROMIA 1+; LYMPHOCYTES # (AUTO) 0.79 x10^3/uL (1-3.4); LYMPHOCYTES % (AUTO) 19 % (22-44); MD MORPH REVIEW ONLY; MICROCYTOSIS 1+; MONOCYTES # (AUTO) 0.57 x10^3/uL (0.2-0.8); MONOCYTES % (AUTO) 14 % (2-9); NEUTROPHILS % (AUTO) 63 % (42-75); OVALOCYTES 1+
[2019-10-03 07:11] LABS: <PLATELET ESTIMATE> DECREASED; <PLT MORPHOLOGY> NORMAL PLT MORPH; SCHISTOCYTES 1+
[2019-10-03 07:12] LABS: POLYCHROMASIA 1+
--- NOTE | 2019-10-03 07:27 | NUR ---
PATIENT C/O GENERALIZED ITCHING, PATIENT PULLED OFF PAINTER SUPERVISOR LEADS AND O2 SENSOR.
[2019-10-03] MEDS ORDERED: DEXTROSE 50%, 50ML SYRINGE ONE ×3 (07:49→10:00)
[2019-10-03] MEDS ORDERED: INSULIN SINGLE DOSE, ER ONE (07:49)
[2019-10-03] MEDS ORDERED: SODIUM BICARB 8.4%, 50ML SYRINGE ONE (07:49)
[2019-10-03] MEDS ORDERED: hydrOXyzine 50MG TABLET ONE (07:49)
[2019-10-03] MEDS ORDERED: SODIUM BICARB 8.4%, 50ML SYRINGE IVPush ONE (08:00)
[2019-10-03] MEDS ORDERED: ALBUTEROL 0.5%, 20ML NPPB ONE (08:00)
[2019-10-03] MEDS ORDERED: DEXTROSE 50%, 50ML SYRINGE IVPush ONE ×5 (08:00→12:00)
[2019-10-03] MEDS ORDERED: INSULIN REGULAR 100 UNITS/ML, 3ML VIAL IVPush ONE (08:00)
--- NOTE | 2019-10-03 08:31 | NUR ---
PATIENT MEDICATED PER eMAR, NEW 22 GUAGE IV STARTED RIGHT HAND.
--- NOTE | 2019-10-03 08:45 | NUR ---
DR. SOLOMON AT BEDSIDE.
[2019-10-03] MEDS ORDERED: ERGOCALCIFEROL 50,000 UNIT CAPSULE PO SCH (09:00)
[2019-10-03] MEDS ORDERED: FERROUS SULFATE 325 MG TABLET PO SCH (09:00)
[2019-10-03] MEDS ORDERED: ONDANSETRON 2MG/ML, 2ML IVPush PRN (09:00)
[2019-10-03] MEDS ORDERED: hydrALAzine 20 MG/ML, 1ML IVPush PRN (09:00)
[2019-10-03] MEDS ORDERED: LABETALOL 5MG/ML, 20ML IVPush PRN (09:00)
[2019-10-03] MEDS ORDERED: LACTULOSE 20 GM/30 ML UDC PO PRN (09:00)
[2019-10-03] MEDS ORDERED: CARVEDILOL 12.5 MG TABLET ONE ×2 (09:30→09:40)
[2019-10-03] MEDS ORDERED: SENNA/DOCUSATE TABLET ONE (09:30)
[2019-10-03] MEDS ORDERED: ALBUTEROL 0.5%, 20ML ONE (09:30)
[2019-10-03] MEDS ORDERED: ASPIRIN 81 MG TABLET EC ONE (09:30)
[2019-10-03] MEDS: ASPIRIN 81 MG TABLET EC PO SCH (09:37)
[2019-10-03] MEDS: SENNA/DOCUSATE TABLET PO SCH (09:37)
[2019-10-03] MEDS: SODIUM CHLORIDE FLUSH 10ML SYR IVF SCH ×2 (09:38→21:00)
[2019-10-03] MEDS: CARVEDILOL 6.25 MG TABLET PO SCH ×2 (09:46→20:18)
--- NOTE | 2019-10-03 10:07 | NUR ---
PATIENT LETHARGIC, UNABLE TO AROUSE BY VOICE. BLOOD SUGAR 17, SPOKE WITH DR. VILLATORO, 2 AMPS OF D50 ORDERED AND GIVEN. PER DR. VILLATORO, BLOOD SUGARS Q30 MINUTES UNTIL PATIENT IS STABLE. PATIENT IS MORE AWAKE AFTER 2 AMPS OF D50.
[2019-10-03] MEDS ORDERED: hydrALAzine 20 MG/ML, 1ML ONE (10:11)
--- NOTE | 2019-10-03 10:15 | NUR ---
PT REMAINS DROWSY FROM HYPOGLYEMIC EPISODE. BP 195/110. PT NOT YET ABLE TO TAKE HIS AM MEDS, INCLUDING BP MEDS. HYDRALYZINE PRN IVP GIVEN ORDERED. WILL CONTINUE TO MONITOR. SIDE RAILS UP X 2 FOR SAFETY. CALL BUTTON IN LAP.
--- NOTE | 2019-10-03 10:34 | NUR ---
PATIENT RESPONDING MORE, BLOOD SUGAR IS NOW 120.
--- NOTE | 2019-10-03 10:48 | NUR ---
REPORT GIVEN TO LISA NARVAEZ MEDICAL/TELEMETRY.
--- NOTE | 2019-10-03 11:04 | NUR ---
PATIENT TRANSFERRED IN STABLE CONDITION TO MEDICAL TELEMETRY VIA GURNEY, ACCOMPANIED BY CHIP CRUSHER OPERATOR. ALL PATIENT BELONGINGS GATHERED AND PLACED IN PATIENT BELONGING BAGS.
[2019-10-03 11:25] VITALS: BP 158/102
[2019-10-03] MEDS ORDERED: DEXTROSE 5% 1,000 ML IV SCH (11:30)
[2019-10-03] MEDS: ISOSORBIDE MONONITRATE ER 30 MG TABLET PO SCH (11:49)
[2019-10-03 11:59] VITALS: BP 152/97
[2019-10-03] MEDS: SEVELAMER CARBONATE 800MG TAB PO SCH ×2 (12:00→17:00)
[2019-10-03] MEDS ORDERED: ARANESP 100 MCG/ML **ESRD SQ SCH (12:00)
[2019-10-03 13:37] VITALS: BP 130/88
[2019-10-03 19:53] VITALS: BP 152/71
[2019-10-03] MEDS: ATORVASTATIN 40 MG TABLET PO SCH (20:14)
[2019-10-03] MEDS: OXYcodone IR 5MG TABLET PO PRN ×2 (20:26→21:39)
[2019-10-03] MEDS: MELATONIN 5 MG TABLET PO PRN (21:39)
[2019-10-04 01:00] VITALS: BP 129/77
[2019-10-04] MEDS: OXYcodone IR 5MG TABLET PO PRN (05:58)
[2019-10-04 06:03] LABS: ANION GAP 10 mmol/L (5-15); CALCIUM 7.3 mg/dL (8.5-10.1); CHLORIDE 102 mmol/L (98-107)
[2019-10-04 06:22] LABS: MEAN CORPUSCULAR HEMOGLOBIN 24.2 pg (27.5-34.5); MEAN CORPUSCULAR HGB CONC 31.3 g/dL (33.2-36.2); MEAN CORPUSCULAR VOLUME 77.2 fL (81-97); RED BLOOD COUNT 3.45 x10^6/uL (4.38-5.82)
[2019-10-04 06:45] LABS: MEAN PLATELET VOLUME 9.7 fL (7.4-10.4); PLATELET COUNT 71 x10^3/uL (130-400)
[2019-10-04 06:48] LABS: BASOPHILS # (AUTO) 0.01 x10^3/uL (0-0.1); BASOPHILS % (AUTO) 0 % (0-1); EOSINOPHILS # (AUTO) 0.05 x10^3/uL (0-0.4); EOSINOPHILS % (AUTO) 1 % (1-7); LYMPHOCYTES # (AUTO) 0.62 x10^3/uL (1-3.4); LYMPHOCYTES % (AUTO) 17 % (22-44); MD SCAN; MONOCYTES # (AUTO) 0.46 x10^3/uL (0.2-0.8); MONOCYTES % (AUTO) 12 % (2-9); NEUTROPHILS # (AUTO) 2.63 x10^3/uL (1.8-6.8); NEUTROPHILS % (AUTO) 70 % (42-75)
[2019-10-04 07:30] VITALS: BP 163/101
[2019-10-04] MEDS ORDERED: PANTOPRAZOLE 40MG TABLET PO SCH (07:30)
[2019-10-04] MEDS: ASPIRIN 81 MG TABLET EC PO SCH (07:47)
[2019-10-04] MEDS: SEVELAMER CARBONATE 800MG TAB PO SCH ×4 (07:47→17:01)
[2019-10-04] MEDS: SODIUM CHLORIDE FLUSH 10ML SYR IVF SCH ×2 (07:48→21:00)
[2019-10-04] MEDS: SENNA/DOCUSATE TABLET PO SCH (07:48)
[2019-10-04] MEDS: ISOSORBIDE MONONITRATE ER 30 MG TABLET PO SCH ×2 (07:48→08:48)
[2019-10-04] MEDS: CARVEDILOL 6.25 MG TABLET PO SCH ×2 (08:48→20:36)
[2019-10-04 09:47] LABS: TROPONIN I 0.037 ng/mL (0.000-0.045)
[2019-10-04] MEDS ORDERED: DEXTROSE 5% 1,000 ML IV SCH (11:30)
[2019-10-04 12:40] LABS: TROPONIN I 0.037 ng/mL (0.000-0.045)
[2019-10-04 12:56] VITALS: BP 136/84
[2019-10-04 20:11] VITALS: BP 139/79
[2019-10-04] MEDS: ATORVASTATIN 40 MG TABLET PO SCH (20:36)
[2019-10-04] MEDS: MELATONIN 5 MG TABLET PO PRN (20:36)
== END 2019-10-04 21:49 | disposition left against medical advice (07) | DRG 469 ==
LOC: ED 06:30 → EDIP 07:40 → 4WST 11:08
PROVIDERS: ADMIT Hospitalist; ATTEND Hospitalist
PROC: 5A1D70Z Performance of Urinary Filtration, Intermittent, Less than 6 Hours Per Day (ICD-10-PCS; principal; 2019-10-03)
PROC: 5A1D70Z Performance of Urinary Filtration, Intermittent, Less than 6 Hours Per Day (ICD-10-PCS; 2019-10-04)
DX: N17.9 Acute kidney failure, unspecified (principal); B19.20 Unspecified viral hepatitis C without hepatic coma; D61.818 Other pancytopenia; D63.1 Anemia in chronic kidney disease; E16.0 Drug-induced hypoglycemia without coma; E78.5 Hyperlipidemia, unspecified; E87.2 Acidosis; E87.5 Hyperkalemia; F12.90 Cannabis use, unspecified, uncomplicated; G89.29 Other chronic pain; I07.1 Rheumatic tricuspid insufficiency; I13.2 Hypertensive heart and chronic kidney disease with heart failure and with stage 5 chronic kidney disease, or end stage renal disease; I27.20 Pulmonary hypertension, unspecified; I50.32 Chronic diastolic (congestive) heart failure; K59.00 Constipation, unspecified; K76.6 Portal hypertension; N18.6 End stage renal disease; N25.0 Renal osteodystrophy; F19.10 Other psychoactive substance abuse, uncomplicated; Z83.3 Family history of diabetes mellitus; Z87.891 Personal history of nicotine dependence; Z91.14 Patient's other noncompliance with medication regimen; Z99.2 Dependence on renal dialysis
CPT/HCPCS: 36415; 80048; 80053; 82542; 82962; 83690; 83735; 84100; 84484; 85025; 93005; G0378; J0882; J1815; J7070; J0360; Q0177

== ENCOUNTER 2019-11-27 16:11 | Inpatient (IN) | payer MEDICAID ==
[~2019-11-27] VITALS: Ht 182.9 cm; Wt 77.5 kg
--- NOTE | 2019-11-27 16:30 | NUR ---
PT TOOK ALL HIS ITEMS OUT OF HIS BAGS ONTO THE FLOOR OF ER BED
--- NOTE | 2019-11-27 18:00 | NUR ---
PT STATED HE HAS NOT HAD DIALYSIS IN WEEKS DUE TO BEING IN LONGTERM. PT AMBUKLATED TO BATHROOM WITH ASSISTANCE AND PROVIDED STOOL SAMPLE THAT WAS SENT TO LAB
[2019-11-27 18:06] LABS: CLOSTRIDIUM DIFFICILE ANTIGEN NEGATIVE; CLOSTRIDIUM DIFFICILE TOXIN NEGATIVE (Negative)
[2019-11-27 18:06] LABS: BASOPHILS % (AUTO) 1 % (0-1); EOSINOPHILS % (AUTO) 0 % (1-7); LYMPHOCYTES % (AUTO) 13 % (22-44); MEAN CORPUSCULAR HEMOGLOBIN 26.4 pg (27.5-34.5); MEAN CORPUSCULAR HGB CONC 32.4 g/dL (33.2-36.2); MEAN PLATELET VOLUME 8.7 fL (7.4-10.4); MONOCYTES % (AUTO) 10 % (2-9); NEUTROPHILS % (AUTO) 75 % (42-75); PLATELET COUNT 72 x10^3/uL (130-400); RED BLOOD COUNT 3.44 x10^6/uL (4.38-5.82); RED CELL DISTRIBUTION WIDTH 22.7 % (9.4-14.8)
[2019-11-27 18:12] LABS: MD MORPH REVIEW ONLY
[2019-11-27 18:13] LABS: ALANINE AMINOTRANSFERASE 16 U/L (12-78); ALBUMIN 3.8 g/dL (3.4-5.0); ANION GAP 21 mmol/L (5-15); CALCIUM 8.1 mg/dL (8.5-10.1); CHLORIDE 103 mmol/L (98-107)
[2019-11-27 18:17] LABS: ALKALINE PHOSPHATASE 185 U/L (45-117); BILIRUBIN,TOTAL 0.6 mg/dL (0.2-1.0); TOTAL PROTEIN 7.5 g/dL (6.4-8.2)
--- NOTE | 2019-11-27 18:45 | NUR ---
REPORT GIVEN TO TANNER GONZALEZ
[2019-11-27] MEDS ORDERED: SODIUM BICARBONATE 650 MG TABLET PO ONE (19:00)
[2019-11-27] MEDS ORDERED: FUROSEMIDE 40 MG/4 ML IVPush ONE (19:00)
[2019-11-27] MEDS ORDERED: ALBUTEROL 0.5%, 20ML NPPB ONE (19:00)
[2019-11-27] MEDS ORDERED: CALCIUM CHLORIDE 10%, 10ML SYR IVPush ONE (19:00)
[2019-11-27] MEDS ORDERED: SODIUM CHLORIDE FLUSH 10ML SYR IVF ONE ×2 (19:00)
[2019-11-27] MEDS ORDERED: DEXTROSE 50%, 50ML SYRINGE IVPush ONE (19:00)
[2019-11-27] MEDS ORDERED: INSULIN REGULAR 100 UNITS/ML, 3ML VIAL IVPush ONE (19:00)
[2019-11-27 19:18] LABS: ACANTHOCYTES 1+; ANISOCYTOSIS 1+; ECHINOCYTES 1+; MICROCYTOSIS 1+; OVALOCYTES 1+; POLYCHROMASIA 1+; SCHISTOCYTES 1+
[2019-11-27 19:19] LABS: HYPOCHROMIA 1+
[2019-11-27 19:20] LABS: <PLATELET ESTIMATE> DECREASED; <PLT MORPHOLOGY> NORMAL PLT MORPH
[2019-11-27] MEDS ORDERED: CALCIUM CHLORIDE 10%, 10ML SYR ONE (19:29)
[2019-11-27] MEDS ORDERED: DOCUSATE 100 MG CAPSULE PO PRN (19:30)
[2019-11-27] MEDS ORDERED: DEXTROSE 50%, 50ML SYRINGE ONE (19:30)
[2019-11-27] MEDS: HEPARIN 5,000 UNITS/ML, 1ML SQ SCH (19:30)
[2019-11-27] MEDS ORDERED: INSULIN SINGLE DOSE, ER ONE (19:30)
[2019-11-27] MEDS ORDERED: LACTULOSE 20 GM/30 ML UDC PO PRN (19:30)
[2019-11-27] MEDS ORDERED: FUROSEMIDE 40 MG/4 ML ONE (19:30)
[2019-11-27] MEDS: FERROUS SULFATE 325 MG TABLET PO SCH (19:30)
--- NOTE | 2019-11-27 19:43 | NUR ---
REPORT GIVEN TO ZEHRA GONZALEZ
--- NOTE | 2019-11-27 20:06 | NUR ---
TALKED WITH NEPHROLOGY AT 1850. PT GOING TO DIALYSIS BUT DIALYSIS NURSE TO GET HERE AT 1999. TALKED WITH DR. HAHN PT TO BE ADMITED, MEDS ORDERED AND ADMIN PER EMAR, PT IS GROANING AND RESTLESS, PT AWARE OF POC AND AGREEABLE. ROOM READY AND PT RTG
[2019-11-27 20:42] LABS: TROPONIN I 0.035 ng/mL (0.000-0.045)
[2019-11-27] MEDS ORDERED: ERGOCALCIFEROL 50,000 UNIT CAPSULE PO SCH (21:00)
[2019-11-27] MEDS: ATORVASTATIN 40 MG TABLET PO SCH (21:00)
[2019-11-27] MEDS: CARVEDILOL 6.25 MG TABLET PO SCH (21:00)
[2019-11-27] MEDS ORDERED: LABETALOL 5MG/ML, 20ML IVPush PRN (22:00)
[2019-11-28 01:22] VITALS: BP 178/99
[2019-11-28 03:23] LABS: ANION GAP 14 mmol/L (5-15); BASOPHILS % (AUTO) 1 % (0-1); CALCIUM 8.8 mg/dL (8.5-10.1); CHLORIDE 99 mmol/L (98-107); EOSINOPHILS % (AUTO) 0 % (1-7); LYMPHOCYTES % (AUTO) 10 % (22-44); MEAN CORPUSCULAR HEMOGLOBIN 26.3 pg (27.5-34.5); MEAN CORPUSCULAR HGB CONC 32.9 g/dL (33.2-36.2); MEAN PLATELET VOLUME 8.7 fL (7.4-10.4); MONOCYTES % (AUTO) 13 % (2-9); NEUTROPHILS % (AUTO) 77 % (42-75); PLATELET COUNT 67 x10^3/uL (130-400); RED BLOOD COUNT 3.76 x10^6/uL (4.38-5.82); RED CELL DISTRIBUTION WIDTH 22.7 % (9.4-14.8)
[2019-11-28] MEDS: HEPARIN 5,000 UNITS/ML, 1ML SQ SCH ×4 (03:30→20:02)
[2019-11-28 03:32] LABS: TROPONIN I 0.046 ng/mL (0.000-0.045)
[2019-11-28] MEDS ORDERED: DEXTROSE 50%, 50ML SYRINGE ONE (03:47)
[2019-11-28] MEDS ORDERED: DEXTROSE 4 GM TAB.CHEW PO PRN (04:00)
[2019-11-28] MEDS ORDERED: DEXTROSE 50%, 50ML SYRINGE IVPush PRN (04:00)
[2019-11-28] MEDS ORDERED: GLUCAGON 1 MG IM PRN (04:00)
[2019-11-28 04:21] LABS: MD MORPH REVIEW ONLY
[2019-11-28 04:28] LABS: ANISOCYTOSIS 1+; ECHINOCYTES 1+; HYPOCHROMIA 1+; MICROCYTOSIS 1+; OVALOCYTES 1+; POLYCHROMASIA 1+
[2019-11-28 04:29] LABS: <PLATELET ESTIMATE> DECREASED; <PLT MORPHOLOGY> NORMAL PLT MORPH; ACANTHOCYTES 1+; SCHISTOCYTES 1+
[2019-11-28 07:09] VITALS: BP 144/81
[2019-11-28] MEDS: SEVELAMER CARBONATE 800MG TAB PO SCH ×3 (08:00→17:25)
[2019-11-28] MEDS: SODIUM CHLORIDE FLUSH 10ML SYR IVF SCH ×2 (08:01→20:02)
[2019-11-28] MEDS ORDERED: HYDR-826 PO (08:07)
[2019-11-28] MEDS ORDERED: CARV-39 PO (08:07)
[2019-11-28] MEDS ORDERED: HYDR100T25 PO (08:07)
[2019-11-28] MEDS ORDERED: AMLO10TA8 PO (08:07)
[2019-11-28] MEDS ORDERED: MIRT30TA3 PO (08:07)
[2019-11-28] MEDS: CARVEDILOL 6.25 MG TABLET PO SCH ×2 (09:30→20:03)
[2019-11-28] MEDS: ISOSORBIDE MONONITRATE ER 30 MG TABLET PO SCH (09:30)
[2019-11-28] MEDS: ASPIRIN 81 MG TABLET EC PO SCH (09:31)
[2019-11-28] MEDS ORDERED: DIPHENHYDRAMINE 25 MG CAPSULE PO PRN (11:30)
[2019-11-28 15:02] VITALS: BP 161/80
[2019-11-28 15:59] VITALS: BP 159/68
[2019-11-28] MEDS: ATORVASTATIN 40 MG TABLET PO SCH (20:03)
[2019-11-28 20:11] VITALS: BP 177/101
[2019-11-29] MEDS: HEPARIN 5,000 UNITS/ML, 1ML SQ SCH ×3 (02:11→21:12)
[2019-11-29 02:17] VITALS: BP 129/74
[2019-11-29 04:58] LABS: ANION GAP 8 mmol/L (5-15); CALCIUM 7.4 mg/dL (8.5-10.1); CHLORIDE 103 mmol/L (98-107)
[2019-11-29 08:30] VITALS: BP 170/96
[2019-11-29] MEDS: SEVELAMER CARBONATE 800MG TAB PO SCH ×3 (08:32→16:57)
[2019-11-29] MEDS: ASPIRIN 81 MG TABLET EC PO SCH (10:15)
[2019-11-29] MEDS: CARVEDILOL 6.25 MG TABLET PO SCH ×2 (10:15→21:14)
[2019-11-29] MEDS: SODIUM CHLORIDE FLUSH 10ML SYR IVF SCH ×2 (10:17→21:15)
[2019-11-29] MEDS: ISOSORBIDE MONONITRATE ER 30 MG TABLET PO SCH (10:17)
[2019-11-29 14:28] VITALS: BP 165/82
[2019-11-29 21:06] VITALS: BP 148/67
[2019-11-29] MEDS: FERROUS SULFATE 325 MG TABLET PO SCH (21:14)
[2019-11-29] MEDS: ATORVASTATIN 40 MG TABLET PO SCH (21:14)
[2019-11-30 01:03] VITALS: BP 169/90
[2019-11-30] MEDS: HEPARIN 5,000 UNITS/ML, 1ML SQ SCH ×2 (03:37→11:03)
[2019-11-30] MEDS: ISOSORBIDE MONONITRATE ER 30 MG TABLET PO SCH (08:25)
[2019-11-30] MEDS: ASPIRIN 81 MG TABLET EC PO SCH (08:26)
[2019-11-30] MEDS: SODIUM CHLORIDE FLUSH 10ML SYR IVF SCH (08:26)
[2019-11-30] MEDS: CARVEDILOL 6.25 MG TABLET PO SCH (08:26)
[2019-11-30] MEDS: SEVELAMER CARBONATE 800MG TAB PO SCH ×3 (08:26→17:57)
[2019-11-30 10:10] VITALS: BP 133/74
[2019-11-30 13:55] VITALS: BP 148/85
[2019-11-30 18:46] VITALS: BP 156/78
== END 2019-11-30 19:45 | disposition home or self-care (01) | DRG 425 ==
LOC: ED 20:13 → EDIP 20:45 → 5SO 20:51
PROVIDERS: ADMIT Family Medicine; ATTEND Internal Medicine
DX: E87.5 Hyperkalemia (principal); D63.1 Anemia in chronic kidney disease; E78.5 Hyperlipidemia, unspecified; I13.2 Hypertensive heart and chronic kidney disease with heart failure and with stage 5 chronic kidney disease, or end stage renal disease; I50.30 Unspecified diastolic (congestive) heart failure; N18.6 End stage renal disease; N25.0 Renal osteodystrophy; R18.8 Other ascites; Z79.4 Long term (current) use of insulin; Z91.19 Patient's noncompliance with other medical treatment and regimen; Z99.2 Dependence on renal dialysis; Z83.3 Family history of diabetes mellitus
CPT/HCPCS: 36415; 71045; 80048; 80053; 82306; 82728; 82962; 83540; 83550; 84100; 84132; 84484; 85025; 87324; 89055; 93005; 96374; 96375; 99291; G0378; J1644; J1940; J1815; Q0177

== ENCOUNTER 2019-12-03 16:49 | Inpatient (IN) | payer MEDICAID ==
[~2019-12-03] VITALS: Ht 182.9 cm; Wt 86.7 kg
[~2019-12-03 16:49] MED LIST changes: +AMLO10TA8 PO; +CARV-39 PO; +HYDR-826 PO; +MIRT30TA3 PO
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
[2019-12-03] MEDS ORDERED: MORPHINE SULFATE 4 MG/ML, 1ML ONE (17:21)
[2019-12-03] MEDS ORDERED: MORPHINE SULFATE 4 MG/ML, 1ML IVPush PRN (17:30)
[2019-12-03] MEDS ORDERED: SODIUM CHLORIDE FLUSH 10ML SYR IVF ONE (17:30)
[2019-12-03] MEDS ORDERED: OXYcodone/APAP 10/325MG TABLET ONE (17:35)
--- NOTE | 2019-12-03 17:35 | NUR ---
THIS RN UNABLE TO OBTAIN PIV ACCESS (D/T LARGE AMT VEIN SCARRING, "DVT" TO RT FA, LUE AVF), PT WILL ONLY ALLOW ACCESS TO VERY LIMITED AREAS, DR XAVIER & PRIMARY RN ONDINA AWARE.
[2019-12-03] MEDS ORDERED: OXYcodone IR 5MG TABLET ONE (17:40)
[2019-12-03] MEDS ORDERED: OXYcodone IR 5MG TABLET PO ONE (17:45)
[2019-12-03] MEDS ORDERED: OXYcodone/APAP 10/325MG TABLET PO ONE (18:00)
--- NOTE | 2019-12-03 18:00 | NUR ---
PT UP TO BATHROOM WITH THIS RN. STEADY GAIT. PT RETURNED TO ROOM, UPRIGHT ON [facility]. [facility] AT BEDSIDE. CAT RODRIGUES. PT DENIES ANY NEEDS, CALL LIGHT WITHIN REACH. Addendum: 12/03/19 at 1819 by IESHA PT UP TO BATHROOM WITH THIS RN. STEADY GAIT WITH CONTACT GUARD ASSIST. PT RETURNED TO ROOM, UPRIGHT ON [facility]. [facility] AT BEDSIDE. CAT RODRIGUES. PT DENIES ANY NEEDS, CALL LIGHT WITHIN REACH.
[2019-12-03 18:33] LABS: ALBUMIN 3.9 g/dL (3.4-5.0); ANION GAP 16 mmol/L (5-15); CALCIUM 8.5 mg/dL (8.5-10.1); CHLORIDE 102 mmol/L (98-107)
[2019-12-03 18:34] LABS: BASOPHILS % (AUTO) 1 % (0-1); EOSINOPHILS % (AUTO) 1 % (1-7); LYMPHOCYTES % (AUTO) 24 % (22-44); MEAN CORPUSCULAR HEMOGLOBIN 26.3 pg (27.5-34.5); MEAN CORPUSCULAR HGB CONC 32.4 g/dL (33.2-36.2); MEAN PLATELET VOLUME 9.6 fL (7.4-10.4); MONOCYTES % (AUTO) 11 % (2-9); NEUTROPHILS % (AUTO) 64 % (42-75); PLATELET COUNT 98 x10^3/uL (130-400); RED BLOOD COUNT 3.79 x10^6/uL (4.38-5.82); RED CELL DISTRIBUTION WIDTH 21.7 % (9.4-14.8)
--- NOTE | 2019-12-03 18:48 | NUR ---
Bedside report given to Rm GONZALEZ.
--- NOTE | 2019-12-03 18:56 | NUR ---
RECEIVED REPORT, ASSUMED CARE OF 54 YEAR OLD MALE TO ED FOR WEAKNESS. PATIENT IS ESRD, GETTING DIALYSIS M,W,F. HE IS PENDING LABS, RESTING IN BED AAO X 4. GCS 15, IN NAD.
[2019-12-03 19:14] LABS: ALANINE AMINOTRANSFERASE 31 U/L (12-78); ALKALINE PHOSPHATASE 189 U/L (45-117); BILIRUBIN,TOTAL 0.7 mg/dL (0.2-1.0)
[2019-12-03 19:19] LABS: ANISOCYTOSIS 1+; MD MORPH REVIEW ONLY
[2019-12-03 19:20] LABS: ECHINOCYTES 1+; HYPOCHROMIA 1+; MICROCYTOSIS 1+; OVALOCYTES 1+
[2019-12-03 19:21] LABS: SCHISTOCYTES 1+
[2019-12-03 19:22] LABS: <PLATELET ESTIMATE> DECREASED; <PLT MORPHOLOGY> NORMAL PLT MORPH
[2019-12-03] MEDS ORDERED: CALCIUM CHLORIDE 10%, 10ML SYR IVPush ONE (19:30)
[2019-12-03] MEDS ORDERED: SODIUM POLYSTYRENE SULFONATE ORAL SUSP PO ONE ×2 (19:30→20:30)
[2019-12-03] MEDS ORDERED: DEXTROSE 50%, 50ML SYRINGE IVPush ONE (19:30)
[2019-12-03] MEDS ORDERED: SODIUM BICARB 8.4%, 50ML SYRINGE IVPush ONE (19:30)
[2019-12-03] MEDS ORDERED: INSULIN REGULAR 100 UNITS/ML, 3ML VIAL IVPush ONE (19:30)
--- NOTE | 2019-12-03 19:35 | NUR ---
Several attempts of IV insertion have been made. Awaiting ultrasound attempt.
--- NOTE | 2019-12-03 20:00 | NUR ---
TASK RN: ATTEMPTED IV ACCESS X 2. PT. UNABLE TO HOLD STILL DURING IV PLACEMENT ATTEMPTS; UNSUCCESSFUL IV PLACEMENT.
[2019-12-03] MEDS ORDERED: SODIUM BICARBONATE 1 MEQ/ML, 50ML VIAL ONE (20:23)
[2019-12-03] MEDS ORDERED: CALCIUM CHLORIDE 10%, 10ML SYR ONE (20:23)
[2019-12-03] MEDS ORDERED: DEXTROSE 50%, 50ML SYRINGE ONE (20:24)
[2019-12-03] MEDS ORDERED: INSULIN SINGLE DOSE, ER ONE (20:25)
[2019-12-03] MEDS ORDERED: SODIUM CHLORIDE FLUSH 10ML SYR IVF PRN (20:30)
[2019-12-03 21:45] VITALS: BP 191/124
[2019-12-03] MEDS ORDERED: BISACODYL 10 MG SUPP PR PRN (22:00)
[2019-12-03] MEDS ORDERED: MELATONIN 5 MG TABLET PO PRN (22:00)
[2019-12-03] MEDS: LABETALOL 5MG/ML, 20ML IVPush PRN (22:02)
[2019-12-03] MEDS: HEPARIN 5,000 UNITS/ML, 1ML SQ SCH (22:14)
[2019-12-04 00:41] VITALS: BP 168/100
[2019-12-04] MEDS ORDERED: DEXTROSE 50%, 50ML SYRINGE IVPush ONE (02:30)
[2019-12-04] MEDS: LABETALOL 5MG/ML, 20ML IVPush PRN (03:54)
[2019-12-04 04:12] LABS: BASOPHILS % (AUTO) 1 % (0-1); EOSINOPHILS % (AUTO) 0 % (1-7); LYMPHOCYTES % (AUTO) 11 % (22-44); MEAN CORPUSCULAR HEMOGLOBIN 26.3 pg (27.5-34.5); MEAN CORPUSCULAR HGB CONC 32.8 g/dL (33.2-36.2); MONOCYTES % (AUTO) 7 % (2-9); NEUTROPHILS % (AUTO) 81 % (42-75); PLATELET COUNT 66 x10^3/uL (130-400); RED BLOOD COUNT 3.28 x10^6/uL (4.38-5.82); RED CELL DISTRIBUTION WIDTH 21.7 % (9.4-14.8)
[2019-12-04 04:21] LABS: ANION GAP 10 mmol/L (5-15); CALCIUM 8.4 mg/dL (8.5-10.1); CHLORIDE 103 mmol/L (98-107); CREATININE 6.81 mg/dL (0.7-1.3)
[2019-12-04 04:35] LABS: MD SCAN
[2019-12-04] MEDS ORDERED: NITROGLYCERIN 0.4 MG/SPRAY SL PRN (05:30)
[2019-12-04] MEDS: NITROGLYCERIN 0.4 MG BOTTLE (25 TABS) SL PRN ×3 (05:32→05:49)
[2019-12-04] MEDS: HEPARIN 5,000 UNITS/ML, 1ML SQ SCH ×3 (05:52→20:53)
[2019-12-04 08:09] VITALS: BP 147/96
[2019-12-04 13:25] VITALS: BP 172/87
[2019-12-04] MEDS ORDERED: LIDOCAINE 1%, 2ML INFIL ONE (16:00)
[2019-12-04] MEDS ORDERED: GABAPENTIN 300 MG CAPSULE PO PRN (17:30)
[2019-12-04] MEDS: CARVEDILOL 12.5 MG TABLET PO SCH ×2 (17:30→20:53)
[2019-12-04 20:00] VITALS: BP 138/75
[2019-12-04] MEDS: ATORVASTATIN 40 MG TABLET PO SCH (20:52)
[2019-12-05 00:08] VITALS: BP 131/74
[2019-12-05] MEDS: HEPARIN 5,000 UNITS/ML, 1ML SQ SCH ×2 (05:35→14:04)
[2019-12-05 05:42] LABS: BASOPHILS % (AUTO) 1 % (0-1); EOSINOPHILS % (AUTO) 3 % (1-7); LYMPHOCYTES % (AUTO) 18 % (22-44); MEAN CORPUSCULAR HEMOGLOBIN 26.4 pg (27.5-34.5); MEAN CORPUSCULAR HGB CONC 32.3 g/dL (33.2-36.2); MEAN PLATELET VOLUME 9.5 fL (7.4-10.4); MONOCYTES % (AUTO) 14 % (2-9); NEUTROPHILS % (AUTO) 65 % (42-75); PLATELET COUNT 80 x10^3/uL (130-400); RED BLOOD COUNT 3.43 x10^6/uL (4.38-5.82); RED CELL DISTRIBUTION WIDTH 21.5 % (9.4-14.8)
[2019-12-05 05:51] LABS: MD NO
[2019-12-05 05:52] LABS: ANION GAP 9 mmol/L (5-15); CALCIUM 7.8 mg/dL (8.5-10.1); CHLORIDE 105 mmol/L (98-107); CREATININE 8.96 mg/dL (0.7-1.3)
[2019-12-05 08:40] VITALS: BP 147/81
[2019-12-05] MEDS ORDERED: ASPIRIN 81 MG TABLET EC PO SCH (09:00)
[2019-12-05] MEDS ORDERED: ISOSORBIDE MONONITRATE ER 30 MG TABLET PO SCH (09:00)
[2019-12-05] MEDS: CARVEDILOL 12.5 MG TABLET PO SCH ×2 (09:27→19:52)
[2019-12-05 12:16] VITALS: BP 129/75
[2019-12-05 19:20] VITALS: BP 158/93
[2019-12-05] MEDS: ATORVASTATIN 40 MG TABLET PO SCH (19:52)
== END 2019-12-05 20:12 | disposition home or self-care (01) | DRG 425 ==
LOC: ED 18:02 → EDIP 20:05 → 5SO 21:28
PROVIDERS: ADMIT Internal Medicine; ATTEND Internal Medicine
DX: E87.5 Hyperkalemia (principal); B19.20 Unspecified viral hepatitis C without hepatic coma; D63.1 Anemia in chronic kidney disease; D69.6 Thrombocytopenia, unspecified; E11.22 Type 2 diabetes mellitus with diabetic chronic kidney disease; E78.5 Hyperlipidemia, unspecified; I13.2 Hypertensive heart and chronic kidney disease with heart failure and with stage 5 chronic kidney disease, or end stage renal disease; I16.0 Hypertensive urgency; I27.20 Pulmonary hypertension, unspecified; I50.32 Chronic diastolic (congestive) heart failure; J44.9 Chronic obstructive pulmonary disease, unspecified; N18.6 End stage renal disease; N25.0 Renal osteodystrophy; F19.10 Other psychoactive substance abuse, uncomplicated; Z83.3 Family history of diabetes mellitus; Z87.891 Personal history of nicotine dependence; Z91.19 Patient's noncompliance with other medical treatment and regimen; Z99.2 Dependence on renal dialysis; Z72.89 Other problems related to lifestyle
CPT/HCPCS: 36415; 71045; 80048; 80053; 82962; 83690; 83735; 83880; 84100; 85025; 90935; 93005; G0378; J1644; J1815

== ENCOUNTER 2020-03-27 15:27 | Inpatient (IN) | payer MEDICAID, OTHER ==
[~2020-03-27] VITALS: Ht 182.9 cm; Wt 82.0 kg
[~2020-03-27 15:27] MED LIST changes: +AMLO-211 PO; -AMLO10TA8 PO
--- NOTE | 2020-03-27 16:15 | NUR ---
Pt changed into gown, placed on bedside monitor for EKG, BP and SPO2 continuous and life cycle assessment analyst completed. Pt has been waiting since prior to this RN coming back to unit from meal break. Noted BLE edema, 3+ pitting with mild discomfort secondary to the swelling and skin tightness reported by pt. Pt states he missed dialysis yesterday, denies CP or SOB. LUE fistula with good thrill present. No other s/s verbalized or noted during exam at this time. Awaiting MD exam and orders.
--- NOTE | 2020-03-27 16:55 | NUR ---
Checked in on pt since no orders noted as yet, and pt states no MD has been in for exam yet. MD request made at physician charting area at this time for someone to cotton picker pt as he has been waiting for over an hour since triage. MD states he will be in shortly. Pt notified and apologies for delay made with pt stating his understanding at this time.
--- NOTE | 2020-03-27 17:15 | NUR ---
PCXR being completed.
[2020-03-27 17:49] LABS: BASOPHILS % (AUTO) 1 % (0-1); EOSINOPHILS % (AUTO) 1 % (1-7); LYMPHOCYTES % (AUTO) 12 % (22-44); MEAN CORPUSCULAR HEMOGLOBIN 27.5 pg (27.5-34.5); MEAN CORPUSCULAR HGB CONC 32.8 g/dL (33.2-36.2); MEAN PLATELET VOLUME 8.3 fL (7.4-10.4); MONOCYTES % (AUTO) 11 % (2-9); NEUTROPHILS % (AUTO) 75 % (42-75); PLATELET COUNT 93 x10^3/uL (130-400); RED BLOOD COUNT 3.97 x10^6/uL (4.38-5.82); RED CELL DISTRIBUTION WIDTH 15.2 % (9.4-14.8)
[2020-03-27 17:56] LABS: ALBUMIN 4.1 g/dL (3.4-5.0); ANION GAP 14 mmol/L (5-15); CHLORIDE 103 mmol/L (98-107)
[2020-03-27 18:01] LABS: ALANINE AMINOTRANSFERASE 24 U/L (12-78); ALKALINE PHOSPHATASE 194 U/L (45-117); BILIRUBIN,TOTAL 0.9 mg/dL (0.2-1.0); TOTAL PROTEIN 7.9 g/dL (6.4-8.2)
[2020-03-27 18:39] LABS: MD SCAN
--- NOTE | 2020-03-27 19:00 | NUR ---
Report given to LISA Leija and care transferred for shift change.
--- NOTE | 2020-03-27 19:49 | NUR ---
PIV PLACED. FLUSHED C 10CC NS. PT AWARE HE HAS A BED & WILL BE TRANSPORTED SOON. SPOKE C MOTOR MECHANIC, PT TO COME TO DIALYSIS BEFORE ROOM.
[2020-03-27] MEDS ORDERED: hydrALAzine 20 MG/ML, 1ML IVPush PRN (20:30)
[2020-03-27] MEDS ORDERED: ACETAMINOPHEN 325 MG TABLET PO PRN (20:30)
[2020-03-27] MEDS ORDERED: HYDRALAZINE HCL PO SCH (21:00)
[2020-03-27] MEDS ORDERED: ATORVASTATIN 40 MG TABLET PO SCH (21:00)
[2020-03-27] MEDS ORDERED: MIRTAZAPINE 30 MG TAB.RAPDIS PO SCH (21:00)
[2020-03-28 00:14] VITALS: BP 149/78
[2020-03-28] MEDS: CARVEDILOL 25 MG TABLET PO SCH ×2 (00:14→08:36)
[2020-03-28 01:45] VITALS: BP 152/73
[2020-03-28 04:44] LABS: ANION GAP 9 mmol/L (5-15); CALCIUM 9.5 mg/dL (8.5-10.1); CHLORIDE 99 mmol/L (98-107); CREATININE 8.81 mg/dL (0.7-1.3)
[2020-03-28 08:15] VITALS: BP 146/88
[2020-03-28] MEDS ORDERED: ACETAMINOPHEN 325 MG TABLET ONE (08:35)
[2020-03-28] MEDS ORDERED: AMLODIPINE 10 MG TAB PO SCH (09:00)
[2020-03-28] MEDS ORDERED: ASPIRIN 81 MG TABLET EC PO SCH (09:00)
[2020-03-28] MEDS ORDERED: ISOSORBIDE MONONITRATE ER 30 MG TABLET PO SCH (09:00)
[2020-03-28] MEDS ORDERED: ARANESP 100 MCG/ML **ESRD SQ SCH (09:30)
[2020-03-28 14:05] VITALS: BP 124/76
== END 2020-03-28 20:15 | disposition left against medical advice (07) | DRG 425 ==
LOC: ED 18:38 → INTOOBSV 18:45 → EDIP 18:45 → ED 19:15 → 4WST 20:14 → OBSVTOIN 03-28 12:36
PROVIDERS: ADMIT Family Medicine; ATTEND Internal Medicine
DX: E87.5 Hyperkalemia (principal); N18.6 End stage renal disease; J44.9 Chronic obstructive pulmonary disease, unspecified; I50.32 Chronic diastolic (congestive) heart failure; I27.20 Pulmonary hypertension, unspecified; I13.2 Hypertensive heart and chronic kidney disease with heart failure and with stage 5 chronic kidney disease, or end stage renal disease; F91.9 Conduct disorder, unspecified; F39 Unspecified mood [affective] disorder; F15.90 Other stimulant use, unspecified, uncomplicated; E78.5 Hyperlipidemia, unspecified; E11.22 Type 2 diabetes mellitus with diabetic chronic kidney disease; D69.6 Thrombocytopenia, unspecified; D63.1 Anemia in chronic kidney disease; F12.90 Cannabis use, unspecified, uncomplicated; Z53.29 Procedure and treatment not carried out because of patient's decision for other reasons; Z99.2 Dependence on renal dialysis; Z91.19 Patient's noncompliance with other medical treatment and regimen; Z87.891 Personal history of nicotine dependence; Z83.3 Family history of diabetes mellitus
CPT/HCPCS: 36415; 71045; 80048; 80053; 83880; 85025; 90935; 93005; 96372; 99285; G0378; J0882

== ENCOUNTER 2020-04-09 10:06 | Observation (INO) | payer MEDICAID ==
[~2020-04-09] VITALS: Ht 182.9 cm; Wt 82.0 kg
--- NOTE | 2020-04-09 10:22 | NUR ---
PATIENT BIB [facility] WITH CHIEF C/O LOW BACK PAIN THAT RADIATES TO LEGS. PER EMS PATIENT WAS PICKED UP AT [facility], PATIENT DENIES FALLS, DENIES TRAUMA. 20 GAUGE IV STARTED R-WRIST AND 100 MCG FENTANYL GIVEN EN ROUTE. BLOOD GLUCOSE 105 EN ROUTE, OTHER VITALS STABLE. PATIENT IS COOPERATIVE WITH ASSESSMENT, HOWEVER, IS FIDGETING A LOT. PATIENT STATES HE DRANK "A LITTLE BIT OF ALCOHOL" TODAY, WHEN ASKED ABOUT DRUG USE, PATIENT STATES "I'M NOT SURE." STATES LAST DIALYSIS WAS TUESDAY, CURRENT DIALYSIS SCHEDULE IS M//. NADN, VSS, SIDE RAILS UP X2, CALL LIGHT WITHIN REACH.
--- NOTE | 2020-04-09 10:45 | NUR ---
TRIED DISCHARGING PATIENT, IV REMOVED, AND THEN PATIENT STATED "I NEED DIALYSIS." SPOKE WITH MYLES AND HE CAME TO TALK WITH PATIENT, PATIENT REPORTS LAST DIALYSIS TUESDAY AT [facility], REPORTS HE NEEDS DIALYSIS TODAY. MYLES WILL ORDER LABS.
--- NOTE | 2020-04-09 11:02 | NUR ---
SEISMOGRAPH COMPUTER AT BEDSIDE.
[2020-04-09 11:13] LABS: BASOPHILS % (AUTO) 1 % (0-1); EOSINOPHILS % (AUTO) 2 % (1-7); LYMPHOCYTES % (AUTO) 15 % (22-44); MEAN CORPUSCULAR HEMOGLOBIN 27.6 pg (27.5-34.5); MEAN CORPUSCULAR HGB CONC 33.4 g/dL (33.2-36.2); MEAN PLATELET VOLUME 7.9 fL (7.4-10.4); MONOCYTES % (AUTO) 14 % (2-9); NEUTROPHILS % (AUTO) 68 % (42-75); PLATELET COUNT 173 x10^3/uL (130-400); RED BLOOD COUNT 3.91 x10^6/uL (4.38-5.82); RED CELL DISTRIBUTION WIDTH 14.8 % (9.4-14.8)
[2020-04-09 11:16] LABS: MD NO
[2020-04-09 11:20] LABS: ALBUMIN 3.9 g/dL (3.4-5.0); ANION GAP 18 mmol/L (5-15); CALCIUM 8.9 mg/dL (8.5-10.1); CHLORIDE 92 mmol/L (98-107)
--- NOTE | 2020-04-09 11:34 | NUR ---
PATIENT HAS PULLED ALL MONITORING EQUIPMENT OFF, SITTING IN GURNEY, MOANING AND LAUGHING, TALKING TO SELF, CALL LIGHT WITHIN REACH.
--- NOTE | 2020-04-09 11:59 | NUR ---
ABLE TO CONNECT PATIENT TO MONITORS FOR SET OF VITALS, PATIENT LAYING IN GURNEY MOANING AND ITCHING SELF, PATIENT COOPERATIVE WITH RN, CALL LIGHT WITHIN REACH.
--- NOTE | 2020-04-09 13:08 | NUR ---
dr fajardo spoke with dr orellana
[2020-04-09 13:11] VITALS: BP 152/98
--- NOTE | 2020-04-09 13:20 | NUR ---
PATIENT LAYING IN JANETH DAVIDSON VSS, CALL LIGHT WITHN REACH. WAITING FOR ERMD AND NEPHRO TO DECIDE ON DIALYSIS.
--- NOTE | 2020-04-09 13:44 | NUR ---
BREAK RN: PT STATES 8/10 BILATERAL HIP PAIN. PT AMBULATED TO BATHROOM W/RN STANDBY ASSIST.
[2020-04-09] MEDS ORDERED: SODIUM CHLORIDE FLUSH 10ML SYR IVF PRN (14:00)
--- NOTE | 2020-04-09 14:20 | NUR ---
REPORT GIVEN TO LISA GUILLEN ON MEDICAL TELEMETRY FOR TRANSFER OF PATIENT CARE.
--- NOTE | 2020-04-09 14:32 | NUR ---
THIS RN CAME BACK FROM LUNCH AND PATIENT IN HALLWAY BEING VERBALLY AGGRESSIVE, BREAK RN TRIED STARTING IV AND PATIENT MOVED ARM AND STARTED BEING VERBALLY ABUSIVE TOWARDS RN, AND REFUSING TO SIGN ADMIT CONSENT. THIS RN TRIED TALKING TO PATIENT AND PATIENT STATED HE DID NOT WANT TO TALK TO ME AND HELD HIS HAND UP IN FRONT OF MY FACE AND STARTED ADDRESSING MALE RN. PATIENT STATES HE WILL SIGN ADMIT CONSENT. PATIENT STATES TO THIS RN "YOU TALK TOO MUCH, GO GET THE PAPERWORK."
--- NOTE | 2020-04-09 14:34 | NUR ---
CORPORATION LAWYER AT BEDSIDE FOR IV INSERTION.
--- NOTE | 2020-04-09 15:00 | NUR ---
UNABLE TO GET IV STARTED.
--- NOTE | 2020-04-09 15:20 | NUR ---
PATIENT TRANSFERRED TO FLOOR IN STABLE CONDITION VIA WHEELCHAIR, PATIENT REFUSED TO BE TRANSFERRED VIA GURNEY, DICE MAKER TRANSFERRED PATIENT TO FLOOR WITH ALL PATIENT BELONGINGS.
[2020-04-09] MEDS ORDERED: ATORVASTATIN 40 MG TABLET PO SCH (21:00)
[2020-04-09] MEDS ORDERED: MIRTAZAPINE 30 MG TABLET PO SCH (21:00)
[2020-04-09] MEDS ORDERED: CARVEDILOL 25 MG TABLET PO SCH (21:00)
[2020-04-10] MEDS ORDERED: ISOSORBIDE MONONITRATE ER 30 MG TABLET PO SCH (09:00)
[2020-04-10] MEDS ORDERED: ASPIRIN 81 MG TABLET EC PO SCH (09:00)
[2020-04-10] MEDS ORDERED: AMLODIPINE 10 MG TAB PO SCH (09:00)
== END 2020-04-09 21:22 | disposition home or self-care (01) ==
LOC: ED 11:23 → INTOOBSV 13:34 → 4WST 13:34 → SUATTDRO 13:59
PROVIDERS: ADMIT Hospitalist; ATTEND Hospitalist
DX: I13.2 Hypertensive heart and chronic kidney disease with heart failure and with stage 5 chronic kidney disease, or end stage renal disease (principal); E11.22 Type 2 diabetes mellitus with diabetic chronic kidney disease; I50.30 Unspecified diastolic (congestive) heart failure; N18.6 End stage renal disease; B19.20 Unspecified viral hepatitis C without hepatic coma; S39.012A Strain of muscle, fascia and tendon of lower back, initial encounter; E87.5 Hyperkalemia; D69.6 Thrombocytopenia, unspecified; I27.20 Pulmonary hypertension, unspecified; J44.9 Chronic obstructive pulmonary disease, unspecified; E78.5 Hyperlipidemia, unspecified; Z87.19 Personal history of other diseases of the digestive system; Z91.19 Patient's noncompliance with other medical treatment and regimen; Z99.2 Dependence on renal dialysis; Z87.891 Personal history of nicotine dependence; Z91.15 Patient's noncompliance with renal dialysis; Z79.82 Long term (current) use of aspirin; Z79.899 Other long term (current) drug therapy; X58.XXXA Exposure to other specified factors, initial encounter; Y93.89 Activity, other specified; Y92.89 Other specified places as the place of occurrence of the external cause
CPT/HCPCS: 80048; 82040; 82962; 85025; 86705; 86706; 87340; 93005; 99284; G0378; Q0177

== ENCOUNTER 2020-06-09 21:00 | Inpatient (IN) | payer MEDICAID ==
[~2020-06-09] VITALS: Ht 182.9 cm; Wt 85.7 kg
--- NOTE | 2020-06-09 21:11 | NUR ---
PT BIB EMS FOR PEREZ, NV, WEAKNESS. PT WAS AT THE [facility] AND CALLED 911 FOR A PEREZ. EMS ARRIVED AND GAVE PT 1000MG TYLENOL. PT DECIDED THEN NOT TO GO TO HOSPITAL. PER EMS PT CALLED 911 AGAIN ABOUT 4 HOURS LATER STATING HIS PEREZ HAS GOTTEN WORSE AND HE IS FEELING WEAK. PT POOR HISTORIAN HE GETS DIALYSIS 3X A WEEK BUT CANT REMEMBER IF WE WENT LAST WEEK OR NOT. PT RECENTLY HAD SURGERY "PLACE A METAL PLATE IN MY HEAD. IM NOT SURE WHO DID THE SURGERY". PT RESTING IN [facility]. CONNECTED TO MONITORING EQUIPMENT
[2020-06-09] MEDS ORDERED: hydrALAzine 20 MG/ML, 1ML ONE (21:17)
[2020-06-09] MEDS ORDERED: hydrALAzine 20 MG/ML, 1ML IV ONE (21:30)
--- NOTE | 2020-06-09 21:41 | NUR ---
IV STARTED. PT MEDICATED PER MAR
[2020-06-09 21:45] LABS: BASOPHILS % (AUTO) 1 % (0-1); EOSINOPHILS % (AUTO) 5 % (1-7); LYMPHOCYTES % (AUTO) 15 % (22-44); MEAN CORPUSCULAR HEMOGLOBIN 29.3 pg (27.5-34.5); MEAN CORPUSCULAR HGB CONC 33.7 g/dL (33.2-36.2); MEAN PLATELET VOLUME 8.4 fL (7.4-10.4); MONOCYTES % (AUTO) 13 % (2-9); NEUTROPHILS % (AUTO) 67 % (42-75); PLATELET COUNT 84 x10^3/uL (130-400)
[2020-06-09 21:54] LABS: ALBUMIN 3.3 g/dL (3.4-5.0); ANION GAP 13 mmol/L (5-15); CHLORIDE 101 mmol/L (98-107)
--- NOTE | 2020-06-09 21:54 | NUR ---
REPORT TO LISA CONLEY
--- NOTE | 2020-06-09 22:03 | NUR ---
REPORT FROM PEDRO GONZALEZ WITH ASSESSMENT BLOOD PRESSURE IMPROVED, THE REST OF THE VITAL SIGNS WNL COMPLAINING OF HEADACHE AT 09/23 LAB CALLED TO REPORT CRITICAL POTASSIUM OF 6.8, BUN 102-ERP AWARE- TO MEDICATE WITH POTASSIUM SHIFT MEDS AND HEADACHE
[2020-06-09 22:07] LABS: MD SCAN
[2020-06-09] MEDS ORDERED: CALCIUM CHLORIDE 10%, 10ML SYR ONE (22:11)
[2020-06-09] MEDS ORDERED: SODIUM BICARB 8.4%, 50ML SYRINGE ONE (22:11)
[2020-06-09] MEDS ORDERED: INSULIN SINGLE DOSE, ER ONE (22:13)
[2020-06-09] MEDS ORDERED: HYDROmorphone 1 MG/ML, 1ML INJ ONE ×2 (22:13→23:20)
[2020-06-09] MEDS ORDERED: DEXTROSE 50%, 50ML SYRINGE ONE ×2 (22:13→23:20)
--- NOTE | 2020-06-09 22:26 | NUR ---
MEDICATED PER EMAR FOR HYPERKALEMIA/HEADACHE LOKEMA ORDERED FROM PHARMACY
[2020-06-09] MEDS ORDERED: DEXTROSE 50%, 50ML SYRINGE IVPush ONE (22:30)
[2020-06-09] MEDS ORDERED: HYDROmorphone 2 MG/ML, 1ML IVPush PRN (22:30)
[2020-06-09] MEDS ORDERED: INSULIN REGULAR 100 UNITS/ML, 3ML VIAL IVPush ONE (22:30)
[2020-06-09] MEDS ORDERED: CALCIUM CHLORIDE 10%, 10ML SYR IVPush ONE (22:30)
[2020-06-09] MEDS ORDERED: SODIUM ZIRCONIUM CYCLOSILICATE 10 GM PO ONE (22:30)
[2020-06-09] MEDS ORDERED: SODIUM BICARB 8.4%, 50ML SYRINGE IVPush ONE (22:30)
[2020-06-09] MEDS ORDERED: HYDROmorphone 1 MG/ML, 1ML INJ IV ONE ×2 (22:30→23:30)
--- NOTE | 2020-06-09 22:51 | NUR ---
Lokema administered per emar patient updated on estimated poc (admit)
[2020-06-09] MEDS ORDERED: DEXTROSE 50%, 50ML VIAL IVPush ONE (23:30)
[2020-06-09] MEDS ORDERED: ACETAMINOPHEN 325 MG TABLET PO PRN (23:30)
[2020-06-09] MEDS ORDERED: ERGOCALCIFEROL 50,000 UNIT CAPSULE PO SCH (23:30)
[2020-06-09] MEDS ORDERED: FERROUS SULFATE 325 MG TABLET PO SCH (23:30)
[2020-06-09] MEDS ORDERED: NITROGLYCERIN 0.4 MG BOTTLE (25 TABS) SL PRN (23:30)
[2020-06-09] MEDS ORDERED: ONDANSETRON 2MG/ML, 2ML IVPush PRN (23:30)
--- NOTE | 2020-06-09 23:37 | NUR ---
BS 55 MD NOTIFIED AMP D 50 GIVEN AND OJ, REPORT TO RICHARD SOUTH TO FLOOR WITH TECH
[2020-06-10] MEDS ORDERED: PROMETHAZINE 25 MG/ML, 1ML IM PRN (00:30)
[2020-06-10 00:34] VITALS: BP 203/93
[2020-06-10] MEDS ORDERED: hydrALAzine 20 MG/ML, 1ML IV PRN (01:30)
[2020-06-10] MEDS: HYDROmorphone 1 MG/ML, 1ML INJ IVPush PRN ×3 (04:13→15:32)
[2020-06-10] MEDS ORDERED: LORazepam 2 MG/ML, 1ML IVPush ONE (05:00)
[2020-06-10 08:07] VITALS: BP 173/86
[2020-06-10] MEDS ORDERED: FAMOTIDINE 20 MG TABLET PO SCH (09:00)
[2020-06-10] MEDS ORDERED: AMLODIPINE 10 MG TAB PO SCH (09:00)
[2020-06-10] MEDS ORDERED: ASPIRIN 81 MG TABLET EC PO SCH (09:00)
[2020-06-10] MEDS ORDERED: ISOSORBIDE MONONITRATE ER 30 MG TABLET PO SCH (09:00)
[2020-06-10] MEDS ORDERED: CARVEDILOL 25 MG TABLET PO SCH (09:00)
[2020-06-10] MEDS ORDERED: DARBEPOETIN 60 MCG/ML SQ SCH (12:00)
[2020-06-10] MEDS ORDERED: ARANESP 60 MCG/ML **ESRD SQ SCH (13:00)
[2020-06-10] MEDS ORDERED: ARANESP 200 MCG/ML **ESRD SQ SCH ×2 (13:00)
[2020-06-10 13:37] VITALS: BP 170/98
[2020-06-10 14:11] VITALS: BP 132/75
[2020-06-10 15:26] LABS: ABSOLUTE RETICS # 0.027 x10^6/uL (0.5-1.5); BASOPHILS % (AUTO) 1 % (0-1); EOSINOPHILS % (AUTO) 7 % (1-7); LYMPHOCYTES % (AUTO) 10 % (22-44); MEAN CORPUSCULAR HEMOGLOBIN 28.9 pg (27.5-34.5); MEAN PLATELET VOLUME 8.3 fL (7.4-10.4); MONOCYTES % (AUTO) 14 % (2-9); NEUTROPHILS % (AUTO) 68 % (42-75); PLATELET COUNT 76 x10^3/uL (130-400); RED BLOOD COUNT 2.43 x10^6/uL (4.38-5.82); RED CELL DISTRIBUTION WIDTH 17.8 % (9.4-14.8)
[2020-06-10 15:30] LABS: MD NO
[2020-06-10 15:45] LABS: ALANINE AMINOTRANSFERASE 16 U/L (12-78); ALBUMIN 2.8 g/dL (3.4-5.0); ANION GAP 8 mmol/L (5-15); CALCIUM 8.1 mg/dL (8.5-10.1); CHLORIDE 106 mmol/L (98-107)
[2020-06-10 15:48] LABS: ALKALINE PHOSPHATASE 116 U/L (45-117); BILIRUBIN,TOTAL 0.4 mg/dL (0.2-1.0); TOTAL PROTEIN 6.6 g/dL (6.4-8.2)
[2020-06-10 16:12] LABS: CALCIUM 8.1 mg/dL (8.5-10.1)
[2020-06-10] MEDS ORDERED: LACTULOSE 20 GM/30 ML UDC PO PRN (17:00)
[2020-06-10 18:43] VITALS: BP 161/77
[2020-06-10] MEDS ORDERED: ATORVASTATIN 40 MG TABLET PO SCH (21:00)
[2020-06-10] MEDS ORDERED: MIRTAZAPINE 30 MG TAB.RAPDIS PO SCH (21:00)
[2020-06-11] MEDS ORDERED: FAMOTIDINE 20 MG TABLET PO SCH (09:00)
[2020-06-11] MEDS ORDERED: ISOSORBIDE MONONITRATE ER 30 MG TABLET PO SCH (09:00)
== END 2020-06-10 21:03 | disposition left against medical advice (07) | DRG 425 ==
LOC: ED 21:09 → EDIP 22:48 → 5SO 23:48 → 4EST 06-10 09:19
PROVIDERS: ADMIT Family Medicine; ATTEND Internal Medicine
DX: E87.5 Hyperkalemia (principal); I13.2 Hypertensive heart and chronic kidney disease with heart failure and with stage 5 chronic kidney disease, or end stage renal disease; E11.22 Type 2 diabetes mellitus with diabetic chronic kidney disease; E11.649 Type 2 diabetes mellitus with hypoglycemia without coma; D69.6 Thrombocytopenia, unspecified; I27.20 Pulmonary hypertension, unspecified; N18.6 End stage renal disease; D50.9 Iron deficiency anemia, unspecified; F12.90 Cannabis use, unspecified, uncomplicated; E78.5 Hyperlipidemia, unspecified; F15.90 Other stimulant use, unspecified, uncomplicated; F17.200 Nicotine dependence, unspecified, uncomplicated; F91.9 Conduct disorder, unspecified; Z53.29 Procedure and treatment not carried out because of patient's decision for other reasons; I16.9 Hypertensive crisis, unspecified; I50.32 Chronic diastolic (congestive) heart failure; J44.9 Chronic obstructive pulmonary disease, unspecified; Z79.4 Long term (current) use of insulin; Z83.3 Family history of diabetes mellitus; Z91.15 Patient's noncompliance with renal dialysis; Z91.19 Patient's noncompliance with other medical treatment and regimen; Z99.2 Dependence on renal dialysis
CPT/HCPCS: 36415; 70450; 71045; 80048; 80053; 82040; 82306; 82310; 82728; 82962; 83540; 83550; 83970; 85025; 85045; 93005; 96374; 96375; 99291; G0378; J0882; J1170; J1815; J2405; J0360; Q0177

== ENCOUNTER 2020-06-11 15:15 | Inpatient (IN) | payer MEDICAID ==
[~2020-06-11] VITALS: Ht 193 cm; Wt 84.4 kg
--- NOTE | 2020-06-11 17:20 | NUR ---
PT AMBULATED TO ROOM FROM TRIAGE. PT CO ABDOMINAL PAIN AND HEADACHE X4 WEEKS NOW. PT STATED HE HAS INTERMITTENT VOMITING. PT DENIES ANY DIARRHEA, CP, SOB OR FEVER. PT DENIES ANY RECENT HEAD TRAUMA.
[2020-06-11] MEDS ORDERED: DIPHENHYDRAMINE 50 MG/ML, 1ML IVPush ONE (17:30)
[2020-06-11] MEDS ORDERED: SODIUM CHLORIDE FLUSH 10ML SYR IVF ONE (17:30)
[2020-06-11] MEDS ORDERED: METOCLOPRAMIDE 5 MG/ML, 2ML IVPush ONE (17:30)
--- NOTE | 2020-06-11 17:35 | NUR ---
PT DECLINING IV. PT REQUESTING PO MEDICATIONS INSTEAD. PA NOTIFIED.
--- NOTE | 2020-06-11 17:36 | NUR ---
PT TO CT
[2020-06-11] MEDS ORDERED: DIPHENHYDRAMINE 25 MG CAPSULE ONE (17:59)
[2020-06-11] MEDS ORDERED: PROMETHAZINE 25MG TABLET ONE (17:59)
[2020-06-11] MEDS ORDERED: PROMETHAZINE 25MG TABLET PO PRN (18:00)
[2020-06-11 18:02] LABS: BASOPHILS % (AUTO) 1 % (0-1); EOSINOPHILS % (AUTO) 4 % (1-7); LYMPHOCYTES % (AUTO) 10 % (22-44); MEAN CORPUSCULAR HEMOGLOBIN 29.1 pg (27.5-34.5); MEAN CORPUSCULAR HGB CONC 33.2 g/dL (33.2-36.2); MEAN PLATELET VOLUME 8.8 fL (7.4-10.4); MONOCYTES % (AUTO) 13 % (2-9); NEUTROPHILS % (AUTO) 73 % (42-75); PLATELET COUNT 87 x10^3/uL (130-400); RED BLOOD COUNT 2.68 x10^6/uL (4.38-5.82); RED CELL DISTRIBUTION WIDTH 17.7 % (9.4-14.8)
[2020-06-11 18:06] LABS: MD NO
[2020-06-11 18:14] LABS: ALBUMIN 3.4 g/dL (3.4-5.0); ANION GAP 11 mmol/L (5-15); CALCIUM 8.7 mg/dL (8.5-10.1); CHLORIDE 102 mmol/L (98-107)
[2020-06-11] MEDS ORDERED: DIPHENHYDRAMINE 25 MG CAPSULE PO ONE (18:30)
[2020-06-11] MEDS ORDERED: ALBUTEROL 0.5%, 20ML NPPB ONE (19:00)
[2020-06-11] MEDS ORDERED: DEXTROSE 50%, 50ML SYRINGE IVPush ONE (19:00)
[2020-06-11] MEDS ORDERED: SODIUM BICARB 8.4%, 50ML SYRINGE IVPush ONE (19:00)
[2020-06-11] MEDS ORDERED: INSULIN REGULAR 100 UNITS/ML, 3ML VIAL IVPush ONE (19:00)
[2020-06-11] MEDS ORDERED: CALCIUM CHLORIDE 10%, 10ML SYR IVPush ONE (19:00)
[2020-06-11] MEDS ORDERED: SODIUM BICARB 8.4%, 50ML SYRINGE ONE (19:05)
[2020-06-11] MEDS ORDERED: DEXTROSE 50%, 50ML SYRINGE ONE (19:05)
[2020-06-11] MEDS ORDERED: CALCIUM CHLORIDE 10%, 10ML SYR ONE (19:05)
[2020-06-11] MEDS ORDERED: ALBUTEROL SULFATE 2.5MG/0.5ML ONE (19:06)
[2020-06-11] MEDS ORDERED: INSULIN SINGLE DOSE, ER ONE (19:06)
--- NOTE | 2020-06-11 19:15 | NUR ---
IV PLACED. MEDICATIONS GIVEN PER ORDER. PT VERY AGGRESSIVE TOWARD STAFF AND YELLING THAT HE "NEEDS PUDDING" BECAUSE HIS MOUTH IS DRY.
[2020-06-11] MEDS ORDERED: ZOLPIDEM 5MG TABLET PO PRN (20:00)
[2020-06-11] MEDS ORDERED: METOCLOPRAMIDE 5 MG/ML, 2ML IVPush PRN (20:00)
[2020-06-11] MEDS ORDERED: PROMETHAZINE 25 MG/ML, 1ML IM PRN (20:00)
[2020-06-11] MEDS ORDERED: ONDANSETRON 2MG/ML, 2ML IVPush PRN (20:00)
[2020-06-11] MEDS ORDERED: ACETAMINOPHEN 325 MG TABLET PO PRN (20:00)
[2020-06-11] MEDS ORDERED: LABETALOL 5MG/ML, 20ML IVPush PRN (20:00)
--- NOTE | 2020-06-11 20:57 | NUR ---
REPORT GIVEN TO LISA KHAN.
[2020-06-11] MEDS ORDERED: FAMOTIDINE 20 MG TABLET PO SCH (21:00)
[2020-06-11 21:46] VITALS: BP 184/93
[2020-06-12] MEDS: morphine SULFATE 10 MG/ML, 1ML IVPush PRN ×2 (00:49→02:19)
[2020-06-12 02:48] VITALS: BP 156/88
[2020-06-12 05:23] LABS: BASOPHILS % (AUTO) 1 % (0-1); EOSINOPHILS % (AUTO) 2 % (1-7); LYMPHOCYTES % (AUTO) 9 % (22-44); MEAN CORPUSCULAR HEMOGLOBIN 29.2 pg (27.5-34.5); MEAN CORPUSCULAR HGB CONC 33.8 g/dL (33.2-36.2); MEAN PLATELET VOLUME 8.9 fL (7.4-10.4); MONOCYTES % (AUTO) 9 % (2-9); NEUTROPHILS % (AUTO) 79 % (42-75); PLATELET COUNT 91 x10^3/uL (130-400); RED BLOOD COUNT 2.48 x10^6/uL (4.38-5.82); RED CELL DISTRIBUTION WIDTH 17.4 % (9.4-14.8)
[2020-06-12 05:27] LABS: MD NO
[2020-06-12 05:31] LABS: CHLORIDE 101 mmol/L (98-107)
[2020-06-12 05:40] LABS: ALANINE AMINOTRANSFERASE 30 U/L (12-78); ALBUMIN 3.2 g/dL (3.4-5.0); ALKALINE PHOSPHATASE 164 U/L (45-117); ANION GAP 7 mmol/L (5-15); BILIRUBIN,TOTAL 0.4 mg/dL (0.2-1.0); CALCIUM 8.4 mg/dL (8.5-10.1); CREATININE 8.94 mg/dL (0.7-1.3); TOTAL PROTEIN 7.4 g/dL (6.4-8.2)
== END 2020-06-12 05:30 | disposition left against medical advice (07) | DRG 425 ==
LOC: ED 18:11 → EDIP 19:41 → 5SO 21:23
PROVIDERS: ADMIT Family Medicine; ATTEND Family Medicine
DX: E87.5 Hyperkalemia (principal); I13.2 Hypertensive heart and chronic kidney disease with heart failure and with stage 5 chronic kidney disease, or end stage renal disease; N18.6 End stage renal disease; E11.22 Type 2 diabetes mellitus with diabetic chronic kidney disease; I50.9 Heart failure, unspecified; E78.5 Hyperlipidemia, unspecified; J45.909 Unspecified asthma, uncomplicated; Z99.2 Dependence on renal dialysis; D64.9 Anemia, unspecified; Z91.19 Patient's noncompliance with other medical treatment and regimen; Z53.29 Procedure and treatment not carried out because of patient's decision for other reasons
CPT/HCPCS: 36415; 70450; 80048; 80053; 82040; 85025; 90935; 93005; 99285; G0378; J1815; Q0169; J2270; Q0163

== ENCOUNTER 2020-06-12 10:33 | Emergency (ER) | payer MEDICAID ==
[~2020-06-12] VITALS: Ht 190.5 cm; Wt 90.9 kg
[2020-06-12 10:58] VITALS: BP 166/109
[2020-06-12] MEDS ORDERED: SODIUM CHLORIDE FLUSH 10ML SYR IVF ONE (11:00)
[2020-06-12] MEDS ORDERED: PLEASE ENTER HEIGHT AND WEIGHT MC SCH (11:00)
[2020-06-12] MEDS ORDERED: NALOXONE 0.4 MG/ML, 1ML IVPush ONE (11:00)
--- NOTE | 2020-06-12 11:08 | NUR ---
Pt BIB EMS for sleeping in the buffet section of the [place]. Pt has no chief complaint and states "whatever" to yes or no questions, A&O x4, pt was reportedly in here yesterday. Pt nodded yes to the question of "did you do heroin". 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 Pt arrived with helmet and all belongings. Obtained vitals, asked for consent for IV start and was denied. Pt was asked to leave if not wanting to be treatd. Pt refused all care. Security called to escort pt out of department.
== END 2020-06-12 11:12 | disposition left against medical advice (07) ==
LOC: ED 11:09
DX: F11.129 Opioid abuse with intoxication, unspecified (principal); E11.22 Type 2 diabetes mellitus with diabetic chronic kidney disease; I13.11 Hypertensive heart and chronic kidney disease without heart failure, with stage 5 chronic kidney disease, or end stage renal disease; N18.6 End stage renal disease; J45.909 Unspecified asthma, uncomplicated; F17.210 Nicotine dependence, cigarettes, uncomplicated; E78.5 Hyperlipidemia, unspecified
CPT/HCPCS: 99283; 99406

== ENCOUNTER 2020-06-17 03:46 | Inpatient (IN) | payer MEDICAID ==
[~2020-06-17] VITALS: Ht 182.9 cm; Wt 83.9 kg
--- NOTE | 2020-06-17 04:07 | NUR ---
MARIA D VICTORIA PT STATES HAS HAD A PEREZ 09/23 THAT HE CAN'T TAKE ANYMORE. PT STATES "LEFT EAR PLUGGED THAT MAKES HIM FEEL LIKE HE IS DROWNING AND MAKES HIM WANT TO KILL HIMSELF" PT HAD A TBI 3 WEEKS AGO BUT STATES DOESN'T KNOW WHAT HAPPENED PT ON DIALYSIS 3 TIMES A WEEK WITH FISTULAS IN LEFT ARM
[2020-06-17] MEDS ORDERED: GABAPENTIN 300 MG CAPSULE PO ONE (05:30)
[2020-06-17 05:42] LABS: BASOPHILS % (AUTO) 0 % (0-1); EOSINOPHILS % (AUTO) 6 % (1-7); LYMPHOCYTES % (AUTO) 13 % (22-44); MEAN CORPUSCULAR HEMOGLOBIN 29.5 pg (27.5-34.5); MEAN CORPUSCULAR HGB CONC 32.7 g/dL (33.2-36.2); MEAN PLATELET VOLUME 8.6 fL (7.4-10.4); MONOCYTES % (AUTO) 13 % (2-9); NEUTROPHILS % (AUTO) 68 % (42-75); PLATELET COUNT 95 x10^3/uL (130-400); RED BLOOD COUNT 2.47 x10^6/uL (4.38-5.82); RED CELL DISTRIBUTION WIDTH 17.8 % (9.4-14.8)
[2020-06-17 05:48] LABS: CHLORIDE 104 mmol/L (98-107)
[2020-06-17] MEDS ORDERED: GABAPENTIN 300 MG CAPSULE ONE (05:48)
[2020-06-17 05:52] LABS: MD NO
[2020-06-17 06:01] LABS: ALANINE AMINOTRANSFERASE 27 U/L (12-78); ALKALINE PHOSPHATASE 160 U/L (45-117); ANION GAP 14 mmol/L (5-15); BILIRUBIN,TOTAL 0.5 mg/dL (0.2-1.0); CALCIUM 7.3 mg/dL (8.5-10.1); TOTAL PROTEIN 6.6 g/dL (6.4-8.2)
--- NOTE | 2020-06-17 06:50 | NUR ---
PT REPORT FROM LISA MILLER
--- NOTE | 2020-06-17 08:10 | NUR ---
REPORT TO LISA ADHIKARI
[2020-06-17 08:35] VITALS: BP 143/78
[2020-06-17 09:04] VITALS: BP 172/96
[2020-06-17] MEDS ORDERED: ENALAPRILAT 1.25 MG/ML, 2ML IVPush PRN (10:00)
[2020-06-17] MEDS: HEPARIN 5,000 UNITS/ML, 1ML SQ SCH ×2 (10:00→17:49)
[2020-06-17] MEDS ORDERED: DOCUSATE 100 MG CAPSULE PO PRN (10:00)
[2020-06-17] MEDS ORDERED: GUAIFENESIN/COD200MG-20MG/10ML LIQUID PO PRN (10:00)
[2020-06-17] MEDS ORDERED: ONDANSETRON 2MG/ML, 2ML IVPush PRN (10:00)
[2020-06-17] MEDS: CALCIUM ACETATE 667 MG CAPSULE PO SCH ×2 (12:00→17:48)
[2020-06-17 14:11] VITALS: BP 142/87
[2020-06-17 16:11] LABS: BASOPHILS % (AUTO) 1 % (0-1); EOSINOPHILS % (AUTO) 6 % (1-7); LYMPHOCYTES % (AUTO) 11 % (22-44); MEAN CORPUSCULAR HGB CONC 32.7 g/dL (33.2-36.2); MEAN PLATELET VOLUME 8.1 fL (7.4-10.4); MONOCYTES % (AUTO) 11 % (2-9); NEUTROPHILS % (AUTO) 71 % (42-75); PLATELET COUNT 93 x10^3/uL (130-400); RED BLOOD COUNT 2.61 x10^6/uL (4.38-5.82); RED CELL DISTRIBUTION WIDTH 17.8 % (9.4-14.8)
[2020-06-17 16:14] LABS: MD NO
[2020-06-17 16:17] LABS: ALBUMIN 2.9 g/dL (3.4-5.0); ANION GAP 11 mmol/L (5-15); CALCIUM 8.5 mg/dL (8.5-10.1); CHLORIDE 100 mmol/L (98-107)
[2020-06-17 18:55] VITALS: BP 163/81
[2020-06-17] MEDS: METHOCARBAMOL 500 MG TABLET PO PRN (20:28)
[2020-06-17] MEDS: TEMAZEPAM 15 MG CAPSULE PO PRN (20:28)
[2020-06-18 00:53] VITALS: BP 159/86
[2020-06-18] MEDS: HEPARIN 5,000 UNITS/ML, 1ML SQ SCH ×3 (02:36→17:23)
[2020-06-18 05:22] LABS: BASOPHILS % (AUTO) 0 % (0-1); EOSINOPHILS % (AUTO) 6 % (1-7); LYMPHOCYTES % (AUTO) 14 % (22-44); MEAN CORPUSCULAR HEMOGLOBIN 29.9 pg (27.5-34.5); MEAN CORPUSCULAR HGB CONC 33.6 g/dL (33.2-36.2); MEAN PLATELET VOLUME 8.7 fL (7.4-10.4); MONOCYTES % (AUTO) 11 % (2-9); NEUTROPHILS % (AUTO) 69 % (42-75); PLATELET COUNT 89 x10^3/uL (130-400); RED BLOOD COUNT 2.45 x10^6/uL (4.38-5.82); RED CELL DISTRIBUTION WIDTH 17.7 % (9.4-14.8)
[2020-06-18 05:28] LABS: MD NO
[2020-06-18 05:30] LABS: ANION GAP 9 mmol/L (5-15); CALCIUM 7.4 mg/dL (8.5-10.1); CHLORIDE 101 mmol/L (98-107)
[2020-06-18] MEDS: CALCIUM ACETATE 667 MG CAPSULE PO SCH ×3 (07:41→17:23)
[2020-06-18 09:45] VITALS: BP 147/85
[2020-06-18 15:50] VITALS: BP 166/83
[2020-06-18 20:11] VITALS: BP 150/82
[2020-06-18] MEDS: METHOCARBAMOL 500 MG TABLET PO PRN (21:31)
[2020-06-18] MEDS: TEMAZEPAM 15 MG CAPSULE PO PRN (21:32)
[2020-06-19 00:38] VITALS: BP 169/94
[2020-06-19] MEDS: HEPARIN 5,000 UNITS/ML, 1ML SQ SCH ×2 (01:29→08:47)
[2020-06-19] MEDS: METHOCARBAMOL 500 MG TABLET PO PRN (06:58)
[2020-06-19 07:36] VITALS: BP 180/100
[2020-06-19] MEDS: CALCIUM ACETATE 667 MG CAPSULE PO SCH ×2 (08:47→14:08)
[2020-06-19 14:23] VITALS: BP 161/85
== END 2020-06-19 16:05 | disposition left against medical advice (07) | DRG 425 ==
LOC: ED 06:03 → EDIP 06:40 → 4WST 08:31
PROVIDERS: ADMIT Internal Medicine; ATTEND Family Medicine
PROC: 5A1D70Z Performance of Urinary Filtration, Intermittent, Less than 6 Hours Per Day (ICD-10-PCS; principal; 2020-06-17)
DX: E87.5 Hyperkalemia (principal); I13.2 Hypertensive heart and chronic kidney disease with heart failure and with stage 5 chronic kidney disease, or end stage renal disease; D69.6 Thrombocytopenia, unspecified; I27.20 Pulmonary hypertension, unspecified; N18.6 End stage renal disease; N25.81 Secondary hyperparathyroidism of renal origin; D63.1 Anemia in chronic kidney disease; Z20.822 Contact with and (suspected) exposure to COVID-19; D72.819 Decreased white blood cell count, unspecified; E78.5 Hyperlipidemia, unspecified; F12.90 Cannabis use, unspecified, uncomplicated; F15.90 Other stimulant use, unspecified, uncomplicated; F17.200 Nicotine dependence, unspecified, uncomplicated; F31.9 Bipolar disorder, unspecified; Z53.29 Procedure and treatment not carried out because of patient's decision for other reasons; I50.32 Chronic diastolic (congestive) heart failure; J44.9 Chronic obstructive pulmonary disease, unspecified; Z82.49 Family history of ischemic heart disease and other diseases of the circulatory system; Z83.3 Family history of diabetes mellitus; Z87.820 Personal history of traumatic brain injury; Z91.19 Patient's noncompliance with other medical treatment and regimen; Z99.2 Dependence on renal dialysis
CPT/HCPCS: 36415; 80048; 80053; 80069; 83735; 84100; 85025; 90935; 93005; 99285; G0378; J1644; J2405; U0003

== ENCOUNTER 2020-06-21 09:23 | Emergency (ER) | payer MEDICAID ==
[~2020-06-21] VITALS: Ht 182.9 cm; Wt 82.7 kg
--- NOTE | 2020-06-21 09:41 | NUR ---
PT BIB FRIEND VIA POV. PER PT HE HAS KIDNEY PAIN AND DIZZINESS, STATES HE NEEDS DIALYSIS. PER PT HIS LAST DIALYSIS WAS ON TUESDAY. PT STATES HE MISSED HIS DIALYSIS YESTERDAY D/T "JUST SLEEPING". PT HAS LEFT ARM FISTULA. PT RESTING IN [facility], MONITORING IN PLACE, NADN AT THIS TIME, PER PT NO NEEDS AT THIS TIME, WCTM.
[2020-06-21] MEDS ORDERED: SODIUM CHLORIDE FLUSH 10ML SYR IVF ONE (10:00)
--- NOTE | 2020-06-21 10:01 | NUR ---
REPORT GIVEN TO LISA STOREY.
--- NOTE | 2020-06-21 10:20 | NUR ---
Pt provided with blankets, on monitor, labs drawn. IV started. Call light in reach, awaiting lab results.
[2020-06-21 10:21] VITALS: BP 114/74
[2020-06-21 10:34] LABS: BASOPHILS % (AUTO) 1 % (0-1); EOSINOPHILS % (AUTO) 5 % (1-7); LYMPHOCYTES % (AUTO) 14 % (22-44); MEAN CORPUSCULAR HEMOGLOBIN 29.6 pg (27.5-34.5); MEAN CORPUSCULAR HGB CONC 32.6 g/dL (33.2-36.2); MEAN PLATELET VOLUME 8.3 fL (7.4-10.4); MONOCYTES % (AUTO) 9 % (2-9); NEUTROPHILS % (AUTO) 72 % (42-75); PLATELET COUNT 86 x10^3/uL (130-400); RED BLOOD COUNT 2.85 x10^6/uL (4.38-5.82); RED CELL DISTRIBUTION WIDTH 19.5 % (9.4-14.8)
[2020-06-21 10:39] LABS: ALANINE AMINOTRANSFERASE 28 U/L (12-78); ALBUMIN 3.1 g/dL (3.4-5.0); ANION GAP 8 mmol/L (5-15); CALCIUM 7.7 mg/dL (8.5-10.1); CHLORIDE 105 mmol/L (98-107)
[2020-06-21 10:42] LABS: ALKALINE PHOSPHATASE 151 U/L (45-117); BILIRUBIN,TOTAL 0.5 mg/dL (0.2-1.0); TOTAL PROTEIN 7.3 g/dL (6.4-8.2)
[2020-06-21 10:58] LABS: MD MORPH REVIEW ONLY
[2020-06-21 10:59] LABS: ANISOCYTOSIS 1+; OVALOCYTES 1+; TEAR DROPS 1+
[2020-06-21 11:00] LABS: <PLATELET ESTIMATE> DECREASED; <PLT MORPHOLOGY> NORMAL PLT MORPH
== END 2020-06-21 11:39 | disposition home or self-care (01) ==
LOC: ED 09:58
DX: N18.6 End stage renal disease (principal); R53.83 Other fatigue; E78.5 Hyperlipidemia, unspecified; R10.9 Unspecified abdominal pain; Z99.2 Dependence on renal dialysis; Z87.820 Personal history of traumatic brain injury
CPT/HCPCS: 36415; 80053; 83735; 84100; 85025; 93005; 99284

== ENCOUNTER 2020-06-26 12:18 | Inpatient (IN) | payer MEDICAID ==
[~2020-06-26] VITALS: Ht 182.9 cm; Wt 88.5 kg
--- NOTE | 2020-06-26 12:47 | NUR ---
BREAK RN: PT C/O BLE EDEMA. ASSESSMENT SHOWS 3+ PITTING EDEMA. PT CONNECTED TO MONITORING. CALL LIGHT IN REACH. ERPA AT BEDSIDE FOR ASSESSMETN.
[2020-06-26 13:07] LABS: BASOPHILS % (AUTO) 1 % (0-1); EOSINOPHILS % (AUTO) 2 % (1-7); LYMPHOCYTES % (AUTO) 6 % (22-44); MEAN CORPUSCULAR HEMOGLOBIN 29.8 pg (27.5-34.5); MEAN CORPUSCULAR HGB CONC 32.9 g/dL (33.2-36.2); MEAN PLATELET VOLUME 8.1 fL (7.4-10.4); MONOCYTES % (AUTO) 9 % (2-9); NEUTROPHILS % (AUTO) 83 % (42-75); PLATELET COUNT 90 x10^3/uL (130-400); RED BLOOD COUNT 2.51 x10^6/uL (4.38-5.82)
[2020-06-26 13:14] LABS: MD NO
[2020-06-26 13:15] LABS: ALBUMIN 3.3 g/dL (3.4-5.0); ANION GAP 17 mmol/L (5-15); CALCIUM 6.8 mg/dL (8.5-10.1); CHLORIDE 104 mmol/L (98-107)
--- NOTE | 2020-06-26 13:31 | NUR ---
TASK RN: RECEIVED CRITICAL VALUE: BUN 126. ERP AND PRIMARY RN NOTIFIED.
--- NOTE | 2020-06-26 14:19 | NUR ---
PT RESTLESS LAYING ON GURNEY. NADN/VSS. CALL LIGHT WITHIN REACH. KEEPS REMOVING MONITORS. PT NEEDS FREQUENT REDIRECTION.
--- NOTE | 2020-06-26 14:51 | NUR ---
PT REFUSED MEDICATION FOR THIS RN. PT STATES "I DONT WANT NOTHING, I JUST WANT YOU TO ADMIT ME AND TAKE CARE OF ME." ERPA & ERP AWARE. ERP TALKED TO PT ABOUT REFUSING MEDICATION AND DIALYSIS AND LEAVING AMA. PT AGREED TO DIALYSIS AT THIS TIME.
[2020-06-26] MEDS ORDERED: DARBEPOETIN 100 MCG/ML SQ ONE (15:00)
[2020-06-26] MEDS ORDERED: CALCITRIOL 0.5 MCG CAPSULE PO ONE (15:00)
--- NOTE | 2020-06-26 15:32 | NUR ---
PER CHARGE NURSE, PT TO BE MOVED TO ROOM WITH DIALYSIS DRAIN. PT REFUSED TO PLACE MASK ON FOR TRANSPORTATION TO ROOM 1. SECURITY CALLED FOR ASSISTANCE. PT COMPLIANT THEN TRANSFERRED TO ROOM 1. REPORT GIVEN TO LISA JIMENES.
--- NOTE | 2020-06-26 15:42 | NUR ---
REPORT RECEIVED FROM KRISTIAN GONZALEZ. PT TRANSFERRED TO ROOM 1. PER MYLES POLANCO, NEPHROLOGY TO NOTIFIY DIALYSIS TEAM. PT CONNECTED TO MONITORING, PT REFUSED BP CUFF. CALL LIGHT IN REACH.
--- NOTE | 2020-06-26 16:00 | NUR ---
PT HAS REMOVED ALL MONITORINGS AND REFUSED TO PLACE BACK ON.
--- NOTE | 2020-06-26 16:49 | NUR ---
PT RESTLESSLY LAYING ON STUART. JANETH. RN PALLIATIVE CARE AWARE OF DIALYSIS ORDER.
--- NOTE | 2020-06-26 17:24 | NUR ---
DIALYSIS AT BEDSIDE.
[2020-06-26] MEDS ORDERED: ZIPRASIDONE 20 MG INJ IM ONE ×4 (17:29→18:30)
--- NOTE | 2020-06-26 17:34 | NUR ---
PT UNABLE TO BE REASONED WITH. PT IS NOT LISTENING TO POC. PAINT TESTER KNOWS THIS PT WELL AND PT IS NOT RESPONDING TO PAINT TESTER PER USUSAL. PT HX METH USE.
--- NOTE | 2020-06-26 17:35 | NUR ---
LEAF TINNER STATES PT IS TOO ERRADICK AND UNABLE TO LAY STILL FOR DIALYSIS. ERMD NOTIFIED. N/O FOR JOHNNY ORDERED.
--- NOTE | 2020-06-26 17:53 | NUR ---
PT CONTINUES TO BE RESTLESS AND UNCOOPERATIVE. PT UNABLE TO HAVE STRAIGHT THOUGHTS, PT CONTINUES TO ASK HOW TO TURN HIS BRAIN OFF. MYLES POLANCO AT BEDSIDE TO EXPLAIN TO PT AND 10MG GEODON ADMIN AT 1751 IN LEFT ARM.
--- NOTE | 2020-06-26 18:06 | NUR ---
PT SITTING EDGE OF GURSIVI. PT PROVIDED ICE CHIPS AND PT ADJUSTED SELF TO SIT BACK ON GURNEY. PT LAYING ON GURNEY AND SLEEPING. RESP EVEN AND UNLABORED.
--- NOTE | 2020-06-26 18:19 | NUR ---
PT RESTING ON GURNEY. RESP EVEN AND UNLABORED. PT NOT LAYING LEFT ARM FLAT INSTRUCTED FOR DIALYSIS. PT GIVEN SECOND DOSE GEODON 10MG IM PER JASMYNE POLANCO INSTRUCTIONS.
--- NOTE | 2020-06-26 18:35 | NUR ---
THIS RN AND TEACHERS AIDE AT BEDSIDE TO ATTEMPT TO ATTACH PT TO DIALYSIS MACHINE. PT JERKED ARM AWAY AFTER TEACHERS AIDE ATTEMPTED TO PLACED CATHETER, SMALL AMOUNT OF BLOOD AND CONTROLLED QUICKLY. MYLES HAHN UPDATED. PT TO BE ADMITTED FOR DIALYSIS.
--- NOTE | 2020-06-26 18:40 | NUR ---
ATTEMPTED TO PLACE MONITORING EQUIPMENT BACK ONTO PT, PT REMOVED ALL MONITORING. PT NOT COMBATIVE, BUT NOT COOPERATIVE.
--- NOTE | 2020-06-26 18:50 | NUR ---
REPORT GIVEN TO HUMAIRA GONZALEZ.
--- NOTE | 2020-06-26 18:55 | NUR ---
PT REFUSED TO STAY STILL FOR MAILING MACHINE OPERATOR. MAILING MACHINE OPERATOR SAID HE WILL TRY AGIAN WHEN PT IS MORE STILL. PROVIDER AWARE
--- NOTE | 2020-06-26 19:20 | NUR ---
PT REFUSED IV. P
[2020-06-26] MEDS ORDERED: POLYETHYLENE GLYCOL 17 GM PACKET PO PRN (19:30)
[2020-06-26] MEDS ORDERED: BISACODYL 10 MG SUPP PR PRN (19:30)
[2020-06-26] MEDS ORDERED: FERROUS SULFATE 325 MG TABLET PO SCH (19:30)
[2020-06-26] MEDS ORDERED: ONDANSETRON ODT 4 MG PO PRN (19:30)
--- NOTE | 2020-06-26 19:51 | NUR ---
REPORT CALLED TO STEFANY GONZALEZ. RN AWARE PT REFUSED IV
[2020-06-26 20:14] VITALS: BP 177/94
[2020-06-26] MEDS: ATORVASTATIN 40 MG TABLET PO SCH (21:00)
[2020-06-26] MEDS: SODIUM CHLORIDE FLUSH 10ML SYR IVF SCH (21:00)
[2020-06-26] MEDS: CARVEDILOL 25 MG TABLET PO SCH (21:00)
[2020-06-26] MEDS: MIRTAZAPINE 30 MG TAB.RAPDIS PO SCH (21:00)
[2020-06-27 01:21] VITALS: BP 185/89
[2020-06-27 05:07] VITALS: BP 178/92
[2020-06-27] MEDS ORDERED: OXYcodone IR 5MG TABLET PO ONE (05:30)
[2020-06-27 05:57] LABS: BASOPHILS % (AUTO) 1 % (0-1); EOSINOPHILS % (AUTO) 2 % (1-7); LYMPHOCYTES % (AUTO) 7 % (22-44); MEAN CORPUSCULAR HEMOGLOBIN 30.1 pg (27.5-34.5); MEAN CORPUSCULAR HGB CONC 33.3 g/dL (33.2-36.2); MEAN PLATELET VOLUME 8.6 fL (7.4-10.4); MONOCYTES % (AUTO) 8 % (2-9); NEUTROPHILS % (AUTO) 82 % (42-75); PLATELET COUNT 93 x10^3/uL (130-400); RED BLOOD COUNT 2.59 x10^6/uL (4.38-5.82); RED CELL DISTRIBUTION WIDTH 18.2 % (9.4-14.8)
[2020-06-27 05:59] LABS: MD NO
[2020-06-27 06:09] LABS: ANION GAP 18 mmol/L (5-15); CHLORIDE 102 mmol/L (98-107)
[2020-06-27 07:55] VITALS: BP 165/90
[2020-06-27] MEDS: SODIUM CHLORIDE FLUSH 10ML SYR IVF SCH ×2 (08:06→22:05)
[2020-06-27] MEDS: CARVEDILOL 25 MG TABLET PO SCH ×2 (08:14→22:04)
[2020-06-27] MEDS: ISOSORBIDE MONONITRATE ER 30 MG TABLET PO SCH (08:14)
[2020-06-27] MEDS: AMLODIPINE 10 MG TAB PO SCH (08:15)
[2020-06-27] MEDS: SENNA/DOCUSATE TABLET PO SCH (08:15)
[2020-06-27] MEDS: ASPIRIN 81 MG TABLET EC PO SCH (08:15)
[2020-06-27] MEDS ORDERED: ERGOCALCIFEROL 50,000 UNIT CAPSULE PO SCH (09:00)
[2020-06-27 14:15] VITALS: BP 150/84
[2020-06-27] MEDS: ATORVASTATIN 40 MG TABLET PO SCH (22:04)
[2020-06-27] MEDS: MIRTAZAPINE 30 MG TAB.RAPDIS PO SCH (22:04)
[2020-06-28 06:38] VITALS: BP 152/83
[2020-06-28] MEDS: SENNA/DOCUSATE TABLET PO SCH (08:06)
[2020-06-28] MEDS: SODIUM CHLORIDE FLUSH 10ML SYR IVF SCH (08:06)
[2020-06-28] MEDS: ISOSORBIDE MONONITRATE ER 30 MG TABLET PO SCH (08:06)
[2020-06-28] MEDS: ASPIRIN 81 MG TABLET EC PO SCH (08:06)
[2020-06-28] MEDS: CARVEDILOL 25 MG TABLET PO SCH (08:06)
[2020-06-28] MEDS: AMLODIPINE 10 MG TAB PO SCH (08:06)
[2020-06-28 08:52] LABS: BASOPHILS % (AUTO) 1 % (0-1); EOSINOPHILS % (AUTO) 2 % (1-7); LYMPHOCYTES % (AUTO) 11 % (22-44); MEAN CORPUSCULAR HEMOGLOBIN 29.6 pg (27.5-34.5); MEAN CORPUSCULAR HGB CONC 32.7 g/dL (33.2-36.2); MEAN PLATELET VOLUME 8.4 fL (7.4-10.4); MONOCYTES % (AUTO) 12 % (2-9); NEUTROPHILS % (AUTO) 75 % (42-75); PLATELET COUNT 111 x10^3/uL (130-400); RED BLOOD COUNT 2.59 x10^6/uL (4.38-5.82)
[2020-06-28 09:00] LABS: MD NO
[2020-06-28 09:03] LABS: ALANINE AMINOTRANSFERASE 26 U/L (12-78); ALBUMIN 2.8 g/dL (3.4-5.0); ANION GAP 11 mmol/L (5-15); CALCIUM 7.5 mg/dL (8.5-10.1); CHLORIDE 103 mmol/L (98-107)
[2020-06-28 09:30] LABS: ALKALINE PHOSPHATASE 155 U/L (45-117); BILIRUBIN,TOTAL 0.5 mg/dL (0.2-1.0); TOTAL PROTEIN 6.3 g/dL (6.4-8.2)
[2020-06-28 14:00] VITALS: BP 158/84
== END 2020-06-28 19:30 | disposition home or self-care (01) | DRG 425 ==
LOC: ED 13:23 → EDIP 18:34 → 4WST 20:00
PROVIDERS: ADMIT Internal Medicine; ATTEND Internal Medicine
PROC: 5A1D70Z Performance of Urinary Filtration, Intermittent, Less than 6 Hours Per Day (ICD-10-PCS; principal; 2020-06-27)
DX: E87.5 Hyperkalemia (principal); G92 Toxic encephalopathy; I13.2 Hypertensive heart and chronic kidney disease with heart failure and with stage 5 chronic kidney disease, or end stage renal disease; E11.22 Type 2 diabetes mellitus with diabetic chronic kidney disease; I27.20 Pulmonary hypertension, unspecified; D69.6 Thrombocytopenia, unspecified; N18.6 End stage renal disease; B18.2 Chronic viral hepatitis C; E78.5 Hyperlipidemia, unspecified; F12.90 Cannabis use, unspecified, uncomplicated; F31.9 Bipolar disorder, unspecified; F43.20 Adjustment disorder, unspecified; I50.32 Chronic diastolic (congestive) heart failure; J44.9 Chronic obstructive pulmonary disease, unspecified; R26.89 Other abnormalities of gait and mobility; N25.81 Secondary hyperparathyroidism of renal origin; Z59.0 Homelessness; Z72.0 Tobacco use; Z79.899 Other long term (current) drug therapy; Z83.3 Family history of diabetes mellitus; Z91.19 Patient's noncompliance with other medical treatment and regimen; Z99.2 Dependence on renal dialysis; Z88.1 Allergy status to other antibiotic agents
CPT/HCPCS: 36415; 70450; 71045; 80048; 80053; 82040; 82140; 82550; 82607; 84443; 85025; 93005; 96372; 99285; G0378; J3486; Q0177

== ENCOUNTER 2020-07-12 05:52 | Emergency (ER) | payer MEDICAID ==
[~2020-07-12] VITALS: Ht 182.9 cm; Wt 85.0 kg
--- NOTE | 2020-07-12 06:00 | NUR ---
ASSESSMENT MADE. SEEN BY ERP. ORDERS MADE. EKG AND X RAY DONE.
--- NOTE | 2020-07-12 06:04 | NUR ---
CYBER INTELLIGENCE ANALYST AT BEDSIDE FOR BLOOD DRAW.
--- NOTE | 2020-07-12 06:21 | NUR ---
ICE CHIPS PROVIDED.
[2020-07-12 06:35] LABS: TROPONIN I 0.062 ng/mL (0.000-0.045)
--- NOTE | 2020-07-12 07:06 | NUR ---
REPORT FROM LISA CASTAÑEDA. PT LAYING BACK IN BED, RESTING WITH EYES CLOSED. NAD NOTED AT THIS TIME. TECH IN FOR EKG. SIDE RAILS UP, CALL LIGHT IN REACH.
--- NOTE | 2020-07-12 08:07 | NUR ---
LAB AT BEDSIDE FOR TROP REPEAT.
[2020-07-12 08:38] LABS: TROPONIN I 0.064 ng/mL (0.000-0.045)
[2020-07-12 09:23] VITALS: BP 157/90
== END 2020-07-12 09:25 | disposition home or self-care (01) ==
LOC: ED 06:55
DX: R07.89 Other chest pain (principal); I48.91 Unspecified atrial fibrillation; R77.8 Other specified abnormalities of plasma proteins; N18.6 End stage renal disease; Z99.2 Dependence on renal dialysis; F17.200 Nicotine dependence, unspecified, uncomplicated
CPT/HCPCS: 36415; 71045; 84484; 93005; 99285

== ENCOUNTER 2020-07-17 22:46 | Emergency (ER) | payer MEDICAID ==
[~2020-07-17] VITALS: Ht 182.9 cm; Wt 88.0 kg
[2020-07-17 23:20] VITALS: BP 147/107
--- NOTE | 2020-07-18 00:17 | NUR ---
patient called from triage to perform dischage. patient no where to be found x 3 call [phone], [phone], [phone]. discharged from system as eloped (seen by [facility] er-pa)
== END 2020-07-18 00:19 | disposition left against medical advice (07) ==
LOC: ED 07-18 00:10
DX: F15.10 Other stimulant abuse, uncomplicated (principal); F17.210 Nicotine dependence, cigarettes, uncomplicated; Z72.9 Problem related to lifestyle, unspecified; J45.909 Unspecified asthma, uncomplicated; E78.5 Hyperlipidemia, unspecified; I13.2 Hypertensive heart and chronic kidney disease with heart failure and with stage 5 chronic kidney disease, or end stage renal disease; E11.22 Type 2 diabetes mellitus with diabetic chronic kidney disease; N18.6 End stage renal disease; I50.9 Heart failure, unspecified; Z99.2 Dependence on renal dialysis
CPT/HCPCS: 99281; 99406

== ENCOUNTER 2020-09-23 01:29 | Emergency (ER) | payer MEDICAID ==
[~2020-09-23] VITALS: Ht 182.9 cm; Wt 86.0 kg
--- NOTE | 2020-09-23 01:46 | NUR ---
pt bib [facility] to ed for fluid on his lungs. pt states he gets the fluid drained off every week and last had it done last week. pt had dialysis yesterday and the day before and was recently d/c from the hospital. pt in gown, resting on gurney and placed on continuous monitoring, ekg done at bedside.
[2020-09-23] MEDS ORDERED: ALBUTEROL/IPRATROPIUM 2.5MG/0.5MG, 3 ML ONE (01:56)
[2020-09-23] MEDS ORDERED: ALBUTEROL/IPRATROPIUM 2.5MG/0.5MG, 3 ML NEB ONE (02:00)
--- NOTE | 2020-09-23 02:36 | NUR ---
pt given breathing treatment and he states it helped a little bit. pt given warm blanket and some ice chips, resting on gurney, denies needs at this time.
[2020-09-23 02:37] LABS: BASOPHILS % (AUTO) 1 % (0-1); EOSINOPHILS % (AUTO) 2 % (1-7); LYMPHOCYTES % (AUTO) 19 % (22-44); MEAN CORPUSCULAR HEMOGLOBIN 26.9 pg (27.5-34.5); MEAN CORPUSCULAR HGB CONC 32.8 g/dL (33.2-36.2); MEAN PLATELET VOLUME 8.6 fL (7.4-10.4); MONOCYTES % (AUTO) 13 % (2-9); NEUTROPHILS % (AUTO) 65 % (42-75); PLATELET COUNT 92 x10^3/uL (130-400); RED CELL DISTRIBUTION WIDTH 17.1 % (9.4-14.8)
[2020-09-23 02:44] LABS: ANION GAP 9 mmol/L (5-15); CALCIUM 8.9 mg/dL (8.5-10.1); CHLORIDE 103 mmol/L (98-107); CREATININE 8.83 mg/dL (0.7-1.3)
[2020-09-23 02:57] LABS: ANISOCYTOSIS 1+; ECHINOCYTES 1+; OVALOCYTES 1+
[2020-09-23 02:58] LABS: <PLATELET ESTIMATE> DECREASED; <PLT MORPHOLOGY> NORMAL PLT MORPH
--- NOTE | 2020-09-23 04:00 | NUR ---
pt resting on camryn, denies needs at his time.
--- NOTE | 2020-09-23 07:02 | NUR ---
Gave report to LISA Castillo
[2020-09-23] MEDS ORDERED: LIDOCAINE 1%, 10ML ONE (07:50)
--- NOTE | 2020-09-23 07:54 | NUR ---
Awoke pt from sleep for VS. VSS.
--- NOTE | 2020-09-23 08:15 | NUR ---
Pt to thorecentisis.
--- NOTE | 2020-09-23 08:53 | NUR ---
Pt back from thorecentisis. Reports 3L drained.
--- NOTE | 2020-09-23 09:14 | NUR ---
Report to LISA Rivera, to assume full care.
[2020-09-23] MEDS ORDERED: ACETAMINOPHEN 325 MG TABLET ONE (09:37)
[2020-09-23] MEDS ORDERED: LIDOCAINE-MPF 1%, 5ML ONE (09:37)
--- NOTE | 2020-09-23 10:10 | NUR ---
PT. IS RESTING WITHOUT CONCERNS.
--- NOTE | 2020-09-23 10:16 | NUR ---
PT. REPORTS HAVING DIALYSIS DONE AT [facility] YESTERDAY. PT.'S VITALS ARE STABLE.
[2020-09-23 11:49] VITALS: BP 132/80
--- NOTE | 2020-09-23 11:49 | NUR ---
PT. WAS GIVEN DISCHARGE INSTRUCTIONS WITH UNDERSTANDING VERBALIZED ALONG WITH WILLINGNESS TO COMPLY. PT. IS READY TO DEPART.
== END 2020-09-23 11:52 | disposition home or self-care (01) ==
LOC: ED 02:04
DX: J90 Pleural effusion, not elsewhere classified (principal); R06.00 Dyspnea, unspecified; Z91.19 Patient's noncompliance with other medical treatment and regimen; R00.0 Tachycardia, unspecified; I48.91 Unspecified atrial fibrillation; J45.909 Unspecified asthma, uncomplicated; I13.2 Hypertensive heart and chronic kidney disease with heart failure and with stage 5 chronic kidney disease, or end stage renal disease; E11.22 Type 2 diabetes mellitus with diabetic chronic kidney disease; I50.9 Heart failure, unspecified; N18.6 End stage renal disease; Z99.2 Dependence on renal dialysis; F17.200 Nicotine dependence, unspecified, uncomplicated; Z88.5 Allergy status to narcotic agent; Z88.6 Allergy status to analgesic agent
CPT/HCPCS: 32555; 36415; 71045; 80048; 85025; 93005; 99285; J3490

== ENCOUNTER 2020-11-05 02:46 | Emergency (ER) | payer MEDICAID ==
[~2020-11-05] VITALS: Ht 185.4 cm; Wt 93.0 kg
[2020-11-05 02:47] VITALS: BP 164/113
[2020-11-05] MEDS ORDERED: SODIUM CHLORIDE FLUSH 10ML SYR IVF ONE (03:00)
--- NOTE | 2020-11-05 03:08 | NUR ---
report to Kimberlny GONZALEZ, transfer of care at this time.
--- NOTE | 2020-11-05 03:15 | NUR ---
Assumed care of pt. Pt right arm tender to touch. Left arm with fistulas. Refuses EJ IV. Pt with history of traumatic brain injury. C/O SOB. States he has had it since his craniotomy 4 months ago. Reports he was diagnosed with a blood clot to his right arm.
[2020-11-05] MEDS ORDERED: MORPHINE SULFATE 4 MG/ML, 1ML ONE ×2 (03:46→04:25)
[2020-11-05] MEDS: MORPHINE SULFATE 4 MG/ML, 1ML IVPush PRN ×2 (03:49→04:35)
--- NOTE | 2020-11-05 03:52 | NUR ---
ultrasound at bedside.
[2020-11-05 03:55] LABS: BASOPHILS % (AUTO) 1 % (0-1); EOSINOPHILS % (AUTO) 3 % (1-7); LYMPHOCYTES % (AUTO) 13 % (22-44); MEAN CORPUSCULAR HEMOGLOBIN 25.4 pg (27.5-34.5); MEAN CORPUSCULAR HGB CONC 32.6 g/dL (33.2-36.2); MEAN PLATELET VOLUME 7.4 fL (7.4-10.4); MONOCYTES % (AUTO) 14 % (2-9); NEUTROPHILS % (AUTO) 70 % (42-75); PLATELET COUNT 188 x10^3/uL (130-400); RED BLOOD COUNT 3.34 x10^6/uL (4.38-5.82)
[2020-11-05 04:03] LABS: ALANINE AMINOTRANSFERASE 9 U/L (12-78); ALBUMIN 2.8 g/dL (3.4-5.0); ANION GAP 15 mmol/L (5-15); CALCIUM 7.9 mg/dL (8.5-10.1); CHLORIDE 94 mmol/L (98-107)
[2020-11-05 04:04] LABS: INTERNATIONAL NORMALIZED RATIO 1.24 (0.93-1.1); PROTHROMBIN TIME 13.1 Seconds (9.6-11.5)
[2020-11-05 04:07] LABS: ALKALINE PHOSPHATASE 190 U/L (45-117); BILIRUBIN,TOTAL 0.5 mg/dL (0.2-1.0); TOTAL PROTEIN 7.1 g/dL (6.4-8.2); TROPONIN I < 0.015 ng/mL (0.000-0.045)
[2020-11-05] MEDS ORDERED: LORazepam 2 MG/ML, 1ML ONE (04:07)
--- NOTE | 2020-11-05 04:22 | NUR ---
PT REFUSED CT.
[2020-11-05] MEDS ORDERED: LORazepam 2 MG/ML, 1ML IVPush ONE (04:30)
== END 2020-11-05 05:25 | disposition home or self-care (01) ==
LOC: ED 05:08
DX: M25.521 Pain in right elbow (principal); M79.631 Pain in right forearm; R06.00 Dyspnea, unspecified; J90 Pleural effusion, not elsewhere classified; Z72.9 Problem related to lifestyle, unspecified; E11.22 Type 2 diabetes mellitus with diabetic chronic kidney disease; I13.2 Hypertensive heart and chronic kidney disease with heart failure and with stage 5 chronic kidney disease, or end stage renal disease; I50.9 Heart failure, unspecified; N18.6 End stage renal disease; Z99.2 Dependence on renal dialysis; J45.909 Unspecified asthma, uncomplicated; E78.5 Hyperlipidemia, unspecified; F17.200 Nicotine dependence, unspecified, uncomplicated
CPT/HCPCS: 36415; 71045; 80053; 83880; 84484; 85025; 85610; 85730; 93005; 93971; 96374; 96375; 96376; 99285; J2060; J2270

== ENCOUNTER → 2020-11-13 | Emergency (ER) | payer MEDICAID ==
[~2020-11-13] VITALS: Ht 182.9 cm; Wt 89.2 kg
[2020-11-13 21:42] VITALS: BP 112/79
== END ==
LOC: ED 21:38
DX: I13.2 Hypertensive heart and chronic kidney disease with heart failure and with stage 5 chronic kidney disease, or end stage renal disease (principal); N18.6 End stage renal disease; I50.32 Chronic diastolic (congestive) heart failure; R06.02 Shortness of breath; Z99.2 Dependence on renal dialysis; E78.5 Hyperlipidemia, unspecified; J44.9 Chronic obstructive pulmonary disease, unspecified; N25.81 Secondary hyperparathyroidism of renal origin; Z87.891 Personal history of nicotine dependence